=== PATIENT | female | born 1960 | race Caucasian/White ===

== ENCOUNTER 2020-12-26 05:46 | Observation (INO) | payer BC ==
[2020-12-26] MEDS ORDERED: ASPIRIN 81 MG PO STA (06:11)
[2020-12-26] MEDS ORDERED: ONDANSETRON 4 MG/2 ML VIAL IVP STA (06:12)
[2020-12-26] MEDS ORDERED: SODIUM CHLORIDE 0.9% 1,000 ML IV ONE (06:12)
[2020-12-26] MEDS ORDERED: PANTOPRAZOLE 40 MG/10 ML VIAL IVP STA (06:12)
--- NOTE | 2020-12-26 06:15 | ED ---
Chest Pain HPI - General Chief Complaint: Chest Pain Stated Complaint: Chest pain, vomiting Time Seen by Provider: 12/26/20 05:56 Source: patient, family, RN notes reviewed Mode of arrival: ambulatory Limitations: no limitations - History of Present Illness Initial Comments: 60-year-old female presents emergency Department chief complaint of chest pain, nausea, vomiting. Patient states that symptoms started a couple days ago while she was camping and progress and worsen. She states she had some chills, severe nausea states that she's been vomiting and did have some mild diarrhea. Patient states that she did develop some chest discomfort and which the patient has a history of [place] with stent placement. Patient states symptoms progressively worse [place]. She states she does feel weak. No sick contacts. - Related Data Home Medications Medication Instructions Recorded Confirmed Aspirin 325 mg PO DAILY 07/25/14 07/25/14 Atorvastatin [Lipitor] 20 mg PO DAILY 07/25/14 07/25/14 Citalopram Hydrobromide [CeleXA] 20 mg PO DAILY 07/25/14 07/25/14 Metoprolol Tartrate 12.5 mg PO BID 07/25/14 07/25/14 Prasugrel [Effient] 10 mg PO DAILY 07/25/14 07/25/14 Previous Rx's Medication Instructions Recorded Tamsulosin HCl [Flomax] 0.4 mg PO DAILY #10 cap 07/25/14 oxyCODONE HCL [Oxycodone HCl] 5 mg PO Q6HR PRN #15 tablet 07/25/14 Allergies Allergy/AdvReac Type Severity Reaction Status Date / Time No Known Allergies Allergy Verified 12/26/20 05:54 Review of Systems ROS Statement: Those systems with pertinent positive or pertinent negative responses have been documented in the HPI. ROS Other: All systems not noted in ROS Statement are negative. EKG Findings - EKG Comments: EKG Findings:: EKG performed at 6:01 normal sinus rhythm rate of 67 ME 1:30 QRS 84 QT/QTc 440/496 prolonged QT, nonspecific ST changes noted Past Medical History Past Medical History: Coronary Artery Disease (CAD), Myocardial Infarction ([place]) Additional Past Medical History / Comment(s): KIDNEY STONES History of Any Multi-Drug Resistant Organisms: None Reported Past Surgical History: Heart Catheterization With Stent Additional Past Surgical History / Comment(s): lithotripsy Past Psychological History: Anxiety Smoking Status: Current every day smoker Past Alcohol Use History: None Reported Past Drug Use History: None Reported General Exam Limitations: no limitations General appearance: alert, in no apparent distress Head exam: Present: atraumatic, normocephalic, normal inspection Eye exam: Present: normal appearance, PERRL, EOMI. Absent: scleral icterus, conjunctival injection, periorbital swelling ENT exam: Present: normal exam, normal oropharynx, mucous membranes moist Neck exam: Present: normal inspection, full ROM. Absent: tenderness, meningismus, lymphadenopathy Respiratory exam: Present: normal lung sounds bilaterally. Absent: respiratory distress, wheezes, rales, rhonchi, stridor Cardiovascular Exam: Present: regular rate, normal rhythm, normal heart sounds. Absent: systolic murmur, diastolic murmur, rubs, gallop, clicks GI/Abdominal exam: Present: soft, tenderness (Mild epigastric), normal bowel sounds. Absent: distended, guarding, rebound, rigid Neurological exam: Present: alert Skin exam: Present: warm, dry, intact, normal color. Absent: rash Course Vital Signs 12/26/20 05:49 Temperature 98.5 F Pulse Rate 97 Respiratory 24 Rate Blood Pressure 176/85 O2 Sat by Pulse 99 Oximetry Chest Pain MDM - MDM 60-year-old presented for chest pain nausea vomiting just not feeling well troponin is mildly elevated at 0.062, EKG does not show any acute changes patient will be made for cardiac rule out, symptomatic treatment nausea vomiting fluid hydration. Disposition Clinical Impression: Chest pain, Nausea & vomiting, Dehydration Disposition: ADMITTED IP TO THIS HOSP Condition: Fair Referrals: William Alberts DO [Primary Care Provider] - 1-2 days
[2020-12-26 06:21] LABS: Basophils # (A) 0.1 k/uL (0-0.2); Basophils % (A) 0 %; Eosinophils # (A) 0.2 k/uL (0-0.7); Eosinophils % (A) 1 %; HCT 46.4 % (34.0-46.0); Lymphocytes # (A) 2.2 k/uL (1.0-4.8); Lymphocytes % (A) 12 %; MCH 31.3 pg (25.0-35.0); MCHC 32.3 g/dL (31.0-37.0); MCV 96.9 fL (80.0-100.0); Mean Platelet Volume 8.4; Monocytes # (A) 0.8 k/uL (0-1.0); Monocytes % (A) 4 %; Neutrophils # (A) 14.2 k/uL (1.3-7.7); Neutrophils % (A) 81 %; Platelet Count 267 k/uL (150-450); RBC 4.79 m/uL (3.80-5.40); RDW 13.4 % (11.5-15.5); WBC 17.5 k/uL (3.8-10.6)
[2020-12-26 06:32] LABS: Albumin 4.6 g/dL (3.5-5.0); Calcium 9.5 mg/dL (8.4-10.2); Magnesium 1.8 mg/dL (1.6-2.3); Potassium 3.5 mmol/L (3.5-5.1); Total Bilirubin 1.2 mg/dL (0.2-1.3); Total Protein 7.4 g/dL (6.3-8.2)
[2020-12-26 06:38] LABS: INR 1.1 (<1.2); Partial Thromboplastin Time 22.2 sec (22.0-30.0); Prothrombin Time 11.1 sec (9.0-12.0)
--- NOTE | 2020-12-26 06:43 | XR ---
EXAMINATION TYPE: XR chest 2V DATE OF EXAM: 12/26/2020 COMPARISON: Chest x-ray July 25, 2014 HISTORY: Chest pain. TECHNIQUE: Frontal and lateral views of the chest are obtained. FINDINGS: There is mild chronic emphysematous change suspected without suspicious focal air space op acity, pleural effusion, or pneumothorax seen. The cardiac silhouette size remains within normal rubio its. The osseous structures are somewhat demineralized. Overlying EKG leads are in current study. IMPRESSION: No acute process.
[2020-12-26] MEDS ORDERED: NITROGLYCERIN SL TABS 0.4 MG TAB SUBLINGUAL PRN (07:23)
[2020-12-26] MEDS ORDERED: HEPARIN SODIUM 1,000 UN/ML (10ML VL) IV ONE (07:23)
[2020-12-26] MEDS ORDERED: LORazepam 2 MG/ML INJ IV STA (07:27)
[2020-12-26] MEDS: HEPARIN SOD,PORK IN 0.45% NACL 25,000 UNIT in 0.45% NACL 1 250ML.BAG IV SCH (08:17)
[2020-12-26] MEDS: SODIUM CHLORIDE 0.9% 1,000 ML IV SCH ×4 (08:21→23:56)
[2020-12-26] MEDS ORDERED: PRASUGREL 10 MG TAB PO SCH (09:00)
[2020-12-26] MEDS ORDERED: ATORVASTATIN 20 MG TAB PO SCH (09:00)
[2020-12-26] MEDS ORDERED: CITALOPRAM HYDROBROMIDE 20 MG TAB PO SCH ×2 (09:00→21:00)
[2020-12-26] MEDS: METOPROLOL TARTRATE 12.5 MG TAB PO SCH ×2 (09:40→21:00)
--- NOTE | 2020-12-26 11:09 | ECHOF ---
Referral Reason:chest pain MEASUREMENTS -------- HEIGHT: 160.0 cm WEIGHT: 77.1 kg BP: 176/85 IVSd: 1.5 cm (0.6 - 1.1) LVIDd: 4.0 cm (3.9 - 5.3) LVPWd: 1.5 cm (0.6 - 1.1) IVSs: 1.7 cm LVIDs: 2.9 cm LVPWs: 1.7 cm LAESV Index (A-L): 23.26 ml/m Ao Diam: 3.4 cm (2.0 - 3.7) AV Cusp: 1.9 cm (1.5 - 2.6) MV EXCURSION: 20.180 mm (> 18.000) MV EF SLOPE: 143 mm/s (70 - 150) EPSS: 1.0 cm MV E Toribio: 0.47 m/s MV DecT: 156 ms MV A Toribio: 0.94 m/s MV E/A Ratio: 0.50 RAP: 5.00 mmHg RVSP: 24.30 mmHg FINDINGS -------- Sinus rhythm. This was a technically adequate study. The left ventricular size is normal. There is moderate concentric left ventricular hypertrophy. O verall left ventricular systolic function is low-normal with, an EF between 50 - 55 %. The right ventricle is normal in size. Normal LA size by volume 22+/-6 ml/m2. The right atrial size is normal. Interatrial and interventricular septum intact. There is no evidence of aortic regurgitation. There is no evidence of aortic stenosis. There is trace mitral regurgitation. Mild tricuspid regurgitation present. There is no evidence of pulmonary hypertension. The right v entricular systolic pressure, as measured by Doppler, is 24.30mmHg. There is no pulmonic regurgitation present. The aortic root size is normal. IVC Not well visulized. There is no pericardial effusion. CONCLUSIONS -------- 1. The left ventricular size is normal. 2. There is moderate concentric left ventricular hypertrophy. 3. Overall left ventricular systolic function is low-normal with, an EF between 50 - 55 %. 4. There is trace mitral regurgitation. 5. Mild tricuspid regurgitation present. RODEO PERFORMER: Cailin [facility]
[2020-12-26] MEDS: amLODIPine 5 MG TAB PO SCH (11:50)
--- NOTE | 2020-12-26 11:54 | P.CRDCN ---
History of Present Illness History of present illness: HISTORY OF PRESENTING ILLNESS This is a pleasant 60-year-old female past medical history significant for coronary artery disease, myocardial infarction status post stent placement a bout 5-7 years ago (Patient is unaware of specific details but states she thinks it was one stent in the front), Chronic nicotine dependence (smokes 1PPD). She used to follow with Dr. Giang, states she has not seen him in about 2-3 years. He was the cold roll operator that saw her at [facility] when she had her [place] about 7 years ago. We have been asked to see in consultation for chest pain and elevated troponin. Patient is seen and examined in the emergency department, at bedside. Patient and states that they're traveling over the weekend and early this week to [facility]. In the car for about 2 hours there and back. Patient was feeling fine, however, on she started to exhibit abdominal pain, nausea and vomiting and diarrhea. She also started to have left sided chest pain. Describes it as dull. It is non- radiating, non-exertional. Associated symptoms include shortness of breath. Nothing made the chest pain better. Vomiting makes the chest pain worse. She only has chest pain when she vomits. She states that walking made her shortness of breath a little worse. Her and her had [employer] earlier that day but they both ate the same meal and her states he did not feel sick. She denies diarrhea. She denies palpitations, lower extremity edema, fatigue, weakness, lightheadedness, syncope. Denies symptoms of orthopnea or PND. Denies history of hypertension, diabetes, or stroke. Denies alcohol and illicit drug use. Current home cardiac medications include metoprolol tartrate 12.5mg twice a day, atorvastatin 10 mg nightly.. DIAGNOSTICS EKG reveals sinus rhythm, heart rate 67, no significant STT wave abnormalities, prolonged QTC 496ms. Prior EKG in 2015 is similar Telemetry tracings at bedside reveal sinus tachycardia Chest xray No acute cardiopulmonary process Laboratory reviewed, WBC 17.5, hemoglobin 15, platelets 267, d-dimer 0.62, sodium 136, potassium 3.5, serum creatinine 0.93, P1 23, magnesium 1.8, troponin s 0.06, lipase 337 REVIEW OF SYSTEMS At the time of my exam: CONSTITUTIONAL: Denies fever or chills. CARDIOVASCULAR: +left sided chest pain + shortness of breath, Denies orthopnea, PND or palpitations. RESPIRATORY: Denies cough. GASTROINTESTINAL: +abdominal pain, +nausea +vomiting, +diarrhea Denies constipation MUSCULOSKELETAL: Denies myalgias. NEUROLOGIC: Denies numbness, tingling, headache or weakness. ENDOCRINE: Denies fatigue, weight change, polydipsia or polyurina. GENITOURINARY: Denies burning, hematuria or urgency with micturation. HEMATOLOGIC: Denies history of anemia or bleeding. PHYSICAL EXAMINATION Blood pressure 166/80 heart rate 94 afebrile and maintaining oxygen saturation 98% on 2 L nasal cannula CONSTITUTIONAL: No apparent distress. HEENT: Head is normocephalic. Pupils are equal, round. Sclerae anicteric. Mucous membranes of the mouth are moist. No JVD. No carotid bruit. CHEST EXAMINATION: Lungs are clear to auscultation. No chest wall tenderness is noted on palpation or with deep breathing. HEART EXAMINATION: Regular, tachycardic rate and rhythm. S1, S2 heard. No murmurs, gallops or rub. ABDOMEN: Soft, some RUQ pain with palpation. Positive bowel sounds. EXTREMITIES: 2+ peripheral pulses, no lower extremity edema and no calf tenderness. SKIN: intact NEUROLOGIC EXAMINATION: Patient is awake, alert and oriented x3. ASSESSMENT Chest pain, atypical. Mildly elevated troponin, no ischemic changes on EKG. Nausea, Vomiting, Abdominal pain, Diarrhea Elevated Lipase Leukocytosis Coronary artery disease s/p PCI about 7 years ago (unknown details) Chronic nicotine dependence Hypertension PLAN Will obtain records from [facility] with Dr. Giang Obtain 2D echocardiogram and doppler study to assess cardiac structure and function. Lipid Panel Check Amylase Recommend US of patient's gallbladder Continue aspirin 81mg daily, statin Continue heparin drip for 24 hours Continue metoprolol 12.5mg BID Start amlodipine 5mg daily Stop Prasugrel Smoking cessation discussed and highly recommended. Rest of management per Primary Further recommendations to follow Nurse Practitioner note has been reviewed, I agree with a documented findings and plan of care. Patient was seen and examined. Past Medical History Past Medical History: Coronary Artery Disease (CAD), Myocardial Infarction ([place]) Additional Past Medical History / Comment(s): KIDNEY STONES History of Any Multi-Drug Resistant Organisms: None Reported Past Surgical History: Heart Catheterization With Stent Additional Past Surgical History / Comment(s): lithotripsy Past Psychological History: Anxiety Smoking Status: Current every day smoker Past Alcohol Use History: None Reported Past Drug Use History: None Reported Medications and Allergies Home Medications Medication Instructions Recorded Confirmed Type Metoprolol Tartrate 12.5 mg PO BID 07/25/14 12/26/20 History ALPRAZolam [Xanax] 0.5 mg PO BID PRN 12/26/20 12/26/20 History Albuterol Sulfate [Ventolin HFA] 2 puff INHALATION RT-Q4H PRN 12/26/20 12/26/20 History Atorvastatin [Lipitor] 10 mg PO HS 12/26/20 12/26/20 History Citalopram Hydrobromide [CeleXA] 40 mg PO HS 12/26/20 12/26/20 History Allergies Allergy/AdvReac Type Severity Reaction Status Date / Time No Known Allergies Allergy Verified 12/26/20 07:36 Physical Exam Vitals: Vital Signs Temp Pulse Resp BP Pulse Ox 12/26/20 05:49 98.5 F 97 24 176/85 99 Intake and Output 12/25/20 12/26/20 12/26/20 22:59 06:59 14:59 Other: Weight 77.111 kg Results 12/26/20 06:14 12/26/20 06:14 Cardiac Enzymes 12/26/20 12/26/20 Range/Units 06:14 06:14 AST 32 (14-36) U/L Troponin I 0.061 H* (0.000-0.034) ng/mL Coagulation 12/26/20 Range/Units 06:14 PT 11.1 (9.0-12.0) sec APTT 22.2 (22.0-30.0) sec CBC 12/26/20 Range/Units 06:14 WBC 17.5 H (3.8-10.6) k/uL RBC 4.79 (3.80-5.40) m/uL Hgb 15.0 (11.4-16.0) gm/dL Hct 46.4 H (34.0-46.0) % Plt Count 267 (150-450) k/uL Comprehensive Metabolic Panel 12/26/20 Range/Units 06:14 Sodium 136 L (137-145) mmol/L Potassium 3.5 (3.5-5.1) mmol/L Chloride 105 (98-107) mmol/L Carbon Dioxide 15 L (22-30) mmol/L BUN 23 H (7-17) mg/dL Creatinine 0.93 (0.52-1.04) mg/dL Glucose 120 H (74-99) mg/dL Calcium 9.5 (8.4-10.2) mg/dL AST 32 (14-36) U/L ALT 32 (4-34) U/L Alkaline Phosphatase 185 H (38-126) U/L Total Protein 7.4 (6.3-8.2) g/dL Albumin 4.6 (3.5-5.0) g/dL Current Medications Generic Name Dose Route Start Last Admin Trade Name Freq PRN Reason Stop Dose Admin Aspirin 325 mg 12/27/20 09:00 Aspirin 325 Mg Tab PO DAILY [facility] Atorvastatin Calcium 20 mg 12/26/20 09:00 12/26/20 08:14 Atorvastatin 20 Mg Tab PO 20 mg DAILY MARIUM Administration Citalopram Hydrobromide 20 mg 12/26/20 09:00 Citalopram Hydrobromide 20 Mg Tab PO DAILY [facility] Heparin Sodium/Sodium Chloride 250 mls @ 9.253 mls/hr 12/26/20 07:30 12/26/20 08:17 25,000 unit/ Sodium Chloride IV 12 units/kg/hr .Q24H MARIUM 9.253 mls/hr Administration Protocol 12 UNITS/KG/HR Sodium Chloride 1,000 mls @ 75 mls/hr 12/26/20 07:30 Saline 0.9% IV .[id number] [facility] Metoprolol Tartrate 12.5 mg 12/26/20 09:00 Metoprolol Tartrate 12.5 Mg Tab PO BID [facility] Nitroglycerin 0.4 mg 12/26/20 07:23 Nitroglycerin Sl Tabs 0.4 Mg Tab SUBLINGUAL Q5M PRN Chest Pain Oxycodone HCl 5 mg 12/26/20 07:27 12/26/20 08:14 Oxycodone Hcl 5 Mg Tab PO 5 mg Q6HR PRN Administration Pain Prasugrel 10 mg 12/26/20 09:00 Prasugrel 10 Mg Tab PO DAILY [facility] Intake and Output 12/25/20 12/26/20 12/26/20 22:59 06:59 14:59 Other: Weight 77.111 kg 12/26/20 06:14 12/26/20 06:14
[2020-12-26] MEDS ORDERED: ALBUTEROL NEBULIZED 2.5 MG/3 ML INHALATION PRN (12:13)
--- NOTE | 2020-12-26 13:33 | US ---
EXAMINATION TYPE: US gallbladder DATE OF EXAM: 12/26/2020 COMPARISON: CT 2014 CLINICAL HISTORY: RUQ pain, Elevated Lipase. EXAM MEASUREMENTS: Liver Length: 11.8 cm, the liver size is thought to be under represented Gallbladder Wall: 0.3 cm CBD: 0.6cm Right Kidney: 9.8 x 4.2 x 4.8 cm Pancreas: not well visualized Liver: There is no evident mass or dilated intra or extrahepatic biliary duct and the liver shows a somewhat coarse echotexture Gallbladder: layering sludge, gallbladder somewhat hydropic Evidence for sonographic Call's sign: Yes CBD: measures 0.6 cm Right Kidney: No hydronephrosis or masses seen, and there is diffuse echo near the cortical medullar y differentiation, cortical thinning of the right kidney IMPRESSION: There are limitations to the exam. There is likely tumefactive sludge within the gallblad chepe, common bile duct at the upper limit of normal for size, there is sonographic Call's sign accor ding to the technologist. 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 Possible hepatomegaly, questionable coarse and liver echotexture, there may be underlying hepatocellular disease.
--- NOTE | 2020-12-26 14:53 | P.HPIM ---
History of Present Illness Patient wasn't a 60-year-old female came in with complains of nausea vomiting diarrhea has been going on for about 2 days. Patient is also comparing of body aches denied any fever chills patient was tested for Covid 19 which was neg ative. Patient started having chest pain because of nausea vomiting which appears to be musculoskeletal but cardiology was consulted because of mildly elevated troponins up to 0.06 and fairly stable at that level EKG did not show any significant ST-T wave changes did show sinus tachycardia. Chest x-ray did not show any significant abnormality but patient denied any obvious abdominal pain to me. Gallbladder ultrasound was ordered by cardiology which showed mild biliary sludge clinically patient doesn't have any positive Call's sign. Review of Systems REVIEW OF SYSTEMS: CONSTITUTIONAL: No fever, no malaise, no fatigue. HEENT: No recent visual problems or hearing problems. Denied any sore throat. CARDIOVASCULAR: No chest pain, orthopnea, PND, no palpitations, no syncope. PULMONARY: No shortness of breath, no cough, no hemoptysis. GASTROINTESTINAL: As mentioned in HPI NEUROLOGICAL: No headaches, no weakness, no numbness. HEMATOLOGICAL: Denies any bleeding or petechiae. GENITOURINARY: Denies any burning micturition, frequency, or urgency. MUSCULOSKELETAL/RHEUMATOLOGICAL: Denies any joint pain, swelling, or any muscle pain. ENDOCRINE: Denies any polyuria or polydipsia. The rest of the 14-point review of systems is negative. Past Medical History Past Medical History: Coronary Artery Disease (CAD), Myocardial Infarction ([place]) Additional Past Medical History / Comment(s): KIDNEY STONES History of Any Multi-Drug Resistant Organisms: None Reported Past Surgical History: Heart Catheterization With Stent Additional Past Surgical History / Comment(s): lithotripsy Past Psychological History: Anxiety Smoking Status: Current every day smoker Past Alcohol Use History: None Reported Past Drug Use History: None Reported Medications and Allergies Home Medications Medication Instructions Recorded Confirmed Type Metoprolol Tartrate 12.5 mg PO BID 07/25/14 12/26/20 History ALPRAZolam [Xanax] 0.5 mg PO BID PRN 12/26/20 12/26/20 History Albuterol Sulfate [Ventolin HFA] 2 puff INHALATION RT-Q4H PRN 12/26/20 12/26/20 History Atorvastatin [Lipitor] 10 mg PO HS 12/26/20 12/26/20 History Citalopram Hydrobromide [CeleXA] 40 mg PO HS 12/26/20 12/26/20 History Allergies Allergy/AdvReac Type Severity Reaction Status Date / Time No Known Allergies Allergy Verified 12/26/20 07:36 Physical Exam Vitals: Vital Signs Temp Pulse Resp BP Pulse Ox 12/26/20 14:37 84 17 155/84 100 12/26/20 11:32 91 18 151/82 97 12/26/20 08:22 94 16 166/80 98 12/26/20 05:49 98.5 F 97 24 176/85 99 Intake and Output 12/25/20 12/26/20 12/26/20 22:59 06:59 14:59 Other: Weight 77.111 kg PHYSICAL EXAMINATION: GENERAL: The patient is alert and oriented x3, not in any acute distress. Well developed, well nourished. HEENT: Pupils are round and equally reacting to light. EOMI. No scleral icterus. No conjunctival pallor. Normocephalic, atraumatic. No pharyngeal erythema. No thyromegaly. CARDIOVASCULAR: S1 and S2 present. No murmurs, rubs, or gallops. PULMONARY: Chest is clear to auscultation, no wheezing or crackles. ABDOMEN: Soft, nontender, nondistended, normoactive bowel sounds. No palpable organomegaly. MUSCULOSKELETAL: No joint swelling or deformity. EXTREMITIES: No cyanosis, clubbing, or pedal edema. NEUROLOGICAL: Gross neurological examination did not reveal any focal deficits. SKIN: No rashes. Results CBC & Chem 7: 12/26/20 06:14 12/26/20 06:14 Labs: Abnormal Lab Results - Last 24 Hours (Table) 12/26/20 12/26/20 12/26/20 Range/Units 06:14 06:14 06:14 WBC 17.5 H (3.8-10.6) k/uL Hct 46.4 H (34.0-46.0) % Neutrophils # 14.2 H (1.3-7.7) k/uL APTT (22.0-30.0) sec D-Dimer (<0.60) mg/L FEU Sodium 136 L (137-145) mmol/L Carbon Dioxide 15 L (22-30) mmol/L BUN 23 H (7-17) mg/dL Glucose 120 H (74-99) mg/dL Alkaline Phosphatase 185 H (38-126) U/L Troponin I 0.061 H* (0.000-0.034) ng/mL Lipase 337 H (23-300) U/L 12/26/20 12/26/20 12/26/20 Range/Units 06:15 09:31 12:37 WBC (3.8-10.6) k/uL Hct (34.0-46.0) % Neutrophils # (1.3-7.7) k/uL APTT (22.0-30.0) sec D-Dimer 0.62 H (<0.60) mg/L FEU Sodium (137-145) mmol/L Carbon Dioxide (22-30) mmol/L BUN (7-17) mg/dL Glucose (74-99) mg/dL Alkaline Phosphatase (38-126) U/L Troponin I 0.061 H* 0.042 H* (0.000-0.034) ng/mL Lipase (23-300) U/L 12/26/20 Range/Units 13:47 WBC (3.8-10.6) k/uL Hct (34.0-46.0) % Neutrophils # (1.3-7.7) k/uL APTT 44.2 H (22.0-30.0) sec D-Dimer (<0.60) mg/L FEU Sodium (137-145) mmol/L Carbon Dioxide (22-30) mmol/L BUN (7-17) mg/dL Glucose (74-99) mg/dL Alkaline Phosphatase (38-126) U/L Troponin I (0.000-0.034) ng/mL Lipase (23-300) U/L Assessment and Plan Plan: Nausea vomiting diarrhea: Most probably secondary to viral gastroenteritis chest pain is musculoskeletal rule out acute medicine syndromes cardiology evaluated the patient. -Mild biliary surgeon incidental finding to the surgery will be consulted. -Mild elevation of troponin: Clinically doesn't appear to have microinfarction at this time -Mild nonspecific elevation of lipase -Coronary artery disease status post PTCA in the past -Nicotine dependence: Counseling was provided -Hypertension -Anion gap metabolic acidosis probably had lactic acidosis on admission secondary to nausea vomiting intravascular volume depletion. Mild elevation of d-dimer normal for her age no further intervention or testing is necessary at this time -Leukocytosis secondary to viral gastroenteritis. Patient will be monitored overnight patient was started on IV fluids possibility of discharge tomorrow
[2020-12-26] MEDS: LORazepam 2 MG/ML INJ IV PRN (18:33)
[2020-12-26] MEDS ORDERED: ATORVASTATIN 10 MG TAB PO SCH (21:00)
[2020-12-26] MEDS: PANTOPRAZOLE 40 MG/10 ML VIAL IVP SCH (21:00)
[2020-12-26 21:17] LABS: Appearance,Urine Clear (Clear); Bacteria,Urine Rare /hpf; Bilirubin,Urine Negative (Negative); Blood,Urine Large (Negative); Calcium Oxalate Crystals,Urine Rare /hpf; Color,Urine Light Yellow; Glucose,Urine (UA) Negative (Negative); Ketones,Urine 1+ (Negative); Leukocyte Esterase,Urine Negative (Negative); Nitrite,Urine Negative (Negative); PH, Urine 6.5 (5.0-8.0); Protein,Urine Negative (Negative); RBC,Urine 16 /hpf (0-5); Specific Gravity,Urine 1.006 (1.001-1.035); Squamous Epithelial Cell,Urine <1 /hpf (0-4); Urobilinogen,Urine <2.0 mg/dL (<2.0); WBC,Urine 3 /hpf (0-5)
[2020-12-27] MEDS: LORazepam 2 MG/ML INJ IV PRN ×2 (00:29→09:41)
[2020-12-27] MEDS: SODIUM CHLORIDE 0.9% 1,000 ML IV SCH (00:44)
[2020-12-27] MEDS: HEPARIN SOD,PORK IN 0.45% NACL 25,000 UNIT in 0.45% NACL 1 250ML.BAG IV SCH (02:37)
[2020-12-27] MEDS ORDERED: ASPIRIN 325 MG TAB PO SCH (09:00)
[2020-12-27] MEDS ORDERED: ASPIRIN 81 MG PO SCH (09:00)
[2020-12-27] MEDS: PANTOPRAZOLE 40 MG/10 ML VIAL IVP SCH (09:29)
[2020-12-27] MEDS: METOPROLOL TARTRATE 12.5 MG TAB PO SCH (09:29)
[2020-12-27] MEDS: amLODIPine 5 MG TAB PO SCH (09:30)
[2020-12-27 09:46] VITALS: PULSE 61; TEMP 98.4
--- NOTE | 2020-12-27 10:15 | P.GSCN ---
History of Present Illness Consult date: 12/27/20 Reason for Consult: abdominal pain History of present illness: this is a 58-year-old female who presented through the emergency room with compl aints of epigastric abdominal pain. She was worked up found have evidence of biliary sludge. She states her pain is improved. The pain did radiate to her back. Past Medical History Past Medical History: Coronary Artery Disease (CAD), Hyperlipidemia, Myocardial Infarction ([place]) Additional Past Medical History / Comment(s): Pleurisy, diverticular disease, benign colon polyp. Last Myocardial Infarction Date:: 2012 History of Any Multi-Drug Resistant Organisms: None Reported Past Surgical History: Heart Catheterization With Stent, Tubal Ligation Additional Past Surgical History / Comment(s): lithotripsy, colonoscopy/polypectomy Past Anesthesia/Blood Transfusion Reactions: No Reported Reaction Additional Past Anesthesia/Blood Transfusion Reaction / Comm: Pt has clausterphobia. Date of Last Stent Placement:: 2012 Harrison Connor Smoking Status: Current every day smoker - Past Family History Father Family Medical History: Myocardial Infarction ([place]) Additional Family Medical History / Comment(s): Father of a [place] at the age of 46yrs. Mother Family Medical History: Cancer Additional Family Medical History / Comment(s): Mother had colon cancer and from sepsis in her port a cath. Medications and Allergies Home Medications Medication Instructions Recorded Confirmed Type Metoprolol Tartrate 12.5 mg PO BID 07/25/14 12/26/20 History ALPRAZolam [Xanax] 0.5 mg PO BID PRN 12/26/20 12/26/20 History Albuterol Sulfate [Ventolin HFA] 2 puff INHALATION RT-Q4H PRN 12/26/20 12/26/20 History Atorvastatin [Lipitor] 10 mg PO HS 12/26/20 12/26/20 History Citalopram Hydrobromide [CeleXA] 40 mg PO HS 12/26/20 12/26/20 History Allergies Allergy/AdvReac Type Severity Reaction Status Date / Time No Known Allergies Allergy Verified 12/26/20 07:36 Surgical - Exam Vital Signs Temp Pulse Resp BP Pulse Ox 98.5 F 97 24 176/85 99 12/26/20 05:49 12/26/20 05:49 12/26/20 05:49 12/26/20 05:49 12/26/20 05:49 - General well developed, well nourished, no distress - Eyes PERRL - ENT normal pinna - Neck no masses - Respiratory normal expansion - Cardiovascular Rhythm: regular - Abdomen mild right upper quadrant tenderness Abdomen: soft Results - Labs 12/26/20 06:14 12/26/20 06:14 Abnormal Lab Results - Last 24 Hours (Table) 12/26/20 12/26/20 12/26/20 Range/Units 07:22 09:31 12:37 APTT (22.0-30.0) sec Troponin I 0.061 H* 0.042 H* (0.000-0.034) ng/mL Urine Ketones 1+ H (Negative) Urine Blood Large H (Negative) Urine RBC 16 H (0-5) /hpf Calcium Oxalate Crystal Rare H (None) /hpf Urine Bacteria Rare H (None) /hpf 12/26/20 12/27/20 Range/Units 13:47 09:07 APTT 44.2 H 41.8 H (22.0-30.0) sec Troponin I (0.000-0.034) ng/mL Urine Ketones (Negative) Urine Blood (Negative) Urine RBC (0-5) /hpf Calcium Oxalate Crystal (None) /hpf Urine Bacteria (None) /hpf Assessment and Plan Assessment: abdominal pain Biliary sludge Patient will be scheduled for laparoscopic cholecystectomy on Tuesday.
[2020-12-27 10:34] LABS: African American GFR (CKD) >90 (>60 ml/min/1.73 sqM); Anion Gap 7 mmol/L; Blood Urea Nitrogen 17 mg/dL (7-17); Calcium 8.8 mg/dL (8.4-10.2); Carbon Dioxide 21 mmol/L (22-30); Chloride 110 mmol/L (98-107); Glucose 74 mg/dL (74-99); Non-African American GFR(CKD) 85 (>60 ml/min/1.73 sqM); Potassium 3.5 mmol/L (3.5-5.1); Sodium 138 mmol/L (137-145)
[2020-12-27 12:39] VITALS: BP 130/66; RESP 16
--- NOTE | 2020-12-27 13:09 | PN ---
PROGRESS NOTE HISTORY: Ms. Rhodes is a 60-year-old female known history of hypertension and hyperlipidemia who presented with symptoms of nausea and vomiting, chest discomfort with vomiting and abdominal pain. She had an elevation of her lipase and mild elevation of her troponin. She is feeling better this morning. Her breathing is stable. She denies any chest pain. No dizziness. She has no further nausea or vomiting. She had a gallbladder ultrasound performed yesterday that revealed sludge within the gallbladder. Her echocardiogram revealed a preserved left ventricular size and systolic function. There was no significant valvular disease. She continues to be at this time on aspirin once a day, amlodipine 5 mg daily, IV heparin, metoprolol 25 mg twice a day. PHYSICAL EXAMINATION: Blood pressure 130/60 with a heart rate 60. LUNGS: Clear. HEART: Regular rhythm S1, S2. No S3 with a systolic murmur. No diastolic murmur no rub. ABDOMEN: Soft nontender. EXTREMITIES: No edema. LAB DATA: BUN and creatinine of 17 and 0.76, potassium 3.5. IMPRESSION: 1. Abdominal pain with nausea and vomiting and elevated lipase with evidence of sludge in the gallbladder, evaluated by the surgical team and scheduled for cholecystectomy on Tuesday. 2. Mild troponin elevation with no evidence of acute ischemic event. 3. History of hypertension. 4. Hyperlipidemia. RECOMMENDATIONS: I will stop her heparin. Continue rest of medical regimen. Depending on her progress, further recommendation will be made. MMODL / IJN: [id number] /
[2020-12-27 13:33] VITALS: BMI 28.5
--- NOTE | 2020-12-27 13:59 | P.DS ---
Providers Date of admission: 12/26/20 07:25 Attending physician: Alvaro Mckinley Consults: 12/26/20 07:23 Consult Physician Urgent Consulting Provider: Dave Raymond Consult Reason/Comments: chest pain Do you want consulting provider notified?: Yes 12/26/20 14:48 Consult Physician Routine Consulting Provider: Ben Baxter Consult Reason/Comments: Biliary sludge Do you want consulting provider notified?: Yes Primary care physician: [facility] Course: Patient wasn't a 60-year-old female came in with complains of nausea vomiting diarrhea has been going on for about 2 days. Patient is also comparing of body aches denied any fever chills patient was tested for Covid 19 which was negative. Patient started having chest pain because of nausea vomiting which appears to be musculoskeletal but cardiology was consulted because of mildly elevated troponins up to 0.06 and fairly stable at that level EKG did not show any significant ST-T wave changes did show sinus tachycardia. Chest x-ray did not show any significant abnormality but patient denied any obvious abdominal pain to me. Gallbladder ultrasound was ordered by cardiology which showed mild biliary sludge clinically patient doesn't have any positive Call's sign. 12/27/2020 Patient is currently doing well. Patient had 2 episodes of diarrhea. Patient was a evaluated by general surgery patient will undergo cholecystectomy on Tuesday patient will be discharged today. Patient was asked to remain nothing by mouth after midnight Tuesday. PHYSICAL EXAMINATION: GENERAL: The patient is alert and oriented x3, not in any acute distress. Well developed, well nourished. HEENT: Pupils are round and equally reacting to light. EOMI. No scleral icterus. No conjunctival pallor. Normocephalic, atraumatic. No pharyngeal erythema. No thyromegaly. CARDIOVASCULAR: S1 and S2 present. No murmurs, rubs, or gallops. PULMONARY: Chest is clear to auscultation, no wheezing or crackles. ABDOMEN: Soft, nontender, nondistended, normoactive bowel sounds. No palpable organomegaly. MUSCULOSKELETAL: No joint swelling or deformity. EXTREMITIES: No cyanosis, clubbing, or pedal edema. NEUROLOGICAL: Gross neurological examination did not reveal any focal deficits. SKIN: No rashes. Assessment and Plan Plan: Nausea vomiting diarrhea: Most probably secondary to viral gastroenteritis chest pain is musculoskeletal rule out coronary syndromes syndromes cardiology evaluated the patient. Patient was cleared for discharge. -Biliary sludge: Cholecystectomy on Tuesday -Mild elevation of troponin: Clinically doesn't appear to have myocardial infarction at this time -Mild nonspecific elevation of lipase -Coronary artery disease status post PTCA in the past -Nicotine dependence: Counseling was provided -Hypertension -Anion gap metabolic acidosis probably had lactic acidosis on admission secondary to nausea vomiting intravascular volume depletion. Mild elevation of d-dimer normal for her age no further intervention or testing is necessary at this time -Leukocytosis secondary to viral gastroenteritis. Patient Condition at Discharge: Fair Plan - Discharge Summary Discharge Rx Participant: No New Discharge Prescriptions: New Metoprolol Tartrate [Lopressor] 25 mg PO BID #60 tab amLODIPine [Norvasc] 5 mg PO DAILY #30 tab Famotidine [Pepcid] 20 mg PO BID #14 tablet Continue Citalopram Hydrobromide [CeleXA] 40 mg PO HS Atorvastatin [Lipitor] 10 mg PO HS Albuterol Sulfate [Ventolin HFA] 2 puff INHALATION RT-Q4H PRN PRN Reason: Shortness Of Breath ALPRAZolam [Xanax] 0.5 mg PO BID PRN PRN Reason: Anxiety Discontinued Metoprolol Tartrate 12.5 mg PO BID Discharge Medication List ALPRAZolam [Xanax] 0.5 mg PO BID PRN 12/26/20 [History] Albuterol Sulfate [Ventolin HFA] 2 puff INHALATION RT-Q4H PRN 12/26/20 [History] Atorvastatin [Lipitor] 10 mg PO HS 12/26/20 [History] Citalopram Hydrobromide [CeleXA] 40 mg PO HS 12/26/20 [History] Famotidine [Pepcid] 20 mg PO BID #14 tablet 12/27/20 [Rx] Metoprolol Tartrate [Lopressor] 25 mg PO BID #60 tab 12/27/20 [Rx] amLODIPine [Norvasc] 5 mg PO DAILY #30 tab 12/27/20 [Rx] Follow up Appointment(s)/Referral(s): William Alberts DO [Primary Care Provider] - 3 Days Dave Raymond MD [STAFF PHYSICIAN] - 1 Week Discharge Disposition: HOME SELF-CARE
[2020-12-27 20:40] LABS: Chol/HDL Ratio 4.24; Cholesterol 178 mg/dL (0-200); LDL Cholesterol,Calculated 113.2 mg/dL (0.0-131.0)
[2020-12-27] MEDS ORDERED: CITALOPRAM HYDROBROMIDE 20 MG TAB PO SCH (21:00)
[2020-12-27] MEDS ORDERED: METOPROLOL TARTRATE 25 MG TAB PO SCH (21:00)
== END 2020-12-27 15:00 | disposition home or self-care (01) ==
LOC: EC 05:46 → 3SCARD 07:25
PROVIDERS: ADMIT Hospitalist; ATTEND Hospitalist
DX: A08.4 Viral intestinal infection, unspecified (principal); R74.8 Abnormal levels of other serum enzymes; I25.10 Atherosclerotic heart disease of native coronary artery without angina pectoris; I10 Essential (primary) hypertension; R00.0 Tachycardia, unspecified; E87.2 Acidosis; Z20.822 Contact with and (suspected) exposure to COVID-19; E86.0 Dehydration; E78.5 Hyperlipidemia, unspecified; K57.90 Diverticulosis of intestine, part unspecified, without perforation or abscess without bleeding; I25.2 Old myocardial infarction; F41.9 Anxiety disorder, unspecified; F40.240 Claustrophobia; Z79.899 Other long term (current) drug therapy; Z79.82 Long term (current) use of aspirin; Z79.02 Long term (current) use of antithrombotics/antiplatelets; Z87.442 Personal history of urinary calculi; F17.210 Nicotine dependence, cigarettes, uncomplicated; Z86.010 Personal history of colon polyps; Z87.19 Personal history of other diseases of the digestive system; Z95.5 Presence of coronary angioplasty implant and graft; Z82.49 Family history of ischemic heart disease and other diseases of the circulatory system; Z80.0 Family history of malignant neoplasm of digestive organs
CPT/HCPCS: 96366 ×2; 96376 ×3; 96361; 96365; 96375; 99285; 36415; 93005; 93306; 85379; 80061; 80053; 80048; 82150; 83690; 83735; 84484; 85025; 85610; 85730 ×2; 81001; 87635; 71046; 76705; G0378 ×2; J2060 ×2; J2405; J1644 ×3; C9113 ×2

== ENCOUNTER 2020-12-29 08:26 | Day surgery (SDC) | payer BC ==
[2020-12-29] MEDS ORDERED: LACTATED RINGERS 1,000 ML IV ONE ×2 (09:12→14:36)
[2020-12-29] MEDS ORDERED: LIDOCAINE 1% (10MG/ML) FOR IV START INTRADERMA ONE (09:12)
[2020-12-29] MEDS ORDERED: ONDANSETRON 4 MG/2 ML VIAL ONE (09:18)
[2020-12-29] MEDS ORDERED: ONDANSETRON 4 MG/2 ML VIAL IVP ONE (09:22)
[2020-12-29] MEDS ORDERED: DEXAMETHASONE SOD PHOSPHATE 4 MG/ML 1 ML VIAL IV ONE (09:22)
[2020-12-29] MEDS ORDERED: HEPARIN SODIUM,PORCINE/PF 5,000 UNIT/0.5 ML SYRINGE SQ STA (11:03)
[2020-12-29] MEDS ORDERED: HEPARIN SODIUM,PORCINE/PF 5,000 UNIT/0.5 ML SYRINGE SQ ONE (11:06)
--- NOTE | 2020-12-29 11:10 | P.GSHP ---
History of Present Illness H&P Date: 12/29/20 Chief Complaint: cholelithiasis is a 60-year-old female who presents today for laparoscopic ccholecystectomy.patient had a recent hospital admission for abdominal pain. She is found have evidence of biliary sludge and cholelithiasis. Past Medical History Past Medical History: Coronary Artery Disease (CAD), Hyperlipidemia, Myocardial Infarction ([place]) Additional Past Medical History / Comment(s): Pleurisy, diverticular disease, benign colon polyp. Last Myocardial Infarction Date:: 2012 History of Any Multi-Drug Resistant Organisms: None Reported Past Surgical History: Heart Catheterization With Stent, Tubal Ligation Additional Past Surgical History / Comment(s): lithotripsy, colonoscopy/polypectomy Past Anesthesia/Blood Transfusion Reactions: No Reported Reaction Additional Past Anesthesia/Blood Transfusion Reaction / Comment(s): Pt has clausterphobia. Date of Last Stent Placement:: 2012 Harrison Connor Smoking Status: Current every day smoker - Past Family History Father Family Medical History: Myocardial Infarction ([place]) Additional Family Medical History / Comment(s): Father of a [place] at the age of 46yrs. Mother Family Medical History: Cancer Additional Family Medical History / Comment(s): Mother had colon cancer and from sepsis in her port a cath. Medications and Allergies Home Medications Medication Instructions Recorded Confirmed Type ALPRAZolam [Xanax] 0.5 mg PO BID PRN 12/26/20 12/29/20 History Albuterol Sulfate [Ventolin HFA] 2 puff INHALATION RT-Q4H PRN 12/26/20 12/29/20 History Atorvastatin [Lipitor] 10 mg PO HS 12/26/20 12/29/20 History Citalopram Hydrobromide [CeleXA] 40 mg PO HS 12/26/20 12/29/20 History Famotidine [Pepcid] 20 mg PO BID #14 tablet 12/27/20 12/29/20 Rx Metoprolol Tartrate [Lopressor] 25 mg PO BID #60 tab 12/27/20 12/29/20 Rx amLODIPine [Norvasc] 5 mg PO DAILY #30 tab 12/27/20 12/29/20 Rx Allergies Allergy/AdvReac Type Severity Reaction Status Date / Time No Known Allergies Allergy Verified 12/29/20 09:00 Surgical - Exam Vital Signs Temp Pulse Resp BP Pulse Ox 99.2 F 80 16 153/68 96 12/29/20 08:53 12/29/20 08:53 12/29/20 08:53 12/29/20 08:53 12/29/20 08:53 - General well developed, well nourished, no distress - Eyes PERRL - ENT normal pinna - Respiratory normal expansion - Cardiovascular Rhythm: regular - Abdomen Abdomen: soft, non tender Assessment and Plan Assessment: cholelithiasis. We'll perform laparoscopic cholecystectomy
[2020-12-29] MEDS ORDERED: PROPOFOL 10 MG/ML 20 ML VIAL IV ONE (11:24)
[2020-12-29] MEDS ORDERED: HYDROmorphone (PF) 1 MG/ML ONE (11:24)
[2020-12-29] MEDS ORDERED: LIDOCAINE 1% INJ 10MG/ML (20 ML MDV) ONE (11:24)
[2020-12-29] MEDS ORDERED: GLYCOPYRROLATE 0.2 MG/ML 2 ML VIAL ONE (11:24)
[2020-12-29] MEDS ORDERED: NEOSTIGMINE 1 MG/ML 10 ML VIAL ONE (11:24)
[2020-12-29] MEDS ORDERED: MIDAZOLAM 2 MG/2 ML VIAL ONE (11:24)
[2020-12-29] MEDS ORDERED: ROCURONIUM 10 MG/ML (5 ML VIAL) IV ONE (11:24)
[2020-12-29] MEDS ORDERED: SUCCINYLCHOLINE CHLORIDE 100 MG/5 ML SYR IV ONE (11:24)
[2020-12-29] MEDS ORDERED: fentaNYL (PF) 50 MCG/ML 2 ML AMP ONE (11:24)
[2020-12-29] MEDS ORDERED: SODIUM CHLORIDE 0.9% 50 ML with ceFAZolin 2,000 MG IV ONE ×2 (11:30)
[2020-12-29] MEDS ORDERED: BUPIVACAINE (PF) 0.25% 30 ML VIAL SQ ONE (11:40)
--- NOTE | 2020-12-29 12:26 | P.OP ---
Date of Procedure: 12/29/20 Preoperative Diagnosis: cholecystitis Postoperative Diagnosis: cholecystitis Procedure(s) Performed: llaparoscopic cholecystectomy Anesthesia: BRETT Surgeon: Ben Baxter Estimated Blood Loss (ml): 10 Pathology: other (gallbladder) Condition: stable Disposition: PACU Description of Procedure: The patient was placed on the operating table. The patient received a general endotracheal tube anesthesia. The patients abdomen was prepped and draped in the usual sterile fashion. Through an infraumbilical stab incision, the fascia of the anterior abdominal wall was grasped with a pair of Kochers and then the Veress needle was placed in the peritoneal cavity. Position of the Veress needle was confirmed with positive drop test. The abdomen was then insufflated. After adequate insufflation, the 10 mm trocar was placed in the peritoneal cavity. Following this the laparoscope was placed in the peritoneal cavity. The patient was placed in the head-up, right side up position and then a 5 mm trocar was placed in the right lateral and right subcostal position under direct visualization. A 8 mm trocar was placed in the epigastric position. The gallbladder was grasped in the fundus and infundibulum. Traction on the gallbladder was placed in the lateral and the cephalad positions. The triangle of Calot was visualized.. The cystic duct was bluntly dissected until the union of the cystic duct and common bile duct was seen. A critical view of safety was achieved. The cystic duct was then divided and sealed with the Harmonic scissors. A PDS Endoloop was then placed throughout the cystic duct stump. The cystic artery divided and sealed with the Harmonic scissors. The gallbladder was then removed from the liver bed using Harmonic scissors. The gallbladder was then extracted through the epigastric port site. Operative field was checked for any bleeding spots and Harmonic scissors was used to coagulate the liver bed. The abdomen was irrigated. The trocars were removed. The skin was closed using interrupted 3-0 Vicryl suture. Dermabond dressing were applied. The patient tolerated the procedure well.
[2020-12-29] MEDS ORDERED: KETOROLAC 15 MG/ML 1 ML VIAL IVP ONE (12:31)
[2020-12-29] MEDS: fentaNYL (PF) 50 MCG/ML 2 ML AMP IVP ONE ×2 (12:31→12:40)
[2020-12-29 12:39] VITALS: TEMP 98
[2020-12-29] MEDS ORDERED: LABETALOL SYRINGE 5 MG/ML IVP ONE (13:01)
[2020-12-29 16:43] VITALS: BP 143/77; PULSE 67; RESP 20
== END 2020-12-29 16:05 | disposition home or self-care (01) ==
LOC: OR 08:26
PROVIDERS: ATTEND Surgery
DX: K81.1 Chronic cholecystitis (principal); I25.10 Atherosclerotic heart disease of native coronary artery without angina pectoris; E78.5 Hyperlipidemia, unspecified; I25.2 Old myocardial infarction; Z86.010 Personal history of colon polyps; F17.210 Nicotine dependence, cigarettes, uncomplicated; Z79.899 Other long term (current) drug therapy; Z98.890 Other specified postprocedural states; F41.9 Anxiety disorder, unspecified; F32.9 Major depressive disorder, single episode, unspecified; Z95.5 Presence of coronary angioplasty implant and graft
CPT/HCPCS: 88304; 47562; J2250; J1100; J2710; J2405; J0690; J2001; J3010; J1170; J1885; J0330; J2704; J1644

== ENCOUNTER 2021-07-18 20:19 | Emergency (ER) | payer BC ==
[2021-07-18 20:30] VITALS: RESP 18
[2021-07-18] MEDS: ACETAMINOPHEN TAB 325 MG TAB PO STA (21:56)
[2021-07-18] MEDS: SODIUM CHLORIDE 0.9% 1,000 ML IV STA (21:56)
[2021-07-18 21:58] LABS: Basophils # (A) 0.1 k/uL (0-0.2); Basophils % (A) 0 %; Eosinophils # (A) 0.1 k/uL (0-0.7); Eosinophils % (A) 1 %; HCT 46.2 % (34.0-46.0); HGB 14.6 gm/dL (11.4-16.0); Lymphocytes # (A) 1.3 k/uL (1.0-4.8); Lymphocytes % (A) 11 %; MCH 32.4 pg (25.0-35.0); MCHC 31.5 g/dL (31.0-37.0); MCV 102.7 fL (80.0-100.0); Macrocytosis Slight; Monocytes # (A) 0.3 k/uL (0-1.0); Monocytes % (A) 2 %; Neutrophils # (A) 10.1 k/uL (1.3-7.7); Neutrophils % (A) 86 %; Platelet Count 288 k/uL (150-450); RBC 4.49 m/uL (3.80-5.40); RDW 12.9 % (11.5-15.5); WBC 11.8 k/uL (3.8-10.6)
--- NOTE | 2021-07-18 21:58 | XR ---
EXAMINATION TYPE: XR chest 2V DATE OF EXAM: 07/18/2021 COMPARISON: 12/26/2020 HISTORY: Weakness TECHNIQUE: FINDINGS: Heart is normal. Lungs are clear of infiltrate. There is no heart failure. There are no hil ar masses. Costophrenic angles are clear. IMPRESSION: No active cardiomegaly disease. Normal heart. No change.
[2021-07-18 22:12] LABS: Albumin 4.5 g/dL (3.5-5.0); Calcium 9.1 mg/dL (8.4-10.2); Total Bilirubin 1.7 mg/dL (0.2-1.3); Total Protein 8.2 g/dL (6.3-8.2)
[2021-07-18 22:22] LABS: Partial Thromboplastin Time 21.9 sec (22.0-30.0); Prothrombin Time 10.4 sec (9.0-12.0)
--- NOTE | 2021-07-18 23:32 | ED ---
General Adult HPI - General Chief complaint: Weakness Stated complaint: Vomiting Time Seen by Provider: 07/18/21 20:34 Source: EMS, RN notes reviewed Mode of arrival: EMS Limitations: no limitations - History of Present Illness Initial comments: patient is a 61-year-old female that presents to emergency department complaining of generalized muscle aches and bilateral lower extremity leg cramp. Patient notes that this all happened earlier today. She notes she has been tested for covert in a while. Patient was otherwise well-appearing. She denied any other issues or complaints. She denied chest pain shortness breath headache nausea vomiting diarrhea constipation fever fatigue chills. - Related Data Home Medications Medication Instructions Recorded Confirmed Albuterol Sulfate [Ventolin HFA] 2 puff INHALATION RT-Q6H PRN 12/26/20 07/18/21 Atorvastatin [Lipitor] 10 mg PO HS 12/26/20 07/18/21 Citalopram Hydrobromide [CeleXA] 40 mg PO HS 12/26/20 07/18/21 ALPRAZolam [Xanax] 1 mg PO BID PRN 07/18/21 07/18/21 Metoprolol Tartrate [Lopressor] 12.5 mg PO BID 07/18/21 07/18/21 Allergies Allergy/AdvReac Type Severity Reaction Status Date / Time No Known Allergies Allergy Verified 07/18/21 23:02 Review of Systems ROS Statement: Those systems with pertinent positive or pertinent negative responses have been documented in the HPI. ROS Other: All systems not noted in ROS Statement are negative. Past Medical History Past Medical History: Coronary Artery Disease (CAD), Hyperlipidemia, Myocardial Infarction ([place]) Additional Past Medical History / Comment(s): Pleurisy, diverticular disease, benign colon polyp. Last Myocardial Infarction Date:: 2012 History of Any Multi-Drug Resistant Organisms: None Reported Past Surgical History: Heart Catheterization With Stent, Tubal Ligation Additional Past Surgical History / Comment(s): lithotripsy, colonoscopy/polypectomy Past Anesthesia/Blood Transfusion Reactions: No Reported Reaction Additional Past Anesthesia/Blood Transfusion Reaction / Comment(s): Pt has clausterphobia. Date of Last Stent Placement:: 2012 Harrison Connor Past Psychological History: Anxiety, Depression Smoking Status: Current every day smoker Past Alcohol Use History: None Reported Past Drug Use History: None Reported - Past Family History Father Family Medical History: Myocardial Infarction ([place]) Additional Family Medical History / Comment(s): Father of a [place] at the age of 46yrs. Mother Family Medical History: Cancer Additional Family Medical History / Comment(s): Mother had colon cancer and from sepsis in her port a cath. General Exam Limitations: no limitations General appearance: alert, in no apparent distress Head exam: Present: atraumatic, normocephalic, normal inspection Eye exam: Present: normal appearance, PERRL, EOMI. Absent: scleral icterus, conjunctival injection, periorbital swelling ENT exam: Present: normal exam, mucous membranes moist Neck exam: Present: normal inspection Respiratory exam: Present: normal lung sounds bilaterally. Absent: respiratory distress, wheezes, rales, rhonchi, stridor Cardiovascular Exam: Present: regular rate, normal rhythm, normal heart sounds. Absent: systolic murmur, diastolic murmur, rubs, gallop, clicks GI/Abdominal exam: Present: soft, normal bowel sounds. Absent: distended, tenderness, guarding, rebound, rigid Extremities exam: Present: normal inspection, full ROM, normal capillary refill. Absent: tenderness, pedal edema, joint swelling, calf tenderness Neurological exam: Present: alert, oriented X3 Psychiatric exam: Present: normal affect, normal mood Skin exam: Present: warm, dry, intact, normal color. Absent: rash Course Vital Signs 07/18/21 20:22 Temperature 98.6 F Pulse Rate 58 L Respiratory 18 Rate Blood Pressure 126/59 O2 Sat by Pulse 100 Oximetry Medical Decision Making - Medical Decision Making 61 year-old female with general muscle aches times one. Labs,radiographer cardiac catheterization,1 L normal saline, chest x-ray Labs: White blood cells 11.8, elevated AST 120, ALT 99, alkaline phosphatase 429 chest x-ray negative for any acute process. Upon reevaluation patient states that she is feeling much better and would like to go home. Case discussed with Dr. Benitez, patient discharge home. - Lab Data Result diagrams: 07/18/21 20:46 07/18/21 20:46 Lab Results 07/18/21 07/18/21 07/18/21 Range/Units 20:46 20:46 20:46 WBC 11.8 H (3.8-10.6) k/uL RBC 4.49 (3.80-5.40) m/uL Hgb 14.6 (11.4-16.0) gm/dL Hct 46.2 H (34.0-46.0) % MCV 102.7 H (80.0-100.0) fL MCH 32.4 (25.0-35.0) pg MCHC 31.5 (31.0-37.0) g/dL RDW 12.9 (11.5-15.5) % Plt Count 288 (150-450) k/uL MPV 9.0 Neutrophils % 86 % Lymphocytes % 11 % Monocytes % 2 % Eosinophils % 1 % Basophils % 0 % Neutrophils # 10.1 H (1.3-7.7) k/uL Lymphocytes # 1.3 (1.0-4.8) k/uL Monocytes # 0.3 (0-1.0) k/uL Eosinophils # 0.1 (0-0.7) k/uL Basophils # 0.1 (0-0.2) k/uL Macrocytosis Slight PT 10.4 (9.0-12.0) sec INR 1.0 (<1.2) APTT 21.9 L (22.0-30.0) sec Sodium 134 L (137-145) mmol/L Potassium (3.5-5.1) mmol/L Chloride 104 (98-107) mmol/L Carbon Dioxide 13 L (22-30) mmol/L Anion Gap 17 mmol/L BUN 24 H (7-17) mg/dL Creatinine 0.84 (0.52-1.04) mg/dL Est GFR (CKD-EPI)AfAm 86 (>60 ml/min/1.73 sqM) Est GFR (CKD-EPI)NonAf 74 (>60 ml/min/1.73 sqM) Glucose 65 L (74-99) mg/dL Plasma Lactic Acid Jelani (0.7-2.0) mmol/L Calcium 9.1 (8.4-10.2) mg/dL Magnesium 2.0 (1.6-2.3) mg/dL Total Bilirubin 1.7 H (0.2-1.3) mg/dL AST 120 H (14-36) U/L ALT 99 H (4-34) U/L Alkaline Phosphatase 449 H (38-126) U/L Troponin I (0.000-0.034) ng/mL Total Protein 8.2 (6.3-8.2) g/dL Albumin 4.5 (3.5-5.0) g/dL Coronavirus (PCR) (Not Detectd) 07/18/21 07/18/21 07/18/21 Range/Units 20:46 20:46 20:46 WBC (3.8-10.6) k/uL RBC (3.80-5.40) m/uL Hgb (11.4-16.0) gm/dL Hct (34.0-46.0) % MCV (80.0-100.0) fL MCH (25.0-35.0) pg MCHC (31.0-37.0) g/dL RDW (11.5-15.5) % Plt Count (150-450) k/uL MPV Neutrophils % % Lymphocytes % % Monocytes % % Eosinophils % % Basophils % % Neutrophils # (1.3-7.7) k/uL Lymphocytes # (1.0-4.8) k/uL Monocytes # (0-1.0) k/uL Eosinophils # (0-0.7) k/uL Basophils # (0-0.2) k/uL Macrocytosis PT (9.0-12.0) sec INR (<1.2) APTT (22.0-30.0) sec Sodium (137-145) mmol/L Potassium (3.5-5.1) mmol/L Chloride (98-107) mmol/L Carbon Dioxide (22-30) mmol/L Anion Gap mmol/L BUN (7-17) mg/dL Creatinine (0.52-1.04) mg/dL Est GFR (CKD-EPI)AfAm (>60 ml/min/1.73 sqM) Est GFR (CKD-EPI)NonAf (>60 ml/min/1.73 sqM) Glucose (74-99) mg/dL Plasma Lactic Acid Jelani 3.3 H* (0.7-2.0) mmol/L Calcium (8.4-10.2) mg/dL Magnesium (1.6-2.3) mg/dL Total Bilirubin (0.2-1.3) mg/dL AST (14-36) U/L ALT (4-34) U/L Alkaline Phosphatase (38-126) U/L Troponin I 0.032 (0.000-0.034) ng/mL Total Protein (6.3-8.2) g/dL Albumin (3.5-5.0) g/dL Coronavirus (PCR) Not Detected (Not Detectd) - Radiology Data Radiology results: report reviewed, image reviewed chest x-ray: No active pulmonary process. No change. Normal chest. Disposition Clinical Impression: Dehydration, Upper respiratory tract infection Disposition: HOME SELF-CARE Condition: Stable Instructions (If sedation given, give patient instructions): Dehydration (ED) Additional Instructions: Please return to the Emergency Department if symptoms worsen or any other concerns. Follow-up with primary care 1-2 days. Increase fluids. Is patient prescribed a controlled substance at d/c from ED?: No Referrals: William Alberts DO [Primary Care Provider] - 1-2 days Time of Disposition: 23:31
[2021-07-18] MEDS: LORazepam 2 MG/ML INJ IV STA (23:49)
[2021-07-18 23:59] VITALS: BP 121/60; PULSE 61; TEMP 98.7
== END 2021-07-18 23:56 | disposition home or self-care (01) ==
LOC: EC 20:19
DX: E86.0 Dehydration (principal); J06.9 Acute upper respiratory infection, unspecified; Z20.822 Contact with and (suspected) exposure to COVID-19; I25.10 Atherosclerotic heart disease of native coronary artery without angina pectoris; I25.2 Old myocardial infarction; E78.5 Hyperlipidemia, unspecified; F32.A Depression, unspecified; F41.9 Anxiety disorder, unspecified; F17.200 Nicotine dependence, unspecified, uncomplicated; Z79.51 Long term (current) use of inhaled steroids; Z79.899 Other long term (current) drug therapy
CPT/HCPCS: 93005; 80053; 83605; 83735; 84484; 85025; 85610; 85730; 87635; 71046; 99284; 96374; 96361; J2060; 36415

== ENCOUNTER 2023-04-15 07:31 | Inpatient (IN) | payer BC ==
[2023-04-15] MEDS ORDERED: SODIUM CHLORIDE 0.9% 500 ML 500 ML IV ONE ×2 (07:43→09:45)
[2023-04-15] MEDS ORDERED: HYDROmorphone 0.5 MG/0.5 ML SYRINGE IVP STA (07:43)
[2023-04-15] MEDS ORDERED: SODIUM CHLORIDE 0.9% 1,000 ML IV ONE (07:43)
[2023-04-15] MEDS ORDERED: ONDANSETRON 4 MG/2 ML VIAL IVP STA (07:43)
--- NOTE | 2023-04-15 08:10 | ED ---
General Adult HPI - General Chief complaint: Chest Pain Stated complaint: chest pain Time Seen by Provider: 04/15/23 07:35 Source: patient, RN notes reviewed, old records reviewed Mode of arrival: ambulatory Limitations: no limitations - History of Present Illness Initial comments: This is a 62-year-old female who comes in complaining of not feeling well. Patient states she's started vomiting and having chest pain 3 days ago. Patient states she also felt short of breath. Patient states she does continue to smoke and does have stents in her heart and takes cholesterol medication. Patient states she has not had any fever chills patient denies headache patient denies numbness or focal weakness. Patient denies any lightheadedness. Patient does states she has some upper abdominal pain but states he thinks his condition vomiting so much. - Related Data Home Medications Medication Instructions Recorded Confirmed Albuterol Sulfate [Ventolin HFA] 2 puff INHALATION RT-Q6H PRN 12/26/20 04/15/23 Atorvastatin [Lipitor] 10 mg PO HS 12/26/20 04/15/23 Citalopram Hydrobromide [CeleXA] 40 mg PO HS 12/26/20 04/15/23 ALPRAZolam [Xanax] 1 mg PO BID PRN 07/18/21 04/15/23 Metoprolol Tartrate [Lopressor] 12.5 mg PO BID 07/18/21 04/15/23 Allergies Allergy/AdvReac Type Severity Reaction Status Date / Time No Known Allergies Allergy Verified 04/15/23 09:16 Review of Systems ROS Statement: Those systems with pertinent positive or pertinent negative responses have been documented in the HPI. ROS Other: All systems not noted in ROS Statement are negative. Past Medical History Past Medical History: Coronary Artery Disease (CAD), Hyperlipidemia, Myocardial Infarction (MS) Additional Past Medical History / Comment(s): Pleurisy, diverticular disease, benign colon polyp. Last Myocardial Infarction Date:: 2012 History of Any Multi-Drug Resistant Organisms: None Reported Past Surgical History: Heart Catheterization With Stent, Tubal Ligation Additional Past Surgical History / Comment(s): lithotripsy, colonoscopy/polypectomy Past Anesthesia/Blood Transfusion Reactions: No Reported Reaction Additional Past Anesthesia/Blood Transfusion Reaction / Comment(s): Pt has clausterphobia. Date of Last Stent Placement:: 2012 [facility] Past Psychological History: Anxiety, Depression Smoking Status: Current every day smoker Past Alcohol Use History: None Reported Past Drug Use History: None Reported - Past Family History Father Family Medical History: Myocardial Infarction (MS) Additional Family Medical History / Comment(s): Father of a MS at the age of 46yrs. Mother Family Medical History: Cancer Additional Family Medical History / Comment(s): Mother had colon cancer and from sepsis in her port a cath. General Exam - General Exam Comments Initial Comments: GENERAL: Patient is well-developed and well-nourished. Patient is nontoxic and well-h ydrated and is in mild distress. ENT: Neck is soft and supple. No significant lymphadenopathy is noted. Oropharynx is clear. Moist mucous membranes. Neck has full range of motion without eliciting any pain. EYES: The sclera were anicteric and conjunctiva were pink and moist. Extraocular mov ements were intact and pupils were equal round and reactive to light. Eyelids were unremarkable. PULMONARY: Unlabored respirations. Good breath sounds bilaterally. No audible rales rhonchi or wheezing was noted. CARDIOVASCULAR: There is a regular rate and rhythm without any murmurs gallops or rubs. ABDOMEN: Patient has upper left quadrant and epigastric area tenderness SKIN: Skin is clear with no lesions or rashes and otherwise unremarkable. NEUROLOGIC: Patient is alert and oriented x3. Cranial nerves II through XII are grossly intact. Motor and sensory are also intact. Normal speech, volume and content. Symmetrical smile. MUSCULOSKELETAL: Normal extremities with adequate strength and full range of motion. LYMPHATICS: No significant lymphadenopathy is noted PSYCHIATRIC: Normal psychiatric evaluation. Limitations: no limitations Course Vital Signs 04/15/23 04/15/23 04/15/23 07:33 07:55 08:00 Temperature 98.3 F 98.1 F Pulse Rate 33 L 99 98 Respiratory 20 22 24 Rate Blood Pressure 151/69 108/65 132/70 O2 Sat by Pulse 98 98 98 Oximetry 04/15/23 08:30 Temperature Pulse Rate 67 Respiratory 17 Rate Blood Pressure 147/124 O2 Sat by Pulse 98 Oximetry Medical Decision Making - Medical Decision Making EKG is interpreted by myself EKG shows a sinus rhythm at 70 bpm SC interval 112 QRS is 89 QT intervals 470 QTC is 450. Patient's EKG shows some T-wave inversions in II, III, and F aVF and some slight ST segment depression in V3 V4 and V5 Was pt. sent in by a medical professional or institution (JAZMIN Hanna, MOTOR CHECKER, urgent care, hospital, or half-way...) When possible be specific @ -No Did you speak to anyone other than the patient for history (EMS, parent, family, police, friend...)? What history was obtained from this source @ -No Did you review nursing and triage notes (agree or disagree)? Why? @ -I reviewed and agree with nursing and triage notes Were old charts reviewed (outside hosp., previous admission, EMS record, old EKG, old radiological studies, urgent care reports/EKG's, half-way records)? Report findings @ -I reviewed prior charts as far lab work on this patient Differential Diagnosis (chest pain, altered mental status, abdominal pain women, abdominal pain men, vaginal bleeding, weakness, fever, dyspnea, syncope, headache, dizziness, GI bleed, back pain, seizure, CVA, palpatations, mental health, musculoskeletal)? @ -Differential Chest Pain: Stable Angina, Unstable Angina, STEMI, NSTEMI Aortic Dissection, Pneumothorax, Musculoskeletal, Esophageal Spasm GERD, Cholecystitis, Pancreatitis, Zoster, this is not meant to be an all-inclusive list. Differential Abdominal Pain Women: Appendicitis, Cholecystitis, diverticulosis, ischemic bowel, pancreatitis, hepatitis, UTI, gastroenteritis, AAA, incarcerated hernia, bowel obstruction, constipation, inflammatory bowel, hepatitis, peptic ulcer disease, splenic infarction, perforated viscus, vulvitis, ovarian torsion, PID, kidney stone, placenta abruption, this is not meant to be an all-inclusive list EKG interpreted by me (3pts min.). @ -As above X-rays interpreted by me (1pt min.). @ -Chest x-ray shows no acute abnormality CT interpreted by me (1pt min.). @ -None done U/S interpreted by me (1pt. min.). @ - showed no acute abnormality What testing was considered but not performed or refused? (CT, X-rays, U/S, labs)? Why? @ -None What meds were considered but not given or refused? Why? @ -None Did you discuss the management of the patient with other professionals (professionals i.e. JAZMIN Hanna, MOTOR CHECKER, lab, RT, psych nurse, social work therapist, field reviewer, teacher, community cultural development officer, manager mountain)? Give summary @ -I spoke with Dr. Shaver and he agreed that he will consult on the patient however the patient wanted to be checked later and I called him back and he decided take the patient to the [facility]. I spoke with Dr. Tillman she agreed to admit the patient admitted the patient and wrote admitting orders Was smoking cessation discussed for >3mins.? @ -No Was critical care preformed (if so, how long)? @ -35 minutes Were there social determinants of health that impacted care today? How? (Homelessness, low income, unemployed, alcoholism, drug addiction, transportation, low edu. Level, literacy, decrease access to med. care, longterm, rehab)? @ -No Was there de-escalation of care discussed even if they declined (Discuss DNR or withdrawal of care, Hospice)? DNR status @ -No What co-morbidities impacted this encounter? (DM, HTN, Smoking, COPD, CAD, Cancer, CVA, ARF, Chemo, Hep., AIDS, mental health diagnosis, sleep apnea, morbid obesity)? @ -None Was patient admitted / discharged? Hospital course, mention meds given and route, prescriptions, significant lab abnormalities, going to OR and other pertinent info. @ -While the patient was in the emergency department patient went into V. tach . Patient came out of it before any medications were given however we did give her 150 of amiodarone and started on amiodarone drip. Patient also started on heparin. Patient was also given aspirin and had Nitropaste applied. Patient was given 2 g Rocephin because of her high white count and possible infection. Patient was admitted to Dr. Tillman and with went to the cardiac catheterization lab Undiagnosed new problem with uncertain prognosis? @ -No Drug Therapy requiring intensive monitoring for toxicity (Heparin, Nitro, Insu ivan, Cardizem)? @ -No Were any procedures done? @ -No Diagnosis/symptom? @ -Ventricular tachycardia Acute, or Chronic, or Acute on Chronic? @ -Acute Uncomplicated (without systemic symptoms) or Complicated (systemic symptoms)? @ -Complicated Side effects of treatment? @ -No Exacerbation, Progression, or Severe Exacerbation? @ -No Poses a threat to life or bodily function? How? (Chest pain, USA, MS, pneumonia, PE, COPD, DKA, ARF, appy, cholecystitis, CVA, Diverticulitis, Homicidal, Suicidal, threat to staff... and all critical care pts) @ -Yes this could be life-threatening. Diagnosis/symptom? @ -N STEMI Acute, or Chronic, or Acute on Chronic? @ -Acute Uncomplicated (without systemic symptoms) or Complicated (systemic symptoms)? @ -Complicated Side effects of treatment? @ -none Exacerbation, Progression, or Severe Exacerbation] @ -no Poses a threat to life or bodily function? @ -Yes this could lead to poor cardiac output and end organ dysfunction - Lab Data Result diagrams: 04/16/23 05:16 04/16/23 11:14 Lab Results 04/15/23 04/15/23 04/15/23 Range/Units 07:53 07:53 07:53 WBC 19.9 H (3.8-10.6) k/uL RBC 4.70 (3.80-5.40) m/uL Hgb 15.3 (11.4-16.0) gm/dL Hct 45.2 (34.0-46.0) % MCV 96.0 (80.0-100.0) fL MCH 32.5 (25.0-35.0) pg MCHC 33.8 (31.0-37.0) g/dL RDW 13.2 (11.5-15.5) % Plt Count 264 (150-450) k/uL MPV 9.0 Neutrophils % 82 % Lymphocytes % 11 % Monocytes % 5 % Eosinophils % 0 % Basophils % 0 % Neutrophils # 16.4 H (1.3-7.7) k/uL Lymphocytes # 2.3 (1.0-4.8) k/uL Monocytes # 1.1 H (0-1.0) k/uL Eosinophils # 0.1 (0-0.7) k/uL Basophils # 0.0 (0-0.2) k/uL PT 10.5 (9.0-12.0) sec INR 1.0 (<1.2) APTT 22.2 (22.0-30.0) sec Sodium 139 (137-145) mmol/L Potassium 3.6 (3.5-5.1) mmol/L Chloride 108 H (98-107) mmol/L Carbon Dioxide 13 L (22-30) mmol/L Anion Gap 18 mmol/L BUN 25 H (7-17) mg/dL Creatinine 0.83 (0.52-1.04) mg/dL Est GFR (CKD-EPI)AfAm 87 (>60 ml/min/1.73 sqM) Est GFR (CKD-EPI)NonAf 75 (>60 ml/min/1.73 sqM) Glucose 154 H (74-99) mg/dL Plasma Lactic Acid Jelani (0.7-2.0) mmol/L Calcium 10.0 (8.4-10.2) mg/dL Magnesium 1.7 (1.6-2.3) mg/dL Total Bilirubin 1.4 H (0.2-1.3) mg/dL AST 52 H (14-36) U/L ALT 64 H (4-34) U/L Alkaline Phosphatase 282 H (38-126) U/L Troponin I (0.000-0.034) ng/mL Total Protein 7.6 (6.3-8.2) g/dL Albumin 4.4 (3.5-5.0) g/dL Amylase 49 (30-110) U/L Lipase 102 (23-300) U/L 04/15/23 04/15/23 Range/Units 07:53 09:13 WBC (3.8-10.6) k/uL RBC (3.80-5.40) m/uL Hgb (11.4-16.0) gm/dL Hct (34.0-46.0) % MCV (80.0-100.0) fL MCH (25.0-35.0) pg MCHC (31.0-37.0) g/dL RDW (11.5-15.5) % Plt Count (150-450) k/uL MPV Neutrophils % % Lymphocytes % % Monocytes % % Eosinophils % % Basophils % % Neutrophils # (1.3-7.7) k/uL Lymphocytes # (1.0-4.8) k/uL Monocytes # (0-1.0) k/uL Eosinophils # (0-0.7) k/uL Basophils # (0-0.2) k/uL PT (9.0-12.0) sec INR (<1.2) APTT (22.0-30.0) sec Sodium (137-145) mmol/L Potassium (3.5-5.1) mmol/L Chloride (98-107) mmol/L Carbon Dioxide (22-30) mmol/L Anion Gap mmol/L BUN (7-17) mg/dL Creatinine (0.52-1.04) mg/dL Est GFR (CKD-EPI)AfAm (>60 ml/min/1.73 sqM) Est GFR (CKD-EPI)NonAf (>60 ml/min/1.73 sqM) Glucose (74-99) mg/dL Plasma Lactic Acid Jelani 2.0 (0.7-2.0) mmol/L Calcium (8.4-10.2) mg/dL Magnesium (1.6-2.3) mg/dL Total Bilirubin (0.2-1.3) mg/dL AST (14-36) U/L ALT (4-34) U/L Alkaline Phosphatase (38-126) U/L Troponin I 1.770 H* (0.000-0.034) ng/mL Total Protein (6.3-8.2) g/dL Albumin (3.5-5.0) g/dL Amylase (30-110) U/L Lipase (23-300) U/L Critical Care Time Critical Care Time: Yes Total Critical Care Time: 35 Disposition Clinical Impression: Acute non-ST elevation myocardial infarction (NSTEMI), Ventricular tachycardia Disposition: ADMITTED IP TO THIS HOSP
[2023-04-15 08:11] LABS: ALT 64 U/L (4-34); AST 52 U/L (14-36); African American GFR (CKD) 87 (>60 ml/min/1.73 sqM); Albumin 4.4 g/dL (3.5-5.0); Alkaline Phosphatase 282 U/L (38-126); Amylase 49 U/L (30-110); Anion Gap 18 mmol/L; Blood Urea Nitrogen 25 mg/dL (7-17); Carbon Dioxide 13 mmol/L (22-30); Chloride 108 mmol/L (98-107); Glucose 154 mg/dL (74-99); Lipase 102 U/L (23-300); Magnesium 1.7 mg/dL (1.6-2.3); Non-African American GFR(CKD) 75 (>60 ml/min/1.73 sqM); Potassium 3.6 mmol/L (3.5-5.1); Sodium 139 mmol/L (137-145); Total Bilirubin 1.4 mg/dL (0.2-1.3); Total Protein 7.6 g/dL (6.3-8.2)
[2023-04-15 08:23] LABS: Partial Thromboplastin Time 22.2 sec (22.0-30.0); Prothrombin Time 10.5 sec (9.0-12.0)
[2023-04-15 08:24] LABS: Basophils % (A) 0 %; Eosinophils # (A) 0.1 k/uL (0-0.7); Eosinophils % (A) 0 %; HCT 45.2 % (34.0-46.0); HGB 15.3 gm/dL (11.4-16.0); Lymphocytes # (A) 2.3 k/uL (1.0-4.8); Lymphocytes % (A) 11 %; MCH 32.5 pg (25.0-35.0); MCHC 33.8 g/dL (31.0-37.0); Monocytes # (A) 1.1 k/uL (0-1.0); Monocytes % (A) 5 %; Neutrophils # (A) 16.4 k/uL (1.3-7.7); Neutrophils % (A) 82 %; Platelet Count 264 k/uL (150-450); RDW 13.2 % (11.5-15.5); WBC 19.9 k/uL (3.8-10.6)
--- NOTE | 2023-04-15 08:24 | XR ---
EXAMINATION TYPE: XR chest 2V DATE OF EXAM: 04/15/2023 COMPARISON: 07/18/2021 TECHNIQUE: PA and lateral views submitted. HISTORY: Chest pain FINDINGS: The lungs are clear and there is no pneumothorax, pleural effusion, or focal pneumonia. Heart size normal and no overt failure. Osseous structures demonstrate hypertrophic and degenerative changes of the spine. Hyperinflation compatible COPD. Diffuse osteopenia noted. IMPRESSION: 1. No acute process.
[2023-04-15] MEDS ORDERED: ASPIRIN 81 MG PO STA (08:35)
[2023-04-15] MEDS ORDERED: NITROGLYCERIN OINT 1 INCH/GM PACKET TOPICAL STA (08:36)
[2023-04-15] MEDS ORDERED: HEPARIN SODIUM 1,000 UN/ML (10ML VL) IV ONE ×2 (08:37→10:19)
[2023-04-15] MEDS ORDERED: HEPARIN SOD,PORK IN 0.45% NACL 25,000 UNIT in 0.45% NACL 1 250ML.BAG IV SCH (08:45)
[2023-04-15] MEDS ORDERED: ATORVASTATIN 80 MG TAB PO STA (09:10)
[2023-04-15] MEDS ORDERED: DEXTROSE 5% IN WATER 100 ML with AMIODARONE 150 MG IV ONE ×2 (09:15→13:29)
[2023-04-15] MEDS ORDERED: AMIODARONE 360 MG in DEXTROSE 5% IN WATER 200 ML IV ONE ×2 (09:15)
--- NOTE | 2023-04-15 09:17 | US ---
EXAMINATION TYPE: US gallbladder DATE OF EXAM: 04/15/2023 COMPARISON: US CLINICAL INDICATION: Female, 62 years old with history of Right upper quadrant; ABD pain/ Elevated la bs/ GB removed TECHNIQUE: Multiple sonographic images of the right upper quadrant are obtained. 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 2. Liver heterogeneity may reflect underlying hepatic steatosis. 3. Prominence of the pancreatic duct. Consider CT correlation if felt clinically indicated.
[2023-04-15] MEDS ORDERED: cefTRIAXone IN SWFI 1,000 MG/10 ML SYRINGE IVP STA (09:22)
[2023-04-15] MEDS ORDERED: fentaNYL (PF) 50 MCG/ML 2 ML AMP ONE (09:31)
[2023-04-15] MEDS ORDERED: VERAPAMIL 2.5 MG/ML 2 ML AMP ONE (09:31)
--- NOTE | 2023-04-15 10:03 | CONS ---
CONSULTATION HISTORY OF PRESENT ILLNESS: This is a 62-year-old lady with history of coronary artery disease, status post prior angioplasty at [facility] several years ago, presented to hospital with 3 days worth of epigastric discomfort, nausea, vomiting, and not feeling well. Initial EKG revealed sinus rhythm with moderate ST-T wave changes in the inferolateral leads without any ST- segment elevation. The patient also had evidence of lactic acidosis and elevated white cell count. Our plan when she initially arrived was that we will first address the issue of her epigastric discomfort and elevated white cell count and address the ischemia that we were noticing on the EKG later. She was not having any chest pain and she was not short of breath and seems stable hemodynamically. Subsequently, ER doctor calls and tells me that patient had a run of ventricular tachycardia and he had to give IV amiodarone. I reassessed the patient in the ER and she appears comfortable at rest, stable hemodynamically. I am concerned with the run of ventricular tachycardia that she had, hence, advised her to undergo an emergent catheterization. I explained these issues to her and her . They understand and are in agreement with the plans. They understand that the elevated white cell count and rest of the issues are not quite explained by the cardiac presentation. PAST MEDICAL HISTORY: Significant for hypertension, dyslipidemia, and coronary artery disease. MEDICATIONS: Are as charted. ALLERGIES: None. FAMILY HISTORY: Negative for premature coronary artery disease. SOCIAL HISTORY: Significant for smoking. There is no history of EtOH abuse or drug abuse. REVIEW OF SYSTEMS: HEENT: Unremarkable. CARDIAC: As described above. RESPIRATORY: Negative. GI: Negative. GENITOURINARY: Negative. ALLERGY/IMMUNOLOGY: Negative. SKIN: Negative. MUSCULOSKELETAL: Significant for arthritis. PSYCHOSOCIAL: Negative. DERM: Negative. CONSTITUTIONAL: Negative. ONCOLOGICAL: Negative. BIRTH ATTENDANT: Negative. Rest of the system review is not relevant. PHYSICAL EXAMINATION: GENERAL: Comfortable at rest. VITAL SIGNS: Stable. NECK: There is no jugular venous distention. CHEST: Reveals good air entry bilaterally. HEART: Reveals first and second heart sounds. No gallop. No murmur. No rub. ABDOMEN: Shows mild tenderness in the epigastric area. EXTREMITIES: Do not reveal any edema. Peripheral pulses are felt. DIAGNOSTIC STUDIES: EKG is as described above. ASSESSMENT: 1. Ventricular tachycardia. 2. Acute subendocardial ischemia. PLAN: The patient will undergo emergent cardiac catheterization. TIAN / MICHELN: [id number] /
[2023-04-15] MEDS ORDERED: fentaNYL (PF) 50 MCG/ML 2 ML AMP IVP ONE (10:14)
[2023-04-15] MEDS ORDERED: MIDAZOLAM 2 MG/2 ML VIAL IVP ONE (10:14)
[2023-04-15] MEDS ORDERED: LIDOCAINE 1% INJ 10MG/ML (20 ML MDV) SQ ONE (10:15)
[2023-04-15] MEDS ORDERED: VERAPAMIL SYRINGE (5 MG/10 ML) INTRAARTER ONE (10:17)
[2023-04-15] MEDS ORDERED: HEPARIN SODIUM 1,000 UN/ML (10ML VL) ONE (10:19)
[2023-04-15] MEDS ORDERED: NITROGLYCERIN SL TABS 0.4 MG TAB SUBLINGUAL PRN (10:20)
[2023-04-15] MEDS ORDERED: IOPAMIDOL-370 100ML BTL INJ ONE (10:38)
[2023-04-15] MEDS ORDERED: RX INFO: IV CONTRAST WAS GIVEN 1 EACH MISC MISCELLANE PRN (10:39)
[2023-04-15] MEDS ORDERED: ONDANSETRON 4 MG/2 ML VIAL ONE (11:08)
--- NOTE | 2023-04-15 11:18 | CC ---
CARDIAC CATHETERIZATION REPORT INDICATION: Ventricular tachycardia. PROCEDURE NOTE: After obtaining informed consent, left heart catheterization and coronary angiogram were performed via the right radial artery using standard Elian catheters. The patient tolerated the procedure well without any obvious immediate complications. The patient received moderate conscious sedation. Total sedation time was 20 minutes. She received verapamil and heparin per protocol. Right radial artery access was obtained using Seldinger technique, 6-Romansh sheath was placed. Catheters and wires were floated into the ascending aorta under fluoroscopic guidance. FINDINGS: 1. HEMODYNAMICS: Left ventricular end-diastolic pressure is 8 to 12 mm. There is no significant gradient across the aortic valve. 2. LEFT VENTRICULOGRAM: Left ventriculogram is not performed. 3. ANGIOGRAPHIC DATA: a.Right coronary artery is a large dominant vessel that was previously stented in the proximal and midportion. The stents appear patent. b.Left main coronary artery is a normal-sized vessel and is free of stenosis. Divides into left anterior descending coronary artery and circumflex coronary artery. c.LAD and its branches, circumflex coronary artery and its branches are free of significant stenosis. CONCLUSIONS: Patent stents within the right coronary artery. Mild nonobstructive disease involving proximal and mid LAD. It is unclear if the very distal LAD is just naturally small caliber. 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 The patient's troponin was elevated on initial presentation and I will treat her with medical therapy. MMODL / IJN: [id number] /
[2023-04-15] MEDS ORDERED: NITROGLYCERIN-D5W PMX 50 MG in DEXTROSE/WATER 1 250ML.BAG IV SCH (11:45)
--- NOTE | 2023-04-15 13:20 | CT ---
EXAMINATION: CTA CHEST ABDOMEN AND PELVIS WITH IV CONTRAST DATE OF EXAMINATION: COMPARISON: None available. INDICATION: PROCEDURE: Axial CTA of the abdomen and pelvis was performed with sagittal and coronal reformatted images without and with contrast enhancement. CT dose lowering techniques were used, to include: aut omated exposure control, adjustment for patient size, and/or use of iterative reconstruction. FINDINGS: CHEST: MEDIASTINUM AND HILAR REGIONS: THERE IS NO AXILLARY, MEDIASTINAL OR HILAR LYMPHADENOPATHY. PLEURAL AND PERICARDIAL SPACES: THERE ARE NO PLEURAL OR PERICARDIAL EFFUSIONS. CARDIOVASCULAR: The thoracic aorta is normal in caliber without evidence of aneurysmal dilation or di ssection. Moderate patchy coronary artery calcifications are seen. Pulmonary arteries: There are no significant abnormalities within the pulmonary arteries. LUNGS: The lungs are clear. ABDOMEN: Liver and Biliary system: There is a simple cyst in the inferior aspect of the right lobe of liver m easuring 2.2 cm in diameter. The liver otherwise appears unremarkable.. Adrenal glands: Normal. Kidneys and ureters: There is a 6.2 mm nonobstructing stone within the interpolar region of the left kidney. There is a 2 mm nonobstructing stones also seen in the upper pole the left kidney. There is residual contrast seen within the renal collecting systems from recent catheterization.. Spleen: Normal. Pancreas: Normal. Gallbladder: Normal. Lymph nodes, Peritoneum and mesentery: There is no mesenteric or retroperitoneal lymphadenopathy. Gastrointestinal tract: There are no dilated loops of bowel or free intraperitoneal air. . There is thickening of the gastric antral and pyloric region which can be seen in the setting of gastritis. M alignancy would also be in the differential diagnosis. Consider direct visualization. Aorta/IVC: There is moderate vascular calcification throughout the abdominal aorta without evidence of aneurysmal dilation or dissection.. IVC normal. Abdominal wall: Normal. BONES: There are no osseous destructive lesions.. ADDITIONAL SIGNIFICANT FINDINGS: None. IMPRESSION: 1. No evidence of thoracic or abdominal aortic aneurysm or dissection.. 2. No evidence of pulmonary embolism. 3. Thickening of the gastric antral and pyloric region can be seen in the setting of gastritis. Bozena keller would be in the differential diagnosis and considered direct visualization. 4. Moderate coronary artery calcifications. 5. No acute process otherwise seen.
[2023-04-15 13:24] LABS: Glucose,Whole Blood 128 mg/dL (70-110)
[2023-04-15] MEDS ORDERED: ONDANSETRON 4 MG/2 ML VIAL IVP PRN (13:30)
[2023-04-15] MEDS ORDERED: lisinopriL 5 MG TAB PO STA (13:31)
[2023-04-15] MEDS ORDERED: EPINEPHrine 10 ML SYRINGE (0.1 MG/ML) ONE (13:34)
[2023-04-15] MEDS ORDERED: DEXTROSE 5% IN WATER 50 ML BAG ONE (13:34)
[2023-04-15] MEDS ORDERED: AMIODARONE 50 MG/ML 3 ML VIAL IV ONE (13:34)
[2023-04-15] MEDS ORDERED: propofoL 100 ML IV ONE (13:42)
[2023-04-15] MEDS ORDERED: SUCCINYLCHOLINE CHLORIDE 200 MG/10 ML VIAL IV ONE (13:42)
[2023-04-15] MEDS ORDERED: IPRATROPIUM-ALBUTEROL 3 ML NEB INHALATION PRN (13:48)
[2023-04-15] MEDS: AMIODARONE 360 MG in DEXTROSE 5% IN WATER 200 ML IV SCH ×4 (14:01→19:44)
[2023-04-15] MEDS ORDERED: VANCOMYCIN IV PER PHARMACY 1 EACH MISC MISCELLANE PRN (14:02)
[2023-04-15] MEDS: SODIUM CHLORIDE 0.9% 1,000 ML IV SCH (14:02)
[2023-04-15] MEDS: fentaNYL (PF) 50 MCG/ML 2 ML AMP IVP PRN ×3 (14:08→21:05)
[2023-04-15] MEDS: LIDOCAINE-D5W PMX 2G/250ML 2,000 MG in DEXTROSE/WATER 1 250ML.BAG IV SCH (14:08)
--- NOTE | 2023-04-15 14:12 | CA ---
Transthoracic Echo Report Name: Marcela Rhodes Age: 62 Gender: F : 1960 Exam Date: 04/15/2023 11:50 Exam Location: [facility] Ht (in): 62 Wt (lb): 155 Ordering Physician: Gretchen Kraus Attending/Referring Phys: [id number], Nayana Cut In Worker TM Procedure CPT: Indications: LV function, NSTEMI Cardiac Hx: Technical Quality: Technically difficult study Contrast 1: Total Dose (mL): Contrast 2: Total Dose (mL): MEASUREMENTS (Male / Female) Normal Values FINDINGS Left Ventricle Normal LV size and wall thickness. Left ventricular ejection fraction is estimated at 45 %. There is basal and mid inferior and inferolateral hypokinesis. Right Ventricle Normal right ventricular size. Right Atrium Normal right atrial size. Left Atrium Mild left atrial dilatation. LA volume index = 36ml/m2 Mitral Valve Structurally normal mitral valve. Mild to moderate MR. Aortic Valve Aortic valve not well visualized. No aortic valve stenosis or regurgitation. Tricuspid Valve Tricuspid valve not well visualized. Trace TR. Pulmonic Valve Pulmonic valve not well visualized. No pulmonic regurgitation. Pericardium Normal pericardium. Aorta Normal size aortic root. CONCLUSIONS Left ventricular ejection fraction 45% with inferior and inferolateral hypokinesis Mild to moderate mitral regurgitation Trace tricuspid regurgitation No pericardial effusion Previewed by: Dr. Blu Gramajo DO (Electronically Signed) Final Date: 15 April 2023 14:11
[2023-04-15] MEDS ORDERED: NALOXONE 0.4 MG/ML 1 ML VIAL IV PRN (14:15)
[2023-04-15] MEDS ORDERED: VANCOMYCIN 1,500 MG in SODIUM CHLORIDE 0.9% 500 ML 500 ML IVPB ONE (14:15)
--- NOTE | 2023-04-15 14:19 | XR ---
EXAMINATION TYPE: XR chest 1V portable DATE OF EXAM: 04/15/2023 COMPARISON: 04/15/2023 HISTORY: Tube placement TECHNIQUE: Single frontal view of the chest is obtained. FINDINGS: There is no focal air space opacity, pleural effusion, or pneumothorax seen. The cardiac silhouette size is within normal limits. The osseous structures are intact. NG tube appears in good position. ET tube approximately 3.8 cm above roly. Underlying emphysematous changes. IMPRESSION: 1. ET tube appears in good position.
[2023-04-15 14:28] LABS: ABG PCO2 36 mmHg (35-45); Allen Test Performed? Yes
[2023-04-15 14:31] LABS: ABG Base Excess -8.5 mmol/L; ABG HCO3 18 mmol/L (21-25); ABG Oxygen Saturation 99.2 % (94-97); ABG PO2 366 mmHg (83-108); ABG TCO2 19 mmol/L (19-24)
[2023-04-15 14:42] LABS: ALT 59 U/L (4-34); African American GFR (CKD) 88 (>60 ml/min/1.73 sqM); Anion Gap 14 mmol/L; Blood Urea Nitrogen 23 mg/dL (7-17); Calcium 8.7 mg/dL (8.4-10.2); Carbon Dioxide 15 mmol/L (22-30); Chloride 109 mmol/L (98-107); Glucose 193 mg/dL (74-99); Lipase 97 U/L (23-300); Magnesium 3.5 mg/dL (1.6-2.3); Non-African American GFR(CKD) 76 (>60 ml/min/1.73 sqM); Phosphorus 3.7 mg/dL (2.5-4.5); Sodium 138 mmol/L (137-145); Total Bilirubin 1.1 mg/dL (0.2-1.3)
[2023-04-15] MEDS ORDERED: DEXTROSE 5% IN WATER 1,000 ML with SODIUM BICARB (1 MEQ/ML) 150 ML IV SCH (14:45)
[2023-04-15 14:46] LABS: Potassium 3.5 mmol/L (3.5-5.1); Total Protein 6.9 g/dL (6.3-8.2)
[2023-04-15 14:47] LABS: AST 70 U/L (14-36); Albumin 3.8 g/dL (3.5-5.0); Alkaline Phosphatase 231 U/L (38-126)
[2023-04-15 14:49] LABS: Basophils % (A) 0 %; Eosinophils % (A) 0 %; HCT 44.8 % (34.0-46.0); HGB 14.2 gm/dL (11.4-16.0); Lymphocytes # (A) 2.7 k/uL (1.0-4.8); Lymphocytes % (A) 13 %; MCH 31.7 pg (25.0-35.0); MCHC 31.8 g/dL (31.0-37.0); MCV 99.9 fL (80.0-100.0); Monocytes # (A) 1.1 k/uL (0-1.0); Monocytes % (A) 5 %; Neutrophils # (A) 16.5 k/uL (1.3-7.7); Neutrophils % (A) 80 %; Platelet Count 219 k/uL (150-450); RBC 4.49 m/uL (3.80-5.40); RDW 13.4 % (11.5-15.5); WBC 20.6 k/uL (3.8-10.6)
[2023-04-15 15:03] LABS: Prothrombin Time 10.1 sec (9.0-12.0)
[2023-04-15 15:07] LABS: Partial Thromboplastin Time 19.4 sec (22.0-30.0)
[2023-04-15] MEDS ORDERED: AMIODARONE 450 MG in DEXTROSE 5% IN WATER 250 ML IV SCH ×2 (15:15)
--- NOTE | 2023-04-15 15:19 | P.CNPUL ---
History of Present Illness Consult date: 04/15/23 Requesting physician: Martinez Wills Reason for consult: other (Ventilator/critical care management) Chief complaint: Chest pain and vomiting History of present illness: This is a 62-year-old female patient with a history of hyperlipidemia, anxiety/depression, chronic and ongoing tobacco dependence, coronary artery disease with previous stent placements. She presented here to the emergency r oom earlier this morning with complaints of nausea and vomiting and chest pain for 3 days. She was found to have elevated troponins and was taken to the cardiac catheterization lab where she was found to have a patent stents to the mid and proximal portion of the right coronary artery. Left main was free of stenosis. LAD and circumflex branches were free of stenosis. There was some concerns regarding a very distal LAD with naturally small caliber versus spontaneous coronary artery dissection of the segment. A computed tomography scan of the chest and abdomen revealed no evidence of thoracic or abdominal aortic aneurysm dissection. No pulmonary embolism. Echocardiogram revealed impaired left ventricular systolic function with ejection fraction of 45%. There is basal and mid inferior and inferolateral hypokinesis. She was brought into the intensive care unit at approximately 1315. By 1335 she had developed sustained runs of ventricular tachycardia and subsequently went into to ventricular fibrillation cardiac arrest. She did receive epinephrine and defibrillation 3 with spontaneous return of circulation. She was initiated on amiodarone drip currently at 1 mg/m. She is on lidocaine drip at 1 mg/m, propofol at 50 mcg/kg/m. Normal saline at 75 ML's per hour. She was intubated and remains on the mechanical ventilator in assist control mode at a rate of 16, tidal volume at 400, FiO2 80% and a PEEP of 5. Arterial blood gases revealed a PaO2 of 366, pCO2 of 36 and a pH of 7.3. White count 20.6. Hemoglobin 14.2. Platelets 219. INR 1.0. Sodium 1:30. Potassium 3.5. Bicarb 15. BUN 23. Creatinine 0.82. Glucose 193. Lactic acid 4.6. AST 70. ALT 59. Troponin 2.230, 2.030. Review of Systems ROS unobtainable: due to endotracheal tube Past Medical History Past Medical History: Coronary Artery Disease (CAD), Hyperlipidemia, Myocardial Infarction ([place]) Additional Past Medical History / Comment(s): Pleurisy, diverticular disease, benign colon polyp. Last Myocardial Infarction Date:: 2012 History of Any Multi-Drug Resistant Organisms: None Reported Past Surgical History: Heart Catheterization With Stent, Tubal Ligation Additional Past Surgical History / Comment(s): lithotripsy, colonoscopy/polypectomy Past Anesthesia/Blood Transfusion Reactions: No Reported Reaction Additional Past Anesthesia/Blood Transfusion Reaction / Comment(s): Pt has clausterphobia. Date of Last Stent Placement:: 2012 Harrison Connor Past Psychological History: Anxiety, Depression Smoking Status: Current every day smoker Past Alcohol Use History: None Reported Past Drug Use History: None Reported - Past Family History Father Family Medical History: Myocardial Infarction ([place]) Additional Family Medical History / Comment(s): Father of a [place] at the age of 46yrs. Mother Family Medical History: Cancer Additional Family Medical History / Comment(s): Mother had colon cancer and from sepsis in her port a cath. Medications and Allergies Home Medications Medication Instructions Recorded Confirmed Type Albuterol Sulfate [Ventolin HFA] 2 puff INHALATION RT-Q6H PRN 12/26/20 04/15/23 History Atorvastatin [Lipitor] 10 mg PO HS 12/26/20 04/15/23 History Citalopram Hydrobromide [CeleXA] 40 mg PO HS 12/26/20 04/15/23 History ALPRAZolam [Xanax] 1 mg PO BID PRN 07/18/21 04/15/23 History Metoprolol Tartrate [Lopressor] 12.5 mg PO BID 07/18/21 04/15/23 History Allergies Allergy/AdvReac Type Severity Reaction Status Date / Time No Known Allergies Allergy Verified 04/15/23 09:16 Physical Exam Vitals: Vital Signs Temp Pulse Pulse Resp BP BP Pulse Ox 04/15/23 14:20 111 H 25 H 129/61 99 04/15/23 14:10 116 H 18 120/54 99 04/15/23 14:02 04/15/23 14:00 128 H 23 138/67 98 04/15/23 13:50 129 H 14 96/72 97 04/15/23 13:40 128 H 31 H 166/79 97 04/15/23 13:30 69 21 163/82 98 04/15/23 13:20 72 24 98 04/15/23 13:10 98 04/15/23 13:02 97.8 F 103 H 25 H 94/74 98 04/15/23 12:27 80 16 155/78 99 04/15/23 12:17 86 16 162/77 99 04/15/23 12:07 80 16 166/76 100 04/15/23 12:02 84 182/73 100 04/15/23 11:57 84 16 154/90 100 04/15/23 11:47 64 18 161/72 100 04/15/23 11:37 68 16 161/67 100 04/15/23 11:32 86 16 154/71 100 04/15/23 11:27 72 16 164/72 100 04/15/23 11:22 67 14 151/69 100 04/15/23 11:16 70 16 168/80 100 04/15/23 10:47 64 14 179/71 100 04/15/23 09:30 63 20 135/62 99 04/15/23 09:25 71 20 134/68 99 04/15/23 09:20 65 22 147/52 99 04/15/23 09:15 73 22 99 04/15/23 09:10 116 H 20 210/94 98 04/15/23 09:00 89 24 146/87 98 04/15/23 08:30 67 17 147/124 98 04/15/23 08:00 98.1 F 98 24 132/70 98 04/15/23 07:55 99 22 108/65 98 04/15/23 07:33 98.3 F 33 L 20 151/69 98 FiO2 04/15/23 14:20 04/15/23 14:10 04/15/23 14:02 80 04/15/23 14:00 100 04/15/23 13:50 100 04/15/23 13:40 04/15/23 13:30 04/15/23 13:20 04/15/23 13:10 04/15/23 13:02 04/15/23 12:27 04/15/23 12:17 04/15/23 12:07 04/15/23 12:02 04/15/23 11:57 04/15/23 11:47 04/15/23 11:37 04/15/23 11:32 04/15/23 11:27 04/15/23 11:22 04/15/23 11:16 04/15/23 10:47 04/15/23 09:30 04/15/23 09:25 04/15/23 09:20 04/15/23 09:15 04/15/23 09:10 04/15/23 09:00 04/15/23 08:30 04/15/23 08:00 04/15/23 07:55 04/15/23 07:33 Intake and Output 04/15/23 04/15/23 04/15/23 06:59 14:59 22:59 Intake Total 408.682 Balance 408.682 Intake: IV 400 Intake, IV Titration 8.682 Amount propofoL 1,000 mg In 8.682 Empty Bag 1 bag @ 60 MCG/ KG/MIN 26.943 mls/hr IV . Q3H43M [facility] Rx#:[id number] Other: # Voids 1 Weight 74.843 kg GENERAL EXAM: Intubated, sedated 62-year-old female, on the mechanical ventilator, comfortable in no apparent distress. HEAD: Normocephalic. EYES: Sluggish reaction of pupils, equal size. NOSE: Clear with pink turbinates. THROAT: Oral endotracheal and gastric tube secured in place. No erythema or exudates. NECK: No masses, no JVD. CHEST: No chest wall deformity. LUNGS: Equal air entry with no crackles, wheeze, rhonchi or dullness. CVS: S1 and S2 normal with no audible murmur, regular rhythm. ABDOMEN: No hepatosplenomegaly, normal bowel sounds, no guarding or rigidity. SPINE: No scoliosis or deformity SKIN: No rashes CENTRAL NERVOUS SYSTEM: Sedated, tone is normal in all 4 extremities. EXTREMITIES: There is no peripheral edema. No clubbing, no cyanosis. Peripheral pulses are intact. Results - Laboratory Findings CBC and BMP: 04/15/23 14:15 04/15/23 14:15 ABG ABG pH 7.30 (7.35-7.45) L 04/15/23 14:27 ABG pCO2 36 mmHg (35-45) 04/15/23 14:27 ABG pO2 366 mmHg (83-108) H 04/15/23 14:27 ABG O2 Saturation 99.2 % (94-97) H 04/15/23 14:27 PT/INR, D-dimer PT 10.5 sec (9.0-12.0) 04/15/23 07:53 INR 1.0 (<1.2) 04/15/23 07:53 D-Dimer 0.81 mg/L FEU (<0.60) H 04/15/23 10:35 Abnormal lab findings: Abnormal Labs 04/15/23 04/15/23 04/15/23 07:53 07:53 07:53 WBC 19.9 H Neutrophils # 16.4 H Monocytes # 1.1 H D-Dimer ABG pH ABG pO2 ABG HCO3 ABG O2 Saturation Chloride 108 H Carbon Dioxide 13 L BUN 25 H Glucose 154 H POC Glucose (mg/dL) Plasma Lactic Acid Jelani Magnesium Total Bilirubin 1.4 H AST 52 H ALT 64 H Alkaline Phosphatase 282 H Troponin I 1.770 H* 04/15/23 04/15/23 04/15/23 10:35 11:04 13:13 WBC Neutrophils # Monocytes # D-Dimer 0.81 H ABG pH ABG pO2 ABG HCO3 ABG O2 Saturation Chloride Carbon Dioxide BUN Glucose POC Glucose (mg/dL) 128 H Plasma Lactic Acid Jelani Magnesium Total Bilirubin AST ALT Alkaline Phosphatase Troponin I 2.230 H* 04/15/23 04/15/23 04/15/23 14:15 14:15 14:15 WBC 20.6 H Neutrophils # 16.5 H Monocytes # 1.1 H D-Dimer ABG pH ABG pO2 ABG HCO3 ABG O2 Saturation Chloride 109 H Carbon Dioxide 15 L BUN 23 H Glucose 193 H POC Glucose (mg/dL) Plasma Lactic Acid Jelani Magnesium 3.5 H Total Bilirubin AST 70 H ALT 59 H Alkaline Phosphatase 231 H Troponin I 2.030 H* 04/15/23 04/15/23 14:15 14:27 WBC Neutrophils # Monocytes # D-Dimer ABG pH 7.30 L ABG pO2 366 H ABG HCO3 18 L ABG O2 Saturation 99.2 H Chloride Carbon Dioxide BUN Glucose POC Glucose (mg/dL) Plasma Lactic Acid Jelani 4.6 H* Magnesium Total Bilirubin AST ALT Alkaline Phosphatase Troponin I - Diagnostic Findings Chest x-ray: image reviewed CT scan - chest: image reviewed Assessment and Plan Assessment: Ventricular fibrillation cardiac arrest requiring intubation mechanical ventilation. Received CPR, epinephrine and defibrillation 3. Approximate downtime 5 minutes with return of spontaneous circulation. Currently on lidocaine and amiodarone drips. Acute hypoxemic respiratory failure secondary to above Chest pain with elevated troponins, cardiac catheterization revealed patent stents to the RCA, no obstructive coronary artery disease Impaired left ventricular systolic function with ejection fraction of 45% Concern with possible coronary dissection however CT scan revealed no evidence Leukocytosis, suspect reactive Transaminitis secondary to above History of coronary artery disease with previous stents to the proximal and mid RCA Hyperlipidemia Chronic and ongoing tobacco dependence History of anxiety/depression Plan: The patient was seen and evaluated Chest x-ray, CAT scan, ABGs, labs and medications reviewed We'll continue mechanical ventilator tonight Decrease FiO2 to 40% Continue amiodarone and lidocaine drips Sedation with propofol Add Protonix Follow-up chest x-ray, ABGs and labs in the a.m. We'll continue to follow and make further recommendations based on her clinical status I have personally seen and examined the patient, performed the documentation and the assessment and plan as written. Number of minutes spent on the visit: 20.
[2023-04-15 15:54] LABS: C Reactive Protein <0.5 mg/dL (<1.0)
[2023-04-15] MEDS: PIPERACILLIN-TAZOBACTAM 3.375 GM in SODIUM CHLORIDE 0.9% 100 ML IVPB SCH (16:16)
[2023-04-15] MEDS: POTASSIUM CHLORIDE 10 MEQ in WATER FOR INJECTION 1 100ML.BAG IVPB SCH ×5 (16:17→20:59)
[2023-04-15] MEDS: amLODIPine 10 MG TAB PO SCH (16:19)
[2023-04-15] MEDS: IPRATROPIUM-ALBUTEROL 3 ML NEB INHALATION SCH ×3 (16:24→23:27)
--- NOTE | 2023-04-15 17:28 | P.HPIM ---
History of Present Illness H&P Date: 04/15/23 Chief Complaint: nausea, vomiting, abd pain 62 year old woman with history of CAD s/p stents, Aortic Dissection, tobacco dependents, HLD, depression presented for evaluation of nausea, vomiting, diarrhea. I saw the patient initially following her heart catheterization. She told me that her symptoms started 3 days ago with nausea, then progressed to emesis and abdominal pain. She has not been able to keep down PO intake over last few days. Today at the prompting of her , she came into the hospital for further evaluation. She did deny fevers, chills, syncope, presyncope, constipation, diarrhea, dysuria, numbness/weakness of extremities. In the emergency room, patient was afebrile, 151/69, heart rate 99, 98% on room air. CBC was markable for leukocytosis to 19.9. Basic metabolic panel showed chloride of 108, CO2 of 13, anion gap of 18, BUN 25. Liver function tests showed total bilirubin of 1.4, AST 54, ALT of 64, alkaline phosphatase at 282. Lipase was 102. Troponin is 1.77. Lactic acid was 2.0. Coags are unremarkable. D-dimer 0.81. The patient was in the emergency room, patient was noted to be in sustained ventricular tachycardia, and cardiology was notified of this update. At this point, patient transition to the [facility], where she underwent angiogram which demonstrated patent coronary stents. She was then transition to the intensive care unit for further management. Repeat troponin was noted to be 2.23. All Systems reviewed and pertinent positives and negatives noted in HPI, all other symptoms are negative Gen: in no apparent distress, resting comfortably in bed Eyes: PERRL, no scleral injection or icterus HENT: normocephalic, atraumatic, good hearing acuity, moist mucous membranes Neck: no tracheal deviation, full range of motion Resp: good air exchange, breathing comfortably with no accessory muscle use, no tactile fremitus, CTAB CVS: good distal perfusion x 4, no pitting edema, RRR no murmurs GI: soft, NTTP, ND, no hepatosplenomegaly : no suprapubic tenderness, no CVAT, franklin catheter not present MSK: no clubbing, no cyanosis, no noted contractures of extremities Skin: no noted rashes, petechiae; temperature of skin is appropriate Neuro: moving all extremities without signs of weakness, CN II-XII intact Psych: cooperative, euthymic mood, insight and judgment intact Labs and imaging as above Assessment/plan: Nausea and Vomiting Abdominal Pain - order CT A/P with contrast - zofran 4mg IV q4h PRN - trend CBC to ensure no drop in hgb - morphine 4mg q4h PRN Sustained Ventricular Tachycardia Elevated Troponin (Type I NSTEMI ruled out; other considerations include - metabolic derangements, myocarditis, ischemia from blood loss or sepsis) - patient started on amiodarone gtt - cardiology consulted - continue to trend troponins to peak - monitor closely in ICU History of CAD Aortic Dissection Tobacco Dependence HLD Depression - Home medications reviewed and reconciled Patient is Full Code Past Medical History Past Medical History: Coronary Artery Disease (CAD), Chest Pain / Angina, Hyperlipidemia, Myocardial Infarction ([place]) Additional Past Medical History / Comment(s): Pleurisy, diverticular disease, benign colon polyp. Last Myocardial Infarction Date:: 2012 History of Any Multi-Drug Resistant Organisms: None Reported Past Surgical History: Cholecystectomy, Heart Catheterization With Stent, Tubal Ligation Additional Past Surgical History / Comment(s): lithotripsy, colonoscopy/polypectomy, all teeth removed December 2022 due to periodontal dis. Past Anesthesia/Blood Transfusion Reactions: No Reported Reaction Additional Past Anesthesia/Blood Transfusion Reaction / Comment(s): Pt has clausterphobia. Date of Last Stent Placement:: 2012 [facility] Connor Past Psychological History: Anxiety, Depression Additional Psychological History / Comment(s): Pt resides with her spouse and daughter. She is independent. She prefers not to drive d/t her anxiety, her spouse drives. Smoking Status: Current every day smoker Past Alcohol Use History: None Reported Additional Past Alcohol Use History / Comment(s): Pt started smoking in 1969 and is a ppd smoker. Past Drug Use History: None Reported - Past Family History Father Family Medical History: Myocardial Infarction ([place]) Additional Family Medical History / Comment(s): Father of a [place] at the age of 46yrs. Mother Family Medical History: Cancer Additional Family Medical History / Comment(s): Mother had colon cancer and from sepsis in her port a cath. Medications and Allergies Home Medications Medication Instructions Recorded Confirmed Type Albuterol Sulfate [Ventolin HFA] 2 puff INHALATION RT-Q6H PRN 12/26/20 04/15/23 History Atorvastatin [Lipitor] 10 mg PO HS 12/26/20 04/15/23 History Citalopram Hydrobromide [CeleXA] 40 mg PO HS 12/26/20 04/15/23 History ALPRAZolam [Xanax] 1 mg PO BID PRN 07/18/21 04/15/23 History Metoprolol Tartrate [Lopressor] 12.5 mg PO BID 07/18/21 04/15/23 History Allergies Allergy/AdvReac Type Severity Reaction Status Date / Time No Known Allergies Allergy Verified 04/15/23 09:16 Physical Exam Osteopathic Statement: *. No significant issues noted on an osteopathic structural exam other than those noted in the History and Physical/Consult. Vitals: Vital Signs Temp Pulse Pulse Resp BP BP Pulse Ox 04/15/23 17:00 85 22 100 04/15/23 16:45 82 21 100 04/15/23 16:38 80 04/15/23 16:30 94 97 04/15/23 16:15 88 21 99 04/15/23 16:00 98.5 F 92 20 98 04/15/23 15:50 91 20 99 04/15/23 15:40 94 21 99 04/15/23 15:30 92 20 98 04/15/23 15:20 101 H 22 98 04/15/23 15:10 101 H 22 98 04/15/23 15:00 122 H 24 98 04/15/23 14:50 113 H 20 117/64 98 04/15/23 14:40 95 24 114/60 98 04/15/23 14:30 101 H 27 H 129/61 99 04/15/23 14:20 111 H 25 H 129/61 99 04/15/23 14:10 116 H 18 120/54 99 04/15/23 14:02 04/15/23 14:00 128 H 23 138/67 98 04/15/23 13:50 129 H 14 96/72 97 04/15/23 13:40 128 H 31 H 166/79 97 04/15/23 13:30 69 21 163/82 98 04/15/23 13:20 72 24 98 04/15/23 13:10 98 04/15/23 13:02 97.8 F 103 H 25 H 94/74 98 04/15/23 12:27 80 16 155/78 99 04/15/23 12:17 86 16 162/77 99 04/15/23 12:07 80 16 166/76 100 04/15/23 12:02 84 182/73 100 04/15/23 11:57 84 16 154/90 100 04/15/23 11:47 64 18 161/72 100 04/15/23 11:37 68 16 161/67 100 04/15/23 11:32 86 16 154/71 100 04/15/23 11:27 72 16 164/72 100 04/15/23 11:22 67 14 151/69 100 04/15/23 11:16 70 16 168/80 100 04/15/23 10:47 64 14 179/71 100 04/15/23 09:30 63 20 135/62 99 04/15/23 09:25 71 20 134/68 99 04/15/23 09:20 65 22 147/52 99 04/15/23 09:15 73 22 99 04/15/23 09:10 116 H 20 210/94 98 04/15/23 09:00 89 24 146/87 98 04/15/23 08:30 67 17 147/124 98 04/15/23 08:00 98.1 F 98 24 132/70 98 04/15/23 07:55 99 22 108/65 98 04/15/23 07:33 98.3 F 33 L 20 151/69 98 FiO2 04/15/23 17:00 40 04/15/23 16:45 04/15/23 16:38 04/15/23 16:30 04/15/23 16:15 04/15/23 16:00 40 04/15/23 15:50 04/15/23 15:40 04/15/23 15:30 04/15/23 15:20 04/15/23 15:10 04/15/23 15:00 40 04/15/23 14:50 04/15/23 14:40 04/15/23 14:30 04/15/23 14:20 04/15/23 14:10 04/15/23 14:02 80 04/15/23 14:00 80 04/15/23 13:50 100 04/15/23 13:40 04/15/23 13:30 04/15/23 13:20 04/15/23 13:10 04/15/23 13:02 04/15/23 12:27 04/15/23 12:17 04/15/23 12:07 04/15/23 12:02 04/15/23 11:57 04/15/23 11:47 04/15/23 11:37 04/15/23 11:32 04/15/23 11:27 04/15/23 11:22 04/15/23 11:16 04/15/23 10:47 04/15/23 09:30 04/15/23 09:25 04/15/23 09:20 04/15/23 09:15 04/15/23 09:10 04/15/23 09:00 04/15/23 08:30 04/15/23 08:00 04/15/23 07:55 04/15/23 07:33 Intake and Output 04/15/23 04/15/23 04/15/23 06:59 14:59 22:59 Intake Total 408.682 534.727 Output Total 1045 Balance 408.682 -510.273 Intake: IV 400 523.5 Lidocaine-D5w Pmx 2G/ 23.5 250Ml 2,000 mg In Dextrose/Water 1 250ml. bag @ 1 MG/MIN 7.5 mls/hr IV .Q24H [facility] Rx#: [id number] Piperacillin-Tazobactam 3 100 .375 gm In Sodium Chloride 0.9% 100 ml @ 25 mls/hr IVPB Q8HR [facility] Rx# :[id number] Potassium Chloride 10 meq 100 In Water For Injection 1 100ml.bag @ 100 mls/hr IVPB Q1H [facility] Rx#: [id number] Sodium Chloride 0.9% 1, 300 000 ml @ 75 mls/hr IV . [id number] [facility] Rx#:[id number] Intake, IV Titration 8. 11.227 Amount propofoL 1,000 mg In 8.2 11.227 Empty Bag 1 bag @ 60 MCG/ KG/MIN 26.943 mls/hr IV . Q3H43M [facility] Rx#:[id number] Output: Gastric Drainage 500 Urine 545 Other: # Voids 1 # Bowel Movements 1 Weight 74.843 kg 73.1 kg ABP, PAP, CO, CI - Last 8 Hours Arterial Blood Pressure 166/86 Arterial Blood Pressure 141/112 Arterial Blood Pressure 156/82 Arterial Blood Pressure 124/70 Arterial Blood Pressure 112/66 Arterial Blood Pressure 127/68 Arterial Blood Pressure 142/75 Arterial Blood Pressure 102/66 Arterial Blood Pressure 106/68 Arterial Blood Pressure 120/78 Arterial Blood Pressure 105/72 Results CBC & Chem 7: 04/15/23 14:15 04/15/23 14:15 Labs: Abnormal Lab Results - Last 24 Hours (Table) 04/15/23 04/15/23 04/15/23 Range/Units 07:53 07:53 07:53 WBC 19.9 H (3.8-10.6) k/uL Neutrophils # 16.4 H (1.3-7.7) k/uL Monocytes # 1.1 H (0-1.0) k/uL APTT (22.0-30.0) sec D-Dimer (<0.60) mg/L FEU ABG pH (7.35-7.45) ABG pO2 (83-108) mmHg ABG HCO3 (21-25) mmol/L ABG O2 Saturation (94-97) % Chloride 108 H (98-107) mmol/L Carbon Dioxide 13 L (22-30) mmol/L BUN 25 H (7-17) mg/dL Glucose 154 H (74-99) mg/dL POC Glucose (mg/dL) (70-110) mg/dL Plasma Lactic Acid Jelani (0.7-2.0) mmol/L Magnesium (1.6-2.3) mg/dL Total Bilirubin 1.4 H (0.2-1.3) mg/dL AST 52 H (14-36) U/L ALT 64 H (4-34) U/L Alkaline Phosphatase 282 H (38-126) U/L Troponin I 1.770 H* (0.000-0.034) ng/mL 04/15/23 04/15/23 04/15/23 Range/Units 10:35 11:04 13:13 WBC (3.8-10.6) k/uL Neutrophils # (1.3-7.7) k/uL Monocytes # (0-1.0) k/uL APTT (22.0-30.0) sec D-Dimer 0.81 H (<0.60) mg/L FEU ABG pH (7.35-7.45) ABG pO2 (83-108) mmHg ABG HCO3 (21-25) mmol/L ABG O2 Saturation (94-97) % Chloride (98-107) mmol/L Carbon Dioxide (22-30) mmol/L BUN (7-17) mg/dL Glucose (74-99) mg/dL POC Glucose (mg/dL) 128 H (70-110) mg/dL Plasma Lactic Acid Jelani (0.7-2.0) mmol/L Magnesium (1.6-2.3) mg/dL Total Bilirubin (0.2-1.3) mg/dL AST (14-36) U/L ALT (4-34) U/L Alkaline Phosphatase (38-126) U/L Troponin I 2.230 H* (0.000-0.034) ng/mL 04/15/23 04/15/23 04/15/23 Range/Units 14:15 14:15 14:15 WBC 20.6 H (3.8-10.6) k/uL Neutrophils # 16.5 H (1.3-7.7) k/uL Monocytes # 1.1 H (0-1.0) k/uL APTT 19.4 L (22.0-30.0) sec D-Dimer (<0.60) mg/L FEU ABG pH (7.35-7.45) ABG pO2 (83-108) mmHg ABG HCO3 (21-25) mmol/L ABG O2 Saturation (94-97) % Chloride 109 H (98-107) mmol/L Carbon Dioxide 15 L (22-30) mmol/L BUN 23 H (7-17) mg/dL Glucose 193 H (74-99) mg/dL POC Glucose (mg/dL) (70-110) mg/dL Plasma Lactic Acid Jelani (0.7-2.0) mmol/L Magnesium 3.5 H (1.6-2.3) mg/dL Total Bilirubin (0.2-1.3) mg/dL AST 70 H (14-36) U/L ALT 59 H (4-34) U/L Alkaline Phosphatase 231 H (38-126) U/L Troponin I (0.000-0.034) ng/mL 04/15/23 04/15/23 04/15/23 Range/Units 14:15 14:15 14:27 WBC (3.8-10.6) k/uL Neutrophils # (1.3-7.7) k/uL Monocytes # (0-1.0) k/uL APTT (22.0-30.0) sec D-Dimer (<0.60) mg/L FEU ABG pH 7.30 L (7.35-7.45) ABG pO2 366 H (83-108) mmHg ABG HCO3 18 L (21-25) mmol/L ABG O2 Saturation 99.2 H (94-97) % Chloride (98-107) mmol/L Carbon Dioxide (22-30) mmol/L BUN (7-17) mg/dL Glucose (74-99) mg/dL POC Glucose (mg/dL) (70-110) mg/dL Plasma Lactic Acid Jelani 4.6 H* (0.7-2.0) mmol/L Magnesium (1.6-2.3) mg/dL Total Bilirubin (0.2-1.3) mg/dL AST (14-36) U/L ALT (4-34) U/L Alkaline Phosphatase (38-126) U/L Troponin I 2.030 H* (0.000-0.034) ng/mL Thrombosis Risk Factor Assmnt - Choose All That Apply Any of the Below Risk Factors Present?: No Each Risk Factor Represents 2 Points: Age 61-74 years Other congenital or acquired thrombophilia - If yes, enter type in comment: No Thrombosis Risk Factor Assessment Total Risk Factor Score: 2 Thrombosis Risk Factor Assessment Level: Low Risk
[2023-04-15 17:56] LABS: Glucose,Whole Blood 121 mg/dL (70-110)
--- NOTE | 2023-04-15 17:56 | P.EN ---
Critical Care Note Called to bedside due to patient having CODE BLUE called overhead. Pt responded to 1 cycle of chest compressions, amiodarone bolus, and 3 shock. Pt had ROSC following those interventions. 1334 - V Tachycardia --> V Fib 1335 shock 1337 - shock 1338 - epi, shock 1339 amio bolus, pulse back 1340 lidocaine started, intubated Afterwards, she was intubated at bedside. Cardiology was notified and case discussed with them - added lidocaine gtt for sustained ventricular tachycardia. Patient was afebrile, normotensive, HR 100s, and saturating well with FiO2 10 0%, AC 400, PEEP 8. Pt's CT A/P which was ordered by cardiology was reviewed and noted to be negative for dissection, clot; but did have thickening of gastric fundus. General: intubated, sedated HEENT: normocephalic, atraumatic, no tracheal deviation Respiratory: symmetric chest rise, no cyanosis, ventilator dependent CVS: perfusing all extremities, no distal gangrene, no pitting edema GI: soft, ND : no SPT, no CVAT, franklin is present Neuro: sedated Assessment: Cardiac Arrest secondary to Ventricular Tachycardia and Fibrillation Enteritis Plan: - pulmonology consulted for ICU management - myocarditis and electrolyte disturbance (non-anion gap acidosis) are considerations, favoring the first with prodrome of enteritis - Labs ordered: CMV penel, EBV, Herpes, Coxsacki B, Cepheid 4-plex, ANCA - XR ordered - CBC, BMP, LFTs, ESR, CRP, TSH reviewed and abnormalities are - acidosis to 15, leukocytosis to 20, AST/ALT/Alk Phos elevation, elevated troponin to 2.03. Otherwise wnl. I spent 60 minutes of critical care time on this patient, not including procedures
[2023-04-15] MEDS: ATORVASTATIN 80 MG TAB PO SCH ×2 (19:58→20:04)
[2023-04-15] MEDS: CHLORHEXIDINE GLUCONATE 15 ML CUP MUCOUS MEM SCH (19:58)
--- NOTE | 2023-04-15 20:49 | OP ---
OPERATIVE REPORT DATE OF SERVICE : PROCEDURE PERFORMED: Left brachial arterial line. PREOPERATIVE DIAGNOSES: Cardiac arrest, ventricular tachycardia, requiring intubation and mechanical ventilation, arterial line was placed for hemodynamic monitoring. POSTOPERATIVE DIAGNOSIS: Cardiac arrest, ventricular tachycardia, requiring intubation and mechanical ventilation, arterial line was placed for hemodynamic monitoring. ANESTHESIA USED: None deployed. DESCRIPTION OF PROCEDURE: The left brachial region was prepared in a sterile fashion. Drapes were applied. The left brachial artery was palpated, cannulated. A guidewire was placed. A Cook's catheter was inserted over the guidewire, and the guidewire was removed. Good blood flow, good waveform noted, no complications, line was secured using 3.0 silk sutures. MMODL / IJN: [id number] /
[2023-04-15] MEDS: SODIUM CHLORIDE 0.9% 80 ML with fentaNYL (PF) 1,000 MCG IV SCH ×2 (21:53)
[2023-04-15 22:56] LABS: EBV-EA (IgG) 0.4 AI; EBV-EBNA(IgG) >8.0; EBV-VCA (IgG) >8.0 AI; EBV-VCA (IgM) <0.2 AI
[2023-04-16] MEDS ORDERED: VANCOMYCIN 1,500 MG in SODIUM CHLORIDE 0.9% 500 ML 500 ML IVPB SCH ×2
[2023-04-16 00:18] LABS: Glucose,Whole Blood 135 mg/dL (70-110)
[2023-04-16] MEDS: PIPERACILLIN-TAZOBACTAM 3.375 GM in SODIUM CHLORIDE 0.9% 100 ML IVPB SCH ×4 (00:41→23:21)
[2023-04-16] MEDS: IPRATROPIUM-ALBUTEROL 3 ML NEB INHALATION SCH ×5 (03:57→19:36)
[2023-04-16] MEDS: AMIODARONE 360 MG in DEXTROSE 5% IN WATER 200 ML IV SCH ×4 (04:08→09:07)
[2023-04-16] MEDS: SODIUM CHLORIDE 0.9% 1,000 ML IV SCH ×2 (04:08→16:13)
[2023-04-16] MEDS: fentaNYL (PF) 50 MCG/ML 2 ML AMP IVP PRN ×3 (04:09→20:05)
[2023-04-16 05:46] LABS: Chloride 109 mmol/L (98-107); Sodium 139 mmol/L (137-145)
[2023-04-16 06:06] LABS: ABG Base Excess -0.3 mmol/L; ABG HCO3 25 mmol/L (21-25); ABG Oxygen Saturation 98.1 % (94-97); ABG PCO2 45 mmHg (35-45); ABG PH 7.36 (7.35-7.45); ABG PO2 143 mmHg (83-108); ABG TCO2 27 mmol/L (19-24); Allen Test Performed? Yes
[2023-04-16 06:06] LABS: Basophils % (A) 0 %; Eosinophils # (A) 0.1 k/uL (0-0.7); Eosinophils % (A) 0 %; HCT 39.9 % (34.0-46.0); HGB 12.9 gm/dL (11.4-16.0); Lymphocytes % (A) 18 %; MCHC 32.3 g/dL (31.0-37.0); MCV 99.3 fL (80.0-100.0); Mean Platelet Volume 9.4; Monocytes % (A) 6 %; Neutrophils # (A) 12.5 k/uL (1.3-7.7); Neutrophils % (A) 75 %; Platelet Count 173 k/uL (150-450); RBC 4.02 m/uL (3.80-5.40); RDW 13.5 % (11.5-15.5); WBC 16.8 k/uL (3.8-10.6)
[2023-04-16 06:16] LABS: African American GFR (CKD) >90 (>60 ml/min/1.73 sqM); Anion Gap 7 mmol/L; Blood Urea Nitrogen 20 mg/dL (7-17); Calcium 8.2 mg/dL (8.4-10.2); Carbon Dioxide 23 mmol/L (22-30); Glucose 120 mg/dL (74-99); Magnesium 2.6 mg/dL (1.6-2.3); Non-African American GFR(CKD) 78 (>60 ml/min/1.73 sqM); Phosphorus 2.5 mg/dL (2.5-4.5)
[2023-04-16] MEDS ORDERED: Potassium Replacement Protocol 1 EACH MISC MISCELLANE PRN ×2 (06:25→22:14)
[2023-04-16] MEDS: POTASSIUM BICARBONATE/CIT AC 20 MEQ TABLET.EFF NG-TUBE SCH ×3 (06:34→09:17)
--- NOTE | 2023-04-16 06:52 | XR ---
EXAMINATION TYPE: XR chest 1V portable DATE OF EXAM: 04/16/2023 CLINICAL HISTORY: Difficulty breathing progress study. Tube placement. TECHNIQUE: Single AP portable semiupright view of the chest is obtained. COMPARISON: Chest x-ray from one day earlier FINDINGS: Stable endotracheal and orogastric tubes. Lungs remain grossly clear. Cardiac silhouette size remains within normal limits. Osseous structures are demineralized. IMPRESSION: No acute process. No significant Change from one day earlier.
[2023-04-16] MEDS ORDERED: lisinopriL 10 MG TAB PO SCH (09:00)
[2023-04-16] MEDS ORDERED: lisinopriL 5 MG TAB PO SCH (09:00)
[2023-04-16] MEDS ORDERED: ASPIRIN 325 MG TAB PO SCH (09:00)
[2023-04-16] MEDS: CHLORHEXIDINE GLUCONATE 15 ML CUP MUCOUS MEM SCH ×2 (09:16→21:44)
[2023-04-16] MEDS: ISOSORBIDE MONONITRATE ER 30 MG TAB.ER.24H PO SCH ×2 (09:16→10:33)
[2023-04-16] MEDS: CLOPIDOGREL 75 MG TAB PO SCH (09:17)
[2023-04-16] MEDS: ASPIRIN 81 MG PO SCH (09:17)
[2023-04-16] MEDS: amLODIPine 10 MG TAB PO SCH (09:18)
[2023-04-16] MEDS: HEPARIN SODIUM,PORCINE 5,000 UNIT/ML 1 ML VIAL SQ SCH ×3 (09:18→23:20)
[2023-04-16] MEDS: METOPROLOL SUCCINATE (ER) 25 MG TAB.ER.24H PO SCH ×2 (09:18→10:33)
[2023-04-16] MEDS: PANTOPRAZOLE 40 MG/10 ML VIAL IV SCH (09:18)
[2023-04-16] MEDS: NITROGLYCERIN OINT 1 INCH/GM PACKET TOPICAL SCH ×3 (10:43→23:20)
[2023-04-16] MEDS: METOPROLOL TARTRATE 25 MG TAB PO SCH ×2 (10:43→20:03)
--- NOTE | 2023-04-16 10:56 | P.PN ---
Subjective Progress Note Date: 04/16/23 Pt remains intubated today, sedation requirements are 0.5 fentanyl and 78 propofol. No further episodes of V Tach overnight since last event (see note). General: intubated, sedated HEENT: normocephalic, atraumatic, no tracheal deviation Respiratory: symmetric chest rise, no cyanosis, ventilator dependent CVS: perfusing all extremities, no distal gangrene, no pitting edema GI: soft, ND : no SPT, no CVAT, franklin is present Neuro: sedated Hospital Course: 62 year old woman with history of CAD s/p stents, Aortic Dissection, tobacco dependents, HLD, depression presented for evaluation of nausea, vomiting, diarrhea. In the emergency room, patient was afebrile, 151/69, heart rate 99, 98% on room air. CBC was markable for leukocytosis to 19.9. Basic metabolic panel showed chloride of 108, CO2 of 13, anion gap of 18, BUN 25. Liver function tests showed total bilirubin of 1.4, AST 54, ALT of 64, alkaline phosphatase at 282. Lipase was 102. Troponin is 1.77. Lactic acid was 2.0. Coags are unremarkable. D-dimer 0.81. The patient was in the emergency room, patient was noted to be in sustained ventricular tachycardia, and cardiology was notified of this update. At this point, patient transition to the [facility], where she underwent angiogram which demonstrated patent coronary stents. She was then transition to the intensive care unit for further management. Repeat troponin was noted to be 2.23. While in the ICU, she had another episode of sustained VTach which devolved into VFib. She required chest compressions, amiodarone bolus, 1A epinephrine, and 3 shocks to achieve ROSC. Afterwards was started on lidocaine gtt per cardiology. CT A/P ordered by cardiology as well [facility] demonstrated gastric thickening, but no blood clots, dissection. Assessment/plan: Sustained Ventricular Tachycardia S/p Cardiac Arrest with ROSC Ventilator Dependent Respiratory Failure Elevated Troponin Hypokalemia (Type I NSTEMI ruled out; other considerations include - metabolic derangements, myocarditis, ischemia from sepsis) - pt remains on amiodarone gtt, lidocaine gtt discontinued - cardiology consulted - pulmonology consulted - remains on propofol at 75, fentanyl at 0.5 - EBV IgG positive, CMV IgG/IgM negative, Cephied 4-plex negative - TSH is 0.57 - Remaining labs: Herpes, Coxsackie B, Cepheid 4-plex, ANCA, blood culture, sputum culture - Ordered run of K: 20mEq x 3, repeat BMP tomorrow AM Nausea and Vomiting Abdominal Pain - zofran 4mg IV q4h PRN - trend CBC to ensure no drop in hgb - morphine 4mg q4h PRN - cover patient with zosyn 3.375gm for enteric pathogens until source ruled out History of CAD Aortic Dissection Tobacco Dependence HLD Depression - Home medications reviewed and reconciled Patient is Full Code Objective - Vital Signs Vital signs: Vital Signs Temp 98.0 F 04/16/23 04:00 Pulse 92 04/16/23 08:52 Resp 17 04/16/23 07:15 BP 151/81 04/15/23 19:00 Pulse Ox 100 04/16/23 07:15 FiO2 35 04/16/23 08:30 Intake & Output 04/15/23 04/16/23 04/16/23 18:59 06:59 18:59 Intake Total 7008.469 8326.942 622.501 Output Total 1335 1445 150 Balance 11.034 278.942 472.501 Weight 73.1 kg 74.5 kg Intake: IV 1288.5 990.0 250 Lidocaine-D5w Pmx 2G/ 38.5 90.0 150 250Ml 2,000 mg In Dextrose/Water 1 250ml. bag @ 1 MG/MIN 7.5 mls/hr IV .Q24H [facility] Rx#: [id number] Piperacillin-Tazobactam 3 100 100 .375 gm In Sodium Chloride 0.9% 100 ml @ 25 mls/hr IVPB Q8HR [facility] Rx# :[id number] Potassium Chloride 10 meq 300 In Water For Injection 1 100ml.bag @ 100 mls/hr IVPB Q1H [facility] Rx#: [id number] Sodium Chloride 0.9% 1, 450 900 000 ml @ 75 mls/hr IV . [id number] [facility] Rx#:[id number] Intake, IV Titration 57.534 733.942 372.501 Amount Amiodarone 360 mg In 390.554 166.109 Dextrose 5% in Water 200 ml @ 1 MG/MIN 33.333 mls/ hr IV .Q6H [facility] Rx#: [id number] Lidocaine-D5w Pmx 2G/ 133.5 250Ml 2,000 mg In Dextrose/Water 1 250ml. bag @ 1 MG/MIN 7.5 mls/hr IV .Q24H [facility] Rx#: [id number] Nitroglycerin-D5w Pmx 50 2.45 mg In Dextrose/Water 1 250ml.bag @ 5 MCG/MIN 1.5 mls/hr IV .Q24H [facility] Rx#: [id number] Sodium Chloride 0.9% 80 42.581 ml @ 0.5 MCG/KG/HR 3.655 mls/hr IV .Q24H [facility] with fentaNYL (PF) 1,000 mcg Rx#:[id number] propofoL 1,000 mg In 55.084 343.388 30.311 Empty Bag 1 bag @ 60 MCG/ KG/MIN 26.943 mls/hr IV . Q3H43M [facility] Rx#:[id number] Output: Gastric Drainage 500 800 Urine 835 645 150 Other: Voiding Method Indwelling Catheter Indwelling Catheter # Voids 1 # Bowel Movements 1 ABP, PAP, CO, CI - Last Documented Arterial Blood Pressure 132/59 - Labs CBC & Chem 7: 04/16/23 05:16 04/16/23 05:16 Labs: Abnormal Lab Results - Last 24 Hours (Table) 04/15/23 04/15/23 04/15/23 Range/Units 10:35 11:04 13:13 WBC (3.8-10.6) k/uL Neutrophils # (1.3-7.7) k/uL Monocytes # (0-1.0) k/uL APTT (22.0-30.0) sec D-Dimer 0.81 H (<0.60) mg/L FEU ABG pH (7.35-7.45) ABG pO2 (83-108) mmHg ABG HCO3 (21-25) mmol/L ABG Total CO2 (19-24) mmol/L ABG O2 Saturation (94-97) % Potassium (3.5-5.1) mmol/L Chloride (98-107) mmol/L Carbon Dioxide (22-30) mmol/L BUN (7-17) mg/dL Glucose (74-99) mg/dL POC Glucose (mg/dL) 128 H (70-110) mg/dL Plasma Lactic Acid Jelani (0.7-2.0) mmol/L Calcium (8.4-10.2) mg/dL Magnesium (1.6-2.3) mg/dL AST (14-36) U/L ALT (4-34) U/L Alkaline Phosphatase (38-126) U/L Troponin I 2.230 H* (0.000-0.034) ng/mL EBV Capsid Ag IgG Intrp (Negative) EBV Nuc Ag IgG Interp (Negative) 04/15/23 04/15/23 04/15/23 Range/Units 14:00 14:15 14:15 WBC 20.6 H (3.8-10.6) k/uL Neutrophils # 16.5 H (1.3-7.7) k/uL Monocytes # 1.1 H (0-1.0) k/uL APTT 19.4 L (22.0-30.0) sec D-Dimer (<0.60) mg/L FEU ABG pH (7.35-7.45) ABG pO2 (83-108) mmHg ABG HCO3 (21-25) mmol/L ABG Total CO2 (19-24) mmol/L ABG O2 Saturation (94-97) % Potassium (3.5-5.1) mmol/L Chloride (98-107) mmol/L Carbon Dioxide (22-30) mmol/L BUN (7-17) mg/dL Glucose (74-99) mg/dL POC Glucose (mg/dL) (70-110) mg/dL Plasma Lactic Acid Jelani (0.7-2.0) mmol/L Calcium (8.4-10.2) mg/dL Magnesium (1.6-2.3) mg/dL AST (14-36) U/L ALT (4-34) U/L Alkaline Phosphatase (38-126) U/L Troponin I (0.000-0.034) ng/mL EBV Capsid Ag IgG Intrp Positive A (Negative) EBV Nuc Ag IgG Interp Positive A (Negative) 04/15/23 04/15/23 04/15/23 Range/Units 14:15 14:15 14:15 WBC (3.8-10.6) k/uL Neutrophils # (1.3-7.7) k/uL Monocytes # (0-1.0) k/uL APTT (22.0-30.0) sec D-Dimer (<0.60) mg/L FEU ABG pH (7.35-7.45) ABG pO2 (83-108) mmHg ABG HCO3 (21-25) mmol/L ABG Total CO2 (19-24) mmol/L ABG O2 Saturation (94-97) % Potassium (3.5-5.1) mmol/L Chloride 109 H (98-107) mmol/L Carbon Dioxide 15 L (22-30) mmol/L BUN 23 H (7-17) mg/dL Glucose 193 H (74-99) mg/dL POC Glucose (mg/dL) (70-110) mg/dL Plasma Lactic Acid Jelani 4.6 H* (0.7-2.0) mmol/L Calcium (8.4-10.2) mg/dL Magnesium 3.5 H (1.6-2.3) mg/dL AST 70 H (14-36) U/L ALT 59 H (4-34) U/L Alkaline Phosphatase 231 H (38-126) U/L Troponin I 2.030 H* (0.000-0.034) ng/mL EBV Capsid Ag IgG Intrp (Negative) EBV Nuc Ag IgG Interp (Negative) 04/15/23 04/15/23 04/16/23 Range/Units 14:27 17:54 00:17 WBC (3.8-10.6) k/uL Neutrophils # (1.3-7.7) k/uL Monocytes # (0-1.0) k/uL APTT (22.0-30.0) sec D-Dimer (<0.60) mg/L FEU ABG pH 7.30 L (7.35-7.45) ABG pO2 366 H (83-108) mmHg ABG HCO3 18 L (21-25) mmol/L ABG Total CO2 (19-24) mmol/L ABG O2 Saturation 99.2 H (94-97) % Potassium (3.5-5.1) mmol/L Chloride (98-107) mmol/L Carbon Dioxide (22-30) mmol/L BUN (7-17) mg/dL Glucose (74-99) mg/dL POC Glucose (mg/dL) 121 H 135 H (70-110) mg/dL Plasma Lactic Acid Jelani (0.7-2.0) mmol/L Calcium (8.4-10.2) mg/dL Magnesium (1.6-2.3) mg/dL AST (14-36) U/L ALT (4-34) U/L Alkaline Phosphatase (38-126) U/L Troponin I (0.000-0.034) ng/mL EBV Capsid Ag IgG Intrp (Negative) EBV Nuc Ag IgG Interp (Negative) 04/16/23 04/16/23 04/16/23 Range/Units 05:16 05:16 06:02 WBC 16.8 H (3.8-10.6) k/uL Neutrophils # 12.5 H (1.3-7.7) k/uL Monocytes # (0-1.0) k/uL APTT (22.0-30.0) sec D-Dimer (<0.60) mg/L FEU ABG pH (7.35-7.45) ABG pO2 143 H (83-108) mmHg ABG HCO3 (21-25) mmol/L ABG Total CO2 27 H (19-24) mmol/L ABG O2 Saturation 98.1 H (94-97) % Potassium 3.0 L (3.5-5.1) mmol/L Chloride 109 H (98-107) mmol/L Carbon Dioxide (22-30) mmol/L BUN 20 H (7-17) mg/dL Glucose 120 H (74-99) mg/dL POC Glucose (mg/dL) (70-110) mg/dL Plasma Lactic Acid Jelani (0.7-2.0) mmol/L Calcium 8.2 L (8.4-10.2) mg/dL Magnesium 2.6 H (1.6-2.3) mg/dL AST (14-36) U/L ALT (4-34) U/L Alkaline Phosphatase (38-126) U/L Troponin I (0.000-0.034) ng/mL EBV Capsid Ag IgG Intrp (Negative) EBV Nuc Ag IgG Interp (Negative) Microbiology - Last 24 Hours (Table) 04/15/23 14:06 Gram Stain - Preliminary Sputum
[2023-04-16] MEDS ORDERED: POTASSIUM CHLORIDE 20 MEQ in WATER FOR INJECTION 1 100ML.BAG IVPB SCH (11:00)
--- NOTE | 2023-04-16 11:09 | PN ---
PROGRESS NOTE SUBJECTIVE: Marcela is a 62-year-old lady who presented to [facility] with symptoms of abdominal discomfort, nausea, vomiting, and had extensive ST-T wave changes in an EKG and developed ventricular tachycardia. While in the emergency room, I performed an emergent cardiac catheterization on her that did not reveal significant obstructive CAD and the stents within the right coronary artery were patent. An echocardiogram revealed an ejection fraction of 45% with inferior and inferolateral hypokinesis. The CT scan of the chest and abdomen was negative for thoracic or abdominal aortic aneurysm and dissection. There was no evidence of pulmonary embolism. There was some gastric thickening thought to be secondary to gastritis and she has moderate coronary artery calcification. She would need further evaluation of the abnormal CT abdomen with the abnormality of the stomach, but this will be initiated by the admitting physician if necessary. The patient had a run of ventricular tachycardia. After the cardiac catheterization, she was on amiodarone; subsequently, we started her on lidocaine because of cardiorespiratory insufficiency. She had been intubated and since being intubated, she has been doing well without any further episodes of ventricular tachycardia. Her hemoglobin is normal at 12.9, platelet count is 173, white cell count was elevated at 16.8, and potassium is low, which will be supplemented. Creatinine 0.8. PHYSICAL EXAMINATION: On exam, GENERAL: She is intubated, vented and sedated. VITAL SIGNS: Stable. CHEST: Reveals good air entry bilaterally. HEART: Reveals first and second heart sounds. No gallop. ABDOMEN: Soft. EXTREMITIES: Did not reveal any edema. She has remained relatively quiet through night. ASSESSMENT: 1. Ventricular tachycardia, probably related to the underlying metabolic issues. 2. Abnormal EKG, status post cardiac catheterization and medical therapy. 3. Ventilator requiring respiratory failure. 4. Metabolic acidosis. PLAN: I am going to stop the lidocaine and if she tolerates, she does not have further episodes of ventricular tachycardia. I am going to switch her to oral amiodarone. Hopefully, she can be extubated today. MMODL / IJN: [id number] /
[2023-04-16 11:22] LABS: Chol/HDL Ratio 3.63 Ratio; LDL Cholesterol,Calculated 79.8 mg/dL (0.0-131.0)
--- NOTE | 2023-04-16 11:25 | P.PN ---
Subjective Progress Note Date: 04/16/23 Principal diagnosis: Ventricular fibrillation/tachycardia cardiac arrest This is a 62-year-old female patient with a history of hyperlipidemia, anxiety/depression, chronic and ongoing tobacco dependence, coronary artery disease with previous stent placements. She presented here to the emergency room earlier this morning with complaints of nausea and vomiting and chest pain for 3 days. She was found to have elevated troponins and was taken to the cardiac catheterization lab where she was found to have a patent stents to the mid and proximal portion of the right coronary artery. Left main was free of stenosis. LAD and circumflex branches were free of stenosis. There was some concerns regarding a very distal LAD with naturally small caliber versus spontaneous coronary artery dissection of the segment. A computed tomography scan of the chest and abdomen revealed no evidence of thoracic or abdominal aortic aneurysm dissection. No pulmonary embolism. Echocardiogram revealed impaired left ventricular systolic function with ejection fraction of 45%. There is basal and mid inferior and inferolateral hypokinesis. She was brought into the intensive care unit at approximately 1315. By 1335 she had developed sustained runs of ventricular tachycardia and subsequently went into to ventricular fibrillation cardiac arrest. She did receive epinephrine and defibr illation 3 with spontaneous return of circulation. She was initiated on amiodarone drip currently at 1 mg/m. She is on lidocaine drip at 1 mg/m, propofol at 50 mcg/kg/m. Normal saline at 75 ML's per hour. She was intubated and remains on the mechanical ventilator in assist control mode at a rate of 16, tidal volume at 400, FiO2 80% and a PEEP of 5. Arterial blood gases revealed a PaO2 of 366, pCO2 of 36 and a pH of 7.3. White count 20.6. Hemoglobin 14.2. Platelets 219. INR 1.0. Sodium 1:30. Potassium 3.5. Bicarb 15. BUN 23. Creatinine 0.82. Glucose 193. Lactic acid 4.6. AST 70. ALT 59. Troponin 2.230, 2.030. Patient was reevaluated today on 04/16/2023, remains in the ICU, intubated and mechanically ventilated. No episodes of ventricular fibrillation or tachycardia overnight. However the patient remains on amiodarone drip. ABG showed a pO2 of 143 pCO2 45 pH of 7.36, hence her FiO2 was drop-down to 40%. Drips-alberts, the patient is requiring relatively high dose of propofol at 75 mcg/kg/m she was quite agitated and not synchronous with mechanical ventilation last night and fentanyl was added at 0.5 mcg/kg/h she is receiving IV fluid 0.9 normal saline at 75 mL per hour. Patient remains on Zosyn empirically.. She is on assist control rate of 16 tidal volume 400 FiO2 35% and PEEP of 5. Chest x-ray continues to show no evidence of any acute process. Labs showed W Francis of 16.8 hemoglobin of 12.9 continues to have low potassium which I have ordered aggressi ve correction of her hypokalemia and renal profile seems to be normal. Influenza screen, RSV and COVID-19 screening are negative and her James-Davis serology seems to be negative for acute infection Objective - Vital Signs Vital signs: Vital Signs Temp 97 F L 04/16/23 08:00 Pulse 93 04/16/23 11:00 Resp 25 H 04/16/23 11:00 BP 151/81 04/15/23 19:00 Pulse Ox 100 04/16/23 11:00 FiO2 40 04/16/23 11:00 Intake & Output 04/15/23 04/16/23 04/16/23 18:59 06:59 18:59 Intake Total 8451.843 6614.942 622.501 Output Total 1335 1445 150 Balance 11.034 278.942 472.501 Weight 73.1 kg 74.5 kg Intake: IV 1288.5 990.0 250 Lidocaine-D5w Pmx 2G/ 38.5 90.0 150 250Ml 2,000 mg In Dextrose/Water 1 250ml. bag @ 1 MG/MIN 7.5 mls/hr IV .Q24H [facility] Rx#: [id number] Piperacillin-Tazobactam 3 100 100 .375 gm In Sodium Chloride 0.9% 100 ml @ 25 mls/hr IVPB Q8HR [facility] Rx# :[id number] Potassium Chloride 10 meq 300 In Water For Injection 1 100ml.bag @ 100 mls/hr IVPB Q1H [facility] Rx#: [id number] Sodium Chloride 0.9% 1, 450 900 000 ml @ 75 mls/hr IV . [id number] [facility] Rx#:[id number] Intake, IV Titration 57.534 733.942 372.501 Amount Amiodarone 360 mg In 390.554 166.109 Dextrose 5% in Water 200 ml @ 1 MG/MIN 33.333 mls/ hr IV .Q6H [facility] Rx#: [id number] Lidocaine-D5w Pmx 2G/ 133.5 250Ml 2,000 mg In Dextrose/Water 1 250ml. bag @ 1 MG/MIN 7.5 mls/hr IV .Q24H [facility] Rx#: [id number] Nitroglycerin-D5w Pmx 50 2.45 mg In Dextrose/Water 1 250ml.bag @ 5 MCG/MIN 1.5 mls/hr IV .Q24H [facility] Rx#: [id number] Sodium Chloride 0.9% 80 42.581 ml @ 0.5 MCG/KG/HR 3.655 mls/hr IV .Q24H [facility] with fentaNYL (PF) 1,000 mcg Rx#:[id number] propofoL 1,000 mg In 55.084 343.388 30.311 Empty Bag 1 bag @ 60 MCG/ KG/MIN 26.943 mls/hr IV . Q3H43M [facility] Rx#:[id number] Output: Gastric Drainage 500 800 Urine 835 645 150 Other: Voiding Method Indwelling Catheter Indwelling Catheter # Voids 1 # Bowel Movements 1 ABP, PAP, CO, CI - Last Documented Arterial Blood Pressure 158/64 - Exam GENERAL EXAM: Revealed 62-year-old female intubated, mechanically ventilated, sedated, not in distress HEAD: Normocephalic. Atraumatic. EYES: PERRLA, EOMI, nonicteric. NOSE: Clear with pink turbinates. THROAT: Moist mucous membranes, endotracheal tube and orogastric tube are intact. NECK: No masses, no JVD. CHEST: No chest wall deformity. LUNGS: Good breath sound bilaterally no rhonchi and no wheezes CVS: S1 and S2 normal with no audible murmur, regular rhythm. ABDOMEN: Soft nontender no megaly no rebound no guarding positive bowel sounds SKIN: No rashes CENTRAL NERVOUS SYSTEM: Sedated, could not assess. EXTREMITIES: There is no peripheral edema. No clubbing, no cyanosis. Peripheral pulses are intact. Psychiatric: Could not assess - Labs CBC & Chem 7: 04/16/23 05:16 04/16/23 05:16 Labs: Abnormal Lab Results - Last 24 Hours (Table) 04/15/23 04/15/23 04/15/23 Range/Units 11:04 13:13 14:00 WBC (3.8-10.6) k/uL Neutrophils # (1.3-7.7) k/uL Monocytes # (0-1.0) k/uL APTT (22.0-30.0) sec ABG pH (7.35-7.45) ABG pO2 (83-108) mmHg ABG HCO3 (21-25) mmol/L ABG Total CO2 (19-24) mmol/L ABG O2 Saturation (94-97) % Potassium (3.5-5.1) mmol/L Chloride (98-107) mmol/L Carbon Dioxide (22-30) mmol/L BUN (7-17) mg/dL Glucose (74-99) mg/dL POC Glucose (mg/dL) 128 H (70-110) mg/dL Plasma Lactic Acid Jelani (0.7-2.0) mmol/L Calcium (8.4-10.2) mg/dL Magnesium (1.6-2.3) mg/dL AST (14-36) U/L ALT (4-34) U/L Alkaline Phosphatase (38-126) U/L Troponin I 2.230 H* (0.000-0.034) ng/mL EBV Capsid Ag IgG Intrp Positive A (Negative) EBV Nuc Ag IgG Interp Positive A (Negative) 04/15/23 04/15/23 04/15/23 Range/Units 14:15 14:15 14:15 WBC 20.6 H (3.8-10.6) k/uL Neutrophils # 16.5 H (1.3-7.7) k/uL Monocytes # 1.1 H (0-1.0) k/uL APTT 19.4 L (22.0-30.0) sec ABG pH (7.35-7.45) ABG pO2 (83-108) mmHg ABG HCO3 (21-25) mmol/L ABG Total CO2 (19-24) mmol/L ABG O2 Saturation (94-97) % Potassium (3.5-5.1) mmol/L Chloride 109 H (98-107) mmol/L Carbon Dioxide 15 L (22-30) mmol/L BUN 23 H (7-17) mg/dL Glucose 193 H (74-99) mg/dL POC Glucose (mg/dL) (70-110) mg/dL Plasma Lactic Acid Jelani (0.7-2.0) mmol/L Calcium (8.4-10.2) mg/dL Magnesium 3.5 H (1.6-2.3) mg/dL AST 70 H (14-36) U/L ALT 59 H (4-34) U/L Alkaline Phosphatase 231 H (38-126) U/L Troponin I (0.000-0.034) ng/mL EBV Capsid Ag IgG Intrp (Negative) EBV Nuc Ag IgG Interp (Negative) 04/15/23 04/15/23 04/15/23 Range/Units 14:15 14:15 14:27 WBC (3.8-10.6) k/uL Neutrophils # (1.3-7.7) k/uL Monocytes # (0-1.0) k/uL APTT (22.0-30.0) sec ABG pH 7.30 L (7.35-7.45) ABG pO2 366 H (83-108) mmHg ABG HCO3 18 L (21-25) mmol/L ABG Total CO2 (19-24) mmol/L ABG O2 Saturation 99.2 H (94-97) % Potassium (3.5-5.1) mmol/L Chloride (98-107) mmol/L Carbon Dioxide (22-30) mmol/L BUN (7-17) mg/dL Glucose (74-99) mg/dL POC Glucose (mg/dL) (70-110) mg/dL Plasma Lactic Acid Jelani 4.6 H* (0.7-2.0) mmol/L Calcium (8.4-10.2) mg/dL Magnesium (1.6-2.3) mg/dL AST (14-36) U/L ALT (4-34) U/L Alkaline Phosphatase (38-126) U/L Troponin I 2.030 H* (0.000-0.034) ng/mL EBV Capsid Ag IgG Intrp (Negative) EBV Nuc Ag IgG Interp (Negative) 04/15/23 04/16/23 04/16/23 Range/Units 17:54 00:17 05:16 WBC 16.8 H (3.8-10.6) k/uL Neutrophils # 12.5 H (1.3-7.7) k/uL Monocytes # (0-1.0) k/uL APTT (22.0-30.0) sec ABG pH (7.35-7.45) ABG pO2 (83-108) mmHg ABG HCO3 (21-25) mmol/L ABG Total CO2 (19-24) mmol/L ABG O2 Saturation (94-97) % Potassium (3.5-5.1) mmol/L Chloride (98-107) mmol/L Carbon Dioxide (22-30) mmol/L BUN (7-17) mg/dL Glucose (74-99) mg/dL POC Glucose (mg/dL) 121 H 135 H (70-110) mg/dL Plasma Lactic Acid Jelani (0.7-2.0) mmol/L Calcium (8.4-10.2) mg/dL Magnesium (1.6-2.3) mg/dL AST (14-36) U/L ALT (4-34) U/L Alkaline Phosphatase (38-126) U/L Troponin I (0.000-0.034) ng/mL EBV Capsid Ag IgG Intrp (Negative) EBV Nuc Ag IgG Interp (Negative) 04/16/23 04/16/23 Range/Units 05:16 06:02 WBC (3.8-10.6) k/uL Neutrophils # (1.3-7.7) k/uL Monocytes # (0-1.0) k/uL APTT (22.0-30.0) sec ABG pH (7.35-7.45) ABG pO2 143 H (83-108) mmHg ABG HCO3 (21-25) mmol/L ABG Total CO2 27 H (19-24) mmol/L ABG O2 Saturation 98.1 H (94-97) % Potassium 3.0 L (3.5-5.1) mmol/L Chloride 109 H (98-107) mmol/L Carbon Dioxide (22-30) mmol/L BUN 20 H (7-17) mg/dL Glucose 120 H (74-99) mg/dL POC Glucose (mg/dL) (70-110) mg/dL Plasma Lactic Acid Jelani (0.7-2.0) mmol/L Calcium 8.2 L (8.4-10.2) mg/dL Magnesium 2.6 H (1.6-2.3) mg/dL AST (14-36) U/L ALT (4-34) U/L Alkaline Phosphatase (38-126) U/L Troponin I (0.000-0.034) ng/mL EBV Capsid Ag IgG Intrp (Negative) EBV Nuc Ag IgG Interp (Negative) Microbiology - Last 24 Hours (Table) 04/15/23 14:06 Gram Stain - Preliminary Sputum Assessment and Plan Assessment: Impression: Acute hypoxic respiratory failure secondary to ventricular fibrillation/cardiac arrest requiring intubation and mechanical ventilation. Patient received CPR and epinephrine as well as defibrillation 3 approximate downtime was about 5 minutes. Chest pain with elevated troponins but relatively unremarkable cardiac cat heterization no obstructive coronary artery disease was noted on the cardiac catheterization. Impaired LV function with ejection fraction of 45% Acute transaminitis History of coronary artery disease and previous stent of proximal and mid RCA Dyslipidemia Tobacco dependence syndrome History of depression and generalized anxiety disorder. Recommendation: Continue ventilatory support however the patient will be given a sedation interruption holiday today and addressed mental status, if appropriate may even proceed further to weaning trials. If the patient becomes extremely agitated but appropriate, may consider starting the patient on Precedex for weaning. Continue amiodarone drip as per cardiology Continue nutritional support/enteral feeding GI and DVT prophylaxis Continue Zosyn empirically as the patient may have aspirated Continue to closely monitor for any arrhythmia/recurrent ventricular tachycardia or ventricular fibrillation Adjust and correct electrolytes accordingly including her hypokalemia Hemodynamic support if necessary patient is not requiring any pressors at this point. Patient remains critically ill. We'll continue to follow. Critical care time is over 30 minutes Time with Patient: Greater than 30
[2023-04-16 12:03] LABS: Glucose,Whole Blood 108 mg/dL (70-110)
[2023-04-16] MEDS: AMIODARONE 200 MG TAB PO SCH ×2 (12:33→20:01)
[2023-04-16 13:51] LABS: Allen Test Performed? Yes
[2023-04-16 13:52] LABS: ABG HCO3 26 mmol/L (21-25); ABG PCO2 39 mmHg (35-45); ABG PH 7.44 (7.35-7.45); ABG PO2 110 mmHg (83-108); ABG TCO2 27 mmol/L (19-24)
[2023-04-16 13:54] LABS: ABG Oxygen Saturation 99.2 % (94-97)
[2023-04-16] MEDS: LIDOCAINE-D5W PMX 2G/250ML 2,000 MG in DEXTROSE/WATER 1 250ML.BAG IV SCH (14:50)
[2023-04-16 18:06] LABS: Glucose,Whole Blood 106 mg/dL (70-110)
[2023-04-16] MEDS: ATORVASTATIN 80 MG TAB PO SCH (20:03)
[2023-04-16] MEDS ORDERED: IPRATROPIUM-ALBUTEROL 3 ML NEB INHALATION PRN (20:25)
[2023-04-16] MEDS: SODIUM CHLORIDE 0.9% 80 ML with fentaNYL (PF) 1,000 MCG IV SCH ×2 (21:44)
[2023-04-16 22:08] LABS: Magnesium 2.4 mg/dL (1.6-2.3); Potassium 3.4 mmol/L (3.5-5.1)
[2023-04-16] MEDS: POTASSIUM CHLORIDE ER 20 MEQ TAB.ER PO SCH ×2 (22:24→23:16)
[2023-04-16] MEDS: HYDROcodone/APAP 5-325MG 1 EACH TAB PO PRN (22:30)
[2023-04-16 23:44] LABS: Glucose,Whole Blood 106 mg/dL (70-110)
[2023-04-17] MEDS ORDERED: Potassium Replacement Protocol 1 EACH MISC MISCELLANE PRN (01:29)
[2023-04-17] MEDS ORDERED: POTASSIUM BICARBONATE/CIT AC 20 MEQ TABLET.EFF NG-TUBE SCH (02:00)
[2023-04-17] MEDS: HYDROcodone/APAP 5-325MG 1 EACH TAB PO PRN ×5 (02:37→21:30)
[2023-04-17 04:22] LABS: African American GFR (CKD) >90 (>60 ml/min/1.73 sqM); Anion Gap -1 mmol/L; Blood Urea Nitrogen 15 mg/dL (7-17); Calcium 8.3 mg/dL (8.4-10.2); Carbon Dioxide 27 mmol/L (22-30); Chloride 112 mmol/L (98-107); Glucose 94 mg/dL (74-99); Non-African American GFR(CKD) 85 (>60 ml/min/1.73 sqM); Potassium 4.5 mmol/L (3.5-5.1); Sodium 138 mmol/L (137-145)
[2023-04-17 04:24] LABS: Basophils % (A) 0 %; Eosinophils # (A) 0.1 k/uL (0-0.7); Eosinophils % (A) 0 %; HCT 36.5 % (34.0-46.0); HGB 11.9 gm/dL (11.4-16.0); Lymphocytes % (A) 17 %; MCH 32.6 pg (25.0-35.0); MCHC 32.7 g/dL (31.0-37.0); MCV 99.8 fL (80.0-100.0); Mean Platelet Volume 9.1; Monocytes # (A) 0.7 k/uL (0-1.0); Monocytes % (A) 6 %; Neutrophils # (A) 8.7 k/uL (1.3-7.7); Neutrophils % (A) 75 %; Platelet Count 150 k/uL (150-450); RBC 3.66 m/uL (3.80-5.40); RDW 13.2 % (11.5-15.5); WBC 11.5 k/uL (3.8-10.6)
[2023-04-17] MEDS: SODIUM CHLORIDE 0.9% 1,000 ML IV SCH ×2 (06:03→16:36)
--- NOTE | 2023-04-17 06:38 | XR ---
EXAMINATION TYPE: XR chest 1V portable DATE OF EXAM: 04/17/2023 CLINICAL HISTORY: Difficulty breathing progress study. TECHNIQUE: Single AP portable upright view of the chest is obtained. COMPARISON: Chest x-ray from one day earlier and older studies. FINDINGS: Interval extubation with removal of endotracheal and orogastric tubes. Current exam slightly suboptimal as entire lateral left lung base not included. Lungs remain clear. C ardiac silhouette size stable and upper limits of normal in size. Osseous structures are intact. IMPRESSION: Interval extubation. Lungs remain clear.
[2023-04-17] MEDS ORDERED: LOPERAMIDE 2 MG CAP PO PRN (06:39)
[2023-04-17] MEDS: NITROGLYCERIN OINT 1 INCH/GM PACKET TOPICAL SCH (06:39)
--- NOTE | 2023-04-17 07:15 | P.PN ---
Subjective Progress Note Date: 04/17/23 Pt extubated yesterday. C/o diarrhea, but nursing tells me she's only had one streak stool. Also c/o right rib pain and left wrist pain Gen: awake, alert HEENT: normocephalic, atraumatic, good hearing acuity, moist mucous membranes Resp: good air exchange, breathing comfortably with no accessory muscle use CVS: good distal perfusion x 4, GI: soft, NTTP, ND : no SPT, no CVAT, franklin catheter is present MSK: no pitting edema, no clubbing, left wrist is swollen, extremely tender to touch Neuro: non-focal, moving all extremities Psych: cooperative, euthymic mood Hospital Course: 62 year old woman with history of CAD s/p stents, Aortic Dissection, tobacco dependents, HLD, depression presented for evaluation of nausea, vomiting, diarrhea. In the emergency room, patient was afebrile, 151/69, heart rate 99, 98% on room air. CBC was markable for leukocytosis to 19.9. Basic metabolic panel showed chloride of 108, CO2 of 13, anion gap of 18, BUN 25. Liver function tests showed total bilirubin of 1.4, AST 54, ALT of 64, alkaline phosphatase at 282. Lipase was 102. Troponin is 1.77. Lactic acid was 2.0. Coags are unremarkable. D-dimer 0.81. The patient was in the emergency room, patient was noted to be in sustained ventricular tachycardia, and cardiology was notified of this update. At this point, patient transition to the [facility], where she underwent angiogram which demonstrated patent coronary stents. She was then transition to the intensive care unit for further management. Repeat troponin was noted to be 2.23. While in the ICU, she had another episode of sustained VTach which devolved into VFib. She required chest compressions, amiodarone bolus, 1A epinephrine, and 3 shocks to achieve ROSC. Afterwards was started on lidocaine gtt per cardiology. CT A/P ordered by cardiology as well which demonstrated gastric thickening, but no blood clots, dissection. Ext ubated on 04/16 PM to nasal cannula. She was given a total of 170 mEq of K over the course of 48 hours in light of severe hypokalemia. Her acidosis corrected with IVF. Lidocaine and amiodarone gtts were weaned off and patient transitioned to amiodarone PO. EBV IgG positive, CMV IgG/IgM negative, Cephied 4-plex negative. TSH is 0.57. Assessment/plan: Sustained Ventricular Tachycardia S/p Cardiac Arrest with ROSC Ventilator Dependent Respiratory Failure Elevated Troponin Hypokalemia (Type I NSTEMI ruled out; other considerations include - metabolic derangements, myocarditis, ischemia from sepsis) - continue amiodarone 400mg BID - cardiology consulted - pulmonology consulted - propofol, fentanyl discontinued, started on norco q4h PRN - Imdur 30 mg daily reordered and nitropaste discontinued - home metoprolol XL replaced with metoprolol tartrate 25mg BID - Remaining labs: Herpes, Coxsackie B, Cepheid 4-plex, ANCA, blood culture, sput um culture - Leukocytosis to 11.5, BMP unremarkable Left Wrist Pain Right Rib Pain - XR of the left wrist ordered - XR of the right ribs ordered - Ortho consult for left wrist Nausea and Vomiting Abdominal Pain - zofran 4mg IV q4h PRN - norco PRN as above - GI consult on tuesday for EGD - cover patient with zosyn 3.375gm for enteric pathogens until source ruled out History of CAD Aortic Dissection Tobacco Dependence HLD Depression - Home medications reviewed and reconciled Patient is Full Code Objective - Vital Signs Vital signs: Vital Signs Temp 97.9 F 04/17/23 04:00 Pulse 63 04/17/23 06:30 Resp 14 04/17/23 06:30 BP 151/81 04/16/23 23:45 Pulse Ox 97 04/17/23 06:30 FiO2 35 04/16/23 12:30 Intake & Output 04/16/23 04/17/23 04/17/23 18:59 06:59 18:59 Intake Total 6447.045 5054 Output Total 640 955 Balance 708.845 220 Intake: IV 950 975 Lidocaine-D5w Pmx 2G/ 150 250Ml 2,000 mg In Dextrose/Water 1 250ml. bag @ 1 MG/MIN 7.5 mls/hr IV .Q24H [facility] Rx#: [id number] Piperacillin-Tazobactam 3 200 .375 gm In Sodium Chloride 0.9% 100 ml @ 25 mls/hr IVPB Q8HR [facility] Rx# :[id number] Sodium Chloride 0.9% 1, 600 975 000 ml @ 75 mls/hr IV . [id number] [facility] Rx#:[id number] Intake, IV Titration 398.845 Amount Amiodarone 360 mg In 166.109 Dextrose 5% in Water 200 ml @ 1 MG/MIN 33.333 mls/ hr IV .Q6H [facility] Rx#: [id number] Lidocaine-D5w Pmx 2G/ 133.5 250Ml 2,000 mg In Dextrose/Water 1 250ml. bag @ 1 MG/MIN 7.5 mls/hr IV .Q24H [facility] Rx#: [id number] Sodium Chloride 0.9% 80 42.581 ml @ 0.5 MCG/KG/HR 3.655 mls/hr IV .Q24H [facility] with fentaNYL (PF) 1,000 mcg Rx#:[id number] propofoL 1,000 mg In 56.655 Empty Bag 1 bag @ 60 MCG/ KG/MIN 26.943 mls/hr IV . Q3H43M [facility] Rx#:[id number] Blood Product 200 Output: Urine 640 955 Other: Voiding Method Indwelling Catheter Indwelling Catheter # Bowel Movements 1 ABP, PAP, CO, CI - Last Documented Arterial Blood Pressure 133/52 - Labs CBC & Chem 7: 04/17/23 04:00 04/17/23 04:00 Labs: Abnormal Lab Results - Last 24 Hours (Table) 04/16/23 04/16/23 04/16/23 Range/Units 05:16 13:30 21:30 WBC (3.8-10.6) k/uL RBC (3.80-5.40) m/uL Neutrophils # (1.3-7.7) k/uL ABG pO2 110 H (83-108) mmHg ABG HCO3 26 H (21-25) mmol/L ABG Total CO2 27 H (19-24) mmol/L ABG O2 Saturation 99.2 H (94-97) % Potassium 3.4 L (3.5-5.1) mmol/L Chloride (98-107) mmol/L Calcium (8.4-10.2) mg/dL Magnesium 2.4 H (1.6-2.3) mg/dL Triglycerides 155.00 H (0.00-149.00) mg/dL 04/17/23 04/17/23 Range/Units 04:00 04:00 WBC 11.5 H (3.8-10.6) k/uL RBC 3.66 L (3.80-5.40) m/uL Neutrophils # 8.7 H (1.3-7.7) k/uL ABG pO2 (83-108) mmHg ABG HCO3 (21-25) mmol/L ABG Total CO2 (19-24) mmol/L ABG O2 Saturation (94-97) % Potassium (3.5-5.1) mmol/L Chloride 112 H (98-107) mmol/L Calcium 8.3 L (8.4-10.2) mg/dL Magnesium (1.6-2.3) mg/dL Triglycerides (0.00-149.00) mg/dL Microbiology - Last 24 Hours (Table) 04/15/23 09:13 Blood Culture - Preliminary Blood 04/15/23 14:06 Gram Stain - Preliminary Sputum Sputum Culture - Preliminary
--- NOTE | 2023-04-17 08:48 | XR ---
EXAMINATION TYPE: XR hand complete LT DATE OF EXAM: 04/17/2023 CLINICAL HISTORY: severe left wrist/hand pain TECHNIQUE: Frontal, lateral and oblique images of the left hand are obtained. COMPARISON: Severe pain and swelling FINDINGS: Osseous structures are demineralized which is noted to lower radiographic sensitivity. The re is no acute fracture/dislocation evident in the left hand. Moderate narrowing throughout the PIP a nd DIP joints of the phalanges. Mild to moderate diffuse subcutaneous edema is present. IMPRESSION: As above.
--- NOTE | 2023-04-17 08:50 | XR ---
EXAMINATION TYPE: XR ribs RT w pa chest xray DATE OF EXAM: 04/17/2023 CLINICAL HISTORY: Post CPR pain. TECHNIQUE: Single frontal view of the chest is obtained. A frontal and oblique images of the right si ded ribs. COMPARISON: Chest x-ray earlier today. FINDINGS: There is no suspicious new focal air space opacity, pleural effusion, or pneumothorax seen . The cardiac silhouette size is stable and within normal limits. The osseous structures remain de mineralized. No acute displaced right-sided rib fracture. Overlying soft tissue is unremarkable. IMPRESSION: 1. No acute cardiopulmonary process. 2. No acute displaced right-sided rib fracture.
[2023-04-17] MEDS: PANTOPRAZOLE 40 MG/10 ML VIAL IV SCH (08:58)
[2023-04-17] MEDS: lisinopriL 20 MG TAB PO SCH (08:59)
[2023-04-17] MEDS: METOPROLOL TARTRATE 25 MG TAB PO SCH ×2 (08:59→19:54)
[2023-04-17] MEDS: HEPARIN SODIUM,PORCINE 5,000 UNIT/ML 1 ML VIAL SQ SCH ×3 (08:59→23:29)
[2023-04-17] MEDS: IPRATROPIUM-ALBUTEROL 3 ML NEB INHALATION SCH ×4 (08:59→19:54)
[2023-04-17] MEDS: ISOSORBIDE MONONITRATE ER 30 MG TAB.ER.24H PO SCH (08:59)
[2023-04-17] MEDS: PIPERACILLIN-TAZOBACTAM 3.375 GM in SODIUM CHLORIDE 0.9% 100 ML IVPB SCH ×3 (09:00→23:29)
[2023-04-17] MEDS: amLODIPine 10 MG TAB PO SCH (09:00)
[2023-04-17] MEDS: ASPIRIN 81 MG PO SCH (09:00)
[2023-04-17] MEDS: AMIODARONE 200 MG TAB PO SCH ×2 (09:00→19:54)
[2023-04-17] MEDS: CLOPIDOGREL 75 MG TAB PO SCH (09:00)
--- NOTE | 2023-04-17 09:21 | PN ---
PROGRESS NOTE SUBJECTIVE: Marcela is a 62-year-old lady who is admitted to hospital with chest and abdominal pain and had an abnormal EKG and had ventricular tachycardia. I performed cardiac catheterization and was advised medical therapy. She remains in sinus rhythm, had been extubated, and is complaining of musculoskeletal pain related to her CPR. She otherwise had remained in sinus rhythm, did not have any further episodes of ventricular tachycardia. PHYSICAL EXAMINATION: GENERAL: Comfortable at rest. VITAL SIGNS: Stable. CHEST: Good air entry bilaterally. HEART: First and second heart sounds. No gallop. No murmur. ABDOMEN: Soft. EXTREMITIES: Exam did not reveal any edema. Peripheral pulses are felt. The patient is on amiodarone 400 b.i.d. that I am going to taper later in the week, Norvasc 10 mg daily, aspirin 81, Lipitor 80, Plavix 75, Imdur 30, Zestril 20, Lopressor 25 b.i.d. LABORATORY DATA: Labs show hemoglobin of 11.9, platelet count is 150. Potassium is 4.5, creatinine is 0.7. ASSESSMENT: 1. Ventricular tachycardia. 2. Metabolic acidosis. 3. Coronary artery disease, status post prior angioplasty. PLAN: The patient will continue current medications. Stable, to be transferred out of ICU MMODL / IJN: [id number] /
--- NOTE | 2023-04-17 09:22 | P.CNOR ---
History of Present Illness - [facility] Consult date: 04/17/23 History of present illness: The patient is a very and healthy 62-year-old female with multiple medical problems who is admitted to internal medicine. Following extubation and several rounds of CPR she was found to have increasing left wrist and hand pain. The patient is unable to provide much history, but is complaining of left wrist tenderness. According to the patient's nurse the patient had CPR yesterday and may have injured her hand during chest compressions. The patient denies any pain in her shoulder or elbow. Past Medical History Past Medical History: Coronary Artery Disease (CAD), Hyperlipidemia, Myocardial Infarction (VT) Additional Past Medical History / Comment(s): Pleurisy, diverticular disease, benign colon polyp. Last Myocardial Infarction Date:: 2012 History of Any Multi-Drug Resistant Organisms: None Reported Past Surgical History: Heart Catheterization With Stent, Tubal Ligation Additional Past Surgical History / Comment(s): lithotripsy, colonoscopy/polypectomy Past Anesthesia/Blood Transfusion Reactions: No Reported Reaction Additional Past Anesthesia/Blood Transfusion Reaction / Comm: Pt has clausterphobia. Date of Last Stent Placement:: 2012 [facility] Past Psychological History: Anxiety, Depression Smoking Status: Current every day smoker Past Alcohol Use History: None Reported Past Drug Use History: None Reported - Past Family History Father Family Medical History: Myocardial Infarction (VT) Additional Family Medical History / Comment(s): Father of a VT at the age of 46yrs. Mother Family Medical History: Cancer Additional Family Medical History / Comment(s): Mother had colon cancer and from sepsis in her port a cath. Medications and Allergies Home Medications Medication Instructions Recorded Confirmed Type Albuterol Sulfate [Ventolin HFA] 2 puff INHALATION RT-Q6H PRN 12/26/20 04/15/23 History Atorvastatin [Lipitor] 10 mg PO HS 12/26/20 04/15/23 History Citalopram Hydrobromide [CeleXA] 40 mg PO HS 12/26/20 04/15/23 History ALPRAZolam [Xanax] 1 mg PO BID PRN 07/18/21 04/15/23 History Metoprolol Tartrate [Lopressor] 12.5 mg PO BID 07/18/21 04/15/23 History Allergies Allergy/AdvReac Type Severity Reaction Status Date / Time No Known Allergies Allergy Verified 04/15/23 09:16 Physical Examination The patient is resting in her ICU bed. She is extubated and breathing comfortably. She is somewhat drowsy but will open her eyes and answer questions when prompted. A focused exam of the left upper extremity was conducted. On inspection there is diffuse swelling from the distal third of the forearm into the hand and fingers. There are several IV starts sites over the dorsum of the hand but no other open wounds. There is no discoloration of the skin. The hand and distal forearm are swollen but soft and compressible. There is exquisite tenderness to light touch diffusely over the dorsum of the hand and distal wrist. There is no pain with passive range of motion of the fingers or wrist in the left arm. She has minimal tenderness over the left elbow or shoulder. The fingers warm and well perfused with brisk capillary refill. Results X-rays of the left hand were reviewed as well as the radiologist's read. They show no acute fractures or signs of dislocation. There is diffuse swelling noted on the lateral view. - Labs Labs: Abnormal Lab Results - Last 24 Hours (Table) 04/16/23 04/16/23 04/16/23 Range/Units 05:16 13:30 21:30 WBC (3.8-10.6) k/uL RBC (3.80-5.40) m/uL Neutrophils # (1.3-7.7) k/uL ABG pO2 110 H (83-108) mmHg ABG HCO3 26 H (21-25) mmol/L ABG Total CO2 27 H (19-24) mmol/L ABG O2 Saturation 99.2 H (94-97) % Potassium 3.4 L (3.5-5.1) mmol/L Chloride (98-107) mmol/L Calcium (8.4-10.2) mg/dL Magnesium 2.4 H (1.6-2.3) mg/dL Triglycerides 155.00 H (0.00-149.00) mg/dL 04/17/23 04/17/23 Range/Units 04:00 04:00 WBC 11.5 H (3.8-10.6) k/uL RBC 3.66 L (3.80-5.40) m/uL Neutrophils # 8.7 H (1.3-7.7) k/uL ABG pO2 (83-108) mmHg ABG HCO3 (21-25) mmol/L ABG Total CO2 (19-24) mmol/L ABG O2 Saturation (94-97) % Potassium (3.5-5.1) mmol/L Chloride 112 H (98-107) mmol/L Calcium 8.3 L (8.4-10.2) mg/dL Magnesium (1.6-2.3) mg/dL Triglycerides (0.00-149.00) mg/dL Microbiology - Last 24 Hours (Table) 04/15/23 09:13 Blood Culture - Preliminary Blood 04/15/23 14:06 Gram Stain - Preliminary Sputum Sputum Culture - Preliminary H & H 04/15/23 04/15/23 04/16/23 Range/Units 07:53 14:15 05:16 Hgb 15.3 14.2 12.9 (11.4-16.0) gm/dL Hct 45.2 44.8 39.9 (34.0-46.0) % 04/17/23 Range/Units 04:00 Hgb 11.9 (11.4-16.0) gm/dL Hct 36.5 (34.0-46.0) % Coagulation 04/15/23 04/15/23 Range/Units 07:53 14:15 INR 1.0 1.0 (<1.2) Result Diagrams: 04/17/23 04:00 04/17/23 04:00 Assessment and Plan Assessment: Left hand pain and swelling, negative x-rays Multiple medical problems Plan: I would recommend nonsurgical treatment and observation. The patient has swelling and exquisite tenderness but no other signs of an evolving compartment syndrome. Her x-rays show no obvious fractures. I would recommend supportive care with elevation, icing or warm compresses, a wrist brace as needed and close clinical follow-up. We will continue to follow while she is an inpatient. Following discharge she can follow-up in our office with our hand specialist Dr. Guillermina Ariza.
--- NOTE | 2023-04-17 10:19 | P.PN ---
Subjective Progress Note Date: 04/17/23 Principal diagnosis: Ventricular fibrillation/tachycardia cardiac arrest This is a 62-year-old female patient with a history of hyperlipidemia, anxiety/depression, chronic and ongoing tobacco dependence, coronary artery disease with previous stent placements. She presented here to the emergency room earlier this morning with complaints of nausea and vomiting and chest pain for 3 days. She was found to have elevated troponins and was taken to the cardiac catheterization lab where she was found to have a patent stents to the mid and proximal portion of the right coronary artery. Left main was free of stenosis. LAD and circumflex branches were free of stenosis. There was some concerns regarding a very distal LAD with naturally small caliber versus spontaneous coronary artery dissection of the segment. A computed tomography scan of the chest and abdomen revealed no evidence of thoracic or abdominal aortic aneurysm dissection. No pulmonary embolism. Echocardiogram revealed impaired left ventricular systolic function with ejection fraction of 45%. There is basal and mid inferior and inferolateral hypokinesis. She was brought into the intensive care unit at approximately 1315. By 1335 she had developed sustained runs of ventricular tachycardia and subsequently went into to ventricular fibrillation cardiac arrest. She did receive epinephrine and defibr illation 3 with spontaneous return of circulation. She was initiated on amiodarone drip currently at 1 mg/m. She is on lidocaine drip at 1 mg/m, propofol at 50 mcg/kg/m. Normal saline at 75 ML's per hour. She was intubated and remains on the mechanical ventilator in assist control mode at a rate of 16, tidal volume at 400, FiO2 80% and a PEEP of 5. Arterial blood gases revealed a PaO2 of 366, pCO2 of 36 and a pH of 7.3. White count 20.6. Hemoglobin 14.2. Platelets 219. INR 1.0. Sodium 1:30. Potassium 3.5. Bicarb 15. BUN 23. Creatinine 0.82. Glucose 193. Lactic acid 4.6. AST 70. ALT 59. Troponin 2.230, 2.030. Patient was reevaluated today on 04/16/2023, remains in the ICU, intubated and mechanically ventilated. No episodes of ventricular fibrillation or tachycardia overnight. However the patient remains on amiodarone drip. ABG showed a pO2 of 143 pCO2 45 pH of 7.36, hence her FiO2 was drop-down to 40%. Drips-alberts, the patient is requiring relatively high dose of propofol at 75 mcg/kg/m she was quite agitated and not synchronous with mechanical ventilation last night and fentanyl was added at 0.5 mcg/kg/h she is receiving IV fluid 0.9 normal saline at 75 mL per hour. Patient remains on Zosyn empirically.. She is on assist control rate of 16 tidal volume 400 FiO2 35% and PEEP of 5. Chest x-ray continues to show no evidence of any acute process. Labs showed W Fracnis of 16.8 hemoglobin of 12.9 continues to have low potassium which I have ordered aggressi ve correction of her hypokalemia and renal profile seems to be normal. Influenza screen, RSV and COVID-19 screening are negative and her James-Davis serology seems to be negative for acute infection Reevaluated today on 04/17/2023, patient remains in the ICU, patient was extubated yesterday, tolerated the extubation well. Patient seems to have some left wrist pain and swelling, and that being addressed by orthopedics she also has some chest wall pain most likely related to her CPR, and rib films were ordered. Otherwise the patient is doing well, her chest x-ray is reassuring, her labs are reassuring, however considering the presentation I will continue to monitor the patient in the ICU for the next 24 hours. No arrhythmias overnight. Patient is now on 0.9 normal saline at 75 mL/h, receiving [place] for pain patient is on oral amiodarone as per cardiology. Remains empirically on Zosyn for possible aspiration. Her chest x-ray however is nondiagnostic. WBC count is 11.5 hemoglobin 11.9 lites are normal and renal profile is normal Objective - Vital Signs Vital signs: Vital Signs Temp 97.9 F 04/17/23 04:00 Pulse 66 04/17/23 09:12 Resp 18 04/17/23 07:00 BP 151/81 04/16/23 23:45 Pulse Ox 97 04/17/23 09:01 FiO2 35 04/16/23 12:30 Intake & Output 04/16/23 04/17/23 04/17/23 18:59 06:59 18:59 Intake Total 9740.807 4770 Output Total 640 955 Balance 708.845 220 Weight 75 kg Intake: IV 950 975 Lidocaine-D5w Pmx 2G/ 150 250Ml 2,000 mg In Dextrose/Water 1 250ml. bag @ 1 MG/MIN 7.5 mls/hr IV .Q24H [facility] Rx#: [id number] Piperacillin-Tazobactam 3 200 .375 gm In Sodium Chloride 0.9% 100 ml @ 25 mls/hr IVPB Q8HR [facility] Rx# :[id number] Sodium Chloride 0.9% 1, 600 975 000 ml @ 75 mls/hr IV . [id number] [facility] Rx#:[id number] Intake, IV Titration 398.845 Amount Amiodarone 360 mg In 166.109 Dextrose 5% in Water 200 ml @ 1 MG/MIN 33.333 mls/ hr IV .Q6H [facility] Rx#: [id number] Lidocaine-D5w Pmx 2G/ 133.5 250Ml 2,000 mg In Dextrose/Water 1 250ml. bag @ 1 MG/MIN 7.5 mls/hr IV .Q24H [facility] Rx#: [id number] Sodium Chloride 0.9% 80 42.581 ml @ 0.5 MCG/KG/HR 3.655 mls/hr IV .Q24H [facility] with fentaNYL (PF) 1,000 mcg Rx#:[id number] propofoL 1,000 mg In 56.655 Empty Bag 1 bag @ 60 MCG/ KG/MIN 26.943 mls/hr IV . Q3H43M [facility] Rx#:[id number] Blood Product 200 Output: Urine 640 955 Other: Voiding Method Indwelling Catheter Indwelling Catheter # Bowel Movements 1 ABP, PAP, CO, CI - Last Documented Arterial Blood Pressure 123/48 - Exam GENERAL EXAM: Revealed 62-year-old female on 3 L nasal cannula, not in distress. HEAD: Normocephalic. Atraumatic. EYES: PERRLA, EOMI, nonicteric. NOSE: Clear with pink turbinates. THROAT: Moist mucous membranes, no significant findings NECK: No masses, no JVD. CHEST: No chest wall deformity. Chest wall tenderness. LUNGS: Good breath sound bilaterally no rhonchi and no wheezes CVS: S1 and S2 normal with no audible murmur, regular rhythm. ABDOMEN: Soft nontender no megaly no rebound no guarding positive bowel sounds SKIN: No rashes Neurologic: Alert and oriented 3 focal deficit EXTREMITIES: Left wrist swelling and tenderness noted. With limitation of range of motion secondary to pain Psychiatric: Normal mood, affect and normal mental status examination - Labs CBC & Chem 7: 04/17/23 04:00 04/17/23 04:00 Labs: Abnormal Lab Results - Last 24 Hours (Table) 04/16/23 04/16/23 04/16/23 Range/Units 05:16 13:30 21:30 WBC (3.8-10.6) k/uL RBC (3.80-5.40) m/uL Neutrophils # (1.3-7.7) k/uL ABG pO2 110 H (83-108) mmHg ABG HCO3 26 H (21-25) mmol/L ABG Total CO2 27 H (19-24) mmol/L ABG O2 Saturation 99.2 H (94-97) % Potassium 3.4 L (3.5-5.1) mmol/L Chloride (98-107) mmol/L Calcium (8.4-10.2) mg/dL Magnesium 2.4 H (1.6-2.3) mg/dL Triglycerides 155.00 H (0.00-149.00) mg/dL 04/17/23 04/17/23 Range/Units 04:00 04:00 WBC 11.5 H (3.8-10.6) k/uL RBC 3.66 L (3.80-5.40) m/uL Neutrophils # 8.7 H (1.3-7.7) k/uL ABG pO2 (83-108) mmHg ABG HCO3 (21-25) mmol/L ABG Total CO2 (19-24) mmol/L ABG O2 Saturation (94-97) % Potassium (3.5-5.1) mmol/L Chloride 112 H (98-107) mmol/L Calcium 8.3 L (8.4-10.2) mg/dL Magnesium (1.6-2.3) mg/dL Triglycerides (0.00-149.00) mg/dL Microbiology - Last 24 Hours (Table) 04/15/23 14:06 Gram Stain - Final Sputum Sputum Culture - Final 04/15/23 09:13 Blood Culture - Preliminary Blood Assessment and Plan Assessment: Impression: Acute hypoxic respiratory failure secondary to ventricular fibrillation/cardiac arrest requiring intubation and mechanical ventilation. Patient received CPR and epinephrine as well as defibrillation 3 approximate downtime was about 5 minutes. Chest pain with elevated troponins but relatively unremarkable cardiac catheterization no obstructive coronary artery disease was noted on the cardiac catheterization. Impaired LV function with ejection fraction of 45% Acute transaminitis History of coronary artery disease and previous stent of proximal and mid RCA Dyslipidemia Tobacco dependence syndrome History of depression and generalized anxiety disorder. Recommendation: Continue to monitor in the ICU Orthopedic consultation for left wrist pain, no fracture Ribs films seem to be normal no evidence of rib fractures Continue Zosyn empirically Continue to closely monitor for any arrhythmia/recurrent ventricular tachycardia or ventricular fibrillation Continue to monitor labs including electrolytes and adjust accordingly We will continue to follow possible transfer out of the ICU in the next 24 hours to a cardiac floor. Time with Patient: Less than 30
[2023-04-17] MEDS: CHLORHEXIDINE GLUCONATE 15 ML CUP MUCOUS MEM SCH (10:54)
[2023-04-17 12:03] LABS: Glucose,Whole Blood 89 mg/dL (70-110)
[2023-04-17 17:54] LABS: Glucose,Whole Blood 84 mg/dL (70-110)
[2023-04-17] MEDS: SODIUM CHLORIDE 0.9% 80 ML with fentaNYL (PF) 1,000 MCG IV SCH ×2 (19:34)
[2023-04-17] MEDS: ATORVASTATIN 80 MG TAB PO SCH (19:54)
[2023-04-17 23:30] LABS: Glucose,Whole Blood 81 mg/dL (70-110)
[2023-04-18] MEDS: HYDROcodone/APAP 5-325MG 1 EACH TAB PO PRN ×5 (01:30→20:30)
[2023-04-18 04:05] LABS: Basophils % (A) 0 %; Eosinophils # (A) 0.1 k/uL (0-0.7); Eosinophils % (A) 1 %; HCT 32.6 % (34.0-46.0); HGB 10.5 gm/dL (11.4-16.0); Lymphocytes # (A) 2.1 k/uL (1.0-4.8); Lymphocytes % (A) 20 %; MCH 32.6 pg (25.0-35.0); MCHC 32.1 g/dL (31.0-37.0); MCV 101.6 fL (80.0-100.0); Macrocytosis Slight; Mean Platelet Volume 9.6; Monocytes # (A) 0.5 k/uL (0-1.0); Monocytes % (A) 5 %; Neutrophils # (A) 7.7 k/uL (1.3-7.7); Neutrophils % (A) 73 %; Platelet Count 168 k/uL (150-450); RBC 3.21 m/uL (3.80-5.40); RDW 13.5 % (11.5-15.5); WBC 10.6 k/uL (3.8-10.6)
[2023-04-18 04:23] LABS: African American GFR (CKD) >90 (>60 ml/min/1.73 sqM); Anion Gap 4 mmol/L; Blood Urea Nitrogen 17 mg/dL (7-17); Calcium 8.2 mg/dL (8.4-10.2); Carbon Dioxide 23 mmol/L (22-30); Chloride 109 mmol/L (98-107); Glucose 77 mg/dL (74-99); Non-African American GFR(CKD) 84 (>60 ml/min/1.73 sqM); Potassium 3.8 mmol/L (3.5-5.1); Sodium 136 mmol/L (137-145)
[2023-04-18] MEDS ORDERED: POTASSIUM BICARBONATE/CIT AC 20 MEQ TABLET.EFF NG-TUBE SCH (05:00)
[2023-04-18] MEDS: SODIUM CHLORIDE 0.9% 1,000 ML IV SCH (05:31)
[2023-04-18 05:54] LABS: Herpes simplex I and/or II IgM 1.12 INDEX (<=0.90); Herpes simplex IgG II Ab 0.15 (< or = 0.90)
[2023-04-18] MEDS: HEPARIN SODIUM,PORCINE 5,000 UNIT/ML 1 ML VIAL SQ SCH ×2 (08:20→15:17)
[2023-04-18] MEDS: PIPERACILLIN-TAZOBACTAM 3.375 GM in SODIUM CHLORIDE 0.9% 100 ML IVPB SCH (08:21)
[2023-04-18] MEDS: AMIODARONE 200 MG TAB PO SCH ×2 (08:22→20:30)
[2023-04-18] MEDS: METOPROLOL TARTRATE 25 MG TAB PO SCH (08:23)
[2023-04-18] MEDS: ASPIRIN 81 MG PO SCH (08:23)
[2023-04-18] MEDS: CLOPIDOGREL 75 MG TAB PO SCH (08:23)
[2023-04-18] MEDS: amLODIPine 10 MG TAB PO SCH (08:23)
[2023-04-18] MEDS: ISOSORBIDE MONONITRATE ER 30 MG TAB.ER.24H PO SCH (08:24)
[2023-04-18] MEDS: IPRATROPIUM-ALBUTEROL 3 ML NEB INHALATION SCH ×5 (08:27→20:45)
[2023-04-18] MEDS: PANTOPRAZOLE 40 MG/10 ML VIAL IV SCH (08:44)
[2023-04-18] MEDS: lisinopriL 20 MG TAB PO SCH (08:45)
--- NOTE | 2023-04-18 09:11 | P.PN ---
Subjective Progress Note Date: 04/18/23 The patient is a 62-year-old female who presented to the emergency room with epigastric discomfort. The patient had moderate ST T wave changes in the inferolateral leads. She had a run of ventricular tachycardia in the emergency room and was started on IV amiodarone. After her transfer to the ICU, she had a ventricular fibrillation cardiac arrest, where she underwent several rounds of CPR and was subsequently intubated. Coronary angiogram had shown patent stents, however there is concern for SCAD in the distal segment of the LAD. Ejection fraction was noted to be low at 45% with inferior hypokinesis. Post-CPR complications include chest discomfort as well as trauma to left wrist. No fractures noted on x-ray. The patient is sitting up in the recliner chair. Mild tremors as she states she is having some pain. She states her right anterior chest wall is uncomfortable. No dizziness or lightheadedness when ambulating to the chair. GENERAL: Well-appearing, well-nourished and in no acute distress. NECK: Supple without JVD or thyromegaly. LUNGS: Breath sounds clear to auscultation bilaterally. Respiration equal and unlabored. No wheezes, rales or rhonchi. HEART: Regular rate and rhythm without murmurs, rubs or gallops. S1 and S2 heard. EXTREMITIES: No lower extremity edema. No clubbing or cyanosis. Peripheral pulses intact and strong. Swelling noted in left upper extremity. 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 PLAN: Continue supportive treatment Recommend discontinuing arterial line his vital signs are stable and she continues to have left arm/wrist pain Patient may be transferred to [facility]. I am dictating on behalf of Dr Jan Andersen's history/physical and assessment /plan. Objective - Vital Signs Vital signs: Vital Signs Temp 98.2 F 04/18/23 08:00 Pulse 73 04/18/23 08:27 Resp 16 04/18/23 08:27 BP 151/81 04/17/23 20:00 Pulse Ox 97 04/18/23 08:27 FiO2 35 09/23/23 12:30 Intake & Output 04/17/23 04/18/23 04/18/23 18:59 06:59 18:59 Intake Total 1025 900 175 Output Total 775 765 175 Balance 250 135 0 Weight 79.9 kg Intake: IV 1025 900 175 Piperacillin-Tazobactam 3 200 100 .375 gm In Sodium Chloride 0.9% 100 ml @ 25 mls/hr IVPB Q8HR [facility] Rx# :[id number] Sodium Chloride 0.9% 1, 825 900 75 000 ml @ 75 mls/hr IV . [id number] [facility] Rx#:[id number] Output: Urine 775 765 175 Other: Voiding Method Indwelling Catheter Indwelling Catheter ABP, PAP, CO, CI - Last Documented Arterial Blood Pressure 117/46 - Labs CBC & Chem 7: 04/18/23 03:21 04/18/23 03:21 Labs: Abnormal Lab Results - Last 24 Hours (Table) 04/15/23 04/18/23 04/18/23 Range/Units 07:53 03:21 03:21 RBC 3.21 L (3.80-5.40) m/uL Hgb 10.5 L (11.4-16.0) gm/dL Hct 32.6 L (34.0-46.0) % MCV 101.6 H (80.0-100.0) fL Sodium 136 L (137-145) mmol/L Chloride 109 H (98-107) mmol/L Calcium 8.2 L (8.4-10.2) mg/dL HSV I&II IgM Ab 1.12 H (<=0.90) INDEX HSV I IgG Ab 40.20 H (< or = 0.90) Microbiology - Last 24 Hours (Table) 04/15/23 09:13 Blood Culture - Preliminary Blood 04/15/23 14:06 Gram Stain - Final Sputum Sputum Culture - Final
--- NOTE | 2023-04-18 10:30 | P.CONS ---
History of Present Illness - Reason for Consult Consult date: 04/18/23 Beto pain, N/B, thickened gastrum Requesting physician: Tere Morelos - Chief Complaint Chest pain, nausea and vomiting - History of Present Illness This is a 62-year-old pleasant female who presented to the emergency 3 days ago with complaints of not feeling well. Patient had vomiting and chest pain. 3 days prior to coming to the emergency department. Also shortness of breath. She has a past medical history of coronary artery disease status post stents, every day smoker, and hyperlipidemia. On admission she had elevated troponin and underwent a cardiac catheterization on Tuesday she was found to have patent stents to the mid and proximal portion of the right coronary artery. Left main was free of stenosis. LAD and circumflex branches were free of stenosis. There was some concern regarding the very distal LAD with Small caliber versus spontaneous coronary artery dissection of the segment. Computed tomography scan of the chest and abdomen revealed no evidence of thoracic or abdominal aortic aneurysm dissection however reported thickening of the gastric antral and pyloric region can be seen in the setting of gastritis. Malignancy would be in the differential diagnosis and consider direct visualization. Gastroenterology was consulted for nausea and vomiting and gastric thickening. During her hospitalization after her cardiac catheteriza tion patient was transferred to the ICU where she went into ventricular fibrillation cardiac arrest requiring CPR, epinephrine and defibrillation 3. She was then intubated and on mechanical ventilation. Patient was extubated yesterday. It was reported that when they intubated her and placed her OG tube that she did have coffee-ground output. Patient also reports she had vomiting for about 3 days prior to coming to the hospital and she did recall some coffee- ground emesis. She denied any bloody stool or black stool. She has a prior colonoscopy which she states is she is due for repeat. No previous history of peptic ulcer disease no frequent NSAID use, and reported no associated abdominal pain. States she had chest pain, but no abdominal pain. She states she has not had any further vomiting while she's been here in the hospital. Today was the first time she had some oatmeal. She has no nausea or vomiting, denies any abdominal pain states that she only has rib pain in her sternum. No previous history of upper endoscopy. She had a bowel movement today which nursing reported as brown. WBC 10.6 hemoglobin 10.5 hematocrit 32 platelet count 168,000 Review of Systems REVIEW OF SYSTEMS: CARDIOPULMONARY: No chest pain or shortness of breath. Gastrointestinal: The patient had acid reflux associated with nausea and vomiting 3 days prior to admission. No abdominal pain, nausea or vomiting at this time. Reported coffee-ground emesis and coffee-ground output from OG tube in placed. No rectal bleeding, or melena. GENITOURINARY: No dysuria or hematuria. MUSCULOSKELETAL: Reports normal range of motion., Joint pain. SKIN: No rashes. No jaundice. ENDOCRINE: No chills, fevers. No excessive weight gain or loss. No polydipsia or polyuria. PSYCHIATRIC: Unremarkable. NEUROLOGY: No change in mental status. Denies dizziness, headache. ENT: Vision unremarkable. CONSTITUTIONAL: No recent weight loss. No fever, chills, night sweats. Past Medical History Past Medical History: Coronary Artery Disease (CAD), Hyperlipidemia, Myocardial Infarction ([place]) Additional Past Medical History / Comment(s): Pleurisy, diverticular disease, benign colon polyp. Last Myocardial Infarction Date:: 2012 History of Any Multi-Drug Resistant Organisms: None Reported Past Surgical History: Heart Catheterization With Stent, Tubal Ligation Additional Past Surgical History / Comment(s): lithotripsy, colonoscopy/polypectomy Past Anesthesia/Blood Transfusion Reactions: No Reported Reaction Additional Past Anesthesia/Blood Transfusion Reaction / Comm: Pt has clausterphobia. Date of Last Stent Placement:: 2012 [facility] Past Psychological History: Anxiety, Depression Smoking Status: Current every day smoker Past Alcohol Use History: None Reported Past Drug Use History: None Reported - Past Family History Father Family Medical History: Myocardial Infarction ([place]) Additional Family Medical History / Comment(s): Father of a [place] at the age of 46yrs. Mother Family Medical History: Cancer Additional Family Medical History / Comment(s): Mother had colon cancer and from sepsis in her port a cath. Medications and Allergies Home Medications Medication Instructions Recorded Confirmed Type Albuterol Sulfate [Ventolin HFA] 2 puff INHALATION RT-Q6H PRN 12/26/20 04/15/23 History Atorvastatin [Lipitor] 10 mg PO HS 12/26/20 04/15/23 History Citalopram Hydrobromide [CeleXA] 40 mg PO HS 12/26/20 04/15/23 History ALPRAZolam [Xanax] 1 mg PO BID PRN 07/18/21 04/15/23 History Metoprolol Tartrate [Lopressor] 12.5 mg PO BID 07/18/21 04/15/23 History Allergies Allergy/AdvReac Type Severity Reaction Status Date / Time No Known Allergies Allergy Verified 04/15/23 09:16 Physical Exam Vitals: Vital Signs Temp Pulse Resp BP Pulse Ox 04/18/23 08:27 73 16 97 04/18/23 08:00 98.2 F 70 18 94 L 04/18/23 07:00 69 13 97 04/18/23 06:00 71 24 99 04/18/23 05:00 64 17 95 04/18/23 04:00 65 16 96 04/18/23 03:00 68 13 96 04/18/23 02:00 64 20 99 04/18/23 01:00 71 17 97 04/18/23 00:24 62 12 97 04/18/23 00:00 98.1 F 68 8 L 96 04/17/23 23:00 67 20 98 04/17/23 22:00 69 20 97 04/17/23 21:00 75 19 99 04/17/23 20:11 86 04/17/23 20:00 98 F 73 17 151/81 100 04/17/23 19:54 73 04/17/23 19:30 75 23 98 04/17/23 19:00 78 13 151/81 98 04/17/23 18:30 77 22 98 04/17/23 18:00 78 18 97 04/17/23 17:30 84 22 97 04/17/23 17:00 81 21 97 04/17/23 16:45 74 04/17/23 16:34 80 04/17/23 16:30 67 15 97 04/17/23 16:00 69 19 98 04/17/23 15:30 64 19 98 04/17/23 15:00 73 15 97 04/17/23 14:30 69 13 98 04/17/23 14:00 68 19 97 04/17/23 13:30 70 22 96 04/17/23 13:00 68 15 96 04/17/23 12:36 64 04/17/23 12:30 61 15 99 04/17/23 12:26 62 04/17/23 12:00 98.9 F 64 18 98 04/17/23 11:30 60 15 98 04/17/23 11:00 64 15 100 04/17/23 10:30 61 13 98 04/17/23 10:00 76 19 97 Intake and Output 04/17/23 04/18/23 04/18/23 22:59 06:59 14:59 Intake Total 700 675 175 Output Total 560 540 175 Balance 140 135 0 Intake: IV 700 675 175 Piperacillin-Tazobactam 3 100 100 .375 gm In Sodium Chloride 0.9% 100 ml @ 25 mls/hr IVPB Q8HR [facility] Rx# :[id number] Sodium Chloride 0.9% 1, 600 675 75 000 ml @ 75 mls/hr IV . [id number] [facility] Rx#:[id number] Output: Urine 560 540 175 Other: Voiding Method Indwelling Catheter Indwelling Catheter Weight 79.9 kg ABP, PAP, CO, CI - Last 8 Hours Arterial Blood Pressure 117/46 Arterial Blood Pressure 147/56 Arterial Blood Pressure 135/52 Arterial Blood Pressure 122/52 Arterial Blood Pressure 114/51 Arterial Blood Pressure 113/53 Arterial Blood Pressure 116/53 General appearance: The patient is alert, oriented, appears in no acute distress. HET: Head is normocephalic and atraumatic. Pupils are equal and reactive. Neck: Supple. Heart: Regular. Lungs: Equal expansion, normal respiratory effort. Abdomen: Soft, nontender, nondistended. Extremities: Normal skin color and turgor. Neurological: No focal deficits. Strength and sensation are grossly intact. Results CBC & Chem 7: 04/18/23 03:21 04/18/23 03:21 Labs: Abnormal Lab Results - Last 24 Hours (Table) 04/15/23 04/18/23 04/18/23 Range/Units 07:53 03:21 03:21 RBC 3.21 L (3.80-5.40) m/uL Hgb 10.5 L (11.4-16.0) gm/dL Hct 32.6 L (34.0-46.0) % MCV 101.6 H (80.0-100.0) fL Sodium 136 L (137-145) mmol/L Chloride 109 H (98-107) mmol/L Calcium 8.2 L (8.4-10.2) mg/dL HSV I&II IgM Ab 1.12 H (<=0.90) INDEX HSV I IgG Ab 40.20 H (< or = 0.90) Microbiology - Last 24 Hours (Table) 04/15/23 09:13 Blood Culture - Preliminary Blood 04/15/23 14:06 Gram Stain - Final Sputum Sputum Culture - Final Comments: Gallbladder ultrasound reported renal cortical thinning with echogenic renal. Meds which may reflect underlying medullary sponge kidney. Liver heterogeneity may reflect underlying hepatic steatosis. Prominence of the pancreatic duct. Consider CT correlation felt clinically indicated Chest abdomen CTA: No evidence of thoracic or abdominal aortic aneurysm or dissection. No evidence of pulmonary embolism. Thickening of the gastric antral and pyloric region can be seen in the setting of gastritis. Malignancy would be in the differential diagnosis and consider direct visualization. Moderate coronary artery calcifications. No acute process otherwise seen. Assessment and Plan (1) Nausea & vomiting Narrative/Plan: 62-year-old female presented to the hospital with complaints of chest pain and nausea and vomiting 3 days duration. Patient states she did have an episode of coffee-ground emesis. While here in the hospital she had elevated troponin, NSTEMI and went for cardiac catheterization. After her cardiac catheterization she went to the ICU and ended up going into ventricular tachycardia and ultimately cardiac arrest status post CPR and into patient and mechanical ventilation. Apparently when the old G-tube was placed there was noted coffee- ground output. Patient has not had any further coffee-ground output or nausea or vomiting. She was extubated yesterday. She denies any abdominal pain, any nausea or vomiting at this time. No previous history of GI bleed, no history of peptic ulcer disease, however does state that she was having acid reflux. She denies any regular NSAID use and no anticoagulation. Denies any previous history of upper endoscopy, states that she has had a colonoscopy in the past significant for diverticulosis and colon polyp which she states she is due for repeat colonoscopy. As part of her workup for chest pain and reported abdominal pain she had a CT of the abdomen and chest. There was no evidence of aortic dissection, there was however reported thickening of the gastric antral and pyloric region which can be seen in the setting of gastritis. At this time patient is not having any further symptoms, hemoglobin is stable and having normal brown bowel movements will recommend continuing Protonix and consider outpatient endoscopic evaluation. Current Visit: No Status: Acute Code(s): R11.2 - NAUSEA WITH VOMITING, UNSPECIFIED SNOMED Code(s): 93088120 (2) Gastric wall thickening Current Visit: Yes Status: Acute Code(s): K31.89 - OTHER DISEASES OF STOMACH AND DUODENUM SNOMED Code(s): 08101886 (3) Acute non-ST elevation myocardial infarction (NSTEMI) Current Visit: Yes Status: Acute Code(s): I21.4 - NON-ST ELEVATION (NSTEMI) MYOCARDIAL INFARCTION SNOMED Code(s): 493539343 (4) Cardiac arrest Current Visit: Yes Status: Acute Code(s): I46.9 - CARDIAC ARREST, CAUSE UNSPECIFIED SNOMED Code(s): 193458602 (5) Ventricular tachycardia Current Visit: Yes Status: Acute Code(s): I47.20 - VENTRICULAR TACHYCARDIA, UNSPECIFIED SNOMED Code(s): 49801821 (6) Chest pain Current Visit: No Status: Acute Code(s): R07.9 - CHEST PAIN, UNSPECIFIED SNOMED Code(s): 37946261 Plan: 1. Continue symptomatic and supportive care 2. Continue Protonix 40 mg daily 3. Avoid NSAIDs 4. Diet as tolerated 5. Consider endoscopic evaluation once patient is stable either prior to discharge or as an outpatient in the next 2 weeks Thank you for this consultation, we will continue to follow Dr. Michelle Wills I agree with the dictator's note, documented as a scribe by Ashleigh Lazo.
--- NOTE | 2023-04-18 11:33 | P.PN ---
Subjective Progress Note Date: 04/18/23 Hospital Course: 62 year old woman with history of CAD s/p stents, Aortic Dissection, tobacco dependents, HLD, depression presented for evaluation of nausea, vomiting, diarrhea. In the emergency room, patient was afebrile, 151/69, heart rate 99, 98% on room air. CBC was remarkable for leukocytosis to 19.9. Basic metabolic panel showed chloride of 108, CO2 of 13, anion gap of 18, BUN 25. Liver function tests showed total bilirubin of 1.4, AST 54, ALT of 64, alkaline phosphatase at 282. Lipase was 102. Troponin is 1.77. Lactic acid was 2.0. Coags are unremarkable. D-dimer 0.81. The patient was in the emergency room, patient was noted to be in sustained ventricular tachycardia, and cardiology notified. At this point, patient transition to the [employer], where she underw ent angiogram which demonstrated patent coronary stents. She was then transition to the intensive care unit for further management. Repeat troponin was noted to be 2.23. While in the ICU, she had another episode of sustained VTach which devolved into VFib. She required chest compressions, amiodarone bolus, 1x epinephrine, and 3 shocks to achieve ROSC. Afterwards was started on lidocaine gtt per cardiology. CT A/P ordered by cardiology as well which demonstrated gastric thickening, but no blood clots, dissection. Extubated on 04/16 PM to nasal cannula. She was given a total of 170 mEq of K over the course of 48 hours in light of severe hypokalemia. Her acidosis corrected with IVF. Lidocaine and amiodarone gtts were weaned off and patient transitioned to amiodarone PO. EBV IgG positive, CMV IgG/IgM negative, Cephied 4-plex negative. TSH is 0.57. Patient now being downgraded to regular floors. Subjective: Patient seen and examined at bedside. No acute events overnight. She still has mild chest pain and left hand pain. She is now out of bed into chair. Continues to have Hilliard catheter in place. Has poor appetite but slowly eating and drinking. Denies any further nausea and vomiting. Pertinent positives and negatives as discussed above, a complete review of syst ems was performed and all other systems are negative. Vitals Signs Reviewed. General: nontoxic, no distress, appears at stated age Derm: warm, dry Head: atraumatic, normocephalic, symmetric Eyes: EOMI, no lid lag, anicteric sclera Mouth: no lip lesion, mucus membranes moist Cardiovascular: S1S2 reg, no murmur, chest wall tenderness Lungs: CTA bilateral, no rhonchi, no rales , no accessory muscle use, supplemental oxygen Abdominal: soft, nontender to palpation, no guarding, no appreciable or ganomegaly Ext: no gross muscle atrophy, no edema, no contractures, left wrist mild edema and pain with movement Neuro: CN II-XI grossly intact, no focal neuro deficits Psych: Alert, oriented, appropriate affect Data Reviewed Today: Pertinent Labs: WBC 10.6, hemoglobin 10.5, platelet 168, sodium 136, potassium 3.8, bicarbonate 23, creatinine 0.76, blood sugars range between 77-89 Imaging: No new imaging Assessment and Plan: Active: Sustained Ventricular Tachycardia S/p Cardiac Arrest with ROSC Ventilator Dependent Respiratory Failure, extubated 04/16, now on nasal cannula Type II NSTEMI Coronary artery disease status post stents Heart failure with reduced ejection fraction, EF 45%, not in exacerbation -Cardiology note reviewed, continue current management -Remains on oral amiodarone -Continue aspirin, Plavix, statin, Imdur, lisinopril, metoprolol -Consider switching metoprolol tartrate to succinate Left wrist pain Right rib pain, likely secondary to chest compressions -Orthopedics recommended supportive care and outpatient follow-up with hand specialist Dr. Guillermina Ariza Gastritis Nausea and vomiting Abdominal pain -GI note reviewed, outpatient endoscopic evaluation, continue Protonix Mild macrocytic anemia -Likely in the setting of acute illness -Continue to trend -No active bleeding Resolved: Hypokalemia Leukocytosis High anion gap metabolic acidosis Chronic: SCAD Tobacco Dependence HLD Depression DVT ppx: Subcu heparin Code status: Full code Anticipated discharge place: Pending clinical course Anticipated discharge time: Pending clinical course Objective - Vital Signs Vital signs: Vital Signs Temp 98.2 F 04/18/23 08:00 Pulse 65 04/18/23 10:00 Resp 8 L 04/18/23 10:00 BP 151/81 04/17/23 20:00 Pulse Ox 96 04/18/23 10:00 FiO2 35 04/16/23 12:30 Intake & Output 04/17/23 04/18/23 04/18/23 18:59 06:59 18:59 Intake Total 1025 900 250 Output Total 775 765 425 Balance 250 135 -175 Weight 79.9 kg Intake: IV 1025 900 250 Piperacillin-Tazobactam 3 200 100 .375 gm In Sodium Chloride 0.9% 100 ml @ 25 mls/hr IVPB Q8HR [facility]S [facility] Rx# :[id number] Sodium Chloride 0.9% 1, 825 900 150 000 ml @ 75 mls/hr IV . [id number] [facility] 234 [facility]EDS AT [facility] Rx#:[id number] Output: Urine 775 765 425 Other: Voiding Method Indwelling Catheter Indwelling Catheter Indwelling Catheter # Voids 1 # Bowel Movements 1 ABP, PAP, CO, CI - Last Documented Arterial Blood Pressure 116/43 - Labs CBC & Chem 7: 04/18/23 03:21 04/18/23 03:21 Labs: Abnormal Lab Results - Last 24 Hours (Table) 04/15/23 04/18/23 04/18/23 Range/Units 07:53 03:21 03:21 RBC 3.21 L (3.80-5.40) m/uL Hgb 10.5 L (11.4-16.0) gm/dL Hct 32.6 L (34.0-46.0) % MCV 101.6 H (80.0-100.0) fL Sodium 136 L (137-145) mmol/L Chloride 109 H (98-107) mmol/L Calcium 8.2 L (8.4-10.2) mg/dL HSV I&II IgM Ab 1.12 H (<=0.90) INDEX HSV I IgG Ab 40.20 H (< or = 0.90) Microbiology - Last 24 Hours (Table) 04/15/23 09:13 Blood Culture - Preliminary Blood 04/15/23 14:06 Gram Stain - Final Sputum Sputum Culture - Final
--- NOTE | 2023-04-18 11:33 | P.PN ---
Subjective Progress Note Date: 04/18/23 This is a 62-year-old female patient with a history of hyperlipidemia, anxiety/depression, chronic and ongoing tobacco dependence, coronary artery disease with previous stent placements. She presented here to the emergency room earlier this morning with complaints of nausea and vomiting and chest pain for 3 days. She was found to have elevated troponins and was taken to the cardiac catheterization lab where she was found to have a patent stents to the mid and proximal portion of the right coronary artery. Left main was free of stenosis. LAD and circumflex branches were free of stenosis. There was some concerns regarding a very distal LAD with naturally small caliber versus spontaneous coronary artery dissection of the segment. A computed tomography scan of the chest and abdomen revealed no evidence of thoracic or abdominal aortic aneurysm dissection. No pulmonary embolism. Echocardiogram revealed impaired left ventricular systolic function with ejection fraction of 45%. There is basal and mid inferior and inferolateral hypokinesis. She was brought into the intensive care unit at approximately 1315. By 1335 she had developed sustained runs of ventricular tachycardia and subsequently went into to ventricular fibrillation cardiac arrest. She did receive epinephrine and defibrillation 3 with spontaneous return of circulation. She was initiated on amiodarone drip currently at 1 mg/m. She is on lidocaine drip at 1 mg/m, propofol at 50 mcg/kg/m. Normal saline at 75 ML's per hour. She was intubated and remains on the mechanical ventilator in assist control mode at a rate of 16, tidal volume at 400, FiO2 80% and a PEEP of 5. Arterial blood gases revealed a PaO2 of 366, pCO2 of 36 and a pH of 7.3. White count 20.6. Hemoglobin 14.2. Platelets 219. INR 1.0. Sodium 1:30. Potassium 3.5. Bicarb 15. BUN 23. Creatinine 0.82. Glucose 193. Lactic acid 4.6. AST 70. ALT 59. Troponin 2.230, 2.030. Patient was reevaluated today on 04/16/2023, remains in the ICU, intubated and mechanically ventilated. No episodes of ventricular fibrillation or tachycardia overnight. However the patient remains on amiodarone drip. ABG showed a pO2 of 143 pCO2 45 pH of 7.36, hence her FiO2 was drop-down to 40%. Drips-alberts, the patient is requiring relatively high dose of propofol at 75 mcg/kg/m she was quite agitated and not synchronous with mechanical ventilation last night and fentanyl was added at 0.5 mcg/kg/h she is receiving IV fluid 0.9 normal saline at 75 mL per hour. Patient remains on Zosyn empirically.. She is on assist control rate of 16 tidal volume 400 FiO2 35% and PEEP of 5. Chest x-ray continues to show no evidence of any acute process. Labs showed W Francis of 16.8 hemoglobin of 12.9 continues to have low potassium which I have ordered aggressive correction of her hypokalemia and renal profile seems to be normal. Influenza screen, RSV and COVID-19 screening are negative and her James-Davis serology seems to be negative for acute infection Reevaluated today on 04/17/2023, patient remains in the ICU, patient was extubated yesterday, tolerated the extubation well. Patient seems to have some left wrist pain and swelling, and that being addressed by orthopedics she also has some chest wall pain most likely related to her CPR, and rib films were ordered. Otherwise the patient is doing well, her chest x-ray is reassuring, her labs are reassuring, however considering the presentation I will continue to monitor the patient in the ICU for the next 24 hours. No arrhythmias overnight. Patient is now on 0.9 normal saline at 75 mL/h, receiving [place] for pain patient is on oral amiodarone as per cardiology. Remains empirically on Zosyn for possible aspiration. Her chest x-ray however is nondiagnostic. WBC count is 11.5 hemoglobin 11.9 lites are normal and renal profile is normal The patient is seen today 04/18/2023 in follow-up in the intensive care unit. She is currently sitting up in a chair at the bedside. Awake and alert in no acute distress. Maintaining good O2 saturation in the 90s on 2 L/m per nasal cannula. She is doing very well. She denies any worsening shortness of breath, cough or congestion. She does have some chest wall pain from recent CPR. Chest x-ray revealed no acute pulmonary process. No acute displaced rib fractures. No IV fluids currently. She's not had any further arrhythmias. She remains on oral amiodarone. Heparin for DVT prophylaxis. Objective - Vital Signs Vital signs: Vital Signs Temp 98.2 F 04/18/23 08:00 Pulse 65 04/18/23 10:00 Resp 8 L 09/25/23 10:00 BP 151/81 04/17/23 20:00 Pulse Ox 96 04/18/23 10:00 FiO2 35 04/16/23 12:30 Intake & Output 04/17/23 04/18/23 04/18/23 18:59 06:59 18:59 Intake Total 1025 900 250 Output Total 775 765 425 Balance 250 135 -175 Weight 79.9 kg Intake: IV 1025 900 250 Piperacillin-Tazobactam 3 200 100 .375 gm In Sodium Chloride 0.9% 100 ml @ 25 mls/hr IVPB Q8HR [facility] Rx# :[id number] Sodium Chloride 0.9% 1, 825 900 150 000 ml @ 75 mls/hr IV . [id number] [facility] Rx#:[id number] Output: Urine 775 765 425 Other: Voiding Method Indwelling Catheter Indwelling Catheter Indwelling Catheter # Voids 1 # Bowel Movements 1 ABP, PAP, CO, CI - Last Documented Arterial Blood Pressure 116/43 - Exam GENERAL EXAM: Alert, very pleasant 62-year-old female, up in a chair, on 2 L nasal cannula, comfortable in no apparent distress. HEAD: Normocephalic. EYES: Normal reaction of pupils, equal size. NOSE: Clear with pink turbinates. THROAT: No erythema or exudates. NECK: No masses, no JVD. CHEST: No chest wall deformity. LUNGS: Equal air entry with no crackles, wheeze, rhonchi or dullness. CVS: S1 and S2 normal with no audible murmur, regular rhythm. ABDOMEN: No hepatosplenomegaly, normal bowel sounds, no guarding or rigidity. SPINE: No scoliosis or deformity SKIN: No rashes CENTRAL NERVOUS SYSTEM: No focal deficits, tone is normal in all 4 extremities. EXTREMITIES: There is no peripheral edema. No clubbing, no cyanosis. Perip heral pulses are intact. - Labs CBC & Chem 7: 04/18/23 03:21 04/18/23 03:21 Labs: Abnormal Lab Results - Last 24 Hours (Table) 04/15/23 04/18/23 04/18/23 Range/Units 07:53 03:21 03:21 RBC 3.21 L (3.80-5.40) m/uL Hgb 10.5 L (11.4-16.0) gm/dL Hct 32.6 L (34.0-46.0) % MCV 101.6 H (80.0-100.0) fL Sodium 136 L (137-145) mmol/L Chloride 109 H (98-107) mmol/L Calcium 8.2 L (8.4-10.2) mg/dL HSV I&II IgM Ab 1.12 H (<=0.90) INDEX HSV I IgG Ab 40.20 H (< or = 0.90) Microbiology - Last 24 Hours (Table) 04/15/23 09:13 Blood Culture - Preliminary Blood 04/15/23 14:06 Gram Stain - Final Sputum Sputum Culture - Final Assessment and Plan Assessment: Ventricular fibrillation cardiac arrest requiring intubation mechanical ventilation. Received CPR, epinephrine and defibrillation 3. Approximate downtime 5 minutes with return of spontaneous circulation. Recovered successfully extubated and currently on 2 L nasal cannula. On oral amiodarone. No further arrhythmias. Acute hypoxemic respiratory failure secondary to above, recovered Chest pain with elevated troponins, cardiac catheterization revealed patent stents to the RCA, no obstructive coronary artery disease Impaired left ventricular systolic function with ejection fraction of 45% Concern with possible coronary dissection however CT scan revealed no evidence Leukocytosis, suspect reactive Transaminitis secondary to above History of coronary artery disease with previous stents to the proximal and mid RCA Hyperlipidemia Chronic and ongoing tobacco dependence History of anxiety/depression Plan: The patient was seen and evaluated Chest x-ray, labs and medications reviewed Currently stable and on 2 L nasal cannula Transitioned to oral amiodarone Discontinue Zosyn, discontinue IV fluids Transfer to the cardiac stepdown unit We'll continue to follow I have personally seen and examined the patient, performed the documentation and the assessment and plan as written. Number of minutes spent on the visit: 10.
[2023-04-18] MEDS: SPIRONOLACTONE 25 MG TAB PO SCH (13:06)
[2023-04-18] MEDS: MAGNESIUM OXIDE 400 MG TAB PO SCH (13:06)
[2023-04-18 14:55] LABS: C-ANCA <1:20 Titer (<1:20)
[2023-04-18] MEDS: METOPROLOL TARTRATE 50 MG TAB PO SCH (16:58)
[2023-04-18] MEDS: ATORVASTATIN 80 MG TAB PO SCH (20:30)
[2023-04-18] MEDS ORDERED: CITALOPRAM HYDROBROMIDE 20 MG TAB PO SCH (21:00)
[2023-04-19] MEDS: HEPARIN SODIUM,PORCINE 5,000 UNIT/ML 1 ML VIAL SQ SCH ×4 (00:08→23:43)
[2023-04-19] MEDS: HYDROcodone/APAP 5-325MG 1 EACH TAB PO PRN ×6 (00:08→22:06)
[2023-04-19] MEDS: METOPROLOL TARTRATE 50 MG TAB PO SCH (05:46)
[2023-04-19] MEDS: IPRATROPIUM-ALBUTEROL 3 ML NEB INHALATION SCH ×4 (08:06→20:24)
[2023-04-19] MEDS: lisinopriL 20 MG TAB PO SCH (08:47)
[2023-04-19] MEDS: MAGNESIUM OXIDE 400 MG TAB PO SCH (08:48)
[2023-04-19] MEDS: amLODIPine 10 MG TAB PO SCH (08:48)
[2023-04-19] MEDS: ISOSORBIDE MONONITRATE ER 30 MG TAB.ER.24H PO SCH (08:48)
[2023-04-19] MEDS: CLOPIDOGREL 75 MG TAB PO SCH (08:48)
[2023-04-19] MEDS: SPIRONOLACTONE 25 MG TAB PO SCH (08:48)
[2023-04-19] MEDS: ASPIRIN 81 MG PO SCH (08:48)
[2023-04-19] MEDS: PANTOPRAZOLE 40 MG/10 ML VIAL IV SCH (08:48)
[2023-04-19] MEDS ORDERED: AMIODARONE 200 MG TAB PO SCH (09:00)
[2023-04-19] MEDS ORDERED: METOPROLOL TARTRATE 25 MG TAB PO STA (10:09)
[2023-04-19] MEDS ORDERED: VANCOMYCIN 1,250 MG in SODIUM CHLORIDE 0.9% 250 ML IVPB STA (10:11)
[2023-04-19 11:40] LABS: African American GFR (CKD) >90 (>60 ml/min/1.73 sqM); Anion Gap 4 mmol/L; Blood Urea Nitrogen 22 mg/dL (7-17); Calcium 9.1 mg/dL (8.4-10.2); Carbon Dioxide 27 mmol/L (22-30); Chloride 108 mmol/L (98-107); Glucose 118 mg/dL (74-99); Magnesium 2.1 mg/dL (1.6-2.3); Non-African American GFR(CKD) >90 (>60 ml/min/1.73 sqM); Sodium 139 mmol/L (137-145)
[2023-04-19 11:45] LABS: Basophils % (A) 0 %; Eosinophils # (A) 0.2 k/uL (0-0.7); Eosinophils % (A) 1 %; HCT 39.7 % (34.0-46.0); HGB 12.5 gm/dL (11.4-16.0); Lymphocytes # (A) 1.9 k/uL (1.0-4.8); Lymphocytes % (A) 18 %; MCH 31.6 pg (25.0-35.0); MCHC 31.5 g/dL (31.0-37.0); MCV 100.6 fL (80.0-100.0); Mean Platelet Volume 9.7; Monocytes # (A) 0.7 k/uL (0-1.0); Monocytes % (A) 7 %; Neutrophils # (A) 7.6 k/uL (1.3-7.7); Neutrophils % (A) 73 %; Platelet Count 231 k/uL (150-450); RBC 3.95 m/uL (3.80-5.40); RDW 13.6 % (11.5-15.5); WBC 10.5 k/uL (3.8-10.6)
--- NOTE | 2023-04-19 13:01 | P.PN ---
Subjective Progress Note Date: 04/19/23 Principal diagnosis: Abdominal pain, nausea and vomiting This is a 62-year-old pleasant female who presented to the emergency 3 days ago with complaints of not feeling well. Patient had vomiting and chest pain. 3 days prior to coming to the emergency department. Also shortness of breath. She has a past medical history of coronary artery disease status post stents, every day smoker, and hyperlipidemia. On admission she had elevated troponin and underwent a cardiac catheterization on Tuesday she was found to have patent stents to the mid and proximal portion of the right coronary artery. Left main was free of stenosis. LAD and circumflex branches were free of stenosis. There was some concern regarding the very distal LAD with Small caliber versus spontaneous coronary artery dissection of the segment. Computed tomography scan of the chest and abdomen revealed no evidence of thoracic or abdominal aortic aneurysm dissection however reported thickening of the gastric antral and pyloric region can be seen in the setting of gastritis. Malignancy would be in the differential diagnosis and consider direct visualization. Gastroenterology was consulted for nausea and vomiting and gastric thickening. During her hospitalization after her cardiac catheterization patient was transferred to the ICU where she went into ventricular fibrillation cardiac arrest requiring CPR, epinephrine and defibrillation 3. She was then intubated and on mechanical ventilation. Patient was extubated yesterday. It was reported that when they intubated her and placed her OG tube that she did have coffee-ground output. Patient also reports she had vomiting for about 3 days prior to coming to the hospital and she did recall some coffee-ground emesis. She denied any bloody stool or black stool. She has a prior colonoscopy which she states is she is due for repeat. No previous history of peptic ulcer disease no frequent NSAID use, and reported no associated abdominal pain. States she had chest pain, but no abdominal pain. She states she has not had any further vomiting while she's been here in the hospital. Today was the first time she had some oatmeal. She has no nausea or vomiting, denies any abdominal pain states that she only has rib pain in her sternum. No previous history of upper endoscopy. She had a bowel movement today which nursing reported as brown. WBC 10.6 hemoglobin 10.5 hematocrit 32 platelet count 168,000 04/19/2023 Patient was seen and examined his follow-up. No acute changes through the night. She does have a bit of a cough today. Using incentive spirometer which is at the bedside. No reported nausea or vomiting. No coffee-ground emesis or melena. Cardiology continues to follow closely. Objective - Vital Signs Vital signs: Vital Signs Temp 98.4 F 04/19/23 08:00 Pulse 68 04/19/23 08:19 Resp 20 04/19/23 08:00 BP 150/78 04/19/23 08:00 Pulse Ox 92 L 04/19/23 08:07 FiO2 21 04/19/23 08:07 Intake & Output 04/18/23 04/19/23 04/19/23 18:59 06:59 18:59 Intake Total 250 240 Output Total 425 Balance -175 240 Intake: IV 250 Piperacillin-Tazobactam 3 100 .375 gm In Sodium Chloride 0.9% 100 ml @ 25 mls/hr IVPB Q8HR [facility] Rx# :[id number] Sodium Chloride 0.9% 1, 150 000 ml @ 75 mls/hr IV . [id number] [facility] Rx#:[id number] Oral 240 Output: Urine 425 Other: Voiding Method Indwelling Catheter Toilet # Voids 1 1 # Bowel Movements 1 ABP, PAP, CO, CI - Last Documented Arterial Blood Pressure 116/43 - Exam General appearance: The patient is alert, oriented, appears in no acute distress. HET: Head is normocephalic and atraumatic. Conjunctiva pink. Sclera anicteric. Neck: Supple without lymphadenopathy. Abdomen: Soft, nontender, nondistended with bowel sounds. No guarding or rigidity. Extremities: Normal skin color and turgor. No pedal edema. Left upper extremity with swelling Skin: No rashes, no jaundice Neurological: No focal deficits. Alert and oriented. - Labs CBC & Chem 7: 04/19/23 10:44 04/19/23 10:44 Labs: Microbiology - Last 24 Hours (Table) 04/15/23 09:13 Blood Culture - Preliminary Blood Assessment and Plan (1) Nausea & vomiting Narrative/Plan: 62-year-old female presented to the hospital with complaints of chest pain and nausea and vomiting 3 days duration. Patient states she did have an episode of coffee-ground emesis. While here in the hospital she had elevated troponin, NSTEMI and went for cardiac catheterization. After her cardiac catheterization she went to the ICU and ended up going into ventricular tachycardia and ultimately cardiac arrest status post CPR and into patient and mechanical ventilation. Apparently when the old G-tube was placed there was noted coffee- ground output. Patient has not had any further coffee-ground output or nausea or vomiting. She was extubated yesterday. She denies any abdominal pain, any nausea or vomiting at this time. No previous history of GI bleed, no history of peptic ulcer disease, however does state that she was having acid reflux. She denies any regular NSAID use and no anticoagulation. Denies any previous history of upper endoscopy, states that she has had a colonoscopy in the past significant for diverticulosis and colon polyp which she states she is due for repeat colonoscopy. As part of her workup for chest pain and reported abdominal pain she had a CT of the abdomen and chest. There was no evidence of aortic dissection, there was however reported thickening of the gastric antral and pyloric region which can be seen in the setting of gastritis. At this time patient is not having any further symptoms, hemoglobin is stable and having normal brown bowel movements will recommend continuing Protonix and consider outpatient endoscopic evaluation. Current Visit: No Status: Acute Code(s): R11.2 - NAUSEA WITH VOMITING, UNSPECIFIED SNOMED Code(s): 38380931 (2) Gastric wall thickening Current Visit: Yes Status: Acute Code(s): K31.89 - OTHER DISEASES OF STOMACH AND DUODENUM SNOMED Code(s): 79803894 (3) Acute non-ST elevation myocardial infarction (NSTEMI) Current Visit: Yes Status: Acute Code(s): I21.4 - NON-ST ELEVATION (NSTEMI) MYOCARDIAL INFARCTION SNOMED Code(s): 564467373 (4) Cardiac arrest Current Visit: Yes Status: Acute Code(s): I46.9 - CARDIAC ARREST, CAUSE UNSPECIFIED SNOMED Code(s): 910274543 (5) Ventricular tachycardia Current Visit: Yes Status: Acute Code(s): I47.20 - VENTRICULAR TACHYCARDIA, UNSPECIFIED SNOMED Code(s): 78751440 (6) Chest pain Current Visit: No Status: Acute Code(s): R07.9 - CHEST PAIN, UNSPECIFIED SNOMED Code(s): 20561158 Plan: 1. Continue symptomatic and supportive care 2. Continue Protonix 40 mg daily 3. Avoid NSAIDs 4. Diet as tolerated 5. Consider endoscopic evaluation once patient is stable either prior to discharge or as an outpatient in the next 2 weeks Thank you for this consultation, we will continue to follow Dr. Michelle Wills I agree with the dictator's note, documented as a scribe by Ashleigh Lazo.
--- NOTE | 2023-04-19 14:34 | P.PN ---
Subjective Progress Note Date: 04/19/23 Principal diagnosis: Cardiac arrest. This is a 62-year-old female patient with a history of hyperlipidemia, anxiety/depression, chronic and ongoing tobacco dependence, coronary artery disease with previous stent placements. She presented here to the emergency room earlier this morning with complaints of nausea and vomiting and chest pain for 3 days. She was found to have elevated troponins and was taken to the cardiac catheterization lab where she was found to have a patent stents to the mid and proximal portion of the right coronary artery. Left main was free of stenosis. LAD and circumflex branches were free of stenosis. There was some concerns regarding a very distal LAD with naturally small caliber versus spontaneous coronary artery dissection of the segment. A computed tomography scan of the chest and abdomen revealed no evidence of thoracic or abdominal a ortic aneurysm dissection. No pulmonary embolism. Echocardiogram revealed impaired left ventricular systolic function with ejection fraction of 45%. There is basal and mid inferior and inferolateral hypokinesis. She was brought into the intensive care unit at approximately 1315. By 1335 she had developed sustained runs of ventricular tachycardia and subsequently went into to ventricular fibrillation cardiac arrest. She did receive epinephrine and defibrillation 3 with spontaneous return of circulation. She was initiated on amiodarone drip currently at 1 mg/m. She is on lidocaine drip at 1 mg/m, propofol at 50 mcg/kg/m. Normal saline at 75 ML's per hour. She was intubated and remains on the mechanical ventilator in assist control mode at a rate of 16, tidal volume at 400, FiO2 80% and a PEEP of 5. Arterial blood gases revealed a PaO2 of 366, pCO2 of 36 and a pH of 7.3. White count 20.6. Hemoglobin 14.2. Platelets 219. INR 1.0. Sodium 1:30. Potassium 3.5. Bicarb 15. BUN 23. Creatinine 0.82. Glucose 193. Lactic acid 4.6. AST 70. ALT 59. Troponin 2.230, 2.030. Patient was reevaluated today on 04/16/2023, remains in the ICU, intubated and mechanically ventilated. No episodes of ventricular fibrillation or tachycardia overnight. However the patient remains on amiodarone drip. ABG showed a pO2 of 143 pCO2 45 pH of 7.36, hence her FiO2 was drop-down to 40%. Drips-alberts, the patient is requiring relatively high dose of propofol at 75 mcg/kg/m she was quite agitated and not synchronous with mechanical ventilation last night and fentanyl was added at 0.5 mcg/kg/h she is receiving IV fluid 0.9 normal saline at 75 mL per hour. Patient remains on Zosyn empirically.. She is on assist control rate of 16 tidal volume 400 FiO2 35% and PEEP of 5. Chest x-ray continues to show no evidence of any acute process. Labs showed W Francis of 16.8 hemoglobin of 12.9 continues to have low potassium which I have ordered aggressive correction of her hypokalemia and renal profile seems to be normal. Influenza screen, RSV and COVID-19 screening are negative and her James-Davis serology seems to be negative for acute infection Reevaluated today on 04/17/2023, patient remains in the ICU, patient was extubated yesterday, tolerated the extubation well. Patient seems to have some left wrist pain and swelling, and that being addressed by orthopedics she also has some chest wall pain most likely related to her CPR, and rib films were ordered. Otherwise the patient is doing well, her chest x-ray is reassuring, her labs are reassuring, however considering the presentation I will continue to monitor the patient in the ICU for the next 24 hours. No arrhythmias overnight. Patient is now on 0.9 normal saline at 75 mL/h, receiving [place] for pain patient is on oral amiodarone as per cardiology. Remains empirically on Zosyn for possible aspiration. Her chest x-ray however is nondiagnostic. WBC count is 11.5 hemoglobin 11.9 lites are normal and renal profile is normal The patient is seen today 04/18/2023 in follow-up in the intensive care unit. She is currently sitting up in a chair at the bedside. Awake and alert in no acute distress. Maintaining good O2 saturation in the 90s on 2 L/m per nasal cannula. She is doing very well. She denies any worsening shortness of breath, cough or congestion. She does have some chest wall pain from recent CPR. Chest x-ray revealed no acute pulmonary process. No acute displaced rib fractures. No IV fluids currently. She's not had any further arrhythmias. She remains on oral amiodarone. Heparin for DVT prophylaxis. Progress note dated 04/19/2023. The patient is seen today in room 373. Yesterday, the patient was in the intensive care unit. She was transferred out. She has been stable in that regard. She's currently on room air, and not receiving any IV fluids. She's having no further issues with arrhythmias. White count 10.5, hemoglobin 12.5, hematocrit 39.7, within normal platelet count. Sodium 139, potassium 4, chlorides 108, CO2 27, BUN 22, and creatinine 0.6. Objective - Vital Signs Vital signs: Vital Signs Temp 99.3 F 04/19/23 12:00 Pulse 95 04/19/23 12:00 Resp 20 04/19/23 12:00 BP 116/73 04/19/23 12:00 Pulse Ox 96 04/19/23 12:00 FiO2 21 04/19/23 08:07 Intake & Output 04/18/23 04/19/23 04/19/23 18:59 06:59 18:59 Intake Total 250 420 Output Total 425 Balance -175 420 Intake: IV 250 Piperacillin-Tazobactam 3 100 .375 gm In Sodium Chloride 0.9% 100 ml @ 25 mls/hr IVPB Q8HR [facility] Rx# :[id number] Sodium Chloride 0.9% 1, 150 000 ml @ 75 mls/hr IV . [id number] [facility] Rx#:[id number] Oral 420 Output: Urine 425 Other: Voiding Method Indwelling Catheter Toilet # Voids 1 1 # Bowel Movements 1 ABP, PAP, CO, CI - Last Documented Arterial Blood Pressure 116/43 - Exam No acute distress, oriented 3. Room air saturation is 96%. HEENT examination is grossly unremarkable. Mucous membranes are moist. No oral lesions. Neck supple. Full range of motion. No adenopathy thyromegaly or neck vein distention. Cardiovascular examination reveals regular rhythm rate. S1-S2 normal. No S3 or S4. No discernible murmur noted. Heart rate is 68 bpm. Lungs reveal clear breath sounds. Breath sounds are equal bilaterally. No adventitious lung sounds including wheezes rhonchi or crackles. Abdomen soft bowel sounds are heard. No masses or tenderness. Extremities are intact. No cyanosis clubbing or edema. Skin is without rash or lesion. Neurologic examination is brief but nonfocal. - Labs CBC & Chem 7: 04/19/23 10:44 04/19/23 10:44 Labs: Abnormal Lab Results - Last 24 Hours (Table) 04/19/23 04/19/23 Range/Units 10:44 10:44 MCV 100.6 H (80.0-100.0) fL Chloride 108 H (98-107) mmol/L BUN 22 H (7-17) mg/dL Glucose 118 H (74-99) mg/dL Microbiology - Last 24 Hours (Table) 04/15/23 09:13 Blood Culture - Preliminary Blood Assessment and Plan Assessment: Ventricular fibrillation cardiac arrest requiring intubation mechanical ventilation. Received CPR, epinephrine and defibrillation 3. Approximate downtime 5 minutes with return of spontaneous circulation. Recovered successfully extubated and currently on 2 L nasal cannula. On oral amiodarone. No further arrhythmias. Acute hypoxemic respiratory failure secondary to above. Chest pain with elevated troponins, cardiac catheterization revealed patent stents to the RCA, no obstructive coronary artery disease. Impaired left ventricular systolic function with ejection fraction of 45%. Concern with possible coronary dissection however CT scan revealed no evidence. Leukocytosis, suspect reactive. Transaminitis secondary to above. History of coronary artery disease with previous stents to the proximal and mid RCA. Hyperlipidemia. Chronic and ongoing tobacco dependence. History of anxiety/depression. Plan: Plan dated 04/19/2023. The patient is seen today in room 373. She sitting at the bedside with a family member. The patient has no further arrhythmias. She denies any chest pain or chest discomfort. Labs, x-rays, and medications are reviewed. Antibiotics were discontinued. Oxygen is discontinued. Additional recommendations and suggestions are forthcoming. Prognosis is guarded. We will continue to follow and make recommendations along the way. Time with Patient: Less than 30
--- NOTE | 2023-04-19 14:51 | P.PN ---
Subjective Progress Note Date: 04/19/23 Hospital Course: 62 year old woman with history of CAD s/p stents, Aortic Dissection, tobacco dependents, HLD, depression presented for evaluation of nausea, vomiting, diarrhea. In the emergency room, patient was afebrile, 151/69, heart rate 99, 98% on room air. CBC was remarkable for leukocytosis to 19.9. Basic metabolic panel showed chloride of 108, CO2 of 13, anion gap of 18, BUN 25. Liver function tests showed total bilirubin of 1.4, AST 54, ALT of 64, alkaline phosphatase at 282. Lipase was 102. Troponin is 1.77. Lactic acid was 2.0. Coags are unremarkable. D-dimer 0.81. The patient was in the emergency room, patient was noted to be in sustained ventricular tachycardia, and cardiology notified. At this point, patient transition to the [facility], where she underw ent angiogram which demonstrated patent coronary stents. She was then transition to the intensive care unit for further management. Repeat troponin was noted to be 2.23. While in the ICU, she had another episode of sustained VTach which devolved into VFib. She required chest compressions, amiodarone bolus, 1x epinephrine, and 3 shocks to achieve ROSC. Afterwards was started on lidocaine gtt per cardiology. CT A/P ordered by cardiology as well which demonstrated gastric thickening, but no blood clots, dissection. Extubated on 04/16 PM to nasal cannula. She was given a total of 170 mEq of K over the course of 48 hours in light of severe hypokalemia. Her acidosis corrected with IVF. Lidocaine and amiodarone gtts were weaned off and patient transitioned to amiodarone PO. EBV IgG positive, CMV IgG/IgM negative, Cephied 4-plex negative. TSH is 0.57. Patient pending ICD placement. Subjective: Patient seen and examined at bedside. No acute events overnight. She still has mild chest pain with cough and left hand pain. Pertinent positives and negatives as discussed above, a complete review of systems was performed and all other systems are negative. Vitals Signs Reviewed. General: nontoxic, no distress, appears at stated age Derm: warm, dry Head: atraumatic, normocephalic, symmetric Eyes: EOMI, no lid lag, anicteric sclera Mouth: no lip lesion, mucus membranes moist Cardiovascular: S1S2 reg, no murmur, chest wall tenderness Lungs: CTA bilateral, no rhonchi, no rales , no accessory muscle use, supplemental oxygen Abdominal: soft, nontender to palpation, no guarding, no appreciable organomegaly Ext: no gross muscle atrophy, no edema, no contractures, left wrist mild edema and pain with movement Neuro: CN II-XI grossly intact, no focal neuro deficits Psych: Alert, oriented, appropriate affect Data Reviewed Today: Pertinent Labs: WBC 10.5, potassium 4, creatinine 0.6, magnesium 2.1 Imaging: No new imaging Assessment and Plan: Active: Spontaneous Sustained Ventricular Tachycardia, leading to ventricular fibrillation S/p Cardiac Arrest with ROSC Ventilator Dependent Respiratory Failure, extubated 04/16, now on nasal cannula Type II NSTEMI Coronary artery disease status post stents Heart failure with reduced ejection fraction, EF 45%, not in exacerbation -Discussed management with cardiology, cardiac cath images were reviewed, less likely to be spontaneous coronary dissection -Ventricle fibrillation possibly related to ischemic cardiomyopathy -There may also be component of antidepressant which is currently being held -Due to reoccurrence of spontaneous VT devolving into ventricular fibrillation leading to cardiac arrest, patient will likely benefit from ICD Left wrist pain Right rib pain, likely secondary to chest compressions -Orthopedics recommended supportive care and outpatient follow-up with hand specialist Dr. Guillermina Ariza Gastritis Nausea and vomiting Abdominal pain -GI following, outpatient endoscopic evaluation, continue Protonix Resolved: Hypokalemia Leukocytosis High anion gap metabolic acidosis Mild macrocytic anemia, resolved Chronic: Tobacco Dependence HLD Depression DVT ppx: Subcu heparin Code status: Full code Anticipated discharge place: Pending clinical course Anticipated discharge time: Pending clinical course Objective - Vital Signs Vital signs: Vital Signs Temp 99.3 F 04/19/23 12:00 Pulse 95 04/19/23 12:00 Resp 20 04/19/23 12:00 BP 116/73 04/19/23 12:00 Pulse Ox 96 04/19/23 12:00 FiO2 21 04/19/23 08:07 Intake & Output 04/18/23 04/19/23 04/19/23 18:59 06:59 18:59 Intake Total 250 420 Output Total 425 Balance -175 420 Intake: IV 250 Piperacillin-Tazobactam 3 100 .375 gm In Sodium Chloride 0.9% 100 ml @ 25 mls/hr IVPB Q8HR [facility] Rx# :[id number] Sodium Chloride 0.9% 1, 150 000 ml @ 75 mls/hr IV . [id number] MARIUM Rx#:[id number] Oral 420 Output: Urine 425 Other: Voiding Method Indwelling Catheter Toilet # Voids 1 1 # Bowel Movements 1 ABP, PAP, CO, CI - Last Documented Arterial Blood Pressure 116/43 - Labs CBC & Chem 7: 04/19/23 10:44 04/19/23 10:44 Labs: Abnormal Lab Results - Last 24 Hours (Table) 04/19/23 04/19/23 Range/Units 10:44 10:44 MCV 100.6 H (80.0-100.0) fL Chloride 108 H (98-107) mmol/L BUN 22 H (7-17) mg/dL Glucose 118 H (74-99) mg/dL Microbiology - Last 24 Hours (Table) 04/15/23 09:13 Blood Culture - Preliminary Blood
[2023-04-19] MEDS: METOPROLOL TARTRATE 25 MG TAB PO SCH (16:59)
[2023-04-19] MEDS: ATORVASTATIN 80 MG TAB PO SCH (20:36)
[2023-04-20] MEDS: HYDROcodone/APAP 5-325MG 1 EACH TAB PO PRN ×5 (02:50→20:14)
[2023-04-20] MEDS: METOPROLOL TARTRATE 25 MG TAB PO SCH (06:27)
[2023-04-20] MEDS: IPRATROPIUM-ALBUTEROL 3 ML NEB INHALATION SCH ×4 (09:00→21:01)
[2023-04-20] MEDS: MAGNESIUM OXIDE 400 MG TAB PO SCH (10:17)
[2023-04-20] MEDS: lisinopriL 20 MG TAB PO SCH (10:17)
[2023-04-20] MEDS: CLOPIDOGREL 75 MG TAB PO SCH (10:17)
[2023-04-20] MEDS: HEPARIN SODIUM,PORCINE 5,000 UNIT/ML 1 ML VIAL SQ SCH ×2 (10:17→15:23)
[2023-04-20] MEDS: PANTOPRAZOLE 40 MG/10 ML VIAL IV SCH (10:17)
[2023-04-20] MEDS: SPIRONOLACTONE 25 MG TAB PO SCH (10:17)
[2023-04-20] MEDS: ISOSORBIDE MONONITRATE ER 30 MG TAB.ER.24H PO SCH (10:17)
[2023-04-20] MEDS: ASPIRIN 81 MG PO SCH (10:18)
[2023-04-20] MEDS: amLODIPine 10 MG TAB PO SCH (10:18)
--- NOTE | 2023-04-20 11:44 | P.PN ---
Progress Note - Text Patient is resting comfortably in bed. No chest discomfort dizziness lightheadedness On examination pulse rate in the 70s, blood pressure 115/70 126/73. His mercury Heart sounds S1 and S2 are normal Breath sounds are clear White count 10.6 thousand, hemoglobin 10.5 Sodium 139, potassium 4.0 BUN 22 creatinine 0.6 Normal magnesium Hospital course Patient presented to the hospital with chest discomfort and nausea vomiting She had a ventricular tachyarrhythmia in the ER Her first troponin was abnormal at 1.7 The first 12-lead EKG showed sinus mechanism 78 beats a minute absolute QT interval of less than [address] elevation with T-wave inversions in the inferior leads 2-D echo showed reduced LV systolic function with inferior wall and inferolateral hypokinesis ejection fraction 45% She has had a old inferior wall AL with RCA stenting Coronary angiography revealed a right dominant coronary artery was patent, the prior stent was patent coronary angiogram was reviewed once again by myself and by Dr. Anna and there is no evidence for coronary dissection in the LAD She was on metoprolol and atorvastatin at home. LDL 79 Later the same evening after the coronary angiogram she had a spontaneous episode of ventricular fibrillation This was preceded by a short bursts of VF that were nonsustained and then she had a cardiac arrest and required resuscitation Upon admission her potassium was normal 3.5 renal function normal Magnesium 3.5, high She had abnormal troponin 1.77 which subsequently increased to 2.2 and then 2.0 Final impression Spontaneous cardiac arrest secondary to ventricular fibrillation without any triggering factors No evidence for any occlusive disease on coronary angiography No evidence for spontaneous dissection, films were reviewed by myself and Dr. Anna RCA stent was patent On admission her absolute QT interval was normal She was on beta blockers and statins Electrolytes were normal, potassium 3.5 Likely type II myocardial infarction since her first troponin was 1.7 in the absence of any occlusive coronary artery disease that could be documented by coronary angiography Underlying ischemic cardio myopathy. Old inferior and inferolateral wall motion abnormality with an ejection fraction of 45% Suggest ICD implantation for secondary prevention of sudden cardiac , AVID Currently the patient has thrombophlebitis in the left arm and I will start her on IV antibiotics today
--- NOTE | 2023-04-20 11:46 | P.PN ---
Progress Note - Text Coronary angiography films reviewed with Dr. Ellsworth RCA is patent Old RCA stent is patent There is no evidence for dissection in the LAD No occlusive epicardial coronary disease to explain patient's cardiac arrest
--- NOTE | 2023-04-20 11:50 | P.PN ---
Progress Note - Text Patient is doing well. She is afebrile 98.3F, pulse rate in the 70s Blood pressure 150 106 6 mmHg Heart sounds are normal no murmurs Breath sounds are clear The left arm thrombophlebitis is still swollen and tender. Redness has improved a little bit denies she is on IV antibiotics Impression Ischemic cardio myopathy ejection fraction 45% Old AL, inferior and inferior lateral hypokinesis VF arrest in the hospital in the absence of any electrolyte imbalance or acute occlusive coronary artery disease She underwent coronary angiography which did not reveal any occlusive disease No intervention was necessary Medications have been maximized gradually She has developed thrombophlebitis of the left hand and forearm is quite severe and is on IV antibiotics Suggest I would recommend an ICD for secondary prevention of sudden cardiac This is an AVID indication for spontaneous VF in the absence of any triggering factors but with an underlying substrate left ventricular ejection fraction 45% with inferior and inferolateral scar from an old AL Continue IV antibiotics ICD will be implanted only once the thrombophlebitis has resolved
--- NOTE | 2023-04-20 12:48 | P.PN ---
Subjective Progress Note Date: 04/20/23 Hospital Course: 62 year old woman with history of CAD s/p stents, Aortic Dissection, tobacco dependents, HLD, depression presented for evaluation of nausea, vomiting, diarrhea. In the emergency room, patient was afebrile, 151/69, heart rate 99, 98% on room air. CBC was remarkable for leukocytosis to 19.9. Basic metabolic panel showed chloride of 108, CO2 of 13, anion gap of 18, BUN 25. Liver function tests showed total bilirubin of 1.4, AST 54, ALT of 64, alkaline phosphatase at 282. Lipase was 102. Troponin is 1.77. Lactic acid was 2.0. Coags are unremarkable. D-dimer 0.81. The patient was in the emergency room, patient was noted to be in sustained ventricular tachycardia, and cardiology notified. At this point, patient transition to the [facility], where she underwe nt angiogram which demonstrated patent coronary stents. She was then transition to the intensive care unit for further management. Repeat troponin was noted to be 2.23. While in the ICU, she had another episode of sustained VTach which devolved into VFib. She required chest compressions, amiodarone bolus, 1x epinephrine, and 3 shocks to achieve ROSC. Afterwards was started on lidocaine gtt per cardiology. CT A/P ordered by cardiology as well which demonstrated gastric thickening, but no blood clots, dissection. Extubated on 04/16 PM to nasal cannula. She was given a total of 170 mEq of K over the course of 48 hours in light of severe hypokalemia. Her acidosis corrected with IVF. Li docaine and amiodarone gtts were weaned off and patient transitioned to amiodarone PO. EBV IgG positive, CMV IgG/IgM negative, Cephied 4-plex negative. TSH is 0.57. Has a left arm thrombophlebitis, currently on IV antibiotics. Patient pending ICD placement. Subjective: Patient seen and examined at bedside. No acute events overnight. She still has mild chest pain with cough and left hand pain, improving. Pertinent positives and negatives as discussed above, a complete review of systems was performed and all other systems are negative. Vitals Signs Reviewed. General: nontoxic, no distress, appears at stated age Derm: warm, dry Head: atraumatic, normocephalic, symmetric Eyes: EOMI, no lid lag, anicteric sclera Mouth: no lip lesion, mucus membranes moist Cardiovascular: S1S2 reg, no murmur, chest wall tenderness Lungs: CTA bilateral, no rhonchi, no rales , no accessory muscle use, supplemental oxygen Abdominal: soft, nontender to palpation, no guarding, no appreciable orga nomegaly Ext: no gross muscle atrophy, no edema, no contractures, left wrist mild edema and pain with movement Neuro: CN II-XI grossly intact, no focal neuro deficits Psych: Alert, oriented, appropriate affect Data Reviewed Today: Pertinent Labs: No new labs today Imaging: No new imaging Assessment and Plan: Active: Spontaneous Sustained Ventricular Tachycardia, leading to ventricular fibri llation S/p Cardiac Arrest with ROSC Ventilator Dependent Respiratory Failure, extubated 04/16, now on nasal cannula Type II NSTEMI Coronary artery disease status post stents Heart failure with reduced ejection fraction, EF 45%, not in exacerbation Left arm thrombophlebitis -Ventricle fibrillation possibly related to ischemic cardiomyopathy -There may also be component of antidepressant which is currently being held -Cardiology note reviewed, pending ICD placement once left arm thrombophlebitis improves -Currently on Cefazolin IV for left arm thrombophlebitis, recommended patient to also keep arm elevated Left wrist pain Right rib pain, likely secondary to chest compressions -Orthopedics recommended supportive care and outpatient follow-up with hand specialist Dr. Guillermina Ariza Gastritis Nausea and vomiting Abdominal pain -GI following, outpatient endoscopic evaluation, continue Protonix Resolved: Hypokalemia Leukocytosis High anion gap metabolic acidosis Mild macrocytic anemia, resolved Chronic: Tobacco Dependence HLD Depression DVT ppx: Subcu heparin Code status: Full code Anticipated discharge place: Pending clinical course Anticipated discharge time: Pending clinical course Objective - Vital Signs Vital signs: Vital Signs Temp 98.3 F 04/20/23 11:23 Pulse 75 04/20/23 12:42 Resp 18 04/20/23 11:23 BP 151/66 04/20/23 11:23 Pulse Ox 95 04/20/23 11:23 FiO2 21 04/19/23 08:07 Intake & Output 04/19/23 04/20/23 04/20/23 18:59 06:59 18:59 Intake Total 900 240 Balance 900 240 Intake: IV 10 Invasive Line 2 10 Intake, IV Titration 300 50 Amount Vancomycin 1,250 mg In 250 Sodium Chloride 0.9% 250 ml @ 125 mls/hr IVPB ONCE STA Rx#:[id number] ceFAZolin 2 gm In Sodium 50 50 Chloride 0.9% 50 ml @ 100 mls/hr IVPB ONCE PRN Rx# :[id number] Oral 600 180 Other: Voiding Method Toilet # Voids 1 ABP, PAP, CO, CI - Last Documented Arterial Blood Pressure 116/43 - Labs CBC & Chem 7: 04/19/23 10:44 04/19/23 10:44
--- NOTE | 2023-04-20 13:38 | P.PN ---
Subjective Progress Note Date: 04/20/23 Principal diagnosis: Abdominal pain, nausea and vomiting This is a 62-year-old pleasant female who presented to the emergency 3 days ago with complaints of not feeling well. Patient had vomiting and chest pain. 3 days prior to coming to the emergency department. Also shortness of breath. She has a past medical history of coronary artery disease status post stents, every day smoker, and hyperlipidemia. On admission she had elevated troponin and underwent a cardiac catheterization on Tuesday she was found to have patent stents to the mid and proximal portion of the right coronary artery. Left main was free of stenosis. LAD and circumflex branches were free of stenosis. There was some concern regarding the very distal LAD with Small caliber versus spontaneous coronary artery dissection of the segment. Computed tomography scan of the chest and abdomen revealed no evidence of thoracic or abdominal aortic aneurysm dissection however reported thickening of the gastric antral and pyloric region can be seen in the setting of gastritis. Malignancy would be in the differential diagnosis and consider direct visualization. Gastroenterology was consulted for nausea and vomiting and gastric thickening. During her hospitalization after her cardiac catheterization patient was transferred to the ICU where she went into ventricular fibrillation cardiac arrest requiring CPR, epinephrine and defibrillation 3. She was then intubated and on mechanical ventilation. Patient was extubated yesterday. It was reported that when they intubated her and placed her OG tube that she did have coffee-ground output. Patient also reports she had vomiting for about 3 days prior to coming to the hospital and she did recall some coffee-ground emesis. She denied any bloody stool or black stool. She has a prior colonoscopy which she states is she is due for repeat. No previous history of peptic ulcer disease no frequent NSAID use, and reported no associated abdominal pain. States she had chest pain, but no abdominal pain. She states she has not had any further vomiting while she's been here in the hospital. Today was the first time she had some oatmeal. She has no nausea or vomiting, denies any abdominal pain states that she only has rib pain in her sternum. No previous history of upper endoscopy. She had a bowel movement today which nursing reported as brown. WBC 10.6 hemoglobin 10.5 hematocrit 32 platelet count 168,000 04/20/2023 Patient seen and examined today as a follow-up. She continues to have no further nausea, vomiting or hematemesis. No coffee-ground emesis or black stool. Bowel movements are normal and brown. Cardiology still following. Patient now has productive cough, left arm infection. Hemoglobin 12.5. Recommend outpatient endoscopy Objective - Vital Signs Vital signs: Vital Signs Temp 98.3 F 04/20/23 11:23 Pulse 76 04/20/23 12:55 Resp 18 04/20/23 11:23 BP 151/66 04/20/23 11:23 Pulse Ox 95 04/20/23 11:23 FiO2 21 04/19/23 08:07 Intake & Output 04/19/23 04/20/23 04/20/23 18:59 06:59 18:59 Intake Total 900 358 Balance 900 358 Intake: IV 10 Invasive Line 2 10 Intake, IV Titration 300 50 Amount Vancomycin 1,250 mg In 250 Sodium Chloride 0.9% 250 ml @ 125 mls/hr IVPB ONCE STA Rx#:[id number] ceFAZolin 2 gm In Sodium 50 50 Chloride 0.9% 50 ml @ 100 mls/hr IVPB ONCE PRN Rx# :[id number] Oral 600 298 Other: Voiding Method Toilet # Voids 1 ABP, PAP, CO, CI - Last Documented Arterial Blood Pressure 116/43 - Exam General appearance: The patient is alert, oriented, appears in no acute distress. HET: Head is normocephalic and atraumatic. Conjunctiva pink. Sclera anicteric. Neck: Supple without lymphadenopathy. Abdomen: Soft, nontender, nondistended with bowel sounds. No guarding or rigidity. Extremities: Normal skin color and turgor. No pedal edema. Left upper extre mity with swelling Skin: No rashes, no jaundice Neurological: No focal deficits. Alert and oriented. - Labs CBC & Chem 7: 04/19/23 10:44 04/19/23 10:44 Assessment and Plan (1) Nausea & vomiting Narrative/Plan: 62-year-old female presented to the hospital with complaints of chest pain and nausea and vomiting 3 days duration. Patient states she did have an episode of coffee-ground emesis. While here in the hospital she had elevated troponin, NSTEMI and went for cardiac catheterization. After her cardiac catheterization she went to the ICU and ended up going into ventricular tachycardia and ult imately cardiac arrest status post CPR and into patient and mechanical ventilation. Apparently when the old G-tube was placed there was noted coffee- ground output. Patient has not had any further coffee-ground output or nausea or vomiting. She was extubated yesterday. She denies any abdominal pain, any nausea or vomiting at this time. No previous history of GI bleed, no history of peptic ulcer disease, however does state that she was having acid reflux. She denies any regular NSAID use and no anticoagulation. Denies any previous history of upper endoscopy, states that she has had a colonoscopy in the past significant for diverticulosis and colon polyp which she states she is due for r epeat colonoscopy. As part of her workup for chest pain and reported abdominal pain she had a CT of the abdomen and chest. There was no evidence of aortic dissection, there was however reported thickening of the gastric antral and pyloric region which can be seen in the setting of gastritis. At this time patient is not having any further symptoms, hemoglobin is stable and having normal brown bowel movements will recommend continuing Protonix and consider outpatient endoscopic evaluation. Cardiology recommending outpatient endoscopic evaluation once patient more stabilized. Current Visit: No Status: Acute Code(s): R11.2 - NAUSEA WITH VOMITING, UNSPECIFIED SNOMED Code(s): 58428174 (2) Gastric wall thickening Current Visit: Yes Status: Acute Code(s): K31.89 - OTHER DISEASES OF STOMACH AND DUODENUM SNOMED Code(s): 02534571 (3) Acute non-ST elevation myocardial infarction (NSTEMI) Current Visit: Yes Status: Acute Code(s): I21.4 - NON-ST ELEVATION (NSTEMI) MYOCARDIAL INFARCTION SNOMED Code(s): 656679974 (4) Cardiac arrest Current Visit: Yes Status: Acute Code(s): I46.9 - CARDIAC ARREST, CAUSE UNSPECIFIED SNOMED Code(s): 212683257 (5) Ventricular tachycardia Current Visit: Yes Status: Acute Code(s): I47.20 - VENTRICULAR TACHYCARDIA, UNSPECIFIED SNOMED Code(s): 99371976 (6) Chest pain Current Visit: No Status: Acute Code(s): R07.9 - CHEST PAIN, UNSPECIFIED SNOMED Code(s): 59164468 Plan: 1. Continue symptomatic and supportive care 2. Continue Protonix 40 mg daily 3. Avoid NSAIDs 4. Diet as tolerated 5. Recommend outpatient upper endoscopy once cleared by cardiology Thank you for this consultation, we will sign off at this time. Dr. K Tumma I agree with the dictator's note, documented as a scribe by Ashleigh Lazo.
--- NOTE | 2023-04-20 15:38 | P.PN ---
Subjective Progress Note Date: 04/20/23 Principal diagnosis: Cardiac arrest. This is a 62-year-old female patient with a history of hyperlipidemia, anxiety/depression, chronic and ongoing tobacco dependence, coronary artery disease with previous stent placements. She presented here to the emergency room earlier this morning with complaints of nausea and vomiting and chest pain for 3 days. She was found to have elevated troponins and was taken to the cardiac catheterization lab where she was found to have a patent stents to the mid and proximal portion of the right coronary artery. Left main was free of stenosis. LAD and circumflex branches were free of stenosis. There was some concerns regarding a very distal LAD with naturally small caliber versus spontaneous coronary artery dissection of the segment. A computed tomography scan of the chest and abdomen revealed no evidence of thoracic or abdominal a ortic aneurysm dissection. No pulmonary embolism. Echocardiogram revealed impaired left ventricular systolic function with ejection fraction of 45%. There is basal and mid inferior and inferolateral hypokinesis. She was brought into the intensive care unit at approximately 1315. By 1335 she had developed sustained runs of ventricular tachycardia and subsequently went into to ventricular fibrillation cardiac arrest. She did receive epinephrine and defibrillation 3 with spontaneous return of circulation. She was initiated on amiodarone drip currently at 1 mg/m. She is on lidocaine drip at 1 mg/m, propofol at 50 mcg/kg/m. Normal saline at 75 ML's per hour. She was intubated and remains on the mechanical ventilator in assist control mode at a rate of 16, tidal volume at 400, FiO2 80% and a PEEP of 5. Arterial blood gases revealed a PaO2 of 366, pCO2 of 36 and a pH of 7.3. White count 20.6. Hemoglobin 14.2. Platelets 219. INR 1.0. Sodium 1:30. Potassium 3.5. Bicarb 15. BUN 23. Creatinine 0.82. Glucose 193. Lactic acid 4.6. AST 70. ALT 59. Troponin 2.230, 2.030. Patient was reevaluated today on 04/16/2023, remains in the ICU, intubated and mechanically ventilated. No episodes of ventricular fibrillation or tachycardia overnight. However the patient remains on amiodarone drip. ABG showed a pO2 of 143 pCO2 45 pH of 7.36, hence her FiO2 was drop-down to 40%. Drips-alberts, the patient is requiring relatively high dose of propofol at 75 mcg/kg/m she was quite agitated and not synchronous with mechanical ventilation last night and fentanyl was added at 0.5 mcg/kg/h she is receiving IV fluid 0.9 normal saline at 75 mL per hour. Patient remains on Zosyn empirically.. She is on assist control rate of 16 tidal volume 400 FiO2 35% and PEEP of 5. Chest x-ray continues to show no evidence of any acute process. Labs showed W Francis of 16.8 hemoglobin of 12.9 continues to have low potassium which I have ordered aggressive correction of her hypokalemia and renal profile seems to be normal. Influenza screen, RSV and COVID-19 screening are negative and her James-Davis serology seems to be negative for acute infection Reevaluated today on 04/17/2023, patient remains in the ICU, patient was extubated yesterday, tolerated the extubation well. Patient seems to have some left wrist pain and swelling, and that being addressed by orthopedics she also has some chest wall pain most likely related to her CPR, and rib films were ordered. Otherwise the patient is doing well, her chest x-ray is reassuring, her labs are reassuring, however considering the presentation I will continue to monitor the patient in the ICU for the next 24 hours. No arrhythmias overnight. Patient is now on 0.9 normal saline at 75 mL/h, receiving Tunas for pain patient is on oral amiodarone as per cardiology. Remains empirically on Zosyn for possible aspiration. Her chest x-ray however is nondiagnostic. WBC count is 11.5 hemoglobin 11.9 lites are normal and renal profile is normal The patient is seen today 04/18/2023 in follow-up in the intensive care unit. She is currently sitting up in a chair at the bedside. Awake and alert in no acute distress. Maintaining good O2 saturation in the 90s on 2 L/m per nasal cannula. She is doing very well. She denies any worsening shortness of breath, cough or congestion. She does have some chest wall pain from recent CPR. Chest x-ray revealed no acute pulmonary process. No acute displaced rib fractures. No IV fluids currently. She's not had any further arrhythmias. She remains on oral amiodarone. Heparin for DVT prophylaxis. Progress note dated 04/19/2023. The patient is seen today in room 373. Yesterday, the patient was in the intensive care unit. She was transferred out. She has been stable in that regard. She's currently on room air, and not receiving any IV fluids. She's having no further issues with arrhythmias. White count 10.5, hemoglobin 12.5, hematocrit 39.7, within normal platelet count. Sodium 139, potassium 4, chlorides 108, CO2 27, BUN 22, and creatinine 0.6. Progress note dated 04/20/2023. The patient is seen again today in room 373. The patient was in the intensive care unit, a couple days ago. The patient has been stable. He is currently on room air. He is receiving saline at 20 mL an hour. Since being discharged from the ICU, the patient has had no further issues with arrhythmias. No new labs today. Objective - Vital Signs Vital signs: Vital Signs Temp 98.6 F 04/20/23 15:20 Pulse 92 04/20/23 15:20 Resp 18 04/20/23 15:20 BP 127/83 04/20/23 15:20 Pulse Ox 96 04/20/23 15:20 FiO2 21 04/19/23 08:07 Intake & Output 04/19/23 04/20/23 04/20/23 18:59 06:59 18:59 Intake Total 900 358 Balance 900 358 Intake: IV 10 Invasive Line 2 10 Intake, IV Titration 300 50 Amount Vancomycin 1,250 mg In 250 Sodium Chloride 0.9% 250 ml @ 125 mls/hr IVPB ONCE STA Rx#:[id number] ceFAZolin 2 gm In Sodium 50 50 Chloride 0.9% 50 ml @ 100 mls/hr IVPB ONCE PRN Rx# :[id number] Oral 600 298 Other: Voiding Method Toilet # Voids 1 ABP, PAP, CO, CI - Last Documented Arterial Blood Pressure 116/43 - Exam No acute distress, oriented 3. Room air saturation is 97 %. HEENT examination is grossly unremarkable. Mucous membranes are moist. No oral lesions. Neck supple. Full range of motion. No adenopathy thyromegaly or neck vein distention. Cardiovascular examination reveals regular rhythm rate. S1-S2 normal. No S3 or S4. No discernible murmur noted. Heart rate is 72 bpm. Lungs reveal clear breath sounds. Breath sounds are equal bilaterally. No adventitious lung sounds including wheezes rhonchi or crackles. Abdomen soft bowel sounds are heard. No masses or tenderness. Extremities are intact. No cyanosis clubbing or edema. Skin is without rash or lesion. Neurologic examination is brief but nonfocal. - Labs CBC & Chem 7: 04/19/23 10:44 04/19/23 10:44 Assessment and Plan Assessment: Ventricular fibrillation cardiac arrest requiring intubation mechanical ventilation. Received CPR, epinephrine and defibrillation 3. Approximate downtime 5 minutes with return of spontaneous circulation. Recovered successfully extubated and currently on 2 L nasal cannula. On oral amiodarone. No further arrhythmias. Acute hypoxemic respiratory failure secondary to above. Chest pain with elevated troponins, cardiac catheterization revealed patent stents to the RCA, no obstructive coronary artery disease. Impaired left ventricular systolic function with ejection fraction of 45%. Concern with possible coronary dissection however CT scan revealed no evidence. Leukocytosis, suspect reactive. Transaminitis secondary to above. History of coronary artery disease with previous stents to the proximal and mid RCA. Hyperlipidemia. Chronic and ongoing tobacco dependence. History of anxiety/depression. Plan: Plan dated 04/19/2023. The patient is seen today in room 373. She sitting at the bedside with a family member. The patient has no further arrhythmias. She denies any chest pain or chest discomfort. Labs, x-rays, and medications are reviewed. Antibiotics were discontinued. Oxygen is discontinued. Additional recommendations and suggestions are forthcoming. Prognosis is guarded. We will continue to follow and make recommendations along the way. Plan dated 04/20/2023. The patient is sitting comfortably on the bed, in room 373. She's not requiring any oxygen. His a basic IV running at 20 mL an hour. Labs, x-rays, and medications are all reviewed. The patient's overall prognosis remains guarded. The patient has had no further episodes of arrhythmias. We will continue to follow as needed. Time with Patient: Less than 30
[2023-04-20] MEDS ORDERED: ALPRAZolam 0.5 MG TAB PO STA (16:23)
[2023-04-20] MEDS: carvediloL 6.25 MG TAB PO SCH (16:39)
[2023-04-20] MEDS: ATORVASTATIN 80 MG TAB PO SCH (20:14)
[2023-04-21] MEDS: HYDROcodone/APAP 5-325MG 1 EACH TAB PO PRN ×6 (00:19→20:32)
[2023-04-21] MEDS: HEPARIN SODIUM,PORCINE 5,000 UNIT/ML 1 ML VIAL SQ SCH ×4 (00:19→23:21)
[2023-04-21] MEDS: carvediloL 6.25 MG TAB PO SCH (06:45)
[2023-04-21] MEDS: IPRATROPIUM-ALBUTEROL 3 ML NEB INHALATION SCH ×4 (07:57→20:23)
[2023-04-21] MEDS: PANTOPRAZOLE 40 MG/10 ML VIAL IV SCH (08:29)
[2023-04-21] MEDS: ASPIRIN 81 MG PO SCH (08:48)
[2023-04-21] MEDS: CLOPIDOGREL 75 MG TAB PO SCH (08:48)
[2023-04-21] MEDS: amLODIPine 10 MG TAB PO SCH (08:48)
[2023-04-21] MEDS: ISOSORBIDE MONONITRATE ER 30 MG TAB.ER.24H PO SCH (08:49)
[2023-04-21] MEDS: lisinopriL 20 MG TAB PO SCH (08:49)
[2023-04-21] MEDS: SPIRONOLACTONE 25 MG TAB PO SCH (08:49)
[2023-04-21] MEDS: MAGNESIUM OXIDE 400 MG TAB PO SCH (08:49)
[2023-04-21] MEDS ORDERED: VANCOMYCIN 1,250 MG in SODIUM CHLORIDE 0.9% 250 ML IVPB STA (09:46)
--- NOTE | 2023-04-21 11:44 | P.PN ---
Subjective Progress Note Date: 04/21/23 Hospital Course: 62 year old woman with history of CAD s/p stents, Aortic Dissection, tobacco d ependents, HLD, depression presented for evaluation of nausea, vomiting, diarrhea. In the emergency room, patient was afebrile, 151/69, heart rate 99, 98% on room air. CBC was remarkable for leukocytosis to 19.9. Basic metabolic panel showed chloride of 108, CO2 of 13, anion gap of 18, BUN 25. Liver function tests showed total bilirubin of 1.4, AST 54, ALT of 64, alkaline phosphatase at 282. Lipase was 102. Troponin is 1.77. Lactic acid was 2.0. Coags are unremarkable. D-dimer 0.81. The patient was in the emergency room, patient was noted to be in sustained ventricular tachycardia, and cardiology notified. At this point, patient transition to the [facility], where she underwent angiogram which demonstrated patent coronary stents. She was then transition to the intensive care unit for further management. Repeat troponin was noted to be 2.23. While in the ICU, she had another episode of sustained VTach which devolved into VFib. She required chest compressions, amiodarone ainsley us, 1x epinephrine, and 3 shocks to achieve ROSC. Afterwards was started on lidocaine gtt per cardiology. CT A/P ordered by cardiology as well which demonstrated gastric thickening, but no blood clots, dissection. Extubated on 04/16 PM to nasal cannula. She was given a total of 170 mEq of K over the course of 48 hours in light of severe hypokalemia. Her acidosis corrected with IVF. Lidocaine and amiodarone gtts were weaned off and patient transitioned to amiodarone PO. EBV IgG positive, CMV IgG/IgM negative, Cephied 4-plex negative. TSH is 0.57. Has a left arm thrombophlebitis, currently on IV antibiotics. Patient pending ICD placement. Subjective: Patient seen and examined at bedside. No acute events overnight. Left hand pain is slowly improving, patient keeps forgetting to keep her arm elevated. Pertinent positives and negatives as discussed above, a complete review of systems was performed and all other systems are negative. Vitals Signs Reviewed. General: nontoxic, no distress, appears at stated age Derm: warm, dry Head: atraumatic, normocephalic, symmetric Eyes: EOMI, no lid lag, anicteric sclera Mouth: no lip lesion, mucus membranes moist Cardiovascular: S1S2 reg, no murmur, chest wall tenderness Lungs: CTA bilateral, no rhonchi, no rales , no accessory muscle use, supplemental oxygen Abdominal: soft, nontender to palpation, no guarding, no appreciable organomegaly Ext: no gross muscle atrophy, no edema, no contractures, left wrist mild edema and pain with movement Neuro: CN II-XI grossly intact, no focal neuro deficits Psych: Alert, oriented, appropriate affect Data Reviewed Today: Pertinent Labs: No new labs today Imaging: No new imaging Assessment and Plan: Active: Spontaneous Sustained Ventricular Tachycardia, leading to ventricular fibrillation S/p Cardiac Arrest with ROSC Ventilator Dependent Respiratory Failure, extubated 04/16, now on nasal cannula Type II NSTEMI Coronary artery disease status post stents Heart failure with reduced ejection fraction, EF 45%, not in exacerbation Left arm thrombophlebitis -Ventricle fibrillation possibly related to ischemic cardiomyopathy -There may also be component of antidepressant which is currently being held -Cardiology note reviewed, pending ICD placement once left arm thrombophlebitis improves -Currently on Cefazolin IV for left arm thrombophlebitis, recommended patient to also keep arm elevated -Also given a dose of vancomycin this morning by cardiology Left wrist pain Right rib pain, likely secondary to chest compressions -Orthopedics recommended supportive care and outpatient follow-up with hand specialist Dr. Guillermina Ariza Gastritis Nausea and vomiting Abdominal pain -GI signed off, recommended outpatient endoscopic evaluation, continue Protonix Resolved: Hypokalemia Leukocytosis High anion gap metabolic acidosis Mild macrocytic anemia, resolved Chronic: Tobacco Dependence HLD Depression DVT ppx: Subcu heparin Code status: Full code Anticipated discharge place: Pending clinical course Anticipated discharge time: Pending clinical course Objective - Vital Signs Vital signs: Vital Signs Temp 98.4 F 04/21/23 11:13 Pulse 72 04/21/23 11:34 Resp 18 04/21/23 11:13 BP 111/69 04/21/23 11:13 Pulse Ox 94 L 04/21/23 11:13 FiO2 21 04/19/23 08:07 Intake & Output 04/20/23 04/21/23 04/21/23 18:59 06:59 18:59 Intake Total 358 10 Balance 358 10 Intake: IV 10 10 Invasive Line 2 10 10 Intake, IV Titration 50 Amount ceFAZolin 2 gm In Sodium 50 Chloride 0.9% 50 ml @ 100 mls/hr IVPB ONCE PRN Rx# :[id number] Oral 298 Other: Voiding Method Toilet Toilet Toilet # Voids 2 1 # Bowel Movements 1 ABP, PAP, CO, CI - Last Documented Arterial Blood Pressure 116/43 - Labs CBC & Chem 7: 04/19/23 10:44 04/19/23 10:44 Labs: Microbiology - Last 24 Hours (Table) 04/15/23 09:13 Blood Culture - Final Blood
--- NOTE | 2023-04-21 13:47 | P.PN ---
Subjective Progress Note Date: 04/21/23 Principal diagnosis: Cardiac arrest. This is a 62-year-old female patient with a history of hyperlipidemia, anxiety/depression, chronic and ongoing tobacco dependence, coronary artery disease with previous stent placements. She presented here to the emergency room earlier this morning with complaints of nausea and vomiting and chest pain for 3 days. She was found to have elevated troponins and was taken to the cardiac catheterization lab where she was found to have a patent stents to the mid and proximal portion of the right coronary artery. Left main was free of stenosis. LAD and circumflex branches were free of stenosis. There was some concerns regarding a very distal LAD with naturally small caliber versus spontaneous coronary artery dissection of the segment. A computed tomography scan of the chest and abdomen revealed no evidence of thoracic or abdominal a ortic aneurysm dissection. No pulmonary embolism. Echocardiogram revealed impaired left ventricular systolic function with ejection fraction of 45%. There is basal and mid inferior and inferolateral hypokinesis. She was brought into the intensive care unit at approximately 1315. By 1335 she had developed sustained runs of ventricular tachycardia and subsequently went into to ventricular fibrillation cardiac arrest. She did receive epinephrine and defibrillation 3 with spontaneous return of circulation. She was initiated on amiodarone drip currently at 1 mg/m. She is on lidocaine drip at 1 mg/m, propofol at 50 mcg/kg/m. Normal saline at 75 ML's per hour. She was intubated and remains on the mechanical ventilator in assist control mode at a rate of 16, tidal volume at 400, FiO2 80% and a PEEP of 5. Arterial blood gases revealed a PaO2 of 366, pCO2 of 36 and a pH of 7.3. White count 20.6. Hemoglobin 14.2. Platelets 219. INR 1.0. Sodium 1:30. Potassium 3.5. Bicarb 15. BUN 23. Creatinine 0.82. Glucose 193. Lactic acid 4.6. AST 70. ALT 59. Troponin 2.230, 2.030. Patient was reevaluated today on 04/16/2023, remains in the ICU, intubated and mechanically ventilated. No episodes of ventricular fibrillation or tachycardia overnight. However the patient remains on amiodarone drip. ABG showed a pO2 of 143 pCO2 45 pH of 7.36, hence her FiO2 was drop-down to 40%. Drips-alberts, the patient is requiring relatively high dose of propofol at 75 mcg/kg/m she was quite agitated and not synchronous with mechanical ventilation last night and fentanyl was added at 0.5 mcg/kg/h she is receiving IV fluid 0.9 normal saline at 75 mL per hour. Patient remains on Zosyn empirically.. She is on assist control rate of 16 tidal volume 400 FiO2 35% and PEEP of 5. Chest x-ray continues to show no evidence of any acute process. Labs showed W Francis of 16.8 hemoglobin of 12.9 continues to have low potassium which I have ordered aggressive correction of her hypokalemia and renal profile seems to be normal. Influenza screen, RSV and COVID-19 screening are negative and her James-Davis serology seems to be negative for acute infection Reevaluated today on 04/17/2023, patient remains in the ICU, patient was extubated yesterday, tolerated the extubation well. Patient seems to have some left wrist pain and swelling, and that being addressed by orthopedics she also has some chest wall pain most likely related to her CPR, and rib films were ordered. Otherwise the patient is doing well, her chest x-ray is reassuring, her labs are reassuring, however considering the presentation I will continue to monitor the patient in the ICU for the next 24 hours. No arrhythmias overnight. Patient is now on 0.9 normal saline at 75 mL/h, receiving [place]ord for pain patient is on oral amiodarone as per cardiology. Remains empirically on Zosyn for possible aspiration. Her chest x-ray however is nondiagnostic. WBC count is 11.5 hemoglobin 11.9 lites are normal and renal profile is normal The patient is seen today 04/18/2023 in follow-up in the intensive care unit. She is currently sitting up in a chair at the bedside. Awake and alert in no acute distress. Maintaining good O2 saturation in the 90s on 2 L/m per nasal cannula. She is doing very well. She denies any worsening shortness of breath, cough or congestion. She does have some chest wall pain from recent CPR. Chest x-ray revealed no acute pulmonary process. No acute displaced rib fractures. No IV fluids currently. She's not had any further arrhythmias. She remains on oral amiodarone. Heparin for DVT prophylaxis. Progress note dated 04/19/2023. The patient is seen today in room 373. Yesterday, the patient was in the intensive care unit. She was transferred out. She has been stable in that regard. She's currently on room air, and not receiving any IV fluids. She's having no further issues with arrhythmias. White count 10.5, hemoglobin 12.5, hematocrit 39.7, within normal platelet count. Sodium 139, potassium 4, chlorides 108, CO2 27, BUN 22, and creatinine 0.6. Progress note dated 04/20/2023. The patient is seen again today in room 373. The patient was in the intensive care unit, a couple days ago. The patient has been stable. He is currently on room air. He is receiving saline at 20 mL an hour. Since being discharged from the ICU, the patient has had no further issues with arrhythmias. No new labs today. Progress note dated 04/21/2023. The patient is seen today in room 373. Currently, the patient's on room air. She's not receiving any IV fluids. The patient apparently will be fitted for a life vest, and hopefully be discharged home. The patient has had no further episodes of arrhythmia. No new labs today. Objective - Vital Signs Vital signs: Vital Signs Temp 98.6 F 04/21/23 11:54 Pulse 84 04/21/23 11:54 Resp 18 04/21/23 11:54 BP 130/72 04/21/23 11:54 Pulse Ox 95 04/21/23 11:54 FiO2 21 04/19/23 08:07 Intake & Output 04/20/23 04/21/23 04/21/23 18:59 06:59 18:59 Intake Total 358 10 Balance 358 10 Intake: IV 10 10 Invasive Line 2 10 10 Intake, IV Titration 50 Amount ceFAZolin 2 gm In Sodium 50 Chloride 0.9% 50 ml @ 100 mls/hr IVPB ONCE PRN Rx# :[id number] Oral 298 Other: Voiding Method Toilet Toilet Toilet # Voids 2 1 # Bowel Movements 1 ABP, PAP, CO, CI - Last Documented Arterial Blood Pressure 116/43 - Exam No acute distress, oriented 3. Room air saturation is 96 %. HEENT examination is grossly unremarkable. Mucous membranes are moist. No oral lesions. Neck supple. Full range of motion. No adenopathy thyromegaly or neck vein distention. Cardiovascular examination reveals regular rhythm rate. S1-S2 normal. No S3 or S4. No discernible murmur noted. Heart rate is 76 bpm. Lungs reveal clear breath sounds. Breath sounds are equal bilaterally. No adventitious lung sounds including wheezes rhonchi or crackles. Abdomen soft bowel sounds are heard. No masses or tenderness. Extremities are intact. No cyanosis clubbing or edema. Skin is without rash or lesion. Neurologic examination is brief but nonfocal. - Labs CBC & Chem 7: 04/19/23 10:44 04/19/23 10:44 Labs: Microbiology - Last 24 Hours (Table) 04/15/23 09:13 Blood Culture - Final Blood Assessment and Plan Assessment: Ventricular fibrillation cardiac arrest requiring intubation mechanical ventilation. Received CPR, epinephrine and defibrillation 3. Approximate downtime 5 minutes with return of spontaneous circulation. Recovered successfully extubated and currently on 2 L nasal cannula. On oral amiodarone. No further arrhythmias. Acute hypoxemic respiratory failure secondary to above. Chest pain with elevated troponins, cardiac catheterization revealed patent sten ts to the RCA, no obstructive coronary artery disease. Impaired left ventricular systolic function with ejection fraction of 45%. Concern with possible coronary dissection however CT scan revealed no evidence. Leukocytosis, suspect reactive. Transaminitis secondary to above. History of coronary artery disease with previous stents to the proximal and mid RCA. Hyperlipidemia. Chronic and ongoing tobacco dependence. History of anxiety/depression. Plan: Plan dated 04/19/2023. The patient is seen today in room 373. She sitting at the bedside with a family member. The patient has no further arrhythmias. She denies any chest pain or chest discomfort. Labs, x-rays, and medications are reviewed. Antibiotics were discontinued. Oxygen is discontinued. Additional recommendations and suggestions are forthcoming. Prognosis is guarded. We will continue to follow and make recommendations along the way. Plan dated 04/20/2023. The patient is sitting comfortably on the bed, in room 373. She's not requiring any oxygen. His a basic IV running at 20 mL an hour. Labs, x-rays, and medications are all reviewed. The patient's overall prognosis remains guarded. The patient has had no further episodes of arrhythmias. We will continue to follow as needed. Plan dated 04/21/2023. The patient is hoping to be discharged soon. The patient will be fitted for a Life Vest. Labs, x-rays, and medications are reviewed. The patient remained stable. No further episodes of arrhythmia. We will continue to follow as needed. Time with Patient: Less than 30
--- NOTE | 2023-04-21 15:13 | P.PN ---
Progress Note - Text Patient's left forearm and dorsum of the left hand are still inflamed. Very tender. She is on IV antibiotics We are adding vancomycin She remains afebrile with local infection is still not controlled She has not had any further arrhythmias On examination blood pressure is 130/72 Pulse in the 70s afebrile Heart sounds S1 and S2 are normal Breath sounds are clear Impression Cardio myopathy, ischemic in nature Old myocardial infarction Inferior and inferolateral wall motion abnormality/scar Primary ventricular fibrillation while in the hospital on medical treatment No evidence for coronary artery disease progression Normal electrolytes Plan The patient needs an ICD implant. However this is on hold since she has severe thrombophlebitis despite 48 hours of antibiotics I would recommend an external defibrillator Vest for a few weeks until the thrombophlebitis results completely Following that implantation of an ICD In the interim maximizing beta blockers. Increase carvedilol to 12.5 mg twice daily Watch heart rates Hold amlodipine Continue Imdur Continue lisinopril Continue spironolactone Continue statins and aspirin
[2023-04-21 15:32] VITALS: BMI 32.2
[2023-04-21] MEDS: carvediloL 12.5 MG TAB PO SCH (17:17)
[2023-04-21] MEDS: ATORVASTATIN 80 MG TAB PO SCH (20:33)
[2023-04-22] MEDS: HYDROcodone/APAP 5-325MG 1 EACH TAB PO PRN ×6 (04:13→20:30)
[2023-04-22] MEDS: carvediloL 12.5 MG TAB PO SCH ×2 (06:13→16:59)
[2023-04-22] MEDS: IPRATROPIUM-ALBUTEROL 3 ML NEB INHALATION SCH ×4 (07:17→21:27)
[2023-04-22] MEDS: MAGNESIUM OXIDE 400 MG TAB PO SCH (08:47)
[2023-04-22] MEDS: SPIRONOLACTONE 25 MG TAB PO SCH (08:48)
[2023-04-22] MEDS: HEPARIN SODIUM,PORCINE 5,000 UNIT/ML 1 ML VIAL SQ SCH ×3 (08:48→23:46)
[2023-04-22] MEDS: lisinopriL 20 MG TAB PO SCH (08:48)
[2023-04-22] MEDS: ISOSORBIDE MONONITRATE ER 30 MG TAB.ER.24H PO SCH (08:48)
[2023-04-22] MEDS: CLOPIDOGREL 75 MG TAB PO SCH (08:48)
[2023-04-22] MEDS: ASPIRIN 81 MG PO SCH (08:48)
[2023-04-22] MEDS: PANTOPRAZOLE 40 MG/10 ML VIAL IV SCH (08:48)
[2023-04-22] MEDS ORDERED: VANCOMYCIN IV PER PHARMACY 1 EACH MISC MISCELLANE PRN (09:08)
[2023-04-22] MEDS ORDERED: VANCOMYCIN 1,500 MG in SODIUM CHLORIDE 0.9% 500 ML 500 ML IVPB ONE (09:30)
--- NOTE | 2023-04-22 12:48 | P.PN ---
Subjective Progress Note Date: 04/22/23 Hospital Course: 62 year old woman with history of CAD s/p stents, Aortic Dissection, tobacco d ependents, HLD, depression presented for evaluation of nausea, vomiting, diarrhea. In the emergency room, patient was afebrile, 151/69, heart rate 99, 98% on room air. CBC was remarkable for leukocytosis to 19.9. Basic metabolic panel showed chloride of 108, CO2 of 13, anion gap of 18, BUN 25. Liver function tests showed total bilirubin of 1.4, AST 54, ALT of 64, alkaline phosphatase at 282. Lipase was 102. Troponin is 1.77. Lactic acid was 2.0. Coags are unremarkable. D-dimer 0.81. The patient was in the emergency room, patient was noted to be in sustained ventricular tachycardia, and cardiology notified. At this point, patient transition to the [facility], where she underwent angiogram which demonstrated patent coronary stents. She was then transition to the intensive care unit for further management. Repeat troponin was noted to be 2.23. While in the ICU, she had another episode of sustained VTach which devolved into VFib. She required chest compressions, amiodarone ainsley us, 1x epinephrine, and 3 shocks to achieve ROSC. Afterwards was started on lidocaine gtt per cardiology. CT A/P ordered by cardiology as well which demonstrated gastric thickening, but no blood clots, dissection. Extubated on 04/16 PM to nasal cannula. She was given a total of 170 mEq of K over the course of 48 hours in light of severe hypokalemia. Her acidosis corrected with IVF. Lidocaine and amiodarone gtts were weaned off and patient transitioned to amiodarone PO. EBV IgG positive, CMV IgG/IgM negative, Cephied 4-plex negative. TSH is 0.57. Has a left arm thrombophlebitis, currently on IV antibiotics. ICD placement on hold due to ongoing thrombophlebitis. Patient will likely go home and LifeVest and then follow-up with cardiology for ICD placement. Subjective: Patient seen and examined at bedside. No acute events overnight. Left hand pain is slowly improving. Pertinent positives and negatives as discussed above, a complete review of systems was performed and all other systems are negative. Vitals Signs Reviewed. General: nontoxic, no distress, appears at stated age Derm: warm, dry Head: atraumatic, normocephalic, symmetric Eyes: EOMI, no lid lag, anicteric sclera Mouth: no lip lesion, mucus membranes moist Cardiovascular: S1S2 reg, no murmur, chest wall tenderness Lungs: CTA bilateral, no rhonchi, no rales , no accessory muscle use, supplemental oxygen Abdominal: soft, nontender to palpation, no guarding, no appreciable organomegaly Ext: no gross muscle atrophy, no edema, no contractures, left wrist mild edema and pain with movement Neuro: CN II-XI grossly intact, no focal neuro deficits Psych: Alert, oriented, appropriate affect Data Reviewed Today: Pertinent Labs: No new labs today Imaging: No new imaging Assessment and Plan: Active: Spontaneous Sustained Ventricular Tachycardia, leading to ventricular fibrillation S/p Cardiac Arrest with ROSC Ventilator Dependent Respiratory Failure, extubated 04/16, now on nasal cannula Type II NSTEMI Coronary artery disease status post stents Heart failure with reduced ejection fraction, EF 45%, not in exacerbation Left arm thrombophlebitis -Ventricle fibrillation possibly related to ischemic cardiomyopathy -There may also be component of antidepressant which is currently being held -Cardiology note reviewed, pending ICD placement once left arm thrombophlebitis improves, likely to be done outpatient, patient will be sent home with a LifeVest -IV cefazolin discontinued as patient is laced on IV vancomycin per cardiology -Monitor daily renal function Left wrist pain Right rib pain, likely secondary to chest compressions -Orthopedics recommended supportive care and outpatient follow-up with hand specialist Dr. Guillermina Ariza Gastritis Nausea and vomiting Abdominal pain -GI signed off, recommended outpatient endoscopic evaluation, continue Protonix Resolved: Hypokalemia Leukocytosis High anion gap metabolic acidosis Mild macrocytic anemia, resolved Chronic: Tobacco Dependence HLD Depression DVT ppx: Subcu heparin Code status: Full code Anticipated discharge place: Pending clinical course Anticipated discharge time: Pending clinical course Objective - Vital Signs Vital signs: Vital Signs Temp 98.3 F 04/22/23 07:46 Pulse 64 04/22/23 07:46 Resp 18 04/22/23 07:46 BP 146/70 04/22/23 07:46 Pulse Ox 96 04/22/23 07:46 FiO2 21 04/19/23 08:07 Intake & Output 04/21/23 04/22/23 04/22/23 18:59 06:59 18:59 Intake Total 360 250 Balance 360 250 Weight 79.9 kg Intake: IV 10 10 Invasive Line 2 10 Invasive Line 6 10 Intake, IV Titration 350 Amount Vancomycin 1,250 mg In 250 Sodium Chloride 0.9% 250 ml @ 125 mls/hr IVPB ONCE STA Rx#:[id number] ceFAZolin 2 gm In Sodium 100 Chloride 0.9% 50 ml @ 100 mls/hr IVPB ONCE PRN Rx# :[id number] Oral 240 Other: Voiding Method Toilet Toilet Toilet # Voids 3 1 # Bowel Movements 1 1 ABP, PAP, CO, CI - Last Documented Arterial Blood Pressure 116/43 - Labs CBC & Chem 7: 04/19/23 10:44 04/19/23 10:44
--- NOTE | 2023-04-22 13:25 | P.PN ---
Subjective Progress Note Date: 04/22/23 Patient's left forearm and dorsum of the left hand are still mildly inflamed and less tender. She is on IV antibiotics We are adding vancomycin, pharmacy to dose She remains afebrile with local infection is improving She has not had any further arrhythmias On examination blood pressure is 137/61 Pulse in the 70s afebrile Heart sounds S1 and S2 are normal Breath sounds are clear Impression Cardio myopathy, ischemic in nature Old myocardial infarction Inferior and inferolateral wall motion abnormality/scar Primary ventricular fibrillation while in the hospital on medical treatment No evidence for coronary artery disease progression Normal electrolytes Plan The patient needs an ICD implant. However this is on hold since she has severe thrombophlebitis An external defibrillator Vest has been obtained and will be continued for a few weeks until the thrombophlebitis results completely Following that implantation of an ICD In the interim maximizing beta blockers. Continue carvedilol to 12.5 mg twice daily Watch heart rates Hold amlodipine Continue Imdur Continue lisinopril Continue spironolactone Continue statins and aspirin Nurse practitioner note has been reviewed, I agree with the documented findings and plan of care. Patient was seen and examined. Objective - Vital Signs Vital signs: Vital Signs Temp 98.3 F 04/22/23 07:46 Pulse 64 04/22/23 07:46 Resp 18 04/22/23 07:46 BP 146/70 04/22/23 07:46 Pulse Ox 96 04/22/23 07:46 FiO2 21 04/19/23 08:07 Intake & Output 04/21/23 04/22/23 04/22/23 18:59 06:59 18:59 Intake Total 360 250 Balance 360 250 Weight 79.9 kg Intake: IV 10 10 Invasive Line 2 10 Invasive Line 6 10 Intake, IV Titration 350 Amount Vancomycin 1,250 mg In 250 Sodium Chloride 0.9% 250 ml @ 125 mls/hr IVPB ONCE STA Rx#:[id number] ceFAZolin 2 gm In Sodium 100 Chloride 0.9% 50 ml @ 100 mls/hr IVPB ONCE PRN Rx# :[id number] Oral 240 Other: Voiding Method Toilet Toilet # Voids 3 1 # Bowel Movements 1 1 ABP, PAP, CO, CI - Last Documented Arterial Blood Pressure 116/43 - Labs CBC & Chem 7: 04/19/23 10:44 04/19/23 10:44
--- NOTE | 2023-04-22 13:27 | P.PN ---
Subjective Progress Note Date: 04/22/23 Principal diagnosis: Cardiac arrest. This is a 62-year-old female patient with a history of hyperlipidemia, anxiety/depression, chronic and ongoing tobacco dependence, coronary artery disease with previous stent placements. She presented here to the emergency room earlier this morning with complaints of nausea and vomiting and chest pain for 3 days. She was found to have elevated troponins and was taken to the cardiac catheterization lab where she was found to have a patent stents to the mid and proximal portion of the right coronary artery. Left main was free of stenosis. LAD and circumflex branches were free of stenosis. There was some concerns regarding a very distal LAD with naturally small caliber versus spontaneous coronary artery dissection of the segment. A computed tomography scan of the chest and abdomen revealed no evidence of thoracic or abdominal a ortic aneurysm dissection. No pulmonary embolism. Echocardiogram revealed impaired left ventricular systolic function with ejection fraction of 45%. There is basal and mid inferior and inferolateral hypokinesis. She was brought into the intensive care unit at approximately 1315. By 1335 she had developed sustained runs of ventricular tachycardia and subsequently went into to ventricular fibrillation cardiac arrest. She did receive epinephrine and defibrillation 3 with spontaneous return of circulation. She was initiated on amiodarone drip currently at 1 mg/m. She is on lidocaine drip at 1 mg/m, propofol at 50 mcg/kg/m. Normal saline at 75 ML's per hour. She was intubated and remains on the mechanical ventilator in assist control mode at a rate of 16, tidal volume at 400, FiO2 80% and a PEEP of 5. Arterial blood gases revealed a PaO2 of 366, pCO2 of 36 and a pH of 7.3. White count 20.6. Hemoglobin 14.2. Platelets 219. INR 1.0. Sodium 1:30. Potassium 3.5. Bicarb 15. BUN 23. Creatinine 0.82. Glucose 193. Lactic acid 4.6. AST 70. ALT 59. Troponin 2.230, 2.030. Patient was reevaluated today on 04/16/2023, remains in the ICU, intubated and mechanically ventilated. No episodes of ventricular fibrillation or tachycardia overnight. However the patient remains on amiodarone drip. ABG showed a pO2 of 143 pCO2 45 pH of 7.36, hence her FiO2 was drop-down to 40%. Drips-alberts, the patient is requiring relatively high dose of propofol at 75 mcg/kg/m she was quite agitated and not synchronous with mechanical ventilation last night and fentanyl was added at 0.5 mcg/kg/h she is receiving IV fluid 0.9 normal saline at 75 mL per hour. Patient remains on Zosyn empirically.. She is on assist control rate of 16 tidal volume 400 FiO2 35% and PEEP of 5. Chest x-ray continues to show no evidence of any acute process. Labs showed W Francis of 16.8 hemoglobin of 12.9 continues to have low potassium which I have ordered aggressive correction of her hypokalemia and renal profile seems to be normal. Influenza screen, RSV and COVID-19 screening are negative and her James-Davis serology seems to be negative for acute infection Reevaluated today on 04/17/2023, patient remains in the ICU, patient was extubated yesterday, tolerated the extubation well. Patient seems to have some left wrist pain and swelling, and that being addressed by orthopedics she also has some chest wall pain most likely related to her CPR, and rib films were ordered. Otherwise the patient is doing well, her chest x-ray is reassuring, her labs are reassuring, however considering the presentation I will continue to monitor the patient in the ICU for the next 24 hours. No arrhythmias overnight. Patient is now on 0.9 normal saline at 75 mL/h, receiving [place] for pain patient is on oral amiodarone as per cardiology. Remains empirically on Zosyn for possible aspiration. Her chest x-ray however is nondiagnostic. WBC count is 11.5 hemoglobin 11.9 lites are normal and renal profile is normal The patient is seen today 04/18/2023 in follow-up in the intensive care unit. She is currently sitting up in a chair at the bedside. Awake and alert in no acute distress. Maintaining good O2 saturation in the 90s on 2 L/m per nasal cannula. She is doing very well. She denies any worsening shortness of breath, cough or congestion. She does have some chest wall pain from recent CPR. Chest x-ray revealed no acute pulmonary process. No acute displaced rib fractures. No IV fluids currently. She's not had any further arrhythmias. She remains on oral amiodarone. Heparin for DVT prophylaxis. Progress note dated 04/19/2023. The patient is seen today in room 373. Yesterday, the patient was in the intensive care unit. She was transferred out. She has been stable in that regard. She's currently on room air, and not receiving any IV fluids. She's having no further issues with arrhythmias. White count 10.5, hemoglobin 12.5, hematocrit 39.7, within normal platelet count. Sodium 139, potassium 4, chlorides 108, CO2 27, BUN 22, and creatinine 0.6. Progress note dated 04/20/2023. The patient is seen again today in room 373. The patient was in the intensive care unit, a couple days ago. The patient has been stable. He is currently on room air. He is receiving saline at 20 mL an hour. Since being discharged from the ICU, the patient has had no further issues with arrhythmias. No new labs today. Progress note dated 04/21/2023. The patient is seen today in room 373. Currently, the patient's on room air. She's not receiving any IV fluids. The patient apparently will be fitted for a life vest, and hopefully be discharged home. The patient has had no further episodes of arrhythmia. No new labs today. Progress note dated 04/22/2023. The patient is seen in room 373. From the pulmonary standpoint, the patient could be considered for discharge. The patient is apparently being treated for cellulitis. Currently, the patient is on room air. She's not receiving any IV fluids. She is receiving antibiotics. No new labs today. Objective - Vital Signs Vital signs: Vital Signs Temp 98.6 F 04/22/23 13:16 Pulse 77 04/22/23 13:16 Resp 18 04/22/23 13:16 BP 137/61 04/22/23 13:16 Pulse Ox 95 04/22/23 13:16 FiO2 21 04/19/23 08:07 Intake & Output 04/21/23 04/22/23 04/22/23 18:59 06:59 18:59 Intake Total 360 250 Balance 360 250 Weight 79.9 kg Intake: IV 10 10 Invasive Line 2 10 Invasive Line 6 10 Intake, IV Titration 350 Amount Vancomycin 1,250 mg In 250 Sodium Chloride 0.9% 250 ml @ 125 mls/hr IVPB ONCE STA Rx#:[id number] ceFAZolin 2 gm In Sodium 100 Chloride 0.9% 50 ml @ 100 mls/hr IVPB ONCE PRN Rx# :[id number] Oral 240 Other: Voiding Method Toilet Toilet Toilet # Voids 3 1 # Bowel Movements 1 1 ABP, PAP, CO, CI - Last Documented Arterial Blood Pressure 116/43 - Exam No acute distress, oriented 3. Room air saturation is 95 %. HEENT examination is grossly unremarkable. Mucous membranes are moist. No oral lesions. Neck supple. Full range of motion. No adenopathy thyromegaly or neck vein distention. Cardiovascular examination reveals regular rhythm rate. S1-S2 normal. No S3 or S4. No discernible murmur noted. Heart rate is 77 bpm. Lungs reveal clear breath sounds. Breath sounds are equal bilaterally. No adventitious lung sounds including wheezes rhonchi or crackles. Abdomen soft bowel sounds are heard. No masses or tenderness. Extremities are intact. No cyanosis clubbing or edema. Skin is without rash or lesion. Neurologic examination is brief but nonfocal. - Labs CBC & Chem 7: 04/19/23 10:44 04/19/23 10:44 Assessment and Plan Assessment: Ventricular fibrillation cardiac arrest requiring intubation mechanical venti lation. Received CPR, epinephrine and defibrillation 3. Approximate downtime 5 minutes with return of spontaneous circulation. Recovered successfully extubated and currently on 2 L nasal cannula. On oral amiodarone. No further arrhythmias. Acute hypoxemic respiratory failure secondary to above. Left upper extremity cellulitis/thrombophlebitis. Chest pain with elevated troponins, cardiac catheterization revealed patent stents to the RCA, no obstructive coronary artery disease. Impaired left ventricular systolic function with ejection fraction of 45%. Concern with possible coronary dissection however CT scan revealed no evidence. Leukocytosis, suspect reactive. Transaminitis secondary to above. History of coronary artery disease with previous stents to the proximal and mid RCA. Hyperlipidemia. Chronic and ongoing tobacco dependence. History of anxiety/depression. Plan: Plan dated 04/19/2023. The patient is seen today in room 373. She sitting at the bedside with a family member. The patient has no further arrhythmias. She denies any chest pain or chest discomfort. Labs, x-rays, and medications are reviewed. Antibiotics were discontinued. Oxygen is discontinued. Additional recommendations and suggestions are forthcoming. Prognosis is guarded. We will continue to follow and make recommendations along the way. Plan dated 04/20/2023. The patient is sitting comfortably on the bed, in room 373. She's not requiring any oxygen. His a basic IV running at 20 mL an hour. Labs, x-rays, and medications are all reviewed. The patient's overall prognosis remains guarded. The patient has had no further episodes of arrhythmias. We will continue to follow as needed. Plan dated 04/21/2023. The patient is hoping to be discharged soon. The patient will be fitted for a Life Vest. Labs, x-rays, and medications are reviewed. The patient remained stable. No further episodes of arrhythmia. We will continue to follow as needed. Plan dated 04/22/2023. From the pulmonary standpoint, the patient stable. She's being treated for left upper extremity cellulitis. She's currently on a combination of both Ancef and vancomycin. Labs, x-rays, medications are reviewed. The patient has had no further episodes of arrhythmia. We will continue to follow make recommendations along the way. Prognosis is certainly guarded. Time with Patient: Less than 30
[2023-04-22] MEDS: NITROGLYCERIN OINT 1 INCH/GM PACKET TOPICAL SCH ×2 (14:54→23:46)
[2023-04-22] MEDS ORDERED: NICOTINE 21MG/24HR PATCH TRANSDERM SCH (20:15)
[2023-04-22] MEDS: ATORVASTATIN 80 MG TAB PO SCH (20:30)
[2023-04-22] MEDS ORDERED: VANCOMYCIN 1,500 MG in SODIUM CHLORIDE 0.9% 500 ML 500 ML IVPB SCH (21:00)
[2023-04-23] MEDS: ALPRAZolam 0.25 MG TAB PO PRN ×3 (02:08→20:12)
[2023-04-23] MEDS ORDERED: VANCOMYCIN 1,500 MG in SODIUM CHLORIDE 0.9% 500 ML 500 ML IVPB SCH (06:00)
[2023-04-23] MEDS: carvediloL 12.5 MG TAB PO SCH ×2 (06:03→16:31)
[2023-04-23 07:26] LABS: African American GFR (CKD) >90 (>60 ml/min/1.73 sqM); Anion Gap 6 mmol/L; Blood Urea Nitrogen 17 mg/dL (7-17); Calcium 9.1 mg/dL (8.4-10.2); Carbon Dioxide 22 mmol/L (22-30); Chloride 111 mmol/L (98-107); Glucose 84 mg/dL (74-99); Non-African American GFR(CKD) >90 (>60 ml/min/1.73 sqM); Potassium 4.4 mmol/L (3.5-5.1); Sodium 139 mmol/L (137-145)
[2023-04-23] MEDS: PANTOPRAZOLE 40 MG/10 ML VIAL IV SCH (08:21)
[2023-04-23] MEDS: CLOPIDOGREL 75 MG TAB PO SCH (08:21)
[2023-04-23] MEDS: HEPARIN SODIUM,PORCINE 5,000 UNIT/ML 1 ML VIAL SQ SCH ×3 (08:21→20:12)
[2023-04-23] MEDS: ISOSORBIDE MONONITRATE ER 30 MG TAB.ER.24H PO SCH (08:21)
[2023-04-23] MEDS: lisinopriL 20 MG TAB PO SCH (08:21)
[2023-04-23] MEDS: MAGNESIUM OXIDE 400 MG TAB PO SCH (08:22)
[2023-04-23] MEDS: HYDROcodone/APAP 5-325MG 1 EACH TAB PO PRN ×4 (08:22→23:31)
[2023-04-23] MEDS: SPIRONOLACTONE 25 MG TAB PO SCH (08:22)
[2023-04-23] MEDS: ASPIRIN 81 MG PO SCH (08:23)
[2023-04-23] MEDS: NICOTINE 21MG/24HR PATCH TRANSDERM SCH (08:23)
[2023-04-23] MEDS: IPRATROPIUM-ALBUTEROL 3 ML NEB INHALATION SCH ×4 (08:38→21:50)
[2023-04-23] MEDS: NITROGLYCERIN OINT 1 INCH/GM PACKET TOPICAL SCH (11:20)
--- NOTE | 2023-04-23 11:23 | P.PN ---
Subjective Progress Note Date: 04/23/23 Hospital Course: 62 year old woman with history of CAD s/p stents, Aortic Dissection, tobacco d ependents, HLD, depression presented for evaluation of nausea, vomiting, diarrhea. In the emergency room, patient was afebrile, 151/69, heart rate 99, 98% on room air. CBC was remarkable for leukocytosis to 19.9. Basic metabolic panel showed chloride of 108, CO2 of 13, anion gap of 18, BUN 25. Liver function tests showed total bilirubin of 1.4, AST 54, ALT of 64, alkaline phosphatase at 282. Lipase was 102. Troponin is 1.77. Lactic acid was 2.0. Coags are unremarkable. D-dimer 0.81. The patient was in the emergency room, patient was noted to be in sustained ventricular tachycardia, and cardiology notified. At this point, patient transition to the [facility], where she underwent angiogram which demonstrated patent coronary stents. She was then transition to the intensive care unit for further management. Repeat troponin was noted to be 2.23. While in the ICU, she had another episode of sustained VTach which devolved into VFib. She required chest compressions, amiodarone ainsley us, 1x epinephrine, and 3 shocks to achieve ROSC. Afterwards was started on lidocaine gtt per cardiology. CT A/P ordered by cardiology as well which demonstrated gastric thickening, but no blood clots, dissection. Extubated on 04/16 PM to nasal cannula. She was given a total of 170 mEq of K over the course of 48 hours in light of severe hypokalemia. Her acidosis corrected with IVF. Lidocaine and amiodarone gtts were weaned off and patient transitioned to amiodarone PO. EBV IgG positive, CMV IgG/IgM negative, Cephied 4-plex negative. TSH is 0.57. Has a left arm thrombophlebitis, currently on IV antibiotics. ICD placement on hold due to ongoing thrombophlebitis. Patient will likely go home and LifeVest and then follow-up with cardiology for ICD placement. Subjective: Patient seen and examined at bedside. No acute events overnight. Left hand pain is slowly improving. Patient is eager to go home. Pertinent positives and negatives as discussed above, a complete review of s ystems was performed and all other systems are negative. Vitals Signs Reviewed. General: nontoxic, no distress, appears at stated age Derm: warm, dry Head: atraumatic, normocephalic, symmetric Eyes: EOMI, no lid lag, anicteric sclera Mouth: no lip lesion, mucus membranes moist Cardiovascular: S1S2 reg, no murmur, chest wall tenderness Lungs: CTA bilateral, no rhonchi, no rales , no accessory muscle use, supplemental oxygen Abdominal: soft, nontender to palpation, no guarding, no appreciable organomegaly Ext: no gross muscle atrophy, no edema, no contractures, left wrist mild edema and pain with movement Neuro: CN II-XI grossly intact, no focal neuro deficits Psych: Alert, oriented, appropriate affect Data Reviewed Today: Pertinent Labs: Creatinine 0.64 Imaging: No new imaging Assessment and Plan: Active: Spontaneous Sustained Ventricular Tachycardia, leading to ventricular fi brillation S/p Cardiac Arrest with ROSC Ventilator Dependent Respiratory Failure, extubated 04/16, now on nasal cannula Type II NSTEMI Coronary artery disease status post stents Heart failure with reduced ejection fraction, EF 45%, not in exacerbation Left arm thrombophlebitis -Ventricle fibrillation possibly related to ischemic cardiomyopathy -There may also be component of antidepressant which is currently being held -Cardiology note reviewed, pending ICD placement once left arm thrombophlebitis improves, likely to be done outpatient, patient will be sent home with a LifeVest -On IV vancomycin per cardiology -Monitor daily renal function Left wrist pain Right rib pain, likely secondary to chest compressions -Orthopedics recommended supportive care and outpatient follow-up with hand specialist Dr. Guillermina Ariza Gastritis Nausea and vomiting Abdominal pain -GI signed off, recommended outpatient endoscopic evaluation, continue Protonix Resolved: Hypokalemia Leukocytosis High anion gap metabolic acidosis Mild macrocytic anemia, resolved Chronic: Tobacco Dependence HLD Depression DVT ppx: Subcu heparin Code status: Full code Anticipated discharge place: Pending clinical course Anticipated discharge time: Pending clinical course Objective - Vital Signs Vital signs: Vital Signs Temp 98.5 F 04/23/23 08:20 Pulse 88 04/23/23 08:55 Resp 20 04/23/23 08:20 BP 134/70 04/23/23 08:20 Pulse Ox 95 04/23/23 08:20 FiO2 21 04/19/23 08:07 Intake & Output 04/22/23 04/23/23 04/23/23 18:59 06:59 18:59 Intake Total 260 0 Balance 260 0 Intake: IV 20 Invasive Line 6 10 Invasive Line 8 10 Oral 240 0 Other: Voiding Method Toilet Toilet Toilet # Voids 1 1 1 # Bowel Movements 1 ABP, PAP, CO, CI - Last Documented Arterial Blood Pressure 116/43 - Labs CBC & Chem 7: 04/19/23 10:44 04/23/23 06:14 Labs: Abnormal Lab Results - Last 24 Hours (Table) 04/23/23 Range/Units 06:14 Chloride 111 H (98-107) mmol/L
--- NOTE | 2023-04-23 13:06 | P.PN ---
Subjective Progress Note Date: 04/23/23 This is Chaitanya Villatoro NP, I'm dictating on behalf of Dr. Andersen's H&P and A&P. Patient was interviewed and examined. Patient is a pleasant 62-year-old female who presented to the hospital with complaints of not feeling well, including vomiting and chest pain, as well as shortness of breath. Patient was found to be in persistent ventricular tachycardia, and has been medically managed. She did undergo a cardiac catheterization which demonstrated patent coronary stents. Patient did have a cardiac arrest event, with V. tach progressing to ventricular fibrillation, patient was shocked 3 times, and given epi and amiodarone, as well as lidocaine, and she did obtain ROSC. Patient had a short stay in the intensive care unit, upon which she was transferred to cardiac stepdown. Patient had a left wrist arterial line, but after removal developed thrombophlebitis. She was started on IV antibiotics at that time. Due to her episode of V. tach which progressed to ventricular fibrillation, patient was recommended for ICD implantation for secondary prevention of sudden cardiac , however due to the thrombophlebitis, this cannot be completed until the infection is resolved. Patient was ordered a LifeVest, which is currently on. Patient today reports that she is feeling okay. Her left hand and arm are significantly better than initially. She is denying chest pain, except for some mild discomfort secondary to the chest compressions, shortness of breath, and heart palpitations. GENERAL: Well-appearing, well-nourished and in no acute distress. NECK: Supple without JVD or thyromegaly. LUNGS: Breath sounds clear to auscultation bilaterally. Respiration equal and unlabored. No wheezes, rales or rhonchi. HEART: Regular rate and rhythm without murmurs, rubs or gallops. S1 and S2 he lloyd. EXTREMITIES: Normal range of motion, no edema. No clubbing or cyanosis. Peripheral pulses intact and strong. VITALS: Temp 98.5, pulse 81, respirations 20, blood pressure 134/70, O2 saturation 95% on room air TELEMETRY: Normal sinus rhythm LABS: Sodium 139, potassium 4.4, BUN 17, creatinine 0.64, calcium 9.1 IMPRESSION: 1. Cardiomyopathy, ischemic in nature 2. Old myocardial infarction 3. Inferior and inferolateral wall motion abnormality/scar 4. Primary ventricular fibrillation while in the hospital on medical treatment 5. No evidence for coronary artery disease progression 6. Normal electrolytes 7. Left hand/arm severe thrombophlebitis PLAN: Continue vancomycin at this time. Consult infectious disease for discharge antibiotic recommendations. Increase carvedilol 25 mg twice a day. Further recommendations based on patient's clinical course. Objective - Vital Signs Vital signs: Vital Signs Temp 98.5 F 04/23/23 08:20 Pulse 84 04/23/23 11:45 Resp 20 04/23/23 08:20 BP 134/70 04/23/23 08:20 Pulse Ox 95 04/23/23 08:20 FiO2 21 04/19/23 08:07 Intake & Output 04/22/23 04/23/23 04/23/23 18:59 06:59 18:59 Intake Total 260 0 Balance 260 0 Intake: IV 20 Invasive Line 6 10 Invasive Line 8 10 Oral 240 0 Other: Voiding Method Toilet Toilet Toilet # Voids 1 1 1 # Bowel Movements 1 ABP, PAP, CO, CI - Last Documented Arterial Blood Pressure 116/43 - Labs CBC & Chem 7: 04/19/23 10:44 04/23/23 06:14 Labs: Abnormal Lab Results - Last 24 Hours (Table) 04/23/23 Range/Units 06:14 Chloride 111 H (98-107) mmol/L
--- NOTE | 2023-04-23 13:57 | P.PN ---
Subjective Progress Note Date: 04/23/23 Principal diagnosis: Cardiac arrest. This is a 62-year-old female patient with a history of hyperlipidemia, anxiety/depression, chronic and ongoing tobacco dependence, coronary artery disease with previous stent placements. She presented here to the emergency room earlier this morning with complaints of nausea and vomiting and chest pain for 3 days. She was found to have elevated troponins and was taken to the cardiac catheterization lab where she was found to have a patent stents to the mid and proximal portion of the right coronary artery. Left main was free of stenosis. LAD and circumflex branches were free of stenosis. There was some concerns regarding a very distal LAD with naturally small caliber versus spontaneous coronary artery dissection of the segment. A computed tomography scan of the chest and abdomen revealed no evidence of thoracic or abdominal a ortic aneurysm dissection. No pulmonary embolism. Echocardiogram revealed impaired left ventricular systolic function with ejection fraction of 45%. There is basal and mid inferior and inferolateral hypokinesis. She was brought into the intensive care unit at approximately 1315. By 1335 she had developed sustained runs of ventricular tachycardia and subsequently went into to ventricular fibrillation cardiac arrest. She did receive epinephrine and defibrillation 3 with spontaneous return of circulation. She was initiated on amiodarone drip currently at 1 mg/m. She is on lidocaine drip at 1 mg/m, propofol at 50 mcg/kg/m. Normal saline at 75 ML's per hour. She was intubated and remains on the mechanical ventilator in assist control mode at a rate of 16, tidal volume at 400, FiO2 80% and a PEEP of 5. Arterial blood gases revealed a PaO2 of 366, pCO2 of 36 and a pH of 7.3. White count 20.6. Hemoglobin 14.2. Platelets 219. INR 1.0. Sodium 1:30. Potassium 3.5. Bicarb 15. BUN 23. Creatinine 0.82. Glucose 193. Lactic acid 4.6. AST 70. ALT 59. Troponin 2.230, 2.030. Patient was reevaluated today on 04/16/2023, remains in the ICU, intubated and mechanically ventilated. No episodes of ventricular fibrillation or tachycardia overnight. However the patient remains on amiodarone drip. ABG showed a pO2 of 143 pCO2 45 pH of 7.36, hence her FiO2 was drop-down to 40%. Drips-alberts, the patient is requiring relatively high dose of propofol at 75 mcg/kg/m she was quite agitated and not synchronous with mechanical ventilation last night and fentanyl was added at 0.5 mcg/kg/h she is receiving IV fluid 0.9 normal saline at 75 mL per hour. Patient remains on Zosyn empirically.. She is on assist control rate of 16 tidal volume 400 FiO2 35% and PEEP of 5. Chest x-ray continues to show no evidence of any acute process. Labs showed W Francis of 16.8 hemoglobin of 12.9 continues to have low potassium which I have ordered aggressive correction of her hypokalemia and renal profile seems to be normal. Influenza screen, RSV and COVID-19 screening are negative and her James-Davis serology seems to be negative for acute infection Reevaluated today on 04/17/2023, patient remains in the ICU, patient was extubated yesterday, tolerated the extubation well. Patient seems to have some left wrist pain and swelling, and that being addressed by orthopedics she also has some chest wall pain most likely related to her CPR, and rib films were ordered. Otherwise the patient is doing well, her chest x-ray is reassuring, her labs are reassuring, however considering the presentation I will continue to monitor the patient in the ICU for the next 24 hours. No arrhythmias overnight. Patient is now on 0.9 normal saline at 75 mL/h, receiving Binford for pain patient is on oral amiodarone as per cardiology. Remains empirically on Zosyn for possible aspiration. Her chest x-ray however is nondiagnostic. WBC count is 11.5 hemoglobin 11.9 lites are normal and renal profile is normal The patient is seen today 04/18/2023 in follow-up in the intensive care unit. She is currently sitting up in a chair at the bedside. Awake and alert in no acute distress. Maintaining good O2 saturation in the 90s on 2 L/m per nasal cannula. She is doing very well. She denies any worsening shortness of breath, cough or congestion. She does have some chest wall pain from recent CPR. Chest x-ray revealed no acute pulmonary process. No acute displaced rib fractures. No IV fluids currently. She's not had any further arrhythmias. She remains on oral amiodarone. Heparin for DVT prophylaxis. Progress note dated 04/19/2023. The patient is seen today in room 373. Yesterday, the patient was in the intensive care unit. She was transferred out. She has been stable in that regard. She's currently on room air, and not receiving any IV fluids. She's having no further issues with arrhythmias. White count 10.5, hemoglobin 12.5, hematocrit 39.7, within normal platelet count. Sodium 139, potassium 4, chlorides 108, CO2 27, BUN 22, and creatinine 0.6. Progress note dated 04/20/2023. The patient is seen again today in room 373. The patient was in the intensive care unit, a couple days ago. The patient has been stable. He is currently on room air. He is receiving saline at 20 mL an hour. Since being discharged from the ICU, the patient has had no further issues with arrhythmias. No new labs today. Progress note dated 04/21/2023. The patient is seen today in room 373. Currently, the patient's on room air. She's not receiving any IV fluids. The patient apparently will be fitted for a life vest, and hopefully be discharged home. The patient has had no further episodes of arrhythmia. No new labs today. Progress note dated 04/22/2023. The patient is seen in room 373. From the pulmonary standpoint, the patient could be considered for discharge. The patient is apparently being treated for cellulitis. Currently, the patient is on room air. She's not receiving any IV fluids. She is receiving antibiotics. No new labs today. Progress note dated 04/23/2023. The patient is seen today in room 373. The patient is stable from the pulmonary standpoint. She's on room air. Saturations are 96%. She is receiving vancomycin for a left arm cellulitis. Sodium 139, potassium 4.4, chlorides 111, CO2 22, BUN 17, creatinine 0.64. Glucose 84. Calcium 9.1. Objective - Vital Signs Vital signs: Vital Signs Temp 98.5 F 04/23/23 08:20 Pulse 84 04/23/23 11:45 Resp 20 04/23/23 08:20 BP 134/70 04/23/23 08:20 Pulse Ox 95 04/23/23 08:20 FiO2 21 04/19/23 08:07 Intake & Output 04/22/23 04/23/23 04/23/23 18:59 06:59 18:59 Intake Total 260 0 Balance 260 0 Intake: IV 20 Invasive Line 6 10 Invasive Line 8 10 Oral 240 0 Other: Voiding Method Toilet Toilet Toilet # Voids 1 1 1 # Bowel Movements 1 ABP, PAP, CO, CI - Last Documented Arterial Blood Pressure 116/43 - Exam No acute distress, oriented 3. Room air saturation is 96 %. HEENT examination is grossly unremarkable. Mucous membranes are moist. No oral lesions. Neck supple. Full range of motion. No adenopathy thyromegaly or neck vein distention. Cardiovascular examination reveals regular rhythm rate. S1-S2 normal. No S3 or S4. No discernible murmur noted. Heart rate is 84 bpm. Lungs reveal clear breath sounds. Breath sounds are equal bilaterally. No adventitious lung sounds including wheezes rhonchi or crackles. Abdomen soft bowel sounds are heard. No masses or tenderness. Extremities are intact. No cyanosis clubbing or edema. Skin is without rash or lesion. Neurologic examination is brief but nonfocal. - Labs CBC & Chem 7: 04/19/23 10:44 04/23/23 06:14 Labs: Abnormal Lab Results - Last 24 Hours (Table) 04/23/23 Range/Units 06:14 Chloride 111 H (98-107) mmol/L Assessment and Plan Assessment: Ventricular fibrillation cardiac arrest requiring intubation mechanical ventilation. Received CPR, epinephrine and defibrillation 3. Approximate downtime 5 minutes with return of spontaneous circulation. Recovered successfully extubated and currently on 2 L nasal cannula. On oral amiodarone. No further arrhythmias. Acute hypoxemic respiratory failure secondary to above. Left upper extremity cellulitis/thrombophlebitis. Chest pain with elevated troponins, cardiac catheterization revealed patent stents to the RCA, no obstructive coronary artery disease. Impaired left ventricular systolic function with ejection fraction of 45%. Concern with possible coronary dissection however CT scan revealed no evidence. Leukocytosis, suspect reactive. Transaminitis secondary to above. History of coronary artery disease with previous stents to the proximal and mid RCA. Hyperlipidemia. Chronic and ongoing tobacco dependence. History of anxiety/depression. Plan: Plan dated 04/19/2023. The patient is seen today in room 373. She sitting at the bedside with a family member. The patient has no further arrhythmias. She denies any chest pain or chest discomfort. Labs, x-rays, and medications are reviewed. Antibiotics were discontinued. Oxygen is discontinued. Additional recommendations and suggestions are forthcoming. Prognosis is guarded. We will continue to follow and make recommendations along the way. Plan dated 04/20/2023. The patient is sitting comfortably on the bed, in room 373. She's not requiring any oxygen. His a basic IV running at 20 mL an hour. Labs, x-rays, and medications are all reviewed. The patient's overall prognosis remains guarded. The patient has had no further episodes of arrhythmias. We will continue to follow as needed. Plan dated 04/21/2023. The patient is hoping to be discharged soon. The patient will be fitted for a Life Vest. Labs, x-rays, and medications are reviewed. The patient remained stable. No further episodes of arrhythmia. We will continue to follow as needed. Plan dated 04/22/2023. From the pulmonary standpoint, the patient stable. She's being treated for left upper extremity cellulitis. She's currently on a combination of both Ancef and vancomycin. Labs, x-rays, medications are reviewed. The patient has had no further episodes of arrhythmia. We will continue to follow make recommendations along the way. Prognosis is certainly guarded. Plan dated 04/23/2023. The patient is seen today in room 373. She stable from the pulmonary standpoint. The patient is currently on vancomycin for cellulitis involving the left upper extremity. Labs, x-rays, medications are reviewed. The patient has had no further episodes of arrhythmia. We will continue to follow make recommendations along the way. Prognosis is guarded. Time with Patient: Less than 30
[2023-04-23] MEDS: LINEZOLID 600 MG TAB PO SCH ×2 (16:32→20:12)
[2023-04-23] MEDS: ATORVASTATIN 80 MG TAB PO SCH (20:12)
--- NOTE | 2023-04-23 22:20 | P.CONS ---
History of Present Illness - Reason for Consult Consult date: 04/23/23 Thrombophlebitis severe, infected Requesting physician: Chaitanya Villatoro - Chief Complaint Left hand forearm swelling and redness x few days - History of Present Illness Patient is a 62-year-old female with a past medical history negative for hyperlipidemia coronary disease [place] patient is in the hospital for almost 8 days now with initial presentation of not feeling well vomiting and chest pain patient did have a sustained ventricular tachycardia for the patient did have a cardiac cath demonstrated patent coronary stents subsequently has been in the ICU patient did have an IV to the left arm with patient mention started when she was in the hospital ICU with significant swelling redness and erythema involving the dorsal aspect of the left hand extending to the left forearm patient was describing pain to be more radial aching to sharp 7-8 of 10 however overall swelling or redness has decreased but the patient patient did not have any fever during this hospital stay and the patient did have a blood culture done on 04/15/2020 that has been negative patient did have a elevated white count initially of 19 point that has normalized since 04/18/2023 no CBC has been done over the last 4 days creatinine has been normal ID was consulted today for the left hand/forearm thrombophlebitis and need for antibiotic therapy patient apparently has lost her IV site and nursing staff was not able to place another IV so the patient can receive vancomycin with the patient is already on Review of Systems Positive point and negatives has been mentioned in the HPI, complete review of systems was performed and all other systems are negative Past Medical History Past Medical History: Coronary Artery Disease (CAD), Hyperlipidemia, Myocardial Infarction ([place]) Additional Past Medical History / Comment(s): Pleurisy, diverticular disease, benign colon polyp. Last Myocardial Infarction Date:: 2012 History of Any Multi-Drug Resistant Organisms: None Reported Past Surgical History: Heart Catheterization With Stent, Tubal Ligation Additional Past Surgical History / Comment(s): lithotripsy, colonoscopy/polypectomy Past Anesthesia/Blood Transfusion Reactions: No Reported Reaction Additional Past Anesthesia/Blood Transfusion Reaction / Comm: Pt has clausterphobia. Date of Last Stent Placement:: 2012 [facility] Connor Past Psychological History: Anxiety, Depression Smoking Status: Current every day smoker Past Alcohol Use History: None Reported Past Drug Use History: None Reported - Past Family History Father Family Medical History: Myocardial Infarction ([place]) Additional Family Medical History / Comment(s): Father of a [place] at the age of 46yrs. Mother Family Medical History: Cancer Additional Family Medical History / Comment(s): Mother had colon cancer and from sepsis in her port a cath. Medications and Allergies Home Medications Medication Instructions Recorded Confirmed Type Albuterol Sulfate [Ventolin HFA] 2 puff INHALATION RT-Q6H PRN 12/26/20 04/15/23 History ALPRAZolam [Xanax] 1 mg PO BID PRN 07/18/21 04/15/23 History Aspirin 81 mg PO DAILY #60 tab 04/23/23 Rx Atorvastatin [Lipitor] 80 mg PO HS #60 tab 04/23/23 Rx Clopidogrel [Plavix] 75 mg PO DAILY #60 tab 04/23/23 Rx Isosorbide Mononitrate ER [Imdur] 30 mg PO DAILY #60 tab 04/23/23 Rx Magnesium Oxide [Mag-Ox] 400 mg PO DAILY #60 tab 04/23/23 Rx Pantoprazole [Protonix] 40 mg PO DAILY #60 tab 04/23/23 Rx Spironolactone [Aldactone] 25 mg PO DAILY #60 tab 04/23/23 Rx carvediloL [Coreg*] 25 mg PO BID-W/MEALS #60 tab 04/23/23 Rx lisinopriL [Zestril] 20 mg PO DAILY #60 tab 04/23/23 Rx Linezolid [Zyvox] 600 mg PO Q12H #12 tab 04/24/23 Rx Allergies Allergy/AdvReac Type Severity Reaction Status Date / Time No Known Allergies Allergy Verified 04/15/23 09:16 Physical Exam Vitals: Vital Signs Temp Pulse Pulse Resp BP Pulse Ox 04/23/23 08:55 88 04/23/23 08:38 88 04/23/23 08:20 98.5 F 81 20 134/70 95 04/23/23 04:00 98.3 F 83 18 124/70 97 04/23/23 01:43 16 04/23/23 00:00 94 16 114/73 96 04/22/23 21:56 88 04/22/23 21:28 88 04/22/23 20:00 97.8 F 68 18 119/69 94 L 04/22/23 16:49 72 04/22/23 16:37 72 04/22/23 16:00 98.4 F 74 18 145/69 96 04/22/23 14:40 78 136/76 94 L 04/22/23 14:00 74 04/22/23 13:16 98.6 F 77 18 137/61 95 Intake and Output 04/22/23 04/23/23 04/23/23 22:59 06:59 14:59 Intake Total 10 0 Balance 10 0 Intake: IV 10 Invasive Line 8 10 Oral 0 Other: Voiding Method Toilet Toilet Toilet # Voids 1 1 GENERAL DESCRIPTION: Middle-aged female lying in bed, no distress. No tachypnea or accessory muscle of respiration use. HEENT: Shows Pallor , no scleral icterus. Oral mucous membrane is dry. No pharyngeal erythema or thrush NECK: Trachea central, no thyromegaly. LUNGS: Unlabored breathing. Clear to auscultation anteriorly. No wheeze or crackle. HEART: S1, S2, regular rate and rhythm. No loud murmur ABDOMEN: Soft, no tenderness , EXTREMITIES: Left forearm and dorsum of the hand did have some swelling and some bruising no peripheral wound or any drainage SKIN: No rash, no masses palpable. NEUROLOGICAL: The patient is awake, alert, oriented x3, mood and affect normal. Results CBC & Chem 7: 04/24/23 08:12 04/24/23 08:12 Labs: Abnormal Lab Results - Last 24 Hours (Table) 04/23/23 Range/Units 06:14 Chloride 111 H (98-107) mmol/L Assessment and Plan (1) Cellulitis of left forearm Status: Acute Code(s): L03.114 - CELLULITIS OF LEFT UPPER LIMB SNOMED Code(s): 06459423689584046 (2) Thrombophlebitis arm Status: Acute Code(s): I80.8 - PHLEBITIS AND THROMBOPHLEBITIS OF OTHER SITES SNOMED Code(s): 88463845 Plan: 1patient with a left forearm hand area thrombophlebitis related to the IV which has been discontinued, patient is currently afebrile and did have normal white count blood culture on 04/15/2023 has been negative and the patient reporting overall improvement as far as the swelling redness of the left forearm and hand the hand is concerned 2-we will obtain Doppler ultrasound of the left upper extremity 3-as the patient do not have any IV access to give the vancomycin we will start the patient on Zyvox 4-we will repeat blood culture and check inflammatory markers We will follow on clinical condition and cultures to further adjust medication if needed Thank you for this consultation we will follow the patient along with you Dictation was produced using [employer] dictation software. please excuse any grammatical, word or spelling errors. Time with Patient: Greater than 30
[2023-04-24] MEDS: carvediloL 12.5 MG TAB PO SCH (05:52)
[2023-04-24] MEDS: HYDROcodone/APAP 5-325MG 1 EACH TAB PO PRN (05:52)
--- NOTE | 2023-04-24 08:52 | US ---
EXAMINATION TYPE: US venous doppler duplex UE LT DATE OF EXAM: 04/24/2023 COMPARISON: NONE CLINICAL INDICATION: Female, 62 years old with history of L forearm/hand thrombophlebitis; Edema left lower arm. Recent IV left hand SIDE PERFORMED: left The deep venous system of the left upper extremity is patent and compressible with augmentable flow t hroughout. IMPRESSION: No evidence of left upper extremity DVT.
[2023-04-24 08:53] LABS: Basophils % (A) 0 %; Eosinophils # (A) 0.4 k/uL (0-0.7); Eosinophils % (A) 4 %; HCT 35.7 % (34.0-46.0); HGB 11.7 gm/dL (11.4-16.0); Lymphocytes # (A) 3.3 k/uL (1.0-4.8); Lymphocytes % (A) 32 %; MCH 32.6 pg (25.0-35.0); MCHC 32.8 g/dL (31.0-37.0); MCV 99.6 fL (80.0-100.0); Mean Platelet Volume 8.1; Monocytes # (A) 0.5 k/uL (0-1.0); Monocytes % (A) 5 %; Neutrophils % (A) 57 %; Platelet Count 353 k/uL (150-450); RBC 3.59 m/uL (3.80-5.40); RDW 13.6 % (11.5-15.5); WBC 10.4 k/uL (3.8-10.6)
[2023-04-24] MEDS: IPRATROPIUM-ALBUTEROL 3 ML NEB INHALATION SCH ×2 (09:02→12:15)
[2023-04-24] MEDS: SPIRONOLACTONE 25 MG TAB PO SCH (09:24)
[2023-04-24] MEDS: ISOSORBIDE MONONITRATE ER 30 MG TAB.ER.24H PO SCH (09:24)
[2023-04-24] MEDS: lisinopriL 20 MG TAB PO SCH (09:24)
[2023-04-24] MEDS: ASPIRIN 81 MG PO SCH (09:24)
[2023-04-24] MEDS: MAGNESIUM OXIDE 400 MG TAB PO SCH (09:24)
[2023-04-24] MEDS: CLOPIDOGREL 75 MG TAB PO SCH (09:24)
[2023-04-24] MEDS: ALPRAZolam 0.25 MG TAB PO PRN (09:24)
[2023-04-24] MEDS: HEPARIN SODIUM,PORCINE 5,000 UNIT/ML 1 ML VIAL SQ SCH (09:24)
[2023-04-24] MEDS: LINEZOLID 600 MG TAB PO SCH (09:24)
[2023-04-24] MEDS: NICOTINE 21MG/24HR PATCH TRANSDERM SCH (09:25)
[2023-04-24] MEDS: PANTOPRAZOLE 40 MG/10 ML VIAL IV SCH (09:25)
[2023-04-24 09:43] VITALS: BP 123/67; RESP 16; TEMP 98.4
[2023-04-24 09:52] LABS: ALT 15 U/L (4-34); AST 23 U/L (14-36); African American GFR (CKD) >90 (>60 ml/min/1.73 sqM); Albumin 3.2 g/dL (3.5-5.0); Alkaline Phosphatase 115 U/L (38-126); Anion Gap 9 mmol/L; Blood Urea Nitrogen 16 mg/dL (7-17); C Reactive Protein <0.5 mg/dL (<1.0); Calcium 9.3 mg/dL (8.4-10.2); Carbon Dioxide 21 mmol/L (22-30); Chloride 111 mmol/L (98-107); Glucose 129 mg/dL (74-99); Non-African American GFR(CKD) 88 (>60 ml/min/1.73 sqM); Potassium 3.7 mmol/L (3.5-5.1); Sodium 141 mmol/L (137-145); Total Bilirubin 0.4 mg/dL (0.2-1.3)
[2023-04-24 12:29] VITALS: PULSE 72
--- NOTE | 2023-04-24 12:29 | P.PN ---
Subjective Progress Note Date: 04/24/23 Hospital Course: 62 year old woman with history of CAD s/p stents, Aortic Dissection, tobacco dependents, HLD, depression presented for evaluation of nausea, vomiting, diarrhea. In the emergency room, patient was afebrile, 151/69, heart rate 99, 98% on room air. CBC was remarkable for leukocytosis to 19.9. Basic metabolic panel showed chloride of 108, CO2 of 13, anion gap of 18, BUN 25. Liver function tests showed total bilirubin of 1.4, AST 54, ALT of 64, alkaline phosphatase at 282. Lipase was 102. Troponin is 1.77. Lactic acid was 2.0. Coags are unremarkable. D-dimer 0.81. The patient was in the emergency room, patient was noted to be in sustained ventricular tachycardia, and cardiology notified. At this point, patient transition to the [facility], where she underw ent angiogram which demonstrated patent coronary stents. She was then transition to the intensive care unit for further management. Repeat troponin was noted to be 2.23. While in the ICU, she had another episode of sustained VTach which devolved into VFib. She required chest compressions, amiodarone bolus, 1x epinephrine, and 3 shocks to achieve ROSC. Afterwards was started on lidocaine gtt per cardiology. CT A/P ordered by cardiology as well which demonstrated gastric thickening, but no blood clots, dissection. Extubated on 04/16 PM to nasal cannula. She was given a total of 170 mEq of K over the course of 48 hours in light of severe hypokalemia. Her acidosis corrected with IVF. Lidocaine and amiodarone gtts were weaned off and patient transitioned to amiodarone PO. EBV IgG positive, CMV IgG/IgM negative, Cephied 4-plex negative. TSH is 0.57. Has a left arm thrombophlebitis, currently on IV antibiotics. ICD placement on hold due to ongoing thrombophlebitis. Patient will likely go home and LifeVest and then follow-up with cardiology for ICD placement. Subjective: Patient seen and examined at bedside. No acute events overnight. Left hand pain is slowly improving. Patient is eager to go home. Pertinent positives and negatives as discussed above, a complete review of systems was performed and all other systems are negative. Vitals Signs Reviewed. General: nontoxic, no distress, appears at stated age Derm: warm, dry Head: atraumatic, normocephalic, symmetric Eyes: EOMI, no lid lag, anicteric sclera Mouth: no lip lesion, mucus membranes moist Cardiovascular: S1S2 reg, no murmur, chest wall tenderness Lungs: CTA bilateral, no rhonchi, no rales , no accessory muscle use, supplemental oxygen Abdominal: soft, nontender to palpation, no guarding, no appreciable organomegaly Ext: no gross muscle atrophy, no edema, no contractures, left wrist mild edema and pain with movement Neuro: CN II-XI grossly intact, no focal neuro deficits Psych: Alert, oriented, appropriate affect Data Reviewed Today: Pertinent Labs: WBC 10.4, creatinine 0.73, CRP negative Imaging: Left upper extremity Doppler did not show any DVTs Assessment and Plan: Active: Spontaneous Sustained Ventricular Tachycardia, leading to ventricular fibrillation S/p Cardiac Arrest with ROSC Ventilator Dependent Respiratory Failure, extubated 04/16, now on nasal cannula Type II NSTEMI Coronary artery disease status post stents Heart failure with reduced ejection fraction, EF 45%, not in exacerbation Left arm thrombophlebitis -Ventricle fibrillation possibly related to ischemic cardiomyopathy -There may also be component of antidepressant which is currently being held -Cardiology note reviewed, pending ICD placement once left arm thrombophlebitis improves, likely to be done outpatient, patient will be sent home with a LifeVest -ID was consulted, currently on linezolid Left wrist pain secondary to thrombophlebitis Right rib pain, likely secondary to chest compressions -Orthopedics recommended supportive care and outpatient follow-up with hand specialist Dr. Guillermina Ariza Gastritis Nausea and vomiting Abdominal pain -GI signed off, recommended outpatient endoscopic evaluation, continue Protonix Resolved: Hypokalemia Leukocytosis High anion gap metabolic acidosis Mild macrocytic anemia, resolved Chronic: Tobacco Dependence HLD Depression DVT ppx: Subcu heparin Code status: Full code Anticipated discharge place: Pending clinical course Anticipated discharge time: Pending clinical course Objective - Vital Signs Vital signs: Vital Signs Temp 98.4 F 04/24/23 09:25 Pulse 72 04/24/23 12:15 Resp 16 04/24/23 09:25 BP 123/67 04/24/23 09:25 Pulse Ox 95 04/24/23 09:25 FiO2 21 04/19/23 08:07 Intake & Output 04/23/23 04/24/2323 18:59 06:59 18:59 Intake Total 300 240 229 Balance 300 240 229 Intake: Oral 300 240 229 Other: Voiding Method Toilet Toilet Toilet # Voids 1 2 3 ABP, PAP, CO, CI - Last Documented Arterial Blood Pressure 116/43 - Labs CBC & Chem 7: 04/24/23 08:12 04/24/23 08:12 Labs: Abnormal Lab Results - Last 24 Hours (Table) 04/24/23 04/24/23 Range/Units 08:12 08:12 RBC 3.59 L (3.80-5.40) m/uL Chloride 111 H (98-107) mmol/L Carbon Dioxide 21 L (22-30) mmol/L Glucose 129 H (74-99) mg/dL Total Protein 6.0 L (6.3-8.2) g/dL Albumin 3.2 L (3.5-5.0) g/dL
--- NOTE | 2023-04-24 13:25 | P.PN ---
Subjective Progress Note Date: 04/24/23 This is a 62-year-old female patient with a history of hyperlipidemia, anxiety/depression, chronic and ongoing tobacco dependence, coronary artery disease with previous stent placements. She presented here to the emergency room earlier this morning with complaints of nausea and vomiting and chest pain for 3 days. She was found to have elevated troponins and was taken to the cardiac catheterization lab where she was found to have a patent stents to the mid and proximal portion of the right coronary artery. Left main was free of stenosis. LAD and circumflex branches were free of stenosis. There was some concerns regarding a very distal LAD with naturally small caliber versus spontaneous coronary artery dissection of the segment. A computed tomography scan of the chest and abdomen revealed no evidence of thoracic or abdominal aortic aneurysm dissection. No pulmonary embolism. Echocardiogram revealed impaired left ventricular systolic function with ejection fraction of 45%. There is basal and mid inferior and inferolateral hypokinesis. She was brought into the intensive care unit at approximately 1315. By 1335 she had developed sustained runs of ventricular tachycardia and subsequently went into to ventricular fibrillation cardiac arrest. She did receive epinephrine and defibrillation 3 with spontaneous return of circulation. She was initiated on amiodarone drip currently at 1 mg/m. She is on lidocaine drip at 1 mg/m, propofol at 50 mcg/kg/m. Normal saline at 75 ML's per hour. She was intubated and remains on the mechanical ventilator in assist control mode at a rate of 16, tidal volume at 400, FiO2 80% and a PEEP of 5. Arterial blood gases revealed a PaO2 of 366, pCO2 of 36 and a pH of 7.3. White count 20.6. Hemoglobin 14.2. Platelets 219. INR 1.0. Sodium 1:30. Potassium 3.5. Bicarb 15. BUN 23. Creatinine 0.82. Glucose 193. Lactic acid 4.6. AST 70. ALT 59. Troponin 2.230, 2.030. Patient was reevaluated today on 04/16/2023, remains in the ICU, intubated and mechanically ventilated. No episodes of ventricular fibrillation or tachycardia overnight. However the patient remains on amiodarone drip. ABG showed a pO2 of 143 pCO2 45 pH of 7.36, hence her FiO2 was drop-down to 40%. Drips-alberts, the patient is requiring relatively high dose of propofol at 75 mcg/kg/m she was quite agitated and not synchronous with mechanical ventilation last night and fentanyl was added at 0.5 mcg/kg/h she is receiving IV fluid 0.9 normal saline at 75 mL per hour. Patient remains on Zosyn empirically.. She is on assist control rate of 16 tidal volume 400 FiO2 35% and PEEP of 5. Chest x-ray continues to show no evidence of any acute process. Labs showed [place] of 16.8 hemoglobin of 12.9 continues to have low potassium which I have ordered aggressive correction of her hypokalemia and renal profile seems to be normal. Influenza screen, RSV and COVID-19 screening are negative and her James-Davis serology seems to be negative for acute infection Reevaluated today on 04/17/2023, patient remains in the ICU, patient was extubated yesterday, tolerated the extubation well. Patient seems to have some left wrist pain and swelling, and that being addressed by orthopedics she also has some chest wall pain most likely related to her CPR, and rib films were ordered. Otherwise the patient is doing well, her chest x-ray is reassuring, her labs are reassuring, however considering the presentation I will continue to monitor the patient in the ICU for the next 24 hours. No arrhythmias overnight. Patient is now on 0.9 normal saline at 75 mL/h, receiving [place] for pain patient is on oral amiodarone as per cardiology. Remains empirically on Zosyn for possible aspiration. Her chest x-ray however is nondiagnostic. WBC count is 11.5 hemoglobin 11.9 lites are normal and renal profile is normal The patient is seen today 04/18/2023 in follow-up in the intensive care unit. She is currently sitting up in a chair at the bedside. Awake and alert in no acute distress. Maintaining good O2 saturation in the 90s on 2 L/m per nasal cannula. She is doing very well. She denies any worsening shortness of breath, cough or congestion. She does have some chest wall pain from recent CPR. Chest x-ray revealed no acute pulmonary process. No acute displaced rib fractures. No IV fluids currently. She's not had any further arrhythmias. She remains on oral amiodarone. Heparin for DVT prophylaxis. The patient is seen today 04/24/2023 in follow-up on the selective care unit. She is currently sitting up in a chair at bedside. Awake and alert in no acute distress. Maintaining good O2 saturations in the mid 90s on room air. She's been afebrile. Hemodynamically stable. LifeVest has been applied. She was on vancomycin for her left upper extremity cellulitis. Currently on oral Zyvox. Doppler of the left upper extremity revealed no evidence of DVT. Blood culture revealed no growth. Sputum culture revealed no growth. We count 10.4. Hemoglobin 11.7. Platelets 353. Sodium 141. Potassium 3.7. Bicarb 21. BUN 16. Creatinine 0.73. Glucose 129. AST 23. ALT 15. Objective - Vital Signs Vital signs: Vital Signs Temp 98.4 F 04/24/23 09:25 Pulse 72 04/24/23 12:29 Resp 16 04/24/23 09:25 BP 123/67 04/24/23 09:25 Pulse Ox 95 04/24/23 09:25 FiO2 21 04/19/23 08:07 Intake & Output 04/23/23 04/24/23 04/24/23 18:59 06:59 18:59 Intake Total 300 240 229 Balance 300 240 229 Intake: Oral 300 240 229 Other: Voiding Method Toilet Toilet Toilet # Voids 1 2 3 ABP, PAP, CO, CI - Last Documented Arterial Blood Pressure 116/43 - Exam GENERAL EXAM: Alert, very pleasant 62-year-old female, up in a chair, on room air, comfortable in no apparent distress. HEAD: Normocephalic. EYES: Normal reaction of pupils, equal size. NOSE: Clear with pink turbinates. THROAT: No erythema or exudates. NECK: No masses, no JVD. CHEST: No chest wall deformity. LifeVest in place. LUNGS: Equal air entry with no crackles, wheeze, rhonchi or dullness. CVS: S1 and S2 normal with no audible murmur, regular rhythm. ABDOMEN: No hepatosplenomegaly, normal bowel sounds, no guarding or rigidity. SPINE: No scoliosis or deformity SKIN: No rashes CENTRAL NERVOUS SYSTEM: No focal deficits, tone is normal in all 4 extremities. EXTREMITIES: Redness and edema of the left upper extremity. No clubbing, no cyanosis. Peripheral pulses are intact. - Labs CBC & Chem 7: 04/24/23 08:12 10/01/23 08:12 Labs: Abnormal Lab Results - Last 24 Hours (Table) 04/24/23 04/24/23 Range/Units 08:12 08:12 RBC 3.59 L (3.80-5.40) m/uL Chloride 111 H (98-107) mmol/L Carbon Dioxide 21 L (22-30) mmol/L Glucose 129 H (74-99) mg/dL Total Protein 6.0 L (6.3-8.2) g/dL Albumin 3.2 L (3.5-5.0) g/dL Assessment and Plan Assessment: Ventricular fibrillation cardiac arrest requiring intubation mechanical ventilation. Received CPR, epinephrine and defibrillation 3. Approximate downtime 5 minutes with return of spontaneous circulation. Recovered successfully extubated and currently on room air. On oral amiodarone. No further arrhythmias. LifeVest in place. Acute hypoxemic respiratory failure secondary to above, recovered and on room air Chest pain with elevated troponins, cardiac catheterization revealed patent stents to the RCA, no obstructive coronary artery disease Impaired left ventricular systolic function with ejection fraction of 45% Thrombophlebitis of the left upper extremity, currently on Zyvox. Doppler negative for DVT History of coronary artery disease with previous stents to the proximal and mid RCA Hyperlipidemia Chronic and ongoing tobacco dependence History of anxiety/depression Plan: The patient was seen and evaluated Labs and medications reviewed Currently stable and room air LifeVest in place Transitioned to oral Zyvox Cleared for discharge from the pulmonary standpoint I have personally seen and examined the patient, performed the documentation and the assessment and plan as written. Number of minutes spent on the visit: 10.
--- NOTE | 2023-04-24 13:33 | P.DS ---
Providers Date of admission: 04/15/23 10:20 Expected date of discharge: 04/24/23 Attending physician: Dulce Tillman DO Consults: 04/15/23 10:20 Consult Physician Urgent Consulting Provider: [facility] Consult Reason/Comments: N STEMI, V. tach Do you want consulting provider notified?: Yes 04/15/23 13:44 Consult Physician Urgent Consulting Provider: Aurora Suero Consult Reason/Comments: code blue - intubated Do you want consulting provider notified?: Yes 04/17/23 07:13 Consult Physician Routine Consulting Provider: Jeremy Real Consult Reason/Comments: left wrist pain, swelling Do you want consulting provider notified?: Yes 04/23/23 10:59 Consult Physician Routine Consulting Provider: Mary Weaver Consult Reason/Comments: Thrombophlebitis, Severe, Infected Do you want consulting provider notified?: Yes Primary care physician: [facility] Hospital Course: Discharge Diagnosis: Spontaneous Sustained Ventricular Tachycardia, leading to ventricular fibrillation S/p Cardiac Arrest with ROSC Ventilator Dependent Respiratory Failure, extubated 04/16, now on nasal cannula Type II NSTEMI Coronary artery disease status post stents Heart failure with reduced ejection fraction, EF 45%, not in exacerbation Left arm thrombophlebitis Left wrist pain secondary to thrombophlebitis Right rib pain, likely secondary to chest compressions Gastritis Nausea and vomiting Abdominal pain Hypokalemia Leukocytosis High anion gap metabolic acidosis Mild macrocytic anemia, resolved Tobacco Dependence HLD Depression Hospital Course: 62 year old woman with history of CAD s/p stents, Aortic Dissection, tobacco dependents, HLD, depression presented for evaluation of nausea, vomiting, diarrhea. In the emergency room, patient was afebrile, 151/69, heart rate 99, 98% on room air. CBC was remarkable for leukocytosis to 19.9. Basic metabolic panel showed chloride of 108, CO2 of 13, anion gap of 18, BUN 25. Liver function tests showed total bilirubin of 1.4, AST 54, ALT of 64, alkaline phosphatase at 282. Lipase was 102. Troponin is 1.77. Lactic acid was 2.0. Coags are unremarkable. D-dimer 0.81. The patient was in the emergency room, patient was noted to be in sustained ventricular tachycardia, and cardiology notified. At this point, patient transition to the [facility], where she underwent angiogram which demonstrated patent coronary stents. She was then transition to the intensive care unit for further management. Repeat troponin was noted to be 2.23. While in the ICU, she had another episode of sustained VTach which devolved into VFib. She required chest compressions, amiodarone bolus, 1x epinephrine, and 3 shocks to achieve ROSC. Afterwards was started on lidocaine gtt per cardiology. CT A/P ordered by cardiology as well which demonstrated gastric thickening, but no blood clots, dissection. Extubated on 04/16 PM to nasal cannula. She was given a total of 170 mEq of K over the course of 48 hours in light of severe hypokalemia. Her acidosis corrected with IVF. Lidocaine and amiodarone gtts were weaned off and patient transitioned to amiodarone PO. EBV IgG positive, CMV IgG/IgM negative, Cephied 4-plex negative. TSH is 0.57. Has a left arm thrombophlebitis, currently on IV antibiotics. ICD placement on hold due to ongoing thrombophlebitis. ID was consulted. On linezolid at the time of discharge, complete 1 week course at home. Patient will go home on LifeVest and then follow-up with cardiology for ICD placement. Patient seen and examined at bedside.[] Vital signs reviewed and stable. General: nontoxic, no distress, appears at stated age Derm: warm, dry Head: atraumatic, normocephalic, symmetric Eyes: EOMI, no lid lag, anicteric sclera Mouth: no lip lesion, mucus membranes moist Cardiovascular: S1S2 reg, no murmur, chest wall tenderness Lungs: CTA bilateral, no rhonchi, no rales , no accessory muscle use, supplemental oxygen Abdominal: soft, nontender to palpation, no guarding, no appreciable organomegaly Ext: no gross muscle atrophy, no edema, no contractures, left wrist mild edema and pain with movement Neuro: CN II-XI grossly intact, no focal neuro deficits Psych: Alert, oriented, appropriate affect A total 36 minutes of time were spent preparing this complex discharge summary. Patient was discharged on 04/24/23 at 1314. Patient Condition at Discharge: Stable Plan - Discharge Summary New Discharge Prescriptions: New Aspirin 81 mg PO DAILY #60 tab carvediloL [Coreg*] 25 mg PO BID-W/MEALS #60 tab Atorvastatin [Lipitor] 80 mg PO HS #60 tab Magnesium Oxide [Mag-Ox] 400 mg PO DAILY #60 tab Clopidogrel [Plavix] 75 mg PO DAILY #60 tab Linezolid [Zyvox] 600 mg PO Q12HR #12 tab Spironolactone [Aldactone] 25 mg PO DAILY #60 tab Isosorbide Mononitrate ER [Imdur] 30 mg PO DAILY #60 tab Pantoprazole [Protonix] 40 mg PO DAILY #60 tab lisinopriL [Zestril] 20 mg PO DAILY #60 tab Continue Albuterol Sulfate [Ventolin HFA] 2 puff INHALATION RT-Q6H PRN PRN Reason: Shortness Of Breath ALPRAZolam [Xanax] 1 mg PO BID PRN PRN Reason: Anxiety Discontinued Citalopram Hydrobromide [CeleXA] 40 mg PO HS Atorvastatin [Lipitor] 10 mg PO HS Metoprolol Tartrate [Lopressor] 12.5 mg PO BID Discharge Medication List Albuterol Sulfate [Ventolin HFA] 2 puff INHALATION RT-Q6H PRN 12/26/20 [History] ALPRAZolam [Xanax] 1 mg PO BID PRN 07/18/21 [History] Aspirin 81 mg PO DAILY #60 tab 04/23/23 [Rx] Atorvastatin [Lipitor] 80 mg PO HS #60 tab 04/23/23 [Rx] Clopidogrel [Plavix] 75 mg PO DAILY #60 tab 04/23/23 [Rx] Isosorbide Mononitrate ER [Imdur] 30 mg PO DAILY #60 tab 04/23/23 [Rx] Magnesium Oxide [Mag-Ox] 400 mg PO DAILY #60 tab 04/23/23 [Rx] Pantoprazole [Protonix] 40 mg PO DAILY #60 tab 04/23/23 [Rx] Spironolactone [Aldactone] 25 mg PO DAILY #60 tab 04/23/23 [Rx] carvediloL [Coreg*] 25 mg PO BID-W/MEALS #60 tab 04/23/23 [Rx] lisinopriL [Zestril] 20 mg PO DAILY #60 tab 04/23/23 [Rx] Linezolid [Zyvox] 600 mg PO Q12HR #12 tab 04/24/23 [Rx] Follow up Appointment(s)/Referral(s): William Alberts DO [Primary Care Provider] - 1-2 days Jan Andersen MD [STAFF PHYSICIAN] - 1 Week Guillermina Ariza DO [Doctor of Osteopathic Medicine] - 2 Weeks Maria Guadalupe Wills MD [STAFF PHYSICIAN] - 2 Weeks Patient Instructions/Handouts: Adult CPR Steps (DC), Implantable Cardioverter Defibrillator (DC), Superficial Thrombophlebitis (DC) Activity/Diet/Wound Care/Special Instructions: Please see your concrete block molder for further ICD placement. Discharge Disposition: HOME SELF-CARE
--- NOTE | 2023-04-24 15:14 | P.PN ---
Subjective Progress Note Date: 04/24/23 The patient is a 62-year-old female who presented to the emergency room with epigastric discomfort. The patient had moderate ST T wave changes in the inferolateral leads. She had a run of ventricular tachycardia in the emergency room and was started on IV amiodarone. After her transfer to the ICU, she had a ventricular fibrillation cardiac arrest, where she underwent several rounds of CPR and was subsequently intubated. Coronary angiogram had shown patent stents, however there is concern for SCAD in the distal segment of the LAD. Ejection fraction was noted to be low at 45% with inferior hypokinesis. The patient developed left arm swelling and thrombophlebitis. Swelling has improved on antibiotics. The patient is sitting up in bed. She denies any chest pain, chest pressure, shortness of breath. She states she's been ambulating without symptoms. GENERAL: Well-appearing, well-nourished and in no acute distress. NECK: Supple without JVD or thyromegaly. LUNGS: Breath sounds clear to auscultation bilaterally. Respiration equal and unlabored. No wheezes, rales or rhonchi. HEART: Regular rate and rhythm without murmurs, rubs or gallops. S1 and S2 heard. EXTREMITIES: No lower extremity edema. No clubbing or cyanosis. Peripheral pulses intact and strong. Swelling noted in left upper extremity. TELEMETRY: Sinus rhythm overnight IMPRESSION: Cardiomyopathy, ischemic Old myocardial infarction with inferior and inferolateral wall motion abnormality/scar Ventricular fibrillation, on maximal medical treatment No evidence of coronary artery disease progression Thrombophlebitis PLAN: Continue antibiotics for thrombophlebitis Continue current cardiac medication regimen Patient to be discharged with LifeVest I am dictating on behalf of Dr Jan Andersen's history/physical and as sessment/plan. Objective - Vital Signs Vital signs: Vital Signs Temp 98.4 F 04/24/23 09:25 Pulse 72 04/24/23 12:29 Resp 16 04/24/23 09:25 BP 123/67 04/24/23 09:25 Pulse Ox 95 04/24/23 09:25 FiO2 21 04/19/23 08:07 Intake & Output 04/23/23 04/24/23 04/24/23 18:59 06:59 18:59 Intake Total 300 240 229 Balance 300 240 229 Intake: Oral 300 240 229 Other: Voiding Method Toilet Toilet Toilet # Voids 1 2 3 ABP, PAP, CO, CI - Last Documented Arterial Blood Pressure 116/43 - Labs CBC & Chem 7: 04/24/23 08:12 04/24/23 08:12 Labs: Abnormal Lab Results - Last 24 Hours (Table) 04/24/23 04/24/23 Range/Units 08:12 08:12 RBC 3.59 L (3.80-5.40) m/uL Chloride 111 H (98-107) mmol/L Carbon Dioxide 21 L (22-30) mmol/L Glucose 129 H (74-99) mg/dL Total Protein 6.0 L (6.3-8.2) g/dL Albumin 3.2 L (3.5-5.0) g/dL
--- NOTE | 2023-04-29 11:34 | P.PN ---
Subjective Progress Note Date: 04/24/23 Principal diagnosis: Left hand/forearm, phlebitis and cellulitis Patient is a 62-year-old female with a past medical history negative for hyperlipidemia coronary disease OR patient is in the hospital for almost 9 days now with initial presentation of not feeling well vomiting and chest pain patient did have a sustained ventricular tachycardia for the patient did have a cardiac cath demonstrated patent coronary stents, patient did have a IV to the left hand developing thrombophlebitis to the left hand and the forearm. On today's evaluation that is 04/24/2023, the patient is afebrile, the patient is breathing comfortably on room air , the patient denies chest pain or cough, patient denies Abdominal pain , no nausea/vomiting /diarrhea, patient left hand and the forearm swelling redness has decreased Patient did have white count of 10.4, creatinine 0.73, CRP less than 0.5 blood cultures this morning so far pending Objective - Vital Signs Vital signs: Vital Signs Temp 98.4 F 04/24/23 09:25 Pulse 72 04/24/23 12:29 Resp 16 04/24/23 09:25 BP 123/67 04/24/23 09:25 Pulse Ox 95 04/24/23 09:25 FiO2 21 04/19/23 08:07 Intake & Output 04/23/23 04/24/23 04/24/23 18:59 06:59 18:59 Intake Total 300 240 229 Balance 300 240 229 Intake: Oral 300 240 229 Other: Voiding Method Toilet Toilet Toilet # Voids 1 2 3 ABP, PAP, CO, CI - Last Documented Arterial Blood Pressure 116/43 - Exam GENERAL DESCRIPTION: Middle-aged female lying in bed in no distress RESPIRATORY SYSTEM: Unlabored breathing , decreased breath sounds at bases HEART: S1 S2 regular rate and rhythm , ABDOMEN: Soft , no tenderness left Left hand and forearm swelling redness has decreased - Labs CBC & Chem 7: 04/24/23 08:12 04/24/23 08:12 Labs: Abnormal Lab Results - Last 24 Hours (Table) 04/24/23 04/24/23 Range/Units 08:12 08:12 RBC 3.59 L (3.80-5.40) m/uL Chloride 111 H (98-107) mmol/L Carbon Dioxide 21 L (22-30) mmol/L Glucose 129 H (74-99) mg/dL Total Protein 6.0 L (6.3-8.2) g/dL Albumin 3.2 L (3.5-5.0) g/dL Assessment and Plan (1) Cellulitis of left forearm Status: Acute Code(s): L03.114 - CELLULITIS OF LEFT UPPER LIMB SNOMED Code(s): 90325761492288882 (2) Thrombophlebitis arm Status: Acute Code(s): I80.8 - PHLEBITIS AND THROMBOPHLEBITIS OF OTHER SITES SNOMED Code(s): 25383444 Plan: 1patient with a left forearm hand area thrombophlebitis related to the IV which has been discontinued, patient is currently afebrile and did have normal white count blood culture on 04/15/2023 has been negative and the patient reporting overall improvement as far as the swelling redness of the left forearm and hand the hand is concerned 2-patient seemed to have shown clinical improvement and given short course of oral Zyvox and close outpatient follow-up discussed with the admitting team working on discharge Dictation was produced using [employer] dictation software. please excuse any grammatical, word or spelling errors. Time with Patient: Less than 30
== END 2023-04-24 17:18 | disposition home or self-care (01) | DRG 280 ==
LOC: EC 07:31 → 3SCARD 10:20 → 2SICU 11:29 → 3SCARD 04-18 18:56
PROVIDERS: ADMIT Internal Medicine; ATTEND Internal Medicine
PROC: B2111ZZ Fluoroscopy of Multiple Coronary Arteries using Low Osmolar Contrast (ICD-10-PCS; 2023-04-15)
PROC: 5A12012 Performance of Cardiac Output, Single, Manual (ICD-10-PCS; 2023-04-15)
PROC: 0BH17EZ Insertion of Endotracheal Airway into Trachea, Via Natural or Artificial Opening (ICD-10-PCS; 2023-04-15)
PROC: 5A1935Z Respiratory Ventilation, Less than 24 Consecutive Hours (ICD-10-PCS; 2023-04-15)
PROC: 03HY32Z Insertion of Monitoring Device into Upper Artery, Percutaneous Approach (ICD-10-PCS; 2023-04-15)
PROC: 4A133B1 Monitoring of Arterial Pressure, Peripheral, Percutaneous Approach (ICD-10-PCS; 2023-04-15)
PROC: 4A133J1 Monitoring of Arterial Pulse, Peripheral, Percutaneous Approach (ICD-10-PCS; 2023-04-15)
PROC: 5A09357 Assistance with Respiratory Ventilation, Less than 24 Consecutive Hours, Continuous Positive Airway Pressure (ICD-10-PCS; 2023-04-15)
PROC: 4A023N7 Measurement of Cardiac Sampling and Pressure, Left Heart, Percutaneous Approach (ICD-10-PCS; principal; 2023-04-15 13:00)
DX: I47.20 Ventricular tachycardia, unspecified (principal); I21.A1 Myocardial infarction type 2; I25.42 Coronary artery dissection; I71.00 Dissection of unspecified site of aorta; J96.01 Acute respiratory failure with hypoxia; I25.110 Atherosclerotic heart disease of native coronary artery with unstable angina pectoris; I50.20 Unspecified systolic (congestive) heart failure; L03.114 Cellulitis of left upper limb; D53.9 Nutritional anemia, unspecified; E78.5 Hyperlipidemia, unspecified; E87.6 Hypokalemia; F17.200 Nicotine dependence, unspecified, uncomplicated; F32.A Depression, unspecified; I25.5 Ischemic cardiomyopathy; I46.2 Cardiac arrest due to underlying cardiac condition; I49.01 Ventricular fibrillation; F41.9 Anxiety disorder, unspecified; I11.0 Hypertensive heart disease with heart failure; I80.8 Phlebitis and thrombophlebitis of other sites; K21.9 Gastro-esophageal reflux disease without esophagitis; K29.70 Gastritis, unspecified, without bleeding; I25.2 Old myocardial infarction; Z79.02 Long term (current) use of antithrombotics/antiplatelets; Z79.82 Long term (current) use of aspirin; Z79.899 Other long term (current) drug therapy; Z80.0 Family history of malignant neoplasm of digestive organs; Z82.49 Family history of ischemic heart disease and other diseases of the circulatory system; Z87.19 Personal history of other diseases of the digestive system; Z95.5 Presence of coronary angioplasty implant and graft; Z95.810 Presence of automatic (implantable) cardiac defibrillator
CPT/HCPCS: 36415; 36600; 71045; 71046; 71275; 74175; 76705; 80048; 80053; 80061; 82150; 82805; 83605; 83690; 83735; 84100; 84132; 84443; 84484; 85025; 85379; 85610; 85652; 85730; 86140; 86255; 86644; 86645; 86658; 86663; 86664; 86665; 86694; 86695; 86696; 87040; 87070; 87205; 87636; 93005; 93306; 93458; 94002; 94003; 94640; 94760; 96374; 96375; 99291

== ENCOUNTER 2023-05-23 05:34 | Day surgery (SDC) | payer BC ==
[2023-05-23] MEDS ORDERED: LACTATED RINGERS 1,000 ML IV SCH (05:59)
[2023-05-23] MEDS ORDERED: LIDOCAINE 1% (10MG/ML) FOR IV START INTRADERMA PRN (05:59)
[2023-05-23] MEDS ORDERED: ONDANSETRON 4 MG/2 ML VIAL IVP PRN (05:59)
[2023-05-23] MEDS ORDERED: SODIUM CHLORIDE 0.9% 1,000 ML IV SCH ×2 (05:59)
[2023-05-23] MEDS ORDERED: fentaNYL (PF) 50 MCG/ML 2 ML AMP IV PRN (05:59)
[2023-05-23 06:34] VITALS: RESP 18; TEMP 97.8
[2023-05-23] MEDS ORDERED: ceFAZolin 1 GM in SODIUM CHLORIDE 0.9% IRRIG BTL 250 ML IRRIGATION PRN (07:00)
[2023-05-23] MEDS ORDERED: PHENYLEPHRINE-0.9% NACL SYG 1,000 MCG/10 ML SYRINGE ONE (07:18)
[2023-05-23] MEDS ORDERED: MIDAZOLAM 2 MG/2 ML VIAL ONE (07:18)
[2023-05-23] MEDS ORDERED: PROPOFOL 10 MG/ML 20 ML VIAL IV ONE (07:18)
[2023-05-23] MEDS ORDERED: fentaNYL (PF) 50 MCG/ML 2 ML AMP ONE (07:18)
[2023-05-23] MEDS ORDERED: KETAMINE HCL IN 0.9 % NACL 50 MG/5 ML SYRINGE ONE (07:18)
[2023-05-23] MEDS ORDERED: IOPAMIDOL-370 100ML BTL INJ ONE (07:38)
[2023-05-23] MEDS ORDERED: LIDOCAINE 1% INJ 10MG/ML (20 ML MDV) ONE (07:47)
[2023-05-23] MEDS ORDERED: LIDOCAINE 1% INJ 10MG/ML (20 ML MDV) SQ ONE ×2 (08:04→08:15)
[2023-05-23] MEDS ORDERED: ACETAMINOPHEN TAB 325 MG TAB PO PRN (09:05)
--- NOTE | 2023-05-23 09:29 | P.EPPROC ---
- EP Procedure Note Electrophysiology Procedure Note: Diagnosis Ischemic cardiomyopathy with reduced LV systolic function him a ejection fraction of 45% Old inferior and inferior lateral DE with scar Ventricular fibrillation on maximal medical treatment No evidence for coronary artery disease progression or acute DE/No triggers Secondary prevention of ventricular fibrillation/AVID indication Result Successful single-chamber ICD implantation for secondary prevention of sudden cardiac High DFT, failed 10 J shock, successful 20 J shock Plan Maximize medications further and consider ENTRESTO in place of lisinopril Carvedilol dose has been maximized Details Procedure details: Patient was brought to the EP lab in a fasting state. Han coreas informed consent was obtained prior to the procedure. Options, pros and cons, benefits and risks and complications discussed with patient in detail prior to the procedure (shared decision making document, from [facility]). Importance of continuing medical treatment emphasized. Alternatives discussed. Patient would like to proceed with ICD implant. Left upper extremity venogram performed. 15 mL IV dye injected in the left arm. Patent axillary/subclavian vein The left pectoral area was prepped and draped as a protocol. IV antibiotics administered 1% lidocaine was used for local anesthesia. A 4 cm incision was made parallel to the deltopectoral groove, about 1.5 cm medial to it. The incision was carried down to the level of the pectoralis muscle and the subfascial pocket was made. Hemostasis was assured. The axillary vein access was obtained. Appropriately sized venous sheath was placed. ICD lead implanted in the right ventricle and screwed in. ICD lead tested for threshold, sensing, impedances and tested with high output pacing for diaphragmatic stimulation Lead secured to the underlying transverse muscle after removing sheaths . Pocket irrigated with antibiotic solution Leads connected to the ICD generator. Wound closed in 3 layers and dressed per protocol. Antibiotic pouch placed ICD was interrogated and programmed. Appropriate pacing parameters, antitachycardia therapies with antitachycardia pacing cardioversion defibrillations programmed. Patient tolerated the procedure well without any acute complications. See scanned device report in EMR for lead details Agarwal ICD GALLANT VR Agarwal ICD lead, single coil lead positioned RV apex R waves 12 mV, pacing impedance 710 ohms and pacing threshold 0.5 V at 0.5 ms Defibrillation level testing VF induced and adequately and appropriately detected at least sensitivity 10 J shock was unsuccessful in defibrillated the patient 20 shock was successful in defibrillating the patient sinus rhythm Total discharge time 3.9 seconds, shocking impedance 64 ohms
[2023-05-23] MEDS ORDERED: ALBUTEROL HFA INHALER INHALATION PRN (10:28)
[2023-05-23] MEDS ORDERED: ALPRAZolam 1 MG TAB PO PRN (10:28)
[2023-05-23] MEDS ORDERED: SPIRONOLACTONE 25 MG TAB PO SCH (10:30)
[2023-05-23] MEDS ORDERED: MAGNESIUM OXIDE 400 MG TAB PO SCH (10:30)
[2023-05-23] MEDS ORDERED: ISOSORBIDE MONONITRATE ER 30 MG TAB.ER.24H PO SCH (10:30)
[2023-05-23] MEDS ORDERED: ASPIRIN 81 MG PO SCH (10:30)
[2023-05-23] MEDS ORDERED: CLOPIDOGREL 75 MG TAB PO SCH (10:30)
[2023-05-23] MEDS ORDERED: lisinopriL 20 MG TAB PO SCH (10:30)
[2023-05-23] MEDS ORDERED: carvediloL 12.5 MG TAB PO SCH (10:30)
[2023-05-23] MEDS ORDERED: PANTOPRAZOLE 40 MG TABLET PO SCH (10:30)
[2023-05-23] MEDS ORDERED: ACETAMINOPHEN IV (For NPO) 1,000 MG in EMPTY BAG 1 BAG IVPB ONE (12:00)
--- NOTE | 2023-05-23 13:20 | XR ---
EXAMINATION TYPE: XR chest 2V DATE OF EXAM: 05/23/2023 COMPARISON: 04/17/2023 TECHNIQUE: PA and lateral views submitted. HISTORY: Lead placement FINDINGS: The lungs are clear and there is no pneumothorax, pleural effusion, or focal pneumonia. Heart size normal and no overt failure. Osseous structures demonstrate hypertrophic and degenerative changes of the spine. Hyperinflation compatible COPD. Diffuse osteopenia. A single lead cardiac device appears i n good position with the lead overlying the right ventricle. IMPRESSION: 1. Single lead cardiac device appears in good position with no pneumothorax. 2. COPD.
[2023-05-23 14:24] VITALS: BP 116/55; PULSE 63
[2023-05-23] MEDS ORDERED: ATORVASTATIN 80 MG TAB PO SCH (21:00)
== END 2023-05-23 14:24 | disposition home or self-care (01) ==
LOC: CATHEP 05:34
PROVIDERS: ATTEND Internal Medicine Clinical Cardiac Electrophysiology
DX: I42.8 Other cardiomyopathies (principal); I25.10 Atherosclerotic heart disease of native coronary artery without angina pectoris; K21.9 Gastro-esophageal reflux disease without esophagitis; I47.20 Ventricular tachycardia, unspecified; Z79.02 Long term (current) use of antithrombotics/antiplatelets; Z79.82 Long term (current) use of aspirin; Z79.899 Other long term (current) drug therapy; I10 Essential (primary) hypertension; E78.5 Hyperlipidemia, unspecified; I25.2 Old myocardial infarction; Z95.810 Presence of automatic (implantable) cardiac defibrillator; Z87.891 Personal history of nicotine dependence
CPT/HCPCS: 93641; 33249; 71046; C1722; C1777; J0690; J2001; J0131; Q9967

== ENCOUNTER 2023-09-25 12:22 | Inpatient (IN) | payer BC, MEDICARE ==
--- NOTE | 2023-09-25 12:47 | ED ---
General Adult HPI - General Source: patient, family, RN notes reviewed Mode of arrival: wheelchair Limitations: no limitations <Francis Alex - Last Filed: 09/25/23 12:46> - General Source: patient, family, RN notes reviewed Mode of arrival: wheelchair Limitations: no limitations <Kuldip Faria - Last Filed: 09/25/23 14:11> - General Chief complaint: Shortness of Breath Stated complaint: SOB, chest pain Time Seen by Provider: 09/25/23 12:31 - History of Present Illness Initial comments: Quick [id number] female presents emergency department chief complaint of chest pain, shortness of breath. States initially started with stomach issues including diarrhea, nausea vomiting. She states that she had multiple heart issues and they usually start this way. Patient states she has had a pacemaker placed, stents placed in the past. Patient denies any reported fever states her hurts to take a deep breath and she is having creasing shortness of breath. (Francis Alex) Patient is a 63-year-old female presenting to the emergency department for complaints of chest discomfort. Onset of symptoms was yesterday. Discomfort has improved and is currently is 3/10. Discomfort is only with deep breaths. Patient does have history of previous heart attack however discomfort does not feel similar to that. Patient did have nausea vomiting and diarrhea for a couple days prior to this. Patient does have some dyspnea as well. (Kuldip Faria) - Related Data Home Medications Medication Instructions Recorded Confirmed Albuterol Sulfate [Ventolin HFA] 2 puff INHALATION RT-Q6H PRN 12/26/20 05/23/23 ALPRAZolam [Xanax] 1 mg PO BID PRN 07/18/21 05/23/23 Aspirin 81 mg PO QAM 05/20/23 05/23/23 Clopidogrel [Plavix] 75 mg PO QAM 05/20/23 05/23/23 Isosorbide Mononitrate ER [Imdur] 30 mg PO QAM 05/20/23 05/23/23 Magnesium Oxide [Mag-Ox] 400 mg PO QAM 05/20/23 05/23/23 Pantoprazole [Protonix] 40 mg PO QAM 05/20/23 05/23/23 Spironolactone [Aldactone] 25 mg PO QAM 05/20/23 05/23/23 lisinopriL [Zestril] 20 mg PO QAM 05/20/23 05/23/23 Previous Rx's Medication Instructions Recorded Atorvastatin [Lipitor] 80 mg PO HS #60 tab 04/23/23 carvediloL [Coreg*] 25 mg PO BID-W/MEALS #60 tab 04/23/23 Allergies Allergy/AdvReac Type Severity Reaction Status Date / Time No Known Allergies Allergy Verified 09/25/23 12:29 Review of Systems ROS Other: All systems not noted in ROS Statement are negative. <Francis Alex - Last Filed: 09/25/23 12:46> ROS Other: All systems not noted in ROS Statement are negative. Constitutional: Denies: fever Eyes: Denies: eye pain ENT: Denies: ear pain Respiratory: Reports: as per HPI, dyspnea. Denies: cough Cardiovascular: Reports: as per HPI, chest pain Endocrine: Denies: fatigue Gastrointestinal: Reports: nausea, vomiting, diarrhea. Denies: abdominal pain Musculoskeletal: Denies: back pain <Kuldip Faria - Last Filed: 09/25/23 14:11> ROS Statement: Those systems with pertinent positive or pertinent negative responses have been documented in the HPI. Past Medical History Past Medical History: Coronary Artery Disease (CAD), Heart Failure, GERD/Reflux, Hyperlipidemia, Myocardial Infarction (VA) Additional Past Medical History / Comment(s): Recent VA, vtach, respiratory distress/intubated, cardiomyopathy, chf, aortic dissection, cellulitis L arm. Other hx: Pleurisy, diverticular disease, benign colon polyp. Last Myocardial Infarction Date:: 2022 History of Any Multi-Drug Resistant Organisms: None Reported Past Surgical History: Heart Catheterization, Heart Catheterization With Stent, Tubal Ligation Additional Past Surgical History / Comment(s): lithotripsy, colonoscopy/polypectomy, AICD Past Anesthesia/Blood Transfusion Reactions: No Reported Reaction Additional Past Anesthesia/Blood Transfusion Reaction / Comment(s): Pt has clausterphobia. Date of Last Stent Placement:: 2012 Harrison Connor Past Psychological History: Anxiety, Depression Smoking Status: Former smoker Past Alcohol Use History: None Reported Past Drug Use History: None Reported - Past Family History Father Family Medical History: Myocardial Infarction (VA) Additional Family Medical History / Comment(s): Father of a VA at the age of 46yrs. Mother Family Medical History: Cancer Additional Family Medical History / Comment(s): Mother had colon cancer and from sepsis in her port a cath. <Francis Alex - Last Filed: 09/25/23 12:46> General Exam Limitations: no limitations <Francis Alex - Last Filed: 09/25/23 12:46> Limitations: no limitations General appearance: alert, in no apparent distress Head exam: Present: normocephalic Eye exam: Present: normal appearance Neck exam: Present: normal inspection Respiratory exam: Present: normal lung sounds bilaterally. Absent: stridor, chest wall tenderness Cardiovascular Exam: Present: regular rate, normal rhythm Expanded Peripheral pulses: 2+: Radial (R), Radial (L), Dorsalis Pedis (R), Dorsalis Pedis (L) GI/Abdominal exam: Present: soft. Absent: distended, tenderness, pulsatile mass Extremities exam: Present: normal inspection Neurological exam: Present: alert Psychiatric exam: Present: normal affect, normal mood Skin exam: Present: normal color <Kuldip Faria - Last Filed: 09/25/23 14:11> - General Exam Comments Initial Comments: Visual Physical Exam Vital signs reviewed General: Well-appearing, nontoxic, no acute distress. Head: Normocephalic, atraumatic Eyes: PERRLA, EOMI ENT: Airway patent Chest: Nonlabored breathing Skin: No visual rash, normal skin tone Neuro: Alert and oriented 3 Musculoskeletal: No gross abnormalities (Francis Alex) Course Vital Signs 09/25/23 09/25/23 12:25 13:58 Temperature 98.1 F 99 F Pulse Rate 72 79 Respiratory 18 18 Rate Blood Pressure 103/66 108/62 O2 Sat by Pulse 98 98 Oximetry EKG Findings - EKG Results: EKG: interpreted by ERMD, sinus rhythm, normal axis, normal QRS, normal ST/T <Kuldip Faria - Last Filed: 09/25/23 14:11> Medical Decision Making <Francis Alex - Last Filed: 09/25/23 12:46> - Lab Data Result diagrams: 09/25/23 13:03 09/25/23 13:03 <Kuldip Faria - Last Filed: 09/25/23 14:11> - Medical Decision Making I completed the quick note portion of this chart signed Francis Alex PA-C (Francis Alex) Was pt. sent in by a medical professional or institution (, JAZMIN, ACCOUNTING RECRUITER, urgent care, hospital, or [facility]...) When possible be specific @ -No Did you speak to anyone other than the patient for history (EMS, parent, family, police, friend...)? What history was obtained from this source @ -Family is present and helps provide history including history of previous cardiac problem Did you review nursing and triage notes (agree or disagree)? Why? @ -I reviewed and agree with nursing and triage notes Were old charts reviewed (outside hosp., previous admission, EMS record, old EKG, old radiological studies, urgent care reports/EKG's, [facility] records)? Report findings @ -Previous chest x-ray reviewed Differential Diagnosis (chest pain, altered mental status, abdominal pain women, abdominal pain men, vaginal bleeding, weakness, fever, dyspnea, syncope, headache, dizziness, GI bleed, back pain, seizure, CVA, palpatations, mental health, musculoskeletal)? @ -Differential Chest Pain: Stable Angina, Unstable Angina, STEMI, NSTEMI Aortic Dissection, Pneumothorax, Musculoskeletal, Esophageal Spasm GERD, Cholecystitis, Pancreatitis, Zoster, this is not meant to be an all-inclusive list. EKG interpreted by me (3pts min.). @ -As above X-rays interpreted by me (1pt min.). @ -Chest x-ray shows no acute process CT interpreted by me (1pt min.). @ -None done U/S interpreted by me (1pt. min.). @ -None done What testing was considered but not performed or refused? (CT, X-rays, U/S, labs)? Why? @ -Considered CT angiogram however patient has low GFR. What meds were considered but not given or refused? Why? @ -None Did you discuss the management of the patient with other professionals (professionals i.e. JAZMIN Hanna, ACCOUNTING RECRUITER, lab, RT, psych nurse, social problems specialist, supervisor inspection and testing, teacher, medical information officer, caseworker intake)? Give summary @ -[facility] will [facility] covering hospital call Was smoking cessation discussed for >3mins.? @ -No Was critical care preformed (if so, how long)? @ -33 minutes critical care Were there social determinants of health that impacted care today? How? (Homelessness, low income, unemployed, alcoholism, drug addiction, transportation, low edu. Level, literacy, decrease access to med. care, assisted, rehab)? @ -No Was there de-escalation of care discussed even if they declined (Discuss DNR or withdrawal of care, Hospice)? DNR status @ -No What co-morbidities impacted this encounter? (DM, HTN, Smoking, COPD, CAD, Canc er, CVA, ARF, Chemo, Hep., AIDS, mental health diagnosis, sleep apnea, morbid obesity)? @ -History of coronary artery disease Was patient admitted / discharged? Hospital course, mention meds given and route, prescriptions, significant lab abnormalities, going to OR and other pertinent info. @ -Patient and family are updated on results and plan. Patient will receive treatment for hyperkalemia and heparin for concern for troponin. Patient will be admitted with cardiac consult. Admission orders written. Undiagnosed new problem with uncertain prognosis? @ -No Drug Therapy requiring intensive monitoring for toxicity (Heparin, Nitro, Insulin, Cardizem)? @ -Patient will be placed on heparin drip. Patient also receiving medications for hyperkalemia Were any procedures done? @ -No Diagnosis/symptom? @ -Non-ST elevation VA, hyperkalemia Acute, or Chronic, or Acute on Chronic? @ -Acute, acute Uncomplicated (without systemic symptoms) or Complicated (systemic symptoms)? @ -Default Side effects of treatment? @ -No Exacerbation, Progression, or Severe Exacerbation? @ -No Poses a threat to life or bodily function? How? (Chest pain, USA, VA, pneumonia, PE, COPD, DKA, ARF, appy, cholecystitis, CVA, Diverticulitis, Homicidal, Suicidal, threat to staff... and all critical care pts) @ -No (Kuldip Faria) - Lab Data Lab Results 09/25/23 09/25/23 09/25/23 Range/Units 13:03 13:03 13:03 WBC 8.9 (3.8-10.6) k/uL RBC 3.48 L (3.80-5.40) m/uL Hgb 11.1 L (11.4-16.0) gm/dL Hct 34.5 (34.0-46.0) % MCV 99.3 (80.0-100.0) fL MCH 32.1 (25.0-35.0) pg MCHC 32.3 (31.0-37.0) g/dL RDW 13.0 (11.5-15.5) % Plt Count 354 (150-450) k/uL MPV 7.8 Neutrophils % 75 % Lymphocytes % 18 % Monocytes % 4 % Eosinophils % 2 % Basophils % 1 % Neutrophils # 6.7 (1.3-7.7) k/uL Lymphocytes # 1.6 (1.0-4.8) k/uL Monocytes # 0.4 (0-1.0) k/uL Eosinophils # 0.1 (0-0.7) k/uL Basophils # 0.1 (0-0.2) k/uL PT 10.4 (10.0-12.5) sec INR 0.9 (<1.2) APTT 23.0 (22.0-30.0) sec D-Dimer 0.84 H (<0.60) mg/L FEU Sodium 136 L (137-145) mmol/L Potassium 6.7 H* (3.5-5.1) mmol/L Chloride 114 H (98-107) mmol/L Carbon Dioxide 15 L (22-30) mmol/L Anion Gap 7 mmol/L BUN 23 H (7-17) mg/dL Creatinine 1.46 H (0.52-1.04) mg/dL Est GFR (CKD-EPI)AfAm 43 (>60 ml/min/1.73 sqM) Est GFR (CKD-EPI)NonAf 38 (>60 ml/min/1.73 sqM) Glucose 107 H (74-99) mg/dL Plasma Lactic Acid Jelani (0.7-2.0) mmol/L Calcium 9.7 (8.4-10.2) mg/dL Magnesium 2.4 H (1.6-2.3) mg/dL Total Bilirubin 0.5 (0.2-1.3) mg/dL AST 104 H (14-36) U/L ALT 138 H (4-34) U/L Alkaline Phosphatase 263 H (38-126) U/L Troponin I (0.000-0.034) ng/mL NT-Pro-B Natriuret Pep 1070 pg/mL Total Protein 6.7 (6.3-8.2) g/dL Albumin 3.9 (3.5-5.0) g/dL Influenza Type A (PCR) (Not Detectd) Influenza Type B (PCR) (Not Detectd) RSV (PCR) (Not Detectd) SARS-CoV-2 (PCR) (Not Detectd) 09/25/23 09/25/23 09/25/23 Range/Units 13:03 13:23 13:34 WBC (3.8-10.6) k/uL RBC (3.80-5.40) m/uL Hgb (11.4-16.0) gm/dL Hct (34.0-46.0) % MCV (80.0-100.0) fL MCH (25.0-35.0) pg MCHC (31.0-37.0) g/dL RDW (11.5-15.5) % Plt Count (150-450) k/uL MPV Neutrophils % % Lymphocytes % % Monocytes % % Eosinophils % % Basophils % % Neutrophils # (1.3-7.7) k/uL Lymphocytes # (1.0-4.8) k/uL Monocytes # (0-1.0) k/uL Eosinophils # (0-0.7) k/uL Basophils # (0-0.2) k/uL PT (10.0-12.5) sec INR (<1.2) APTT (22.0-30.0) sec D-Dimer (<0.60) mg/L FEU Sodium (137-145) mmol/L Potassium (3.5-5.1) mmol/L Chloride (98-107) mmol/L Carbon Dioxide (22-30) mmol/L Anion Gap mmol/L BUN (7-17) mg/dL Creatinine (0.52-1.04) mg/dL Est GFR (CKD-EPI)AfAm (>60 ml/min/1.73 sqM) Est GFR (CKD-EPI)NonAf (>60 ml/min/1.73 sqM) Glucose (74-99) mg/dL Plasma Lactic Acid Jelani 2.9 H* (0.7-2.0) mmol/L Calcium (8.4-10.2) mg/dL Magnesium (1.6-2.3) mg/dL Total Bilirubin (0.2-1.3) mg/dL AST (14-36) U/L ALT (4-34) U/L Alkaline Phosphatase (38-126) U/L Troponin I 1.170 H* (0.000-0.034) ng/mL NT-Pro-B Natriuret Pep pg/mL Total Protein (6.3-8.2) g/dL Albumin (3.5-5.0) g/dL Influenza Type A (PCR) Not Detected (Not Detectd) Influenza Type B (PCR) Not Detected (Not Detectd) RSV (PCR) Not Detected (Not Detectd) SARS-CoV-2 (PCR) Not Detected (Not Detectd) Critical Care Time Critical Care Time: Yes Total Critical Care Time: 33 <Kuldip Faria - Last Filed: 09/25/23 14:11> Disposition <Francis Alex - Last Filed: 09/25/23 12:46> Is patient prescribed a controlled substance at d/c from ED?: No Time of Disposition: 14:06 <Kuldip Faria - Last Filed: 09/25/23 14:11> Clinical Impression: Acute non-ST elevation myocardial infarction (NSTEMI), Nausea & vomiting, Hyperkalemia Disposition: ADMITTED IP TO THIS HOSP Condition: Serious Referrals: William Alberts DO [Primary Care Provider] - 1-2 days
[2023-09-25 13:08] LABS: Basophils # (A) 0.1 k/uL (0-0.2); Basophils % (A) 1 %; Eosinophils # (A) 0.1 k/uL (0-0.7); Eosinophils % (A) 2 %; HCT 34.5 % (34.0-46.0); HGB 11.1 gm/dL (11.4-16.0); Lymphocytes # (A) 1.6 k/uL (1.0-4.8); Lymphocytes % (A) 18 %; MCH 32.1 pg (25.0-35.0); MCHC 32.3 g/dL (31.0-37.0); MCV 99.3 fL (80.0-100.0); Mean Platelet Volume 7.8; Monocytes # (A) 0.4 k/uL (0-1.0); Monocytes % (A) 4 %; Neutrophils # (A) 6.7 k/uL (1.3-7.7); Neutrophils % (A) 75 %; Platelet Count 354 k/uL (150-450); RBC 3.48 m/uL (3.80-5.40); WBC 8.9 k/uL (3.8-10.6)
[2023-09-25 13:20] LABS: INR 0.9 (<1.2); Prothrombin Time 10.4 sec (10.0-12.5)
[2023-09-25 13:29] LABS: ALT 138 U/L (4-34); AST 104 U/L (14-36); African American GFR (CKD) 43 (>60 ml/min/1.73 sqM); Albumin 3.9 g/dL (3.5-5.0); Alkaline Phosphatase 263 U/L (38-126); Anion Gap 7 mmol/L; Blood Urea Nitrogen 23 mg/dL (7-17); Calcium 9.7 mg/dL (8.4-10.2); Carbon Dioxide 15 mmol/L (22-30); Chloride 114 mmol/L (98-107); Glucose 107 mg/dL (74-99); Magnesium 2.4 mg/dL (1.6-2.3); Non-African American GFR(CKD) 38 (>60 ml/min/1.73 sqM); Sodium 136 mmol/L (137-145); Total Bilirubin 0.5 mg/dL (0.2-1.3); Total Protein 6.7 g/dL (6.3-8.2)
[2023-09-25 13:37] LABS: NT-Pro-B-Type Natriuretic Pept 1070 pg/mL
--- NOTE | 2023-09-25 13:39 | XR ---
EXAMINATION TYPE: XR chest 2V DATE OF EXAM: 09/25/2023 1:34 PM CLINICAL INDICATION:Female, 63 years old with history of difficulty breathing; [facility] COMPARISON: Chest radiographs from 05/23/2023 TECHNIQUE: XR chest 2V Frontal and lateral views of the chest. FINDINGS: Lungs/Pleura: There is no evidence of pleural effusion, focal consolidation, or pneumothorax. Pulmonary vascularity: Unremarkable. Heart/mediastinum: Cardiomediastinal silhouette is unremarkable. Musculoskeletal: No acute osseous pathology. IMPRESSION: No acute cardiopulmonary disease/process.
[2023-09-25 13:43] LABS: Potassium 6.7 mmol/L (3.5-5.1)
[2023-09-25] MEDS ORDERED: NITROGLYCERIN SL TABS 0.4 MG TAB SUBLINGUAL PRN (14:06)
[2023-09-25] MEDS: SODIUM BICARB 8.4% 50 ML SYR (1 MEQ/ML) IV ONE (14:33)
[2023-09-25] MEDS: DEXTROSE 50% SYRINGE 50 ML IVP ONE (14:35)
[2023-09-25] MEDS: INSULIN REGULAR 100 UNIT/ML VIAL (IV) IV ONE (14:36)
[2023-09-25] MEDS: HEPARIN SODIUM 1,000 UN/ML (10ML VL) IV ONE (14:39)
[2023-09-25] MEDS: HEPARIN SOD,PORK IN 0.45% NACL 25,000 UNIT in 0.45% NACL 1 250ML.BAG IV SCH (14:40)
[2023-09-25] MEDS: SODIUM CHLORIDE 0.9% 1,000 ML IV STA (14:44)
[2023-09-25] MEDS: ASPIRIN 81 MG PO STA (14:44)
[2023-09-25] MEDS: CALCIUM GLUCONATE IN NACL 1 GM in SALINE 1 100ML.BAG IVPB ONE (14:47)
[2023-09-25] MEDS: ALBUTEROL NEB (CONC) 2.5 MG/0.5 ML INHALATION ONE (14:58)
--- NOTE | 2023-09-25 21:41 | P.HPIM ---
History of Present Illness H&P Date: 09/25/23 Chief Complaint: Chest pain Patient is a 63-year-old female with a past medical history of coronary artery disease with stent placement, cardiac arrest due to sustained V. tach/V-fib status post CPR and ROSC in March 2023 status post ICD placement, chronic CHF with systolic dysfunction ejection fraction 45%,hyperlipidemia, history of MN, anxiety/depression and prior history of smoking presents to ER with complaints of chest pain. Patient states that she felt sick last night with the diarrhea, nausea and episodes of vomiting and started having chest pain mainly left retrosternal and worsens with deep breathing. Pain has been constant since yesterday but improved in severity associated shortness of breath. Denies any fever or chills. No complaints of abdominal pain. No recent illnesses. No sick contacts at home. Chest x-ray on admission showed no acute cardiopulmonary process. EKG showed sinus rhythm. On admission blood pressure 103/66 pulse is 72 respiration 18 pulse ox 98% on room air. Laboratory showed WBC 8.9 hemoglobin 11.1, RDW 13.0 and platelets 354 D-dimer 0.84 Sodium 136 potassium 6.7 chloride 114 bicarb is 15 BUN 23 and creatinine 1.46 and blood sugar 107 Calcium 9.7 magnesium 2.4 total bili 0.5 AST 104 ALT 138 and alk phos 268 Troponin 1.170, 1.540 proBNP 1070 and albumin 3.9 Influenza A B RSV and COVID-19 PCR not detected. Review of Systems Constitutional: Patient denies any fever or chills . Patient does have generalized weakness. No weight loss. Abdomen: Complains of nausea vomiting and diarrhea at home. No abdominal pain. No leg swelling Cardiovascular: Patient denies any chest pain or short of breath no palpitations. Respiratory: patient denied any cough is from production. No shortness of breath Neurologic: Patient denied any numbness or tingling headache. Musculoskeletal: Patient denies any complaints of joint swelling or deformity. Skin: Negative Psychiatric: Negative Endocrine: No heat or cold intolerance. No recent weight gain. Genitourinary: No dysuria or hematuria. All other 14 point ROS negative except the above Past Medical History Past Medical History: Coronary Artery Disease (CAD), Heart Failure, GERD/Reflux, Hyperlipidemia, Myocardial Infarction ([place]) Additional Past Medical History / Comment(s): Recent MN, vtach, respiratory distress/intubated, cardiomyopathy, chf, aortic dissection, cellulitis L arm. Other hx: Pleurisy, diverticular disease, benign colon polyp. Last Myocardial Infarction Date:: 2022 History of Any Multi-Drug Resistant Organisms: None Reported Past Surgical History: Heart Catheterization, Heart Catheterization With Stent, Tubal Ligation Additional Past Surgical History / Comment(s): lithotripsy, colonoscopy/polypectomy, AICD Past Anesthesia/Blood Transfusion Reactions: No Reported Reaction Additional Past Anesthesia/Blood Transfusion Reaction / Comment(s): Pt has clausterphobia. Date of Last Stent Placement:: 2012 [facility] Connor Past Psychological History: Anxiety, Depression Smoking Status: Former smoker Past Alcohol Use History: None Reported Past Drug Use History: None Reported - Past Family History Father Family Medical History: Myocardial Infarction ([place]) Additional Family Medical History / Comment(s): Father of a MN at the age of 46yrs. Mother Family Medical History: Cancer Additional Family Medical History / Comment(s): Mother had colon cancer and from sepsis in her port a cath. Medications and Allergies Home Medications Medication Instructions Recorded Confirmed Type Albuterol Sulfate [Ventolin HFA] 2 puff INHALATION RT-Q6H PRN 12/26/20 09/25/23 History ALPRAZolam [Xanax] 1 mg PO BID 07/18/21 09/25/23 History Atorvastatin [Lipitor] 80 mg PO HS #60 tab 04/23/23 09/25/23 Rx Aspirin 81 mg PO HS 05/20/23 09/25/23 History Clopidogrel [Plavix] 75 mg PO DAILY 05/20/23 09/25/23 History Isosorbide Mononitrate ER [Imdur] 30 mg PO DIRECTED 05/20/23 09/25/23 History Magnesium Oxide [Mag-Ox] 400 mg PO HS 05/20/23 09/25/23 History Spironolactone [Aldactone] 25 mg PO DIRECTED 05/20/23 09/25/23 History lisinopriL [Zestril] 20 mg PO DIRECTED 05/20/23 09/25/23 History Vortioxetine Hydrobromide 20 mg PO HS 09/25/23 09/25/23 History [Trintellix] carvediloL 25 mg PO BID 09/25/23 09/25/23 History Allergies Allergy/AdvReac Type Severity Reaction Status Date / Time No Known Allergies Allergy Verified 09/25/23 15:20 Physical Exam Vitals: Vital Signs Temp Pulse Resp BP Pulse Ox 09/25/23 20:03 70 18 108/69 99 09/25/23 18:14 67 18 114/90 99 09/25/23 17:45 67 18 99/63 100 09/25/23 17:15 71 18 90/71 100 09/25/23 16:45 68 18 100/57 99 09/25/23 16:00 76 18 93/62 99 09/25/23 15:30 83 18 83/50 99 09/25/23 15:08 71 09/25/23 15:01 71 16 09/25/23 14:50 77 18 103/81 99 09/25/23 13:58 99 F 79 18 108/62 98 09/25/23 12:25 98.1 F 72 18 103/66 98 Intake and Output 09/25/23 09/25/23 09/25/23 06:59 14:59 22:59 Other: Weight 77.111 kg PHYSICAL EXAMINATION: Patient is lying in the bed comfortably, no acute distress, awake alert and oriented.. HEENT: Normocephalic. Neck is supple. Pupils reactive. Nostrils clear. Oral cavity is moist. Neck reveals no JVD, carotid bruits, or thyromegaly. CHEST EXAMINATION: Trachea is central. Symmetrical expansion. Bibasilar diminished sounds. No wheezing or rhonchi.. CARDIAC: Normal S1, S2 with no gallops. No murmurs ABDOMEN: Soft. Bowel sounds normal. No organomegaly. No abdominal bruits. Extremities: reveal no edema. No clubbing or cyanosis Neurologically awake, alert, oriented x3 with well-coordinated movements. No focal deficits noted Skin: No rash or skin lesions. Psychiatric: Coperative. Nonsuicidal Musculoskeletal: No joint swelling or deformity. Normal range of motion. Results CBC & Chem 7: 09/25/23 13:03 09/25/23 19:47 Labs: Abnormal Lab Results - Last 24 Hours (Table) 09/25/23 09/25/23 09/25/23 Range/Units 13:03 13:03 13:03 RBC 3.48 L (3.80-5.40) m/uL Hgb 11.1 L (11.4-16.0) gm/dL APTT (22.0-30.0) sec D-Dimer 0.84 H (<0.60) mg/L FEU Sodium 136 L (137-145) mmol/L Potassium 6.7 H* (3.5-5.1) mmol/L Chloride 114 H (98-107) mmol/L Carbon Dioxide 15 L (22-30) mmol/L BUN 23 H (7-17) mg/dL Creatinine 1.46 H (0.52-1.04) mg/dL Glucose 107 H (74-99) mg/dL Plasma Lactic Acid Jelani (0.7-2.0) mmol/L Magnesium 2.4 H (1.6-2.3) mg/dL AST 104 H (14-36) U/L ALT 138 H (4-34) U/L Alkaline Phosphatase 263 H (38-126) U/L Troponin I (0.000-0.034) ng/mL 09/25/23 09/25/23 09/25/23 Range/Units 13:03 13:34 15:59 RBC (3.80-5.40) m/uL Hgb (11.4-16.0) gm/dL APTT (22.0-30.0) sec D-Dimer (<0.60) mg/L FEU Sodium (137-145) mmol/L Potassium (3.5-5.1) mmol/L Chloride (98-107) mmol/L Carbon Dioxide (22-30) mmol/L BUN (7-17) mg/dL Creatinine (0.52-1.04) mg/dL Glucose (74-99) mg/dL Plasma Lactic Acid Jelani 2.9 H* (0.7-2.0) mmol/L Magnesium (1.6-2.3) mg/dL AST (14-36) U/L ALT (4-34) U/L Alkaline Phosphatase (38-126) U/L Troponin I 1.170 H* 1.540 H* (0.000-0.034) ng/mL 09/25/23 09/25/23 09/25/23 Range/Units 19:47 19:47 19:47 RBC (3.80-5.40) m/uL Hgb (11.4-16.0) gm/dL APTT 51.2 H (22.0-30.0) sec D-Dimer (<0.60) mg/L FEU Sodium (137-145) mmol/L Potassium 5.5 H (3.5-5.1) mmol/L Chloride (98-107) mmol/L Carbon Dioxide (22-30) mmol/L BUN (7-17) mg/dL Creatinine (0.52-1.04) mg/dL Glucose (74-99) mg/dL Plasma Lactic Acid Jelani (0.7-2.0) mmol/L Magnesium (1.6-2.3) mg/dL AST (14-36) U/L ALT (4-34) U/L Alkaline Phosphatase (38-126) U/L Troponin I 1.640 H* (0.000-0.034) ng/mL 09/25/23 Range/Units 19:47 RBC (3.80-5.40) m/uL Hgb (11.4-16.0) gm/dL APTT (22.0-30.0) sec D-Dimer (<0.60) mg/L FEU Sodium (137-145) mmol/L Potassium (3.5-5.1) mmol/L Chloride (98-107) mmol/L Carbon Dioxide (22-30) mmol/L BUN (7-17) mg/dL Creatinine (0.52-1.04) mg/dL Glucose (74-99) mg/dL Plasma Lactic Acid Jelani 3.0 H* (0.7-2.0) mmol/L Magnesium (1.6-2.3) mg/dL AST (14-36) U/L ALT (4-34) U/L Alkaline Phosphatase (38-126) U/L Troponin I (0.000-0.034) ng/mL Thrombosis Risk Factor Assmnt - DVT/VTE Prophylaxis DVT/VTE Prophylaxis: Pharmacologic Prophylaxis ordered Assessment and Plan Assessment: Severe hyperkalemia likely due to acute kidney injury and patient is also on spironolactone and lisinopril. Acute kidney injury likely prerenal with creatinine level 1.46. Baseline creatinine level 0.7 Non-anion gap metabolic acidosis secondary to acute kidney injury Elevated troponin level possible NSTEMI Coronary artery disease history of stent placement to RCA. 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 History of cardiac arrest with sustained V. tach-->V-fib, CPR and ROSC. s/p ICD placement. Nausea vomiting and diarrhea possible gastroenteritis Elevated liver enzymes Lactic acidosis 2.9 on admission Hyperlipidemia History MN Anxiety/depression Prior history of smoking DVT prophylaxis. Patient is on heparin drip currently GI prophylaxis with Pepcid 20 mg p.o. daily Plan: Patient will be continued on tele monitoring. Patient was given calcium gluconate, albuterol inhalation, insulin/D50 while in the ER. Follow-up repeat potassium level. Follow-up lactic acid level. Continue with IV hydration with normal saline. Patient currently diarrhea currently. No episodes of vomiting while in the hospital. Patient was started on heparin drip due to elevated troponin level. VQ scan was ordered to rule out pulmonary embolism. Patient has elevated creatinine level. Lisinopril and spironolactone is on hold. Continue with aspirin and statins. Coreg is also on hold due to hypotension. Follow-up liver enzymes. Ultrasound abdomen due to elevated liver enzymes. Hepatitis panel was ordered. Cardiology consult for evaluation. Continue to follow closely. Prognosis guarded. Discussed with the patient and her at bedside in detail. Time with Patient: Greater than 30
[2023-09-25] MEDS: FAMOTIDINE 20 MG TAB PO SCH (23:15)
[2023-09-25] MEDS: ATORVASTATIN 80 MG TAB PO SCH (23:15)
[2023-09-26] MEDS: ALBUTEROL NEBULIZED 2.5 MG/3 ML INHALATION PRN (08:39)
[2023-09-26] MEDS ORDERED: ASPIRIN 325 MG TAB PO SCH (09:00)
[2023-09-26] MEDS: CLOPIDOGREL 75 MG TAB PO SCH (09:32)
[2023-09-26] MEDS: ISOSORBIDE MONONITRATE ER 30 MG TAB.ER.24H PO SCH ×2 (09:32→13:29)
[2023-09-26] MEDS: ASPIRIN 81 MG PO SCH (09:32)
--- NOTE | 2023-09-26 12:17 | P.CRDCN ---
History of Present Illness History of present illness: HISTORY OF PRESENT ILLNESS: This is a 63-year-old female with a past medical history significant for coronary artery disease with previous stenting, VT arrest in March 2023, AICD implantation, congestive heart failure, hypertension, hyperlipidemia, and former nicotine dependence. Patient follows in the office with Dr. Wills. We have been asked to see the patient in consultation for elevated troponins. Patient examined at the bedside in the emergency room. Patient initially pres ented to the hospital with chest discomfort. Upon further discussion with the patient, she states that the pain is worse with deep inspiration. She denied any radiation of the pain. She states that she has been having significant diarrhea. She denies any chest pain at the time of examination. She currently denies any shortness of breath. The patient was found to be hyperkalemic with a potassium of 6.7. Repeat yesterday 5.5. She was also found to have acute kidney injury with a creatinine of 1.46. Troponins are elevated at 1.170. 1.540. 1.640. She has been started on IV heparin. DIAGNOSTICS: - EKG reveals sinus mechanism with no signs of acute ischemia - Chest xray negative for acute process. - Laboratory data: WBC 8.9. Hemoglobin 11.1. Platelet count 354. D-dimer 0.84. Sodium 136. Potassium 5.5. BUN 23. Creatinine 1.46. proBNP 1070. - Current home cardiac medications include aspirin 81 mg daily, Lipitor 80 mg daily, carvedilol 25 mg twice a day, lisinopril 20 mg daily, Aldactone 25 mg daily, Plavix 75 mg daily, and Imdur 30 mg daily. - Most recent echocardiogram obtained in April 2023 revealed ejection fraction 45%, basal and mid inferior and inferior lateral hypokinesis, mild to moderate MR, and trace TR - Cardiac catheterization history: March 2023 revealing patent stent within the right coronary artery. Mild nonobstructive disease involving the proximal and mid LAD. It is unclear if the very distal LAD is just naturally small in caliber. 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 Medical management was recommended. REVIEW OF SYSTEMS: At the time of my exam: CONSTITUTIONAL: Denies fever or chills. HEENT: Denies blurred vision, vision changes, or eye pain. Denies hemoptysis CARDIOVASCULAR: Denies chest pain. Denies orthopnea. Denies PND. Denies palpitations RESPIRATORY: Denies shortness of breath. GASTROINTESTINAL: Denies abdominal pain. Denies nausea or vomiting. Reports diarrhea. HEMATOLOGIC: Denies bleeding disorders. GENITOURINARY: Denies any blood in urine. SKIN: Denies pruitis. Denies rash. PHYSICAL EXAM: VITAL SIGNS: Reviewed. GENERAL: Well-developed in no acute distress. HEENT: Head is normocephalic. Pupils are equal, round. Sclerae anicteric. Mucous membranes of the mouth are moist. Neck supple. No JVD or thyromegaly LUNGS: Respirations even and unlabored. Lungs essentially clear to auscultation bilaterally. HEART: Regular rate and rhythm. S1 and S2 heard. ABDOMEN: Soft. Nondistended. Nontender. EXTREMITIES: Normal range of motion. No clubbing or cyanosis. Peripheral pulses intact. No lower extremity edema NEUROLOGIC: Awake and alert. Oriented x 3. ASSESSMENT: Atypical chest pain with abnormal troponins, somewhat flat, suspect type II VA Diarrhea Acute kidney injury Hyperkalemia Transaminitis Coronary artery disease with previous stenting History of VT/V-fib arrest, March 2023 History of AICD implantation Congestive heart failure with reduced EF, 45%, currently not in heart failure Hypertension Hyperlipidemia Former nicotine dependence PLAN: Obtain limited echo to assess LV function and wall motion Continue IV heparin Hold Aldactone and lisinopril secondary to WHITNEY Resume Imdur and carvedilol No plans for cardiac catheterization at this time secondary to kidney function. Continue with conservative management at this time Further recommendations pending patient course Nurse practitioner note has been reviewed by physician. Signing provider agrees with the documented findings, assessment, and plan of care documented by BULK DRIVER as a scribe. Past Medical History Past Medical History: Coronary Artery Disease (CAD), Heart Failure, GERD/Reflux, Hyperlipidemia, Myocardial Infarction ([place]) Additional Past Medical History / Comment(s): Recent VA, vtach, respiratory distress/intubated, cardiomyopathy, chf, aortic dissection, cellulitis L arm. Other hx: Pleurisy, diverticular disease, benign colon polyp. Last Myocardial Infarction Date:: 2022 History of Any Multi-Drug Resistant Organisms: None Reported Past Surgical History: Heart Catheterization, Heart Catheterization With Stent, Tubal Ligation Additional Past Surgical History / Comment(s): lithotripsy, colonoscopy/polypectomy, AICD Past Anesthesia/Blood Transfusion Reactions: No Reported Reaction Additional Past Anesthesia/Blood Transfusion Reaction / Comment(s): Pt has clausterphobia. Date of Last Stent Placement:: 2012 [facility] Connor Past Psychological History: Anxiety, Depression Smoking Status: Former smoker Past Alcohol Use History: None Reported Past Drug Use History: None Reported - Past Family History Father Family Medical History: Myocardial Infarction ([place]) Additional Family Medical History / Comment(s): Father of a VA at the age of 46yrs. Mother Family Medical History: Cancer Additional Family Medical History / Comment(s): Mother had colon cancer and from sepsis in her port a cath. Medications and Allergies Home Medications Medication Instructions Recorded Confirmed Type Albuterol Sulfate [Ventolin HFA] 2 puff INHALATION RT-Q6H PRN 12/26/20 09/25/23 History ALPRAZolam [Xanax] 1 mg PO BID 07/18/21 09/25/23 History Atorvastatin [Lipitor] 80 mg PO HS #60 tab 04/23/23 09/25/23 Rx Aspirin 81 mg PO HS 05/20/23 09/25/23 History Clopidogrel [Plavix] 75 mg PO DAILY 05/20/23 09/25/23 History Isosorbide Mononitrate ER [Imdur] 30 mg PO DIRECTED 05/20/23 09/25/23 History Magnesium Oxide [Mag-Ox] 400 mg PO HS 05/20/23 09/25/23 History Spironolactone [Aldactone] 25 mg PO DIRECTED 05/20/23 09/25/23 History lisinopriL [Zestril] 20 mg PO DIRECTED 05/20/23 09/25/23 History Vortioxetine Hydrobromide 20 mg PO HS 09/25/23 09/25/23 History [Trintellix] carvediloL 25 mg PO BID 09/25/23 09/25/23 History Allergies Allergy/AdvReac Type Severity Reaction Status Date / Time No Known Allergies Allergy Verified 09/25/23 15:20 Physical Exam Vitals: Vital Signs Temp Pulse Resp BP Pulse Ox 09/26/23 08:39 79 09/26/23 05:32 94 24 114/61 99 09/26/23 04:00 82 18 103/62 96 03/04/24 02:38 87 24 110/72 97 09/25/23 22:45 68 20 108/56 99 09/25/23 20:03 70 18 108/69 99 09/25/23 18:14 67 18 114/90 99 09/25/23 17:45 67 18 99/63 100 09/25/23 17:15 71 18 90/71 100 09/25/23 16:45 68 18 100/57 99 09/25/23 16:00 76 18 93/62 99 09/25/23 15:30 83 18 83/50 99 09/25/23 15:08 71 09/25/23 15:01 71 16 09/25/23 14:50 77 18 103/81 99 09/25/23 13:58 99 F 79 18 108/62 98 09/25/23 12:25 98.1 F 72 18 103/66 98 Results 09/25/23 13:03 09/25/23 19:47 Cardiac Enzymes 09/25/23 09/25/23 09/25/23 Range/Units 13:03 13:03 15:59 AST 104 H (14-36) U/L Troponin I 1.170 H* 1.540 H* (0.000-0.034) ng/mL 09/25/23 Range/Units 19:47 AST (14-36) U/L Troponin I 1.640 H* (0.000-0.034) ng/mL Coagulation 09/25/23 09/25/23 Range/Units 13:03 19:47 PT 10.4 (10.0-12.5) sec APTT 23.0 51.2 H (22.0-30.0) sec CBC 09/25/23 Range/Units 13:03 WBC 8.9 (3.8-10.6) k/uL RBC 3.48 L (3.80-5.40) m/uL Hgb 11.1 L (11.4-16.0) gm/dL Hct 34.5 (34.0-46.0) % Plt Count 354 (150-450) k/uL Comprehensive Metabolic Panel 09/25/23 09/25/23 Range/Units 13:03 19:47 Sodium 136 L (137-145) mmol/L Potassium 6.7 H* 5.5 H (3.5-5.1) mmol/L Chloride 114 H (98-107) mmol/L Carbon Dioxide 15 L (22-30) mmol/L BUN 23 H (7-17) mg/dL Creatinine 1.46 H (0.52-1.04) mg/dL Glucose 107 H (74-99) mg/dL Calcium 9.7 (8.4-10.2) mg/dL AST 104 H (14-36) U/L ALT 138 H (4-34) U/L Alkaline Phosphatase 263 H (38-126) U/L Total Protein 6.7 (6.3-8.2) g/dL Albumin 3.9 (3.5-5.0) g/dL Current Medications Generic Name Dose Route Start Last Admin Trade Name Freq PRN Reason Stop Dose Admin Albuterol Sulfate 2.5 mg 09/25/23 21:18 09/26/23 08:39 Albuterol Nebulized 2.5 Mg/3 Ml INHALATION 2.5 mg RT-Q6H PRN Administration Shortness Of Breath Aspirin 81 mg 09/26/23 09:00 Aspirin 81 Mg PO DAILY [facility] Atorvastatin Calcium 80 mg 09/25/23 21:30 09/25/23 23:15 Atorvastatin 80 Mg Tab PO 80 mg HS MARIUM Administration Clopidogrel Bisulfate 75 mg 09/26/23 09:00 Clopidogrel 75 Mg Tab PO DAILY MARIUM Famotidine 20 mg 09/25/23 21:45 09/25/23 23:15 Famotidine 20 Mg Tab PO 20 mg DAILY MARIUM Administration Heparin Sodium (Porcine) 0 unit 09/25/23 14:00 Heparin Sodium 1,000 Un/Ml (10ml Vl) IV PER PROTOCOL PRN Low PTT Protocol Heparin Sodium/Sodium Chloride 250 mls @ 9.253 mls/hr 09/25/23 14:00 09/25/23 14:40 25,000 unit/ Sodium Chloride IV 12 units/kg/hr .Q24H MARIUM 9.253 mls/hr Administration Protocol 12 UNITS/KG/HR Nitroglycerin 0.4 mg 09/25/23 14:06 Nitroglycerin Sl Tabs 0.4 Mg Tab SUBLINGUAL Q5M PRN Chest Pain 09/25/23 13:03 09/25/23 19:47
--- NOTE | 2023-09-26 12:45 | NM ---
EXAMINATION TYPE: NM pul vent and perfuse DATE OF EXAM: 09/26/2023 CLINICAL INDICATION: Female, 63 years old with history of chest pain. Correlation: Radiograph yesterday 09/25/2023 TECHNIQUE: Utilizing inhalation of 38.8 mCi Tc 99m DTPA aerosol and intravenous injection of 5.5 mCi of Tc 99m MAA, ventilation and perfusion images are acquired post injection in multiple projections. FINDINGS: Normal radiotracer distribution is noted in the lungs on perfusion images. There is some clumping of tracer within the central airways on the ventilation images. IMPRESSION: 1. Very low probability for pulmonary embolus. 2. Clumping of tracer in the central airways can be seen with COPD.
[2023-09-26] MEDS ORDERED: IPRATROPIUM-ALBUTEROL 3 ML NEB INHALATION PRN (12:49)
[2023-09-26] MEDS: SYMBICORT 160-4.5 MCG INHALER INHALATION SCH (12:53)
[2023-09-26] MEDS: carvediloL 12.5 MG TAB PO SCH (13:20)
[2023-09-26] MEDS: methylPREDNISolone SOD SUCCI 125 MG/2 ML VIAL IV SCH (13:21)
[2023-09-26] MEDS: SODIUM CHLORIDE 0.9% 1,000 ML IV SCH (13:29)
--- NOTE | 2023-09-26 13:45 | US ---
EXAMINATION TYPE: US abdomen limited DATE OF EXAM: 09/26/2023 COMPARISON: 04/15/2023 CLINICAL INDICATION: Female, 63 years old with history of elevated LFTs TECHNIQUE: Multiple sonographic images of the right upper quadrant are obtained. FINDINGS: EXAM MEASUREMENTS: Liver Length: 15.1 cm Gallbladder: Surgically absent CBD: 0.8 cm Right Kidney: 7.8x3.9x3.9 cm JUICE TESTER NOTES: Exam limited by bowel gas and body habitus Pancreas: duct dilated to 0.5cm, similar compared to 04/15/2023. Tail obscured by overlying bowel gas Liver: Slightly coarsened echotexture. No focal lesion. Gallbladder: Surgically absent Evidence for sonographic Call's sign: No CBD: dilated to 0.8cm (versus 9 mm, previously) Right Kidney: Thin and echogenic renal cortex. No hydronephrosis. IMPRESSION: 1. Similarly dilated main pancreatic duct up to 5 mm as compared to 04/15/2023. Correlate with amylase and lipase levels. 2. Dilated bile duct at 8 mm, acceptable given postcholecystectomy status. Similar compared to prior exam. 3. Changes of chronic medical renal disease.
[2023-09-26 14:39] LABS: Basophils # (A) 0.1 k/uL (0-0.2); Basophils % (A) 1 %; Eosinophils % (A) 0 %; HCT 33.8 % (34.0-46.0); Lymphocytes # (A) 1.9 k/uL (1.0-4.8); Lymphocytes % (A) 19 %; MCH 33.1 pg (25.0-35.0); MCHC 32.6 g/dL (31.0-37.0); MCV 101.4 fL (80.0-100.0); Macrocytosis Slight; Mean Platelet Volume 8.1; Monocytes # (A) 0.4 k/uL (0-1.0); Monocytes % (A) 4 %; Neutrophils # (A) 7.5 k/uL (1.3-7.7); Neutrophils % (A) 75 %; Platelet Count 316 k/uL (150-450); RBC 3.34 m/uL (3.80-5.40)
[2023-09-26 14:49] LABS: Prothrombin Time 11.4 sec (10.0-12.5)
[2023-09-26 14:51] LABS: ALT 78 U/L (4-34); AST 55 U/L (14-36); African American GFR (CKD) 44 (>60 ml/min/1.73 sqM); Albumin 3.6 g/dL (3.5-5.0); Alkaline Phosphatase 204 U/L (38-126); Anion Gap 9 mmol/L; Blood Urea Nitrogen 23 mg/dL (7-17); Carbon Dioxide 16 mmol/L (22-30); Chloride 114 mmol/L (98-107); Glucose 127 mg/dL (74-99); Non-African American GFR(CKD) 38 (>60 ml/min/1.73 sqM); Potassium 5.2 mmol/L (3.5-5.1); Sodium 139 mmol/L (137-145); Total Bilirubin 0.5 mg/dL (0.2-1.3); Total Protein 6.3 g/dL (6.3-8.2)
[2023-09-26] MEDS: IPRATROPIUM-ALBUTEROL 3 ML NEB INHALATION SCH (15:21)
[2023-09-26] MEDS: HEPARIN SODIUM 1,000 UN/ML (10ML VL) IV PRN (17:50)
--- NOTE | 2023-09-26 18:38 | CA ---
Transthoracic Echo Report Name: Marcela Rhodes Age: 63 Gender: F : 1960 Exam Date: 09/26/2023 15:09 Exam Location: [facility] Ht (in): 62 Wt (lb): 170 Ordering Physician: Gretchen Kraus Attending/Referring Phys: [id number], Nayana Hat Forming Machine Operator Cailin Horn RDCS Procedure CPT: Indications: lv function, elevated trops Cardiac Hx: Technical Quality: Fair Contrast 1: Total Dose (mL): Contrast 2: Total Dose (mL): MEASUREMENTS (Male / Female) Normal Values 2D ECHO LV Diastolic Diameter PLAX 4.4 cm 4.2 - 5.9 / 3.9 - 5.3 cm LV Systolic Diameter PLAX 3.4 cm IVS Diastolic Thickness 1.0 cm 0.6 - 1.0 / 0.6 - 0.9 cm LVPW Diastolic Thickness 0.9 cm 0.6 - 1.0 / 0.6 - 0.9 cm LV Relative Wall Thickness 0.4 LV Diastolic Volume MOD BP 103.7 cm??? 67 - 155 / 56 - 104 cm??? LV Systolic Volume MOD BP 66.1 cm??? 22 - 58 / 19 - 49 cm??? LV Ejection Fraction MOD BP 36.3 % >= 55 % LV Cardiac Index MOD BP 1594.3 cm???/min???m??? LV Diastolic Volume MOD 4C 117.1 cm??? LV Systolic Volume MOD 4C 72.1 cm??? LV Ejection Fraction MOD 4C 38.4 % LV Cardiac Index MOD 4C 1904.3 cm???/min???m??? LV Diastolic Length 4C 7.5 cm LV Systolic Length 4C 6.4 cm LV Diastolic Volume MOD 2C 79.2 cm??? LV Systolic Volume MOD 2C 56.4 cm??? LV Ejection Fraction MOD 2C 28.8 % LV Cardiac Index MOD 2C 965.2 cm???/min???m??? LV Diastolic Length 2C 6.4 cm LV Systolic Length 2C 5.8 cm LA Volume 77.0 cm??? 18 - 58 / 22 - 52 cm??? LA Volume Index 41.3 cm???/m??? 16 - 28 cm???/m??? FINDINGS Left Ventricle Mildly increased septal wall thickness. Moderately increased left ventricular systolic volume. Moderately decreased left ventricular ejection fraction. Left ventricular ejection fraction is estimated at 25-30 %. Right Ventricle Right Atrium Left Atrium Severely increased left atrial volume. Mildly increased left atrial area. Mitral Valve Aortic Valve Tricuspid Valve Pulmonic Valve Pericardium No pericardial effusion. Aorta CONCLUSIONS Ischemic cardiomyopathy with severe LV systolic dysfunction Hypokinesis involving the apex Previewed by: Dr. Martinez Wills MD (Electronically Signed) Final Date: 26 September 2023 18:37
[2023-09-26] MEDS: MAGNESIUM OXIDE 400 MG TAB PO SCH (20:29)
[2023-09-26] MEDS ORDERED: ACETAMINOPHEN TAB 325 MG TAB PO PRN (20:45)
[2023-09-26] MEDS: ACETAMINOPHEN TAB 325 MG TAB PO STA (20:50)
[2023-09-26] MEDS: ALPRAZolam 1 MG TAB PO PRN (22:50)
[2023-09-27 00:38] LABS: INR 1.1 (<1.2); Partial Thromboplastin Time 75.7 sec (22.0-30.0); Prothrombin Time 11.7 sec (10.0-12.5)
[2023-09-27 02:31] LABS: Chol/HDL Ratio 2.87 Ratio; LDL Cholesterol,Calculated 74.7 mg/dL (0.0-131.0); VLDL Calculation 19.16 mg/dL (5.00-40.00)
[2023-09-27 03:14] LABS: Hepatitis A Antibody IgM Nonreactive; Hepatitis B Core IgM Nonreactive; Hepatitis B Surface Antigen Nonreactive; Hepatitis C IgG Antibody Nonreactive
--- NOTE | 2023-09-27 04:04 | P.CNPUL ---
History of Present Illness Consult date: 09/27/23 Requesting physician: Alvaro Mckinley Reason for consult: COPD Chief complaint: Shortness of breath and chest pain History of present illness: I am seeing this patient in consultation today 09/27/2023 in the emergency room after she presented with chest pain and associated shortness of breath that started on Tuesday, the day she came into the emergency room. Patient is a 63-year-old female with past medical history significant for V-fib cardiac arrest in March,, ischemic cardiomyopathy status post AICD/pacemaker implantation, coronary artery disease with previous stent to the RCA, hy perlipidemia, significant smoking history, anxiety/depression, among other things. Patient denies any pre-existing lung disease such as COPD or asthma. She does have a significant smoking history of 50 to 75 pack years, but quit in March, after her cardiac arrest. Patient states that she started to experience chest pain on Tuesday morning, while laying in bed. Described as substernal, nonradiating, lasting a couple hours. She is also complaining of some nausea, vomiting, and diarrhea over the last couple days. She denies any lower extremity swelling, orthopnea. Denies any heart palpitations, lightheadedness, syncopal events. Denies any cough, sputum production, fever. She is currently in the emergency room, she is resting comfortably on room air, in no acute distress. Chest x-ray does not show any acute cardiopulmonary process. Troponins were noted to be elevated at 1.17, 1.54, and 1.64 respectively. ECG shows normal sinus rhythm without any obvious acute ischemic changes. She was started on a heparin infusion per protocol. Patient is no longer complaining of chest pain. Cardiology is managing. Follow-up echocardiogram from this admission shows severely reduced left ventricular ejection fraction of 25 to 30%. Patient also had an elevated D-dimer of 0.84. VQ scan showed low probability for PE. Negative for influenza, RSV, COVID. Most recent CBC from yesterday: WBC count 10, hemoglobin 11, hematocrit 33.8, platelets 316. BMP from yesterday: Sodium 139, potassium 5.2, chloride 114, serum bicarb 16, BUN 23, creatinine 1.45, glucose 127. There is a component of acute kidney injury. Potassium was as high as 6.7 on admission. lactic acid level was as high as 3 and is down to 1.1. LFTs mildly elevated. Abdominal ultrasound shows a similarly dilated main pancreatic duct up to 5 mm when compared with recent imaging. There was a dilated bile duct at 8 mm, which is acceptable given postcholecystectomy status, and similar compared to prior exam. Vital signs are stable. Review of Systems REVIEW OF SYSTEMS: CONSTITUTIONAL: Denies any recent significant weight loss or weight gain. EYES: Denies change in vision. EARS, NOSE, MOUTH, THROAT: Denies headaches, denies sore throat. CARDIOVASCULAR: See HPI RESPIRATORY: See HPI GASTROINTESTINAL: Patient denies change in appetite or abdominal pain. Does admit some self-limiting nausea and vomiting with associated diarrhea. This is since stopped. GENITOURINARY: Denies hematuria, denies infections. MUSKULOSKELETAL: Denies pain, denies swelling. INTEGUMENTARY: Denies rash, denies eczema. NEUROLOGICAL: Denies recent memory loss, no recent seizure activity. PSYCHIATRIC: Denies anxiety, denies depression. HEMATOLOGIC/LYMPHATIC: Denies anemia, denies enlarged lymph node Past Medical History Past Medical History: Coronary Artery Disease (CAD), Heart Failure, GERD/Reflux, Hyperlipidemia, Myocardial Infarction ([place]) Additional Past Medical History / Comment(s): Recent [place], vtach, respiratory distress/intubated, cardiomyopathy, chf, aortic dissection, cellulitis L arm. Other hx: Pleurisy, diverticular disease, benign colon polyp. Last Myocardial Infarction Date:: 2022 History of Any Multi-Drug Resistant Organisms: None Reported Past Surgical History: Heart Catheterization, Heart Catheterization With Stent, Tubal Ligation Additional Past Surgical History / Comment(s): lithotripsy, colonoscopy/po lypectomy, AICD Past Anesthesia/Blood Transfusion Reactions: No Reported Reaction Additional Past Anesthesia/Blood Transfusion Reaction / Comment(s): Pt has clausterphobia. Date of Last Stent Placement:: 2012 [facility] Past Psychological History: Anxiety, Depression Additional Psychological History / Comment(s): Pt resides with her spouse and daughter. She is independent. She prefers not to drive d/t her anxiety, her spouse drives. Smoking Status: Former smoker Past Alcohol Use History: None Reported Additional Past Alcohol Use History / Comment(s): Pt started smoking in 1969 and is a ppd smoker, quit in 03/2023 Past Drug Use History: None Reported - Past Family History Father Family Medical History: Myocardial Infarction ([place]) Additional Family Medical History / Comment(s): Father of a [place] at the age of 46yrs. Mother Family Medical History: Cancer Additional Family Medical History / Comment(s): Mother had colon cancer and from sepsis in her port a cath. Medications and Allergies Home Medications Medication Instructions Recorded Confirmed Type Albuterol Sulfate [Ventolin HFA] 2 puff INHALATION RT-Q6H PRN 12/26/20 09/25/23 History ALPRAZolam [Xanax] 1 mg PO BID 07/18/21 09/25/23 History Atorvastatin [Lipitor] 80 mg PO HS #60 tab 04/23/23 09/25/23 Rx Aspirin 81 mg PO HS 05/20/23 09/25/23 History Clopidogrel [Plavix] 75 mg PO DAILY 05/20/23 09/25/23 History Isosorbide Mononitrate ER [Imdur] 30 mg PO DAILY 05/20/23 09/26/23 History Magnesium Oxide [Mag-Ox] 400 mg PO HS 05/20/23 09/25/23 History Spironolactone [Aldactone] 25 mg PO DAILY 05/20/23 09/26/23 History lisinopriL [Zestril] 10 mg PO BID 05/20/23 09/26/23 History Vortioxetine Hydrobromide 20 mg PO HS 09/25/23 09/25/23 History [Trintellix] carvediloL 25 mg PO BID 09/25/23 09/25/23 History Allergies Allergy/AdvReac Type Severity Reaction Status Date / Time No Known Allergies Allergy Verified 09/25/23 15:20 Physical Exam Vitals: Vital Signs Temp Pulse Resp BP Pulse Ox 09/27/23 02:00 16 09/26/23 23:41 97.2 F L 90 14 150/87 95 09/26/23 22:51 93 18 105/48 96 09/26/23 20:30 72 18 107/57 95 09/26/23 19:51 77 09/26/23 19:41 74 09/26/23 18:57 71 16 112/95 97 09/26/23 18:02 67 16 106/67 97 09/26/23 16:00 18 87/50 97 09/26/23 15:31 68 09/26/23 15:21 67 09/26/23 14:00 17 103/62 95 09/26/23 13:18 80 16 103/62 99 09/26/23 11:00 71 14 113/82 100 09/26/23 10:00 72 28 H 99/55 100 09/26/23 09:41 69 18 99/55 100 09/26/23 09:00 98 30 H 114/61 94 L 09/26/23 08:53 102 H 09/26/23 08:39 79 09/26/23 08:00 82 18 114/61 100 09/26/23 07:00 84 19 114/61 97 09/26/23 06:00 80 20 114/61 97 09/26/23 05:32 94 24 114/61 99 09/26/23 05:00 84 10 L 103/62 96 09/26/23 04:00 84 16 110/72 96 Intake and Output 09/26/23 09/26/23 09/27/23 14:59 22:59 06:59 Intake Total 0.9 Balance 0.9 Intake: Intake, IV Titration 0.9 Amount Heparin Sod,Pork in 0.45% 0.9 NaCl 25,000 unit In 0.45 % NaCl 1 250ml.bag @ 12 UNITS/KG/HR 9.253 mls/hr IV .Q[facility]H [facility] Rx#: [id number] Other: Weight 77.111 kg GENERAL EXAM: Alert, 63-year-old obese white female, comfortable in no apparent distress. HEAD: Normocephalic and atraumatic EYES: Normal reaction of pupils, equal size. NOSE: Clear with pink turbinates. THROAT: No erythema or exudates. NECK: No masses, no JVD. CHEST: No chest wall deformity. LUNGS: Equal air entry with no crackles, wheeze, rhonchi or dullness. On room air. No conversational dyspnea or accessory muscle use.. CVS: Distant heart sounds, S1 and S2 normal with no audible murmur, regular rhythm. No extra heart sounds ABDOMEN: No hepatosplenomegaly, active bowel sounds, no guarding or rigidity. SPINE: No scoliosis or deformity SKIN: No rashes CENTRAL NERVOUS SYSTEM: No focal deficits, tone is normal in all 4 extremities. EXTREMITIES: There is no peripheral edema, clubbing, or cyanosis. Peripheral pulses are intact. Results - Laboratory Findings CBC and BMP: 09/26/23 14:30 09/26/23 14:30 PT/INR, D-dimer PT 11.7 sec (10.0-12.5) 09/27/23 00:04 INR 1.1 (<1.2) 09/27/23 00:04 D-Dimer 0.84 mg/L FEU (<0.60) H 09/25/23 13:03 Abnormal lab findings: Abnormal Labs 09/25/23 09/25/23 09/25/23 13:03 13:03 13:03 RBC 3.48 L Hgb 11.1 L Hct MCV APTT D-Dimer 0.84 H Sodium 136 L Potassium 6.7 H* Chloride 114 H Carbon Dioxide 15 L BUN 23 H Creatinine 1.46 H Glucose 107 H Plasma Lactic Acid Jelani Magnesium 2.4 H AST 104 H ALT 138 H Alkaline Phosphatase 263 H Troponin I 09/25/23 09/25/23 09/25/23 13:03 13:34 15:59 RBC Hgb Hct MCV APTT D-Dimer Sodium Potassium Chloride Carbon Dioxide BUN Creatinine Glucose Plasma Lactic Acid Jelani 2.9 H* Magnesium AST ALT Alkaline Phosphatase Troponin I 1.170 H* 1.540 H* 09/25/23 09/25/23 09/25/23 19:47 19:47 19:47 RBC Hgb Hct MCV APTT 51.2 H D-Dimer Sodium Potassium 5.5 H Chloride Carbon Dioxide BUN Creatinine Glucose Plasma Lactic Acid Jelani Magnesium AST ALT Alkaline Phosphatase Troponin I 1.640 H* 09/25/23 09/26/23 09/26/23 19:47 14:30 14:30 RBC 3.34 L Hgb 11.0 L Hct 33.8 L MCV 101.4 H APTT D-Dimer Sodium Potassium 5.2 H Chloride 114 H Carbon Dioxide 16 L BUN 23 H Creatinine 1.45 H Glucose 127 H Plasma Lactic Acid Jelani 3.0 H* Magnesium AST 55 H ALT 78 H Alkaline Phosphatase 204 H Troponin I 09/26/23 09/27/23 16:18 00:04 RBC Hgb Hct MCV APTT 37.9 H 75.7 H D-Dimer Sodium Potassium Chloride Carbon Dioxide BUN Creatinine Glucose Plasma Lactic Acid Jelani Magnesium AST ALT Alkaline Phosphatase Troponin I - Diagnostic Findings Chest x-ray: image reviewed Assessment and Plan Assessment: Suspected acute non-ST elevation [place] Acute dyspnea, possibly secondary to above Severe ischemic cardiomyopathy, status post AICD implantation. Follow-up echocardiogram from this admission shows a severely reduced left ventricular ejection fraction of 25 to 30% Elevated D-dimer, VQ scan very low probability for pulmonary embolism. Acute kidney injury, possibly secondary to dehydration Non-anion gap metabolic acidosis Severe hyperkalemia, improved History of V-fib cardiac arrest, March 2023 Coronary artery disease, with previous stent to the RCA Mild transaminitis History of hyperlipidemia Former tobacco dependence Possible underlying COPD Obesity, with a BMI of 31.1 kg/m History of anxiety/depression Plan: Patient's medications, labs, chest x-ray reviewed On room air Patient is currently on a heparin infusion per protocol and cardiology recommendation Continue to hold NANDO inhibitors and nephrotoxic agents Patient also started on a combination of DuoNebs, Symbicort inhaler, and IV Solu-Medrol by admitting. Not particularly symptomatic on my evaluation. We will continue to follow I have personally seen and examined the patient, performed the documentation and the assessment and plan as written. Number of minutes spent on the visit:20 Time with Patient: Greater than 30
--- NOTE | 2023-09-27 06:53 | PN ---
PROGRESS NOTE DATE OF SERVICE: 09/26/2023 SUBJECTIVE: This 63-year-old woman was admitted with multiple complex medical issues, had acute renal failure and severe hyperkalemia, present on admission. The patient also had multiple symptoms including diarrhea. Troponins elevated. There was no significant chest pain. V/Q scan has been ordered at this time. Multiple consultants are following the patient closely. The patient has some shortness of breath also. PAST MEDICAL HISTORY: Reviewed. REVIEW OF SYSTEMS: A 14-point review is negative except as mentioned earlier. CURRENT MEDICATIONS: Reviewed, Lipitor dose noted. PHYSICAL EXAMINATION: VITAL SIGNS: Pulse 71, blood pressure 130/82, and respirations 14. HEENT: Conjunctivae normal. NECK: No jugular venous distention. CARDIOVASCULAR: S1, S2. RESPIRATIONS: A few scattered rhonchi and crackles. ABDOMEN: Soft, obese. LEGS: No edema, no swelling. NERVOUS SYSTEM: Diffusely weak. LABORATORY DATA: Reviewed. ASSESSMENT: 1. Acute kidney injury, prerenal, secondary from diarrhea. 2. Possible COPD exacerbation. 3. Severe hyperkalemia. 4. Elevated troponin up to 1.640, possible acute suo-XH-hsxxrnd-elevation myocardial infarction. 5. History of CAD, stent. 6. History of cardiac arrest and sustained ventricular tachycardia. 7. Nausea, vomiting, possible acute gastroenteritis. 8. History of GERD. RECOMMENDATION AND DISCUSSION: This 63-year-old woman presented with multiple complex medical issues, we will monitor the patient closely. I would recommend to continue the current medications. Continue with acute syndrome protocol. Closely follow with Cardiology and I will repeat labs. Symptomatic treatment will be continued and further recommendations to follow. See orders for details. The chest x-ray was reviewed and the V/Q scan is very low probability, possible COPD. I would also recommend consultation with Pulmonary to rule out the possibility of COPD exacerbation also. MMODL / IJN: [id number] /
--- NOTE | 2023-09-27 12:05 | P.PN ---
Subjective HISTORY OF PRESENT ILLNESS: This is a 63-year-old female with a past medical history significant for coronary artery disease with previous stenting, VT arrest in March 2023, AICD implantation, congestive heart failure, hypertension, hyperlipidemia, and former nicotine dependence. Patient follows in the office with Dr. Andersen. We have been asked to see the patient in consultation for elevated troponins. Patient examined at the bedside in the emergency room. Patient initially presented to the hospital with chest discomfort. Upon further discussion with the patient, she states that the pain is worse with deep inspiration. She denied any radiation of the pain. She states that she has been having significant diarrhea. She denies any chest pain at the time of examination. She currently denies any shortness of breath. The patient was found to be hyperkalemic with a potassium of 6.7. Repeat yesterday 5.5. She was also found to have acute kidney injury with a creatinine of 1.46. Troponins are elevated at 1.170. 1.540. 1.640. She has been started on IV heparin. DIAGNOSTICS: - EKG reveals sinus mechanism with no signs of acute ischemia - Chest xray negative for acute process. - Laboratory data: WBC 8.9. Hemoglobin 11.1. Platelet count 354. D-dimer 0.84. Sodium 136. Potassium 5.5. BUN 23. Creatinine 1.46. proBNP 1070. - Current home cardiac medications include aspirin 81 mg daily, Lipitor 80 mg daily, carvedilol 25 mg twice a day, lisinopril 20 mg daily, Aldactone 25 mg daily, Plavix 75 mg daily, and Imdur 30 mg daily. - Most recent echocardiogram obtained in April 2023 revealed ejection fraction 45%, basal and mid inferior and inferior lateral hypokinesis, mild to moderate MR, and trace TR - Cardiac catheterization history: March 2023 revealing patent stent within the right coronary artery. Mild nonobstructive disease involving the proximal and mid LAD. It is unclear if the very distal LAD is just naturally small in caliber. 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 Medical management was recommended. 09/27/2023 Patient examined this morning at the bedside. Patient currently denies chest pain or pressure. She denies shortness of breath. Vital signs are stable. Patient is anxious to be discharged home today. Echocardiogram completed revealing ejection fraction 25 to 30% with hypokinesis involving the apex PHYSICAL EXAM: VITAL SIGNS: Reviewed. GENERAL: Well-developed in no acute distress. HEENT: Head is normocephalic. Pupils are equal, round. Sclerae anicteric. Mucous membranes of the mouth are moist. Neck supple. No JVD or thyromegaly LUNGS: Respirations even and unlabored. Lungs essentially clear to auscultation bilaterally. HEART: Regular rate and rhythm. S1 and S2 heard. ABDOMEN: Soft. Nondistended. Nontender. EXTREMITIES: Normal range of motion. No clubbing or cyanosis. Peripheral pulses intact. No lower extremity edema NEUROLOGIC: Awake and alert. Oriented x 3. ASSESSMENT: Atypical chest pain with abnormal troponins, somewhat flat, suspect type II LA Diarrhea Acute kidney injury Hyperkalemia Transaminitis Coronary artery disease with previous stenting History of VT/V-fib arrest, March 2023 History of AICD implantation Congestive heart failure with reduced EF, 45%, currently not in heart failure, now 25 to 30% Hypertension Hyperlipidemia Former nicotine dependence PLAN: Discontinue IV heparin Hold Aldactone and lisinopril secondary to WHITNEY. Resume when WHITNEY resolves Awaiting labs from this morning Continue Imdur and carvedilol No plans for cardiac catheterization at this time secondary to kidney function. Continue with conservative management at this time Stable from a cardiac standpoint Further recommendations pending patient course Patient to follow up post discharge with Dr Andersen Nurse practitioner note has been reviewed by physician. Signing provider agrees with the documented findings, assessment, and plan of care documented by MARGIN CLERK as a scribe. Objective - Vital Signs Vital signs: Vital Signs Temp 97.9 F 09/27/23 11:26 Pulse 55 L 09/27/23 11:26 Resp 16 09/27/23 11:26 BP 105/63 09/27/23 11:26 Pulse Ox 97 09/27/23 11:26 FiO2 Intake & Output 09/26/23 09/27/23 09/27/23 18:59 06:59 18:59 Intake Total 0.9 154.743 Balance 0.9 154.743 Weight 77.111 kg Intake: Intake, IV Titration 0.9 154.743 Amount Heparin Sod,Pork in 0.45% 0.9 154.743 NaCl 25,000 unit In 0.45 % NaCl 1 250ml.bag @ 12 UNITS/KG/HR 9.253 mls/hr IV .Q24H [facility] Rx#: [id number] Other: # Voids 2 - Labs CBC & Chem 7: 09/26/23 14:30 09/26/23 14:30 Labs: Abnormal Lab Results - Last 24 Hours (Table) 09/26/23 09/26/23 09/26/23 Range/Units 14:30 14:30 16:18 RBC 3.34 L (3.80-5.40) m/uL Hgb 11.0 L (11.4-16.0) gm/dL Hct 33.8 L (34.0-46.0) % MCV 101.4 H (80.0-100.0) fL APTT 37.9 H (22.0-30.0) sec Potassium 5.2 H (3.5-5.1) mmol/L Chloride 114 H (98-107) mmol/L Carbon Dioxide 16 L (22-30) mmol/L BUN 23 H (7-17) mg/dL Creatinine 1.45 H (0.52-1.04) mg/dL Glucose 127 H (74-99) mg/dL AST 55 H (14-36) U/L ALT 78 H (4-34) U/L Alkaline Phosphatase 204 H (38-126) U/L 09/27/23 09/27/23 Range/Units 00:04 06:39 RBC (3.80-5.40) m/uL Hgb (11.4-16.0) gm/dL Hct (34.0-46.0) % MCV (80.0-100.0) fL APTT 75.7 H 68.0 H (22.0-30.0) sec Potassium (3.5-5.1) mmol/L Chloride (98-107) mmol/L Carbon Dioxide (22-30) mmol/L BUN (7-17) mg/dL Creatinine (0.52-1.04) mg/dL Glucose (74-99) mg/dL AST (14-36) U/L ALT (4-34) U/L Alkaline Phosphatase (38-126) U/L
[2023-09-27 12:29] LABS: African American GFR (CKD) 44 (>60 ml/min/1.73 sqM); Anion Gap 10 mmol/L; Blood Urea Nitrogen 34 mg/dL (7-17); Calcium 9.3 mg/dL (8.4-10.2); Carbon Dioxide 15 mmol/L (22-30); Chloride 113 mmol/L (98-107); Glucose 110 mg/dL (74-99); Non-African American GFR(CKD) 38 (>60 ml/min/1.73 sqM); Sodium 138 mmol/L (137-145)
[2023-09-27 12:31] LABS: Potassium 5.7 mmol/L (3.5-5.1)
[2023-09-27] MEDS: SODIUM ZIRCONIUM CYCLOSILICATE 10 GM PACKET PO ONE (14:54)
--- NOTE | 2023-09-27 22:52 | PN ---
PROGRESS NOTE SUBJECTIVE: This 63-year-old woman was admitted with COPD acute exacerbation as well as acute kidney injury, has elevated troponin, possibly indicating acute opi-HQ-sdgenbp elevation myocardial infarction. Cardiology is following the patient closely. The patient is still on IV heparin. A 2D echo with Doppler which I reviewed showed ischemic cardiomyopathy, severe LV systolic dysfunction and hypokinesia involving the apex also. Multiple consultants are following the patient closely and cardiac cath is being deferred at this time. There is no history of fever, rigors, or chills. PAST MEDICAL HISTORY: Reviewed. REVIEW OF SYSTEMS: A 14-point review is negative except as mentioned earlier. CURRENT MEDICATIONS: Reviewed include DuoNeb, dose and rest of medications noted. PHYSICAL EXAMINATION: VITAL SIGNS: Pulse is 56, blood pressure 80/50, and respirations 20. HEENT: Conjunctivae normal. NECK: No jugular venous distention. CARDIOVASCULAR: S1, S2. RESPIRATION: Diminished at the bases. ABDOMEN: Soft, nontender. LEGS: No edema, no swelling. NERVOUS SYSTEM: No focal deficit. LABORATORY DATA: WBC 10, hemoglobin is 11, otherwise potassium is 5.7, creatinine is 1.45. ASSESSMENT: 1. Chronic obstructive pulmonary disease acute exacerbation. 2. Acute ejy-DT-lczkdsa-elevation myocardial infarction. 3. Severe cardiomyopathy with severe LV systolic dysfunction, ejection fraction 25% to 30%. 4. Hypokinesis involving the apex in the 2D echo. 5. Hyperkalemia. 6. Acute kidney injury. 7. Troponin elevated up to 1.640. 8. History of CAD stent. 9. History of cardiac arrest and sustained ventricular tachycardia. 10.Nausea, vomiting, possible acute gastroenteritis. 11.History of GERD. RECOMMENDATIONS AND DISCUSSION: Recommended to continue current management, continue symptomatic treatment, otherwise at this time I would monitor the patient closely. I would also get nephrology evaluation for hyperkalemia as well as renal failure. Avoid nephrotoxic medications. Follow closely with Cardiology and pulmonology. Guarded prognosis. Further recommendations to follow. See orders for details. MMODL / IJN: [id number] /
[2023-09-28 09:34] LABS: African American GFR (CKD) 38 (>60 ml/min/1.73 sqM); Anion Gap 11 mmol/L; Blood Urea Nitrogen 48 mg/dL (7-17); Calcium 8.7 mg/dL (8.4-10.2); Carbon Dioxide 16 mmol/L (22-30); Chloride 111 mmol/L (98-107); Glucose 254 mg/dL (74-99); Non-African American GFR(CKD) 33 (>60 ml/min/1.73 sqM); Potassium 4.5 mmol/L (3.5-5.1); Sodium 138 mmol/L (137-145)
[2023-09-28 09:52] LABS: Basophils % (A) 0 %; Eosinophils % (A) 0 %; HCT 29.5 % (34.0-46.0); Hypochromasia Slight; Lymphocytes # (A) 1.4 k/uL (1.0-4.8); Lymphocytes % (A) 8 %; MCHC 31.9 g/dL (31.0-37.0); MCV 103.4 fL (80.0-100.0); Macrocytosis Slight; Mean Platelet Volume 9.2; Monocytes # (A) 0.4 k/uL (0-1.0); Monocytes % (A) 3 %; Neutrophils % (A) 89 %; Platelet Count 272 k/uL (150-450); RBC 2.85 m/uL (3.80-5.40); RDW 13.5 % (11.5-15.5); WBC 16.9 k/uL (3.8-10.6)
[2023-09-28 10:03] LABS: HGB 9.4 gm/dL (11.4-16.0)
--- NOTE | 2023-09-28 13:05 | P.NPCON ---
History of Present Illness - Reason for Consult acute renal failure - History of Present Illness Patient is a 63-year-old female with history of coronary artery disease, chronic CHF with systolic dysfunction and EF of 45%. Patient is admitted to the hospital with complaints of chest pain and increased weakness. Patient also admitted to having had nausea vomiting and diarrhea prior to admission. No history of fever or chills. Serum creatinine was 1.4 on admission and increased to 1.6 today. Previous creatinine 0.7 on 04/24/2023. Potassium was elevated at 5.7 and has improved to 4.5 today. Patient has been voiding. No complaints of shortness of breath. Lactic acid was elevated at 3.0 and improved to 1.1. Currently maintained on IV fluids. Review of Systems As per HPI Past Medical History Past Medical History: Coronary Artery Disease (CAD), Heart Failure, GERD/Reflux, Hyperlipidemia, Myocardial Infarction (MN) Additional Past Medical History / Comment(s): Recent MN, vtach, respiratory distress/intubated, cardiomyopathy, chf, aortic dissection, cellulitis L arm. Other hx: Pleurisy, diverticular disease, benign colon polyp. Last Myocardial Infarction Date:: 2022 History of Any Multi-Drug Resistant Organisms: None Reported Past Surgical History: Heart Catheterization, Heart Catheterization With Stent, Tubal Ligation Additional Past Surgical History / Comment(s): lithotripsy, colonoscopy/po lypectomy, AICD Past Anesthesia/Blood Transfusion Reactions: No Reported Reaction Additional Past Anesthesia/Blood Transfusion Reaction / Comment(s): Pt has clausterphobia. Date of Last Stent Placement:: 2012 [facility] Past Psychological History: Anxiety, Depression Additional Psychological History / Comment(s): Pt resides with her spouse and daughter. She is independent. She prefers not to drive d/t her anxiety, her spouse drives. Smoking Status: Former smoker Past Alcohol Use History: None Reported Additional Past Alcohol Use History / Comment(s): Pt started smoking in 1969 and is a ppd smoker, quit in 03/2023 Past Drug Use History: None Reported - Past Family History Father Family Medical History: Myocardial Infarction (MN) Additional Family Medical History / Comment(s): Father of a MN at the age of 46yrs. Mother Family Medical History: Cancer Additional Family Medical History / Comment(s): Mother had colon cancer and from sepsis in her port a cath. Medications and Allergies Home Medications Medication Instructions Recorded Confirmed Type Albuterol Sulfate [Ventolin HFA] 2 puff INHALATION RT-Q6H PRN 12/26/20 09/25/23 History ALPRAZolam [Xanax] 1 mg PO BID 07/18/21 09/25/23 History Atorvastatin [Lipitor] 80 mg PO HS #60 tab 04/23/23 09/25/23 Rx Aspirin 81 mg PO HS 05/20/23 09/25/23 History Clopidogrel [Plavix] 75 mg PO DAILY 05/20/23 09/25/23 History Isosorbide Mononitrate ER [Imdur] 30 mg PO DAILY 05/20/23 09/26/23 History Magnesium Oxide [Mag-Ox] 400 mg PO HS 05/20/23 09/25/23 History Spironolactone [Aldactone] 25 mg PO DAILY 05/20/23 09/26/23 History lisinopriL [Zestril] 10 mg PO BID 05/20/23 09/26/23 History Vortioxetine Hydrobromide 20 mg PO HS 09/25/23 09/25/23 History [Trintellix] carvediloL 25 mg PO BID 09/25/23 09/25/23 History Allergies Allergy/AdvReac Type Severity Reaction Status Date / Time No Known Allergies Allergy Verified 09/25/23 15:20 Physical Exam Vitals: Vital Signs Temp Pulse Pulse Resp BP Pulse Ox 09/28/23 11:49 70 09/28/23 11:38 74 09/28/23 11:33 63 16 97/55 95 09/28/23 08:27 68 09/28/23 08:16 72 09/28/23 08:00 98 F 75 17 96/58 94 L 09/28/23 04:00 84 16 121/54 96 09/27/23 23:27 63 16 102/57 94 L 09/27/23 20:14 70 09/27/23 20:01 68 09/27/23 20:00 97.6 F 69 16 96/60 94 L 09/27/23 16:20 98.7 F 81 16 98/52 97 09/27/23 15:37 68 09/27/23 15:26 68 09/27/23 14:00 56 L 16 Intake and Output 09/27/23 09/28/23 09/28/23 22:59 06:59 14:59 Intake Total 180 420 Balance 180 420 Intake: Oral 180 420 Other: # Voids 1 2 2 Patient is awake, comfortable, no acute distress Examination of the heart S1 and S2 Examination of the lungs bilateral breath sounds are heard Abdomen is soft nontender Examination of lower extremity shows no significant 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 Acute kidney injury, ATN, nonoliguric secondary to hypotension. Rule out urine retention. Check UA and check ultrasound of the kidneys. Continue with IV fluids. NANDO inhibitor's on hold. 2. Hypertension with blood pressure currently low. Coreg dose will be decreased 3. History of CHF with ejection fraction 45% 4. Metabolic acidosis, non-gap associated with acute kidney injury. Lactic acid was also elevated on admission. 5. Hyperkalemia associated with acute kidney injury and metabolic acidosis, currently improved. Rule out urine retention. 6. Anemia rule out iron deficiency 7. History of cardiac arrest with sustained V. tach 8. Coronary artery disease with previous coronary stents Plan: Increase IV fluids Change to bicarb drip Check post void residual Check ultrasound of the kidneys Repeat labs in a.m. Decrease dose of Coreg Continue to hold NANDO inhibitor's. Thank you for the consultation. We will continue to follow the patient with you during her hospitalization.
--- NOTE | 2023-09-28 13:24 | P.PN ---
Subjective HISTORY OF PRESENT ILLNESS: This is a 63-year-old female with a past medical history significant for coronary artery disease with previous stenting, VT arrest in March 2023, AICD implantation, congestive heart failure, hypertension, hyperlipidemia, and former nicotine dependence. Patient follows in the office with Dr. Andersen. We have been asked to see the patient in consultation for elevated troponins. Patient examined at the bedside in the emergency room. Patient initially presented to the hospital with chest discomfort. Upon further discussion with the patient, she states that the pain is worse with deep inspiration. She denied any radiation of the pain. She states that she has been having significant diarrhea. She denies any chest pain at the time of examination. She currently denies any shortness of breath. The patient was found to be hyperkalemic with a potassium of 6.7. Repeat yesterday 5.5. She was also found to have acute kidney injury with a creatinine of 1.46. Troponins are elevated at 1.170. 1.540. 1.640. She has been started on IV heparin. DIAGNOSTICS: - EKG reveals sinus mechanism with no signs of acute ischemia - Chest xray negative for acute process. - Laboratory data: WBC 8.9. Hemoglobin 11.1. Platelet count 354. D-dimer 0.84. Sodium 136. Potassium 5.5. BUN 23. Creatinine 1.46. proBNP 1070. - Current home cardiac medications include aspirin 81 mg daily, Lipitor 80 mg daily, carvedilol 25 mg twice a day, lisinopril 20 mg daily, Aldactone 25 mg daily, Plavix 75 mg daily, and Imdur 30 mg daily. - Most recent echocardiogram obtained in April 2023 revealed ejection fraction 45%, basal and mid inferior and inferior lateral hypokinesis, mild to moderate MR, and trace TR - Cardiac catheterization history: March 2023 revealing patent stent within the right coronary artery. Mild nonobstructive disease involving the proximal and mid LAD. It is unclear if the very distal LAD is just naturally small in caliber. 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 Medical management was recommended. 09/27/2023 Patient examined this morning at the bedside. Patient currently denies chest pain or pressure. She denies shortness of breath. Vital signs are stable. Patient is anxious to be discharged home today. Echocardiogram completed revealing ejection fraction 25 to 30% with hypokinesis involving the apex 09/28/2023 Patient examined this morning at the bedside. Patient's family is present. Patient currently denies chest pain or pressure. She denies shortness of breath. Vital signs are stable. Creatinine today 1.64. PHYSICAL EXAM: VITAL SIGNS: Reviewed. GENERAL: Well-developed in no acute distress. HEENT: Head is normocephalic. Pupils are equal, round. Sclerae anicteric. Mucous membranes of the mouth are moist. Neck supple. No JVD or thyromegaly LUNGS: Respirations even and unlabored. Lungs essentially clear to auscultation bilaterally. HEART: Regular rate and rhythm. S1 and S2 heard. ABDOMEN: Soft. Nondistended. Nontender. EXTREMITIES: Normal range of motion. No clubbing or cyanosis. Peripheral pulses intact. No lower extremity edema NEUROLOGIC: Awake and alert. Oriented x 3. ASSESSMENT: Atypical chest pain with abnormal troponins, somewhat flat, suspect type II IN Diarrhea Acute kidney injury Hyperkalemia Transaminitis Coronary artery disease with previous stenting History of VT/V-fib arrest, March 2023 History of AICD implantation Congestive heart failure with reduced EF, 45%, currently not in heart failure, n ow 25 to 30% Hypertension Hyperlipidemia Former nicotine dependence PLAN: Hold Aldactone and lisinopril secondary to WHITNEY. Resume when WHITNEY resolves Continue Imdur and carvedilol. Carvedilol dose decreased secondary to soft blood pressures per nephrology today. No plans for cardiac catheterization at this time secondary to kidney function. Continue with conservative management at this time Stable from a cardiac standpoint We will sign off. Please reconsult if needed. Patient to follow up post discharge with Dr Andersen Nurse practitioner note has been reviewed by physician. Signing provider agrees with the documented findings, assessment, and plan of care documented by RAG SORTER as a scribe. Objective - Vital Signs Vital signs: Vital Signs Temp 98 F 09/28/23 08:00 Pulse 70 09/28/23 11:49 Resp 16 09/28/23 11:33 BP 97/55 09/28/23 11:33 Pulse Ox 95 09/28/23 11:33 FiO2 Intake & Output 09/27/23 09/28/23 09/28/23 18:59 06:59 18:59 Intake Total 514.743 660 Balance 514.743 660 Intake: Intake, IV Titration 154.743 Amount Heparin Sod,Pork in 0.45% 154.743 NaCl 25,000 unit In 0.45 % NaCl 1 250ml.bag @ 12 UNITS/KG/HR 9.253 mls/hr IV .Q24H [facility]IUM Rx#: [id number] Oral 360 660 Other: # Voids 1 2 2 - Labs CBC & Chem 7: 09/28/23 08:31 09/28/23 08:31 Labs: Abnormal Lab Results - Last 24 Hours (Table) 09/28/23 09/28/23 Range/Units 08:31 08:31 WBC 16.9 H (3.8-10.6) k/uL RBC 2.85 L (3.80-5.40) m/uL Hgb 9.4 L D (11.4-16.0) gm/dL Hct 29.5 L (34.0-46.0) % MCV 103.4 H (80.0-100.0) fL Neutrophils # 15.0 H (1.3-7.7) k/uL Chloride 111 H (98-107) mmol/L Carbon Dioxide 16 L (22-30) mmol/L BUN 48 H (7-17) mg/dL Creatinine 1.64 H (0.52-1.04) mg/dL Glucose 254 H (74-99) mg/dL
[2023-09-28] MEDS: DEXTROSE 5% IN WATER 1,000 ML with SODIUM BICARB (1 MEQ/ML) 150 ML IV SCH (13:53)
[2023-09-28 14:27] LABS: Appearance,Urine Clear (Clear); Bacteria,Urine Rare /hpf; Bilirubin,Urine Negative (Negative); Blood,Urine Negative (Negative); Color,Urine Colorless; Glucose,Urine (UA) Negative (Negative); Hyaline Casts,Urine 1 /lpf (0-2); Ketones,Urine Negative (Negative); Leukocyte Esterase,Urine Large (Negative); Nitrite,Urine Negative (Negative); Protein,Urine Negative (Negative); Specific Gravity,Urine 1.016 (1.001-1.035); Squamous Epithelial Cell,Urine 3 /hpf (0-4); Urobilinogen,Urine <2.0 mg/dL (<2.0); WBC,Urine 8 /hpf (0-5)
[2023-09-28] MEDS: carvediloL 6.25 MG TAB PO SCH (15:02)
[2023-09-28] MEDS: methylPREDNISolone SOD SUCCI 40 MG/ML 1 ML VIAL IV SCH (15:02)
--- NOTE | 2023-09-28 15:23 | P.PN ---
Subjective Progress Note Date: 09/28/23 I am seeing this patient in consultation today 09/27/2023 in the emergency room after she presented with chest pain and associated shortness of breath that started on Tuesday, the day she came into the emergency room. Patient is a 63-year-old female with past medical history significant for V-fib cardiac arrest in March,, ischemic cardiomyopathy status post AICD/pacemaker implantation, coronary artery disease with previous stent to the RCA, hyperlipidemia, significant smoking history, anxiety/depression, among other things. Patient denies any pre-existing lung disease such as COPD or asthma. She does have a significant smoking history of 50 to 75 pack years, but quit in March, after her cardiac arrest. Patient states that she started to experience chest pain on Tuesday morning, while laying in bed. Described as substernal, nonradiating, lasting a couple hours. She is also complaining of some nausea, vomiting, and diarrhea over the last couple days. She denies any lower extremity swelling, orthopnea. Denies any heart palpitations, lightheadedness, syncopal events. Denies any cough, sputum production, fever. She is currently in the emergency room, she is resting comfortably on room air, in no acute distress. Chest x-ray does not show any acute cardiopulmonary pr ocess. Troponins were noted to be elevated at 1.17, 1.54, and 1.64 respectively. ECG shows normal sinus rhythm without any obvious acute ischemic changes. She was started on a heparin infusion per protocol. Patient is no longer complaining of chest pain. Cardiology is managing. Follow-up echoc ardiogram from this admission shows severely reduced left ventricular ejection fraction of 25 to 30%. Patient also had an elevated D-dimer of 0.84. VQ scan showed low probability for PE. Negative for influenza, RSV, COVID. Most recent CBC from yesterday: WBC count 10, hemoglobin 11, hematocrit 33.8, platelets 316. BMP from yesterday: Sodium 139, potassium 5.2, chloride 114, serum bicarb 16, B UN 23, creatinine 1.45, glucose 127. There is a component of acute kidney injury. Potassium was as high as 6.7 on admission. lactic acid level was as high as 3 and is down to 1.1. LFTs mildly elevated. Abdominal ultrasound shows a similarly dilated main pancreatic duct up to 5 mm when compared with recent imaging. There was a dilated bile duct at 8 mm, which is acceptable given postcholecystectomy status, and similar compared to prior exam. Vital signs are stable. The patient is seen today September 28, 2023 in follow-up on the selective care unit. She is currently sitting up in bed. Awake and alert in no acute distress. He is maintaining O2 saturations in the 90s on room air. She is afebrile. Hemodynamically stable. She denies any worsening shortness of breath, cough or congestion. No chest pain. White count 16.9. Hemoglobin 9.4. Platelets 272. Sodium 138. Potassium 4.5. Bicarb 16. BUN 48. Creatinine 1.64. Glucose 254. She remains on bronchodilators, Solu-Medrol. She is on D5W with 3 A of bicarb at 75 MLS per hour. Nephrology is following. Objective - Vital Signs Vital signs: Vital Signs Temp 98 F 09/28/23 08:00 Pulse 70 09/28/23 11:49 Resp 16 09/28/23 11:33 BP 97/55 09/28/23 11:33 Pulse Ox 95 09/28/23 11:33 FiO2 Intake & Output 09/27/23 09/28/23 09/28/23 18:59 06:59 18:59 Intake Total 323.479 1535 Output Total 100 Balance 168.396 7652 Intake: Intake, IV Titration 154.743 Amount Heparin Sod,Pork in 0.45% 154.743 NaCl 25,000 unit In 0.45 % NaCl 1 250ml.bag @ 12 UNITS/KG/HR 9.253 mls/hr IV .Q24H MARIUM Rx#: [id number] Oral 360 1200 Output: Urine 100 Other: # Voids 1 2 1 - Exam GENERAL EXAM: Alert, 63-year-old obese white female, on room air, sitting up in bed, in no apparent distress. HEAD: Normocephalic and atraumatic EYES: Normal reaction of pupils, equal size. NOSE: Clear with pink turbinates. THROAT: No erythema or exudates. NECK: No masses, no JVD. CHEST: No chest wall deformity. LUNGS: Equal air entry with no crackles, wheeze, rhonchi or dullness. No conversational dyspnea. CVS: Distant heart sounds, S1 and S2 normal with no audible murmur, regular rhythm. No extra heart sounds ABDOMEN: No hepatosplenomegaly, active bowel sounds, no guarding or rigidity. SPINE: No scoliosis or deformity SKIN: No rashes CENTRAL NERVOUS SYSTEM: No focal deficits, tone is normal in all 4 extremities. EXTREMITIES: There is no peripheral edema, clubbing, or cyanosis. Peripheral pulses are intact. - Labs CBC & Chem 7: 09/28/23 08:31 09/28/23 08:31 Labs: Abnormal Lab Results - Last 24 Hours (Table) 09/28/23 09/28/23 09/28/23 Range/Units 08:31 08:31 14:12 WBC 16.9 H (3.8-10.6) k/uL RBC 2.85 L (3.80-5.40) m/uL Hgb 9.4 L D (11.4-16.0) gm/dL Hct 29.5 L (34.0-46.0) % MCV 103.4 H (80.0-100.0) fL Neutrophils # 15.0 H (1.3-7.7) k/uL Chloride 111 H (98-107) mmol/L Carbon Dioxide 16 L (22-30) mmol/L BUN 48 H (7-17) mg/dL Creatinine 1.64 H (0.52-1.04) mg/dL Glucose 254 H (74-99) mg/dL Ur Leukocyte Esterase Large H (Negative) Urine WBC 8 H (0-5) /hpf Urine Bacteria Rare H (None) /hpf Assessment and Plan Assessment: Suspected type II [place], plan is to treat medically Acute dyspnea, possibly secondary to above, recovered and on room air Severe ischemic cardiomyopathy, status post AICD implantation. Follow-up echocardiogram from this admission shows a severely reduced left ventricular ejection fraction of 25 to 30% Elevated D-dimer, VQ scan very low probability for pulmonary embolism. Acute kidney injury, possibly secondary to dehydration Non-anion gap metabolic acidosis Severe hyperkalemia, improved History of V-fib cardiac arrest, March 2023 Coronary artery disease, with previous stent to the RCA Mild transaminitis History of hyperlipidemia Former tobacco dependence Possible underlying COPD Obesity, with a BMI of 31.1 kg/m History of anxiety/depression Plan: The patient was seen and evaluated Labs and medications reviewed Stable and on room air No need for steroids Initiated on a bicarb drip Home once cleared by nephrology I have personally seen and examined the patient, performed the documentation and the assessment and plan as written. Number of minutes spent on the visit: 10.
--- NOTE | 2023-09-28 16:14 | CDI ---
Documentation Clarification Form Date: 09/28/2023 03:58:53 PM From: Laura Blake RN, CCDS Phone: [phone] Admit Date: 09/25/2023 02:07:00 PM Patient Name: Marcela Rhodes Visit Number: [id number] Discharge Date: ATTENTION: The Clinical Documentation Specialists (CDI) and [facility] Coding Staff appreciate your assistance in clarifying documentation. Please respond to the clarification below the line at the bottom and electronically sign. The CDI & [facility] Coding staff will review the response and follow-up if needed. Please note: Queries are made part of the Legal Health Record. If you have any questions, please contact the author of this message via ITS. Dr. Andry Gamboa Conflicting documentation has been found in the medical record. As attending physician, please provide clarification. 09/24 H/P: Elevated troponin level possible NSTEMI 09/25 Cardiology consult and subsequent progress notes: Atypical chest pain with abnormal troponins, somewhat flat, suspect type II [place] History/Risk Factors: Coronary Artery Disease, Heart Failure, GERD/Reflux, Hyperlipidemia, Myocardial Infarction Clinical Indicators: 63-year-old female present with chest discomfort has elevated troponins. Her potassium of 6.7, BUN 23. Creatinine 1.46. Most recent echocardiogram obtained in April 2023 revealed ejection fraction 45%, basal and mid inferior and inferior lateral hypokinesis, mild to moderate MR, and trace TR Troponins are elevated at 1.170. 1.540. 1.640. She has been started on IV heparin. 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
--- NOTE | 2023-09-28 17:12 | US ---
EXAMINATION TYPE: US kidneys/renal and bladder DATE OF EXAM: 09/28/2023 COMPARISON: CT 07/25/2014 CLINICAL INDICATION: Female, 63 years old with history of acute kidney injury EXAM MEASUREMENTS: Right Kidney: 8.3x4.1x3.4 cm Left Kidney: 10.2x6.0x5.7 cm Right Kidney: No hydronephrosis or masses seen. 0.6cm echogenic shadowing area noted. Left Kidney: No hydronephrosis or masses seen. 0.5cm echogenic areas and 1cm echogenic shadowing area noted. Bladder: Nondistention limits the evaluation. There is the appearance of a 2.3x2.6cm non-shadowing hy perechoic area noted within the bladder. Area not appreciated well due to overlying bowel and poor di stension of the bladder [employer] W[employer] Consultant notes: Bilateral kidneys may exhibit features of medullary nephrocalcinosis exam limited by bowel and body habitus IMPRESSION: 1. No hydronephrosis. 2. Bilateral renal calculi and nephrocalcinosis. Consider etiologies such as medullary sponge kidney. 3. Possible 2.6 cm mass, hematoma, fungus ball, or bladder calculus within the collapsed bladder lume n. Correlate with urinalysis and urine cytology. CT or direct visualization to further evaluate.
[2023-09-28 18:10] LABS: % Iron Saturation 26.47 (12.00-45.00)
--- NOTE | 2023-09-29 03:05 | PN ---
PROGRESS NOTE DATE OF SERVICE: 09/28/2023 SUBJECTIVE: This is a 63-year-old woman, who was admitted with COPD acute exacerbation, also had acute qzo-ZL-hgbozek elevation myocardial infarction. The patient also had possible cardiomyopathy and renal failure also. Cardiology following the patient closely. The cardiac catheterization was deferred because of the multiple medical issues. Aldactone and aspirin, held. Nephrology is being consulted. PAST MEDICAL HISTORY: Reviewed. REVIEW OF SYSTEMS: A 14-point review is negative except as mentioned earlier. CURRENT MEDICATIONS: Reviewed include DuoNeb, dose and rest of medications noted. PHYSICAL EXAMINATION: VITAL SIGNS: Pulse 63, blood pressure 90/72, respirations 16. CHEST: A few scattered rhonchi. CARDIOVASCULAR: S1, S2 muffled. ABDOMEN: Soft. NERVOUS SYSTEM: No focal deficits. LABORATORY DATA: Creatinine 1.64, CO2 of 16. Rest of the labs are noted. ASSESSMENT: 1. Chronic obstructive pulmonary disease acute exacerbation. 2. Acute egk-TK-eyevycy-elevation myocardial infarction. 3. Severe cardiomyopathy with severe LV systolic dysfunction, ejection fraction 25% to 30%.. 4. Hypokinesis involving the apex in the 2D echo. 5. Hyperkalemia. 6. Acute kidney injury. 7. Troponin elevated up to 1.640. 8. History of coronary artery disease stent. 9. History of cardiac arrest and sustained ventricular tachycardia. 10.Nausea, vomiting, possible acute gastroenteritis. 11.History of gastroesophageal reflux disease. RECOMMENDATIONS AND DISCUSSION: Recommended to continue current management and continue symptomatic treatment. Otherwise closely follow with Cardiology. Monitor creatinine closely, potassium. Stop Aldactone. Closely follow. Prognosis extremely guarded because of multiple complex medical issues. The patient is receiving bicarb drip at this time. MMODL / IJN: [id number] /
[2023-09-29 09:21] LABS: Basophils % (A) 0 %; Eosinophils # (A) 0.1 k/uL (0-0.7); Eosinophils % (A) 0 %; HCT 30.9 % (34.0-46.0); HGB 9.8 gm/dL (11.4-16.0); Lymphocytes # (A) 1.6 k/uL (1.0-4.8); Lymphocytes % (A) 10 %; MCH 32.3 pg (25.0-35.0); MCHC 31.8 g/dL (31.0-37.0); MCV 101.6 fL (80.0-100.0); Macrocytosis Slight; Mean Platelet Volume 8.6; Monocytes # (A) 0.9 k/uL (0-1.0); Monocytes % (A) 6 %; Neutrophils # (A) 12.8 k/uL (1.3-7.7); Neutrophils % (A) 82 %; Platelet Count 259 k/uL (150-450); RBC 3.04 m/uL (3.80-5.40); RDW 13.4 % (11.5-15.5); WBC 15.5 k/uL (3.8-10.6)
[2023-09-29 09:46] LABS: African American GFR (CKD) 52 (>60 ml/min/1.73 sqM); Anion Gap 9 mmol/L; Blood Urea Nitrogen 43 mg/dL (7-17); Calcium 8.8 mg/dL (8.4-10.2); Carbon Dioxide 21 mmol/L (22-30); Chloride 110 mmol/L (98-107); Glucose 109 mg/dL (74-99); Non-African American GFR(CKD) 45 (>60 ml/min/1.73 sqM); Potassium 3.9 mmol/L (3.5-5.1); Sodium 140 mmol/L (137-145)
[2023-09-29 11:21] VITALS: RESP 16
[2023-09-29 12:52] VITALS: PULSE 60
--- NOTE | 2023-09-29 12:55 | P.PN ---
Subjective Patient is seen for follow-up for acute kidney injury. Renal function is improved Blood pressure has improved as well. Patient feels good and wants to go home. Serum creatinine down to 1.2 from 1.6 yesterday. Objective - Vital Signs Vital signs: Vital Signs Temp 98.2 F 09/29/23 08:00 Pulse 60 09/29/23 12:34 Resp 16 09/29/23 11:17 BP 122/56 09/29/23 11:17 Pulse Ox 97 09/29/23 11:17 FiO2 Intake & Output 09/28/23 09/29/23 09/29/23 18:59 06:59 18:59 Intake Total 1380 480 Output Total 100 Balance 1280 480 Intake: Oral 1380 480 Output: Urine 100 Other: Voiding Method Toilet # Voids 1 - Exam Patient is awake, comfortable, no acute distress Examination of the heart S1 and S2 Examination of the lungs bilateral breath sounds are heard Abdomen is soft nontender Examination of lower extremity shows no significant edema REPORTER exam grossly intact - Labs CBC & Chem 7: 09/29/23 08:47 09/29/23 08:47 Labs: Abnormal Lab Results - Last 24 Hours (Table) 09/28/23 09/28/23 09/29/23 Range/Units 08:31 14:12 08:47 WBC 15.5 H (3.8-10.6) k/uL RBC 3.04 L (3.80-5.40) m/uL Hgb 9.8 L (11.4-16.0) gm/dL Hct 30.9 L (34.0-46.0) % MCV 101.6 H (80.0-100.0) fL Neutrophils # 12.8 H (1.3-7.7) k/uL Chloride (98-107) mmol/L Carbon Dioxide (22-30) mmol/L BUN (7-17) mg/dL Creatinine (0.52-1.04) mg/dL Glucose (74-99) mg/dL Transferrin 194.0 L (204.0-354.0) mg/dL Ur Leukocyte Esterase Large H (Negative) Urine WBC 8 H (0-5) /hpf Urine Bacteria Rare H (None) /hpf 09/29/23 Range/Units 08:47 WBC (3.8-10.6) k/uL RBC (3.80-5.40) m/uL Hgb (11.4-16.0) gm/dL Hct (34.0-46.0) % MCV (80.0-100.0) fL Neutrophils # (1.3-7.7) k/uL Chloride 110 H (98-107) mmol/L Carbon Dioxide 21 L (22-30) mmol/L BUN 43 H (7-17) mg/dL Creatinine 1.25 H (0.52-1.04) mg/dL Glucose 109 H (74-99) mg/dL Transferrin (204.0-354.0) mg/dL Ur Leukocyte Esterase (Negative) Urine WBC (0-5) /hpf Urine Bacteria (None) /hpf Assessment and Plan Assessment: 1. Acute kidney injury, ATN, nonoliguric secondary to hypotension. UA is benign. Ultrasound shows no evidence of hydronephrosis. Bilateral nonobstru ctive renal calculi and nephrocalcinosis noted. Shadow noted in the bladder. This will need further evaluation by urology post discharge 2. Hypertension with blood pressure currently low. Coreg dose will be decreased 3. History of CHF with ejection fraction 45% 4. Metabolic acidosis, non-gap associated with acute kidney injury. Lactic acid was also elevated on admission. 5. Hyperkalemia associated with acute kidney injury and metabolic acidosis, currently improved. Rule out urine retention. 6. Anemia rule out iron deficiency 7. History of cardiac arrest with sustained V. tach 8. Coronary artery disease with previous coronary stents 9. Bladder abnormality noted on ultrasound. Will need further evaluation post discharge with urology Plan: Decrease bicarb drip Patient could be discharged from nephrology standpoint however she needs to follow-up with urology as outpatient regarding the abnormality noted on the ultrasound of the bladder. Recommend follow-up with nephrology as well in 1-2 weeks post discharge.
--- NOTE | 2023-09-29 15:42 | P.PN ---
Subjective Progress Note Date: 09/29/23 I am seeing this patient in consultation today 09/27/2023 in the emergency room after she presented with chest pain and associated shortness of breath that started on Tuesday, the day she came into the emergency room. Patient is a 63-year-old female with past medical history significant for V-fib cardiac arrest in March,, ischemic cardiomyopathy status post AICD/pacemaker implantation, coronary artery disease with previous stent to the RCA, hyperlipidemia, significant smoking history, anxiety/depression, among other things. Patient denies any pre-existing lung disease such as COPD or asthma. She does have a significant smoking history of 50 to 75 pack years, but quit in March, after her cardiac arrest. Patient states that she started to experience chest pain on Tuesday morning, while laying in bed. Described as substernal, nonradiating, lasting a couple hours. She is also complaining of some nausea, vomiting, and diarrhea over the last couple days. She denies any lower extremity swelling, orthopnea. Denies any heart palpitations, lightheadedness, syncopal events. Denies any cough, sputum production, fever. She is currently in the emergency room, she is resting comfortably on room air, in no acute distress. Chest x-ray does not show any acute cardiopulmonary pr ocess. Troponins were noted to be elevated at 1.17, 1.54, and 1.64 respectively. ECG shows normal sinus rhythm without any obvious acute ischemic changes. She was started on a heparin infusion per protocol. Patient is no longer complaining of chest pain. Cardiology is managing. Follow-up echoc ardiogram from this admission shows severely reduced left ventricular ejection fraction of 25 to 30%. Patient also had an elevated D-dimer of 0.84. VQ scan showed low probability for PE. Negative for influenza, RSV, COVID. Most recent CBC from yesterday: WBC count 10, hemoglobin 11, hematocrit 33.8, platelets 316. BMP from yesterday: Sodium 139, potassium 5.2, chloride 114, serum bicarb 16, B UN 23, creatinine 1.45, glucose 127. There is a component of acute kidney injury. Potassium was as high as 6.7 on admission. lactic acid level was as high as 3 and is down to 1.1. LFTs mildly elevated. Abdominal ultrasound shows a similarly dilated main pancreatic duct up to 5 mm when compared with recent imaging. There was a dilated bile duct at 8 mm, which is acceptable given postcholecystectomy status, and similar compared to prior exam. Vital signs are stable. The patient is seen today September 28, 2023 in follow-up on the selective care unit. She is currently sitting up in bed. Awake and alert in no acute distress. He is maintaining O2 saturations in the 90s on room air. She is afebrile. Hemodynamically stable. She denies any worsening shortness of breath, cough or congestion. No chest pain. White count 16.9. Hemoglobin 9.4. Platelets 272. Sodium 138. Potassium 4.5. Bicarb 16. BUN 48. Creatinine 1.64. Glucose 254. She remains on bronchodilators, Solu-Medrol. She is on D5W with 3 A of bicarb at 75 MLS per hour. Nephrology is following. The patient is seen today September 29, 2023 in follow-up on the selective care unit. She is awake and alert in no acute distress. She is maintaining good O2 saturations in the 90s on room air. She denies any worsening shortness of breath, cough or congestion. No chest pain or palpitations. She is continued on DuoNeb ventilations, Symbicort. Continued on a bicarb drip at 75 MLS per hour. White count 15.5. Hemoglobin 9.8. Sodium 140. Potassium 3.9. BUN 43. Creatinine 1.25. Bicarb 21. Glucose 109. Objective - Vital Signs Vital signs: Vital Signs Temp 97.8 F 09/29/23 15:32 Pulse 60 09/29/23 15:32 Resp 16 09/29/23 15:32 BP 111/64 09/29/23 15:32 Pulse Ox 93 L 09/29/23 15:32 FiO2 Intake & Output 09/28/23 09/29/23 09/29/23 18:59 06:59 18:59 Intake Total 1380 1138 Output Total 100 Balance 1280 1138 Intake: Oral 1380 1138 Output: Urine 100 Other: Voiding Method Toilet # Voids 1 2 - Exam GENERAL EXAM: Alert, 63-year-old female, on room air, in no apparent distress. HEAD: Normocephalic and atraumatic EYES: Normal reaction of pupils, equal size. NOSE: Clear with pink turbinates. THROAT: No erythema or exudates. NECK: No masses, no JVD. CHEST: No chest wall deformity. LUNGS: Equal air entry with no crackles, wheeze, rhonchi or dullness. No conversational dyspnea. CVS: Distant heart sounds, S1 and S2 normal with no audible murmur, regular rhythm. No extra heart sounds ABDOMEN: No hepatosplenomegaly, active bowel sounds, no guarding or rigidity. SPINE: No scoliosis or deformity SKIN: No rashes CENTRAL NERVOUS SYSTEM: No focal deficits, tone is normal in all 4 extremities. EXTREMITIES: There is no peripheral edema, clubbing, or cyanosis. Peripheral pulses are intact. - Labs CBC & Chem 7: 09/29/23 08:47 09/29/23 08:47 Labs: Abnormal Lab Results - Last 24 Hours (Table) 09/28/23 09/29/23 09/29/23 Range/Units 08:31 08:47 08:47 WBC 15.5 H (3.8-10.6) k/uL RBC 3.04 L (3.80-5.40) m/uL Hgb 9.8 L (11.4-16.0) gm/dL Hct 30.9 L (34.0-46.0) % MCV 101.6 H (80.0-100.0) fL Neutrophils # 12.8 H (1.3-7.7) k/uL Chloride 110 H (98-107) mmol/L Carbon Dioxide 21 L (22-30) mmol/L BUN 43 H (7-17) mg/dL Creatinine 1.25 H (0.52-1.04) mg/dL Glucose 109 H (74-99) mg/dL Transferrin 194.0 L (204.0-354.0) mg/dL Assessment and Plan Assessment: Suspected type II [place], plan is to treat medically Acute dyspnea, possibly secondary to above, recovered and on room air Severe ischemic cardiomyopathy, status post AICD implantation. Follow-up echocardiogram from this admission shows a severely reduced left ventricular ejection fraction of 25 to 30% Elevated D-dimer, VQ scan very low probability for pulmonary embolism. Acute kidney injury, possibly secondary to dehydration Non-anion gap metabolic acidosis Hyperkalemia, improved History of V-fib cardiac arrest, March 2023 Coronary artery disease, with previous stent to the RCA Mild transaminitis History of hyperlipidemia Former tobacco dependence Possible underlying COPD Obesity, with a BMI of 31.1 kg/m History of anxiety/depression Plan: The patient was seen and evaluated Labs and medications reviewed Stable and on room air Continue Symbicort and albuterol HFA Home once cleared by nephrology I have personally seen and examined the patient, performed the documentation and the assessment and plan as written. Number of minutes spent on the visit: 10.
[2023-09-29 15:47] VITALS: BP 111/64; TEMP 97.8
--- NOTE | 2023-10-03 06:55 | P.DS ---
Providers Date of admission: 09/25/23 14:07 Expected date of discharge: 09/29/23 Attending physician: Andry Gamboa Consults: 09/26/23 12:49 Consult Physician Routine Consulting Provider: Aurora Suero Consult Reason/Comments: copd Do you want consulting provider notified?: Yes 09/27/23 13:35 Consult Physician Routine Consulting Provider: Jenni Enriquez Consult Reason/Comments: arf Do you want consulting provider notified?: Yes Primary care physician: William Alberts Hospital Course: Final diagnosis Chronic obstructive pulmonary disease, acute exacerbation Elevated troponins, likely type II [place] Severe cardiomyopathy with severe LV systolic dysfunction, EF 25% Hypokinesis involving the apex on 2D echo Hyperkalemia Acute kidney injury History of coronary artery disease with stenting History of cardiac arrest and sustained ventricular tachycardia Nausea/vomiting, likely acute gastroenteritis, resolved History of GERD Obesity with a BMI 31.1 GI prophylaxis DVT prophylaxis Full code Discharge disposition Patient is being discharged in a stable condition with guarded prognosis to home. Patient will follow-up with Dr. Alberts in the outpatient setting upon discharge. Patient is to continue with current medications and close outpatient follow-up with cardiology as scheduled. Total time taken is greater than 35 minutes. Hospital course This is a 63-year-old female who was recently admitted with shortness of breath and chest pain being closely monitored. Patient with CHF exacerbation along with COPD acute exacerbation. Patient was noted to have elevated troponins underwent 2D echo showing hypokinesis involving the apex with severe cardiomyopathy with systolic dysfunction and an EF of 25 to 30%. Patient also with acute kidney injury showing improvements. Patient reports to feeling well and evaluated by cardiology recommending close outpatient follow-up. Patient has been cleared by consultations for discharge home today. Patient to follow- up with nephrology outpatient with repeat labs as well to monitor kidney functions and electrolytes. Please refer to other consultation notes for further HPI. Currently no reports of chest pain, shortness of breath, or palpitations. Patient is afebrile. No reports of nausea or vomiting and patient is tolerating diet. Patient will be discharged home today. Physical exam: Gen: This is a 63-year-old female who is awake, alert and oriented x 3, well- developed, well-nourished, obese HEENT: Head is atraumatic, normocephalic. Pupils equal, round. Sclerae is anicteric. NECK: Supple. No JVD. No lymphadenopathy. No thyromegaly. LUNGS: Diminished breath sounds bilaterally otherwise clear to auscultation. No wheezes or rhonchi. No intercostal retractions. HEART: S1, S2 are muffled ABDOMEN: Soft. Obese. Bowel sounds are present. No masses. No tenderness. EXTREMITIES: No pedal edema. No calf tenderness. NEUROLOGICAL: Patient is awake, alert and oriented x3. Cranial nerves 2 through 12 are grossly intact. Please refer to medication reconciliation sheet for a list of medications. The impression and plan of care has been dictated by Dina Ledesma, Nurse Practitioner as directed. Dr. Denise MD I have performed a history and examination and MDM of this patient, discussed the same with the dictator, and agree with the dictator's assessment and plan as written ,documented as a scribe. Based on total visit time, I have performed more than 50% of the visit. Patient Condition at Discharge: Fair Plan - Discharge Summary Discharge Rx Participant: Yes New Discharge Prescriptions: New carvediloL [Coreg] 6.25 mg PO AC-BID #60 tab Budesonide-Formot 160-4.5 Mcg [Symbicort 160-4.5 Mcg Inhaler] 2 puff INHALATION RT-BID #1 each Acetaminophen Tab [Tylenol] 325 mg PO Q6HR PRN tab PRN Reason: Fever And/ Or Pain Continue Albuterol Sulfate [Ventolin HFA] 2 puff INHALATION RT-Q6H PRN PRN Reason: Shortness Of Breath ALPRAZolam [Xanax] 1 mg PO BID Atorvastatin [Lipitor] 80 mg PO HS #60 tab Aspirin 81 mg PO HS Clopidogrel [Plavix] 75 mg PO DAILY Isosorbide Mononitrate ER [Imdur] 30 mg PO DAILY Magnesium Oxide [Mag-Ox] 400 mg PO HS Discontinued Spironolactone [Aldactone] 25 mg PO DAILY lisinopriL [Zestril] 10 mg PO BID Vortioxetine Hydrobromide [Trintellix] 20 mg PO HS carvediloL 25 mg PO BID Discharge Medication List Albuterol Sulfate [Ventolin HFA] 2 puff INHALATION RT-Q6H PRN 12/26/20 [History] ALPRAZolam [Xanax] 1 mg PO BID 07/18/21 [History] Atorvastatin [Lipitor] 80 mg PO HS #60 tab 04/23/23 [Rx] Aspirin 81 mg PO HS 05/20/23 [History] Clopidogrel [Plavix] 75 mg PO DAILY 05/20/23 [History] Isosorbide Mononitrate ER [Imdur] 30 mg PO DAILY 05/20/23 [History] Magnesium Oxide [Mag-Ox] 400 mg PO HS 05/20/23 [History] Acetaminophen Tab [Tylenol] 325 mg PO Q6HR PRN tab 09/29/23 [Rx] Budesonide-Formot 160-4.5 Mcg [Symbicort 160-4.5 Mcg Inhaler] 2 puff INHALATION RT-BID #1 each 09/29/23 [Rx] carvediloL [Coreg] 6.25 mg PO AC-BID #60 tab 09/29/23 [Rx] Follow up Appointment(s)/Referral(s): Jan Andersen MD [STAFF PHYSICIAN] - 1 Week (Call and make renuka) Jenni Enriquez MD [STAFF PHYSICIAN] - 1 Week (Call and make renuka) Emil Bellamy MD [STAFF PHYSICIAN] - 1 Week (Call and make renuka) William Alberts DO [Primary Care Provider] - 1-2 days (Call and make renuka) Patient Instructions/Handouts: Heart Attack (DC), Acute Kidney Injury (DC) Activity/Diet/Wound Care/Special Instructions: Activity limited until follow-up Follow-up with primary care provider on discharge Follow-up with cardiology in 1 week Follow-up with nephrology outpatient Continue heart healthy renal diet Discharge/Stand Alone Forms: Area PCPs Discharge Disposition: HOME SELF-CARE
== END 2023-09-29 16:10 | disposition home or self-care (01) | DRG 280 ==
LOC: EC 12:22 → 3SCARD 14:07
PROVIDERS: ADMIT Internal Medicine; ATTEND Internal Medicine
PROC: 05HC33Z Insertion of Infusion Device into Left Basilic Vein, Percutaneous Approach (ICD-10-PCS; principal; 2023-09-29 08:45)
DX: I25.5 Ischemic cardiomyopathy (principal); N17.0 Acute kidney failure with tubular necrosis; I21.A1 Myocardial infarction type 2; J44.1 Chronic obstructive pulmonary disease with (acute) exacerbation; E87.20 Acidosis, unspecified; I50.22 Chronic systolic (congestive) heart failure; E87.5 Hyperkalemia; E66.9 Obesity, unspecified; Z68.31 Body mass index [BMI] 31.0-31.9, adult; R79.89 Other specified abnormal findings of blood chemistry; E78.5 Hyperlipidemia, unspecified; E83.59 Other disorders of calcium metabolism; I11.0 Hypertensive heart disease with heart failure; N29 Other disorders of kidney and ureter in diseases classified elsewhere; D50.9 Iron deficiency anemia, unspecified; I25.10 Atherosclerotic heart disease of native coronary artery without angina pectoris; R74.01 Elevation of levels of liver transaminase levels; I95.9 Hypotension, unspecified; K57.30 Diverticulosis of large intestine without perforation or abscess without bleeding; K21.9 Gastro-esophageal reflux disease without esophagitis; K52.9 Noninfective gastroenteritis and colitis, unspecified; F32.A Depression, unspecified; F41.9 Anxiety disorder, unspecified; Z86.74 Personal history of sudden cardiac arrest; Z87.891 Personal history of nicotine dependence; Z95.810 Presence of automatic (implantable) cardiac defibrillator; I25.2 Old myocardial infarction; Z95.5 Presence of coronary angioplasty implant and graft; Z79.82 Long term (current) use of aspirin; Z79.899 Other long term (current) drug therapy; Z79.02 Long term (current) use of antithrombotics/antiplatelets; Z11.52 Encounter for screening for COVID-19
CPT/HCPCS: 36410; 36415; 71046; 76705; 76770; 76937; 78582; 80048; 80053; 80061; 80074; 81001; 83540; 83550; 83605; 83735; 83880; 84132; 84484; 85025; 85379; 85610; 85730; 87636; 93005; 93308; 94640; 96365; 96366; 96375; 96376; 99291

== ENCOUNTER → 2023-10-05 | Outpatient (CLI) | payer MEDICARE ==
[2023-10-05 17:25] LABS: ALT 25 U/L (8-44); AST 25 U/L (13-35); Albumin/Globulin Ratio 1.74 Ratio (1.60-3.17); Alkaline Phosphatase 109 U/L (41-126); BUN/Creat Ratio 14.15 Ratio (12.00-20.00); Blood Urea Nitrogen 18.4 mg/dL (9.0-27.0); Calcium 9.7 mg/dL (8.7-10.3); Chloride 107 mmol/L (96-109); Globulin 2.3 g/dL (1.6-3.3); Glucose 161 mg/dL (70-110); Magnesium 2.3 mg/dL (1.5-2.4); Potassium 5.4 mmol/L (3.5-5.5); Sodium 140 mmol/L (135-145); Total Bilirubin 0.4 mg/dL (0.3-1.2); Total Protein 6.3 g/dL (6.2-8.2)
== END | disposition home or self-care (01) ==
LOC: LABWHC1 11:44
PROVIDERS: ATTEND Internal Medicine Clinical Cardiac Electrophysiology
DX: I10 Essential (primary) hypertension (principal)
CPT/HCPCS: 36415; 80053; 83735

== ENCOUNTER → 2023-12-21 | Outpatient (CLI) | payer MEDICARE ==
[2023-12-21 19:33] LABS: BUN/Creat Ratio 9.85 Ratio (12.00-20.00); Blood Urea Nitrogen 12.8 mg/dL (9.0-27.0); Calcium 9.5 mg/dL (8.7-10.3); Carbon Dioxide 21.7 mmol/L (21.6-31.8); Chloride 109 mmol/L (96-109); Glucose 82 mg/dL (70-110); Magnesium 2.4 mg/dL (1.5-2.4); Potassium 4.7 mmol/L (3.5-5.5); Sodium 143 mmol/L (135-145)
== END | disposition home or self-care (01) ==
LOC: LABWHC1 12:24
PROVIDERS: ATTEND Internal Medicine Clinical Cardiac Electrophysiology
DX: R10.9 Unspecified abdominal pain (principal)
CPT/HCPCS: 36415; 80048; 83735

== ENCOUNTER → 2024-08-27 | Outpatient (CLI) | payer MEDICARE ==
[2024-08-27 16:51] LABS: Basophils # (A) 0.06 X 10*3/uL (0.00-0.10); Basophils % (A) 0.7 %; Eosinophils # (A) 0.28 X 10*3/uL (0.04-0.35); Eosinophils % (A) 3.1 %; HCT 36.9 % (37.2-46.3); HGB 11.7 g/dL (12.0-15.0); Lymphocytes # (A) 2.41 X 10*3/uL (0.90-5.00); Lymphocytes % (A) 26.3 %; MCH 31.2 pg (27.0-32.0); MCHC 31.7 g/dL (32.0-37.0); MCV 98.4 FL (80.0-97.0); Mean Platelet Volume 10.4 FL (9.5-12.2); Monocytes # (A) 0.73 X 10*3/uL (0.20-1.00); NRBC Per 100 WBC 0 X 10*3/uL (0.00-0.01); Neutrophils # (A) 5.63 X 10*3/uL (1.80-7.70); Neutrophils % (A) 61.2 %; Platelet Count 240 X 10*3/uL (140-440); RBC 3.75 X 10*6/uL (4.10-5.20); RDW 13.4 % (11.5-14.5); WBC 9.17 X 10*3/uL (4.50-10.00)
[2024-08-27 17:38] LABS: ALT 19 U/L (8-44); AST 20 U/L (13-35); Albumin 3.7 g/dL (3.8-4.9); Albumin/Globulin Ratio 1.68 Ratio (1.60-3.17); Alkaline Phosphatase 105 U/L (41-126); BUN/Creat Ratio 13.43 Ratio (12.00-20.00); Blood Urea Nitrogen 18.8 mg/dL (9.0-27.0); Calcium 9.2 mg/dL (8.7-10.3); Carbon Dioxide 23.5 mmol/L (21.6-31.8); Chloride 108 mmol/L (96-109); Chol/HDL Ratio 3.27 Ratio; Globulin 2.2 g/dL (1.6-3.3); Glucose 91 mg/dL (70-110); Magnesium 2.4 mg/dL (1.5-2.4); Potassium 4.3 mmol/L (3.5-5.5); Sodium 141 mmol/L (135-145); Total Bilirubin 0.3 mg/dL (0.3-1.2); Total Protein 5.9 g/dL (6.2-8.2)
== END | disposition home or self-care (01) ==
LOC: LABWHC1 09:59
PROVIDERS: ATTEND Internal Medicine Clinical Cardiac Electrophysiology
DX: I47.20 Ventricular tachycardia, unspecified (principal); I25.10 Atherosclerotic heart disease of native coronary artery without angina pectoris; I42.8 Other cardiomyopathies
CPT/HCPCS: 36415; 80053; 80061; 83735; 84443; 85025